=== PATIENT | male | born 1955 | race Caucasian/White ===

== ENCOUNTER → 2019-08-14 15:44 | Outpatient (BNVA) | payer MEDICAID, SELFPAY | PROVIDERS: Family Provider Nurse Practitioner; PCP Nurse Practitioner; Visit Provider Specialist | DX: I99.8 Other disorder of circulatory system (principal); G47.10 Hypersomnia, unspecified; F17.210 Nicotine dependence, cigarettes, uncomplicated; Z86.73 Personal history of transient ischemic attack (TIA), and cerebral infarction without residual deficits | CPT/HCPCS: 99214 ==

== ENCOUNTER → 2019-08-19 11:05 | Outpatient (BNVA) | payer MEDICAID, SELFPAY | PROVIDERS: Family Provider Nurse Practitioner; PCP Nurse Practitioner; Visit Provider Nurse Practitioner Family | DX: I10 Essential (primary) hypertension (principal); Z12.5 Encounter for screening for malignant neoplasm of prostate; M54.30 Sciatica, unspecified side; G47.10 Hypersomnia, unspecified; E78.5 Hyperlipidemia, unspecified; F32.9 Major depressive disorder, single episode, unspecified | CPT/HCPCS: 80053; 80061; 84443; 85025; G0103 ==

== ENCOUNTER 2019-08-20 08:43 | Outpatient (CLI) | payer MEDICAID, SELFPAY ==
--- NOTE | 2019-08-20 09:30 | MR_ITS ---
WS: [id number] MRA HEAD TECHNIQUE: Axial 3-D TOF images obtained with axial images and axial, sagittal, and coronal 2-D refor matted images. CLINICAL INFORMATION: aneurysm COMPARISON: CTA head neck December 14, 2018 FINDINGS: On the scouts imaging and partially visualized is a left frontoparietal subdural fluid colle ction presumably subdural hematoma measuring 13 mm in transverse dimension. Moderate mass effect on t he underlying brain parenchyma. No hydrocephalus. Recommend further evaluation with head CT. Distal vertebral arteries are patent. Left dominant distal vertebral artery. Basilar artery is patent . Normal vascularity to the [employer]ATIONS ADVOC[employer] territory bilaterally. Both ICAs are patent at the skull base. Normal vascularity to the NANCY and MCA territories bilaterally . Hypoplastic right A1. No evidence of high-grade proximal stenosis. Again seen is the 3 mm anterior communicating artery aneurysm. This is not significantly changed from previous CTA December 14, 2018. Normal vascularity to the NANCY territory. Notified Rosa Maria Titus MD at 08/20/2019 10:39 AM. 1. MR/MR angio head wo con [id number] IMPRESSION: 1. Stable 3 mm anterior communicating artery aneurysm. 2. Partially visualized left frontal parietal extra-axial fluid collection lik trav subdural hematoma with partially visualized mass effect. Recommend further evaluation with CT. No hydrocephalus. 3. Left dominant vertebral artery. Basilar artery is patent. 4. Normal variant hypoplastic right A1 segment. 5. No evidence of high-grade proximal stenosis.
== END 2019-08-20 08:44 | disposition home or self-care (01) ==
LOC: RADSHAW 08:45
PROVIDERS: Family Provider Nurse Practitioner; PCP Nurse Practitioner; Visit Provider Specialist
DX: I72.9 Aneurysm of unspecified site (principal)
CPT/HCPCS: 70544

== ENCOUNTER 2019-09-11 14:42 | Outpatient (CLI) | payer MEDICAID, SELFPAY ==
--- NOTE | 2019-09-11 15:15 | CT_ITS ---
WS: [id number] CT HEAD TECHNIQUE: Noncontrast CT of the head obtained from the skullbase to the vertex. CLINICAL INFORMATION: subdural hematoma COMPARISON: MRA 08/20/19 DLP: 992.[address] scans at [facility] use at least one of these dose optimization techniques: automat ed exposure control; mA and/or kV adjustment per patient size (includes targeted exams where dose is matched to clinical indication); or iterative reconstruction. FINDINGS: Again seen is the extra-axial hematoma overlying the left hemisphere more prominent overlying the fro ntal lobe. This appears to have increased in size since the prior MRA today measuring 2.5 cm in trans verse dimension. Increased attenuation blood products suggestive of interval hemorrhage since the haley or examination. In addition, hematoma today has changed in configuration with a lentiform shape today suspicious for epidural hematoma. No visualized fractures. Increased mass effect with left to right midline shift measuring 5.3 mm. Partial effacement of the le ft lateral ventricle increased from previous. No hydrocephalus. No ventricular trapping. Mild parenchymal volume loss. Basal cisterns are cisternal are patent. Dense vascular calcification. Partial opacification left mastoid tip.. Notified Rosa Maria Titus MD at 09/11/2019 3:[address]/CT head wo con* [id number] IMPRESSION: 1. Interval increase in size of the high attenuation extra-axial hematoma. To this measures 2.5 cm in transverse dimension with attenuation hemorrhage sugges tive of interval bleeding. 2. Mass effect on the left frontal lobe with left to right midline shift measu ring 5.3 mm. No hydrocephalus. Hemodynamic configuration today is suspicious for epidural hematoma. No visuali zed underlying fractures.
== END 2019-09-11 14:43 | disposition home or self-care (01) ==
LOC: RADWPI 14:44
PROVIDERS: Family Provider Nurse Practitioner; PCP Nurse Practitioner; Visit Provider Specialist
DX: S06.5X9A Traumatic subdural hemorrhage with loss of consciousness of unspecified duration, initial encounter (principal); X58.XXXA Exposure to other specified factors, initial encounter
CPT/HCPCS: 70450

== ENCOUNTER 2019-09-11 16:09 | Emergency (ER) | payer MEDICAID, SELFPAY | END 2019-09-11 23:09 | disposition admitted as inpatient to this hospital (09) | LOC: ER 10-14 10:36 | PROVIDERS: Emergency Provider Emergency Medicine; Family Provider Nurse Practitioner; PCP Nurse Practitioner | DX: I62.9 Nontraumatic intracranial hemorrhage, unspecified (principal); I67.1 Cerebral aneurysm, nonruptured; F32.9 Major depressive disorder, single episode, unspecified; E78.5 Hyperlipidemia, unspecified; I10 Essential (primary) hypertension; E05.90 Thyrotoxicosis, unspecified without thyrotoxic crisis or storm; I63.81 Other cerebral infarction due to occlusion or stenosis of small artery; F17.210 Nicotine dependence, cigarettes, uncomplicated | CPT/HCPCS: 12345; 36415; 80053; 80307; 85025; 85610; 85730; 96360; 96361; 99282; 99285; J7030 ==

== ENCOUNTER 2019-09-11 16:09 | Inpatient (IN) | payer MEDICAID, SELFPAY ==
[2019-09-11] VITALS (9 sets, daily range): BP systolic 124–151; BP diastolic 67–114; PULSE 56–82; RESP 7–23; TEMP 36.6–36.7; O2SAT 94–99; BMI 29.2
--- NOTE | 2019-09-11 16:49 | ED_ITS ---
Entered by Norma Snyder, acting as scribe for Obdulia Todd MD HPI - General Adult General: Chief complaint: General Medical Stated complaint: sent by eloise Time Seen by Provider: 09/11/19 16:49 Source: patient and RN notes reviewed Mode of arrival: ambulatory Limitations: no limitations History of Present Illness: HPI narrative: 63 yo male presents to ED stating he has a possible brain bleed, per Dr Titus. The patient has a confirmed aneurysm and had an MRI for a follow up to that. He was seen by Dr Titus who sent him to the ER. The patient said he was demar on a camper in July and he fell, landing on his head. He has had a headache for 4 days. He has had no change in his behavior or actions since the fall. He said he has felt fine. He takes a baby aspirin a day, but no other anticoagulants. complaint: Fall Onset (ago): month(s) (1.5) Location: head Radiation: non-radiation Severity: mild Quality: aching Pain Consistency: intermittent Relieving factors: none Exacerbating factors: none Associated symptoms: Reports headache(s); Deny chest pain, dyspnea, nausea, rash or vomiting Treatments prior to arrival: none Review of Systems General: Reports: 10 or more systems reviewed and unremarkable except in HPI and below Const: Denies: fever or chills Eyes: Denies: change in vision ENMT: Denies: throat pain Card: Denies: chest pain Resp: Denies: shortness of breath GI: Denies: abdominal pain, nausea, vomiting or change in bowel habits Musc: Denies: muscle weakness Skin/Breast: Denies: rash Neuro: Reports: headache Psych: Denies: hopelessness or suicidal ideation Endo: Denies: excessive urination Casey/Lymph: Denies: easy bruising or easy bleeding All/Imm: Denies: hives PFS ED PFSH: Medical History (Updated 09/11/19 @ 21:09 by Andreina Marshall MD) Cerebral aneurysm Anterior communicating Artery, unruptured, 3mm Depression history of previous SI episodes History of alcohol dependence sobriety date 02/01 Hyperlipidemia Hypertension Hyperthyroidism Lacunar stroke Sciatica TIA (transient ischemic attack) Surgical History (Updated 09/11/19 @ 22:15 by Andreina Marshall MD) History of ankle surgery left, for fracture History of surgery on right wrist Social History (Updated 09/11/19 @ 20:55 by Andreina Marshall MD) Smoking and tobacco status: current every day smoker cigarettes Packs smoked per day: 0.25 Alcohol intake: former Year of sobriety/quit date alcohol: 02/01 Substance/Drug Use: current Substance/Drug use frequency: few times a week Substance/Drug use type: Marijuana Physical Exam Const: COMMON NORMALS: oriented x3 and alert ORIENTATION/CONSCIOUSNESS: Yes oriented to person, Yes oriented to place and Yes oriented to time HENMT: COMMON NORMALS: normocephalic, external ears normal and external nose normal HEAD & SCALP: normocephalic NOSE: external nose normal EXTERNAL EAR: Yes external ears normal MOUTH: oral and palatal mucosa normal THROAT: posterior oropharynx normal Eye: COMMON NORMALS: PERRL, EOMs intact bilaterally, conjunctivae normal, no scleral icterus and normal visual benites by confrontation CONJUNCTIVA: Yes conjunctivae normal PUPIL: Yes PERRL Neck/C-Spine: COMMON NORMALS: full ROM, no lymphadenopathy, supple, no meningeal signs and no JVD CERVICAL SPINE: Yes cervical ROM normal Lymph: LYMPHATIC: no lymphadenopathy noted Chest: COMMONS NORMALS: inspection of chest normal Resp: COMMON NORMALS: normal respiratory effort, no retractions, no use of accessory muscles and clear to auscultation bilaterally AUSCULTATION: clear to auscultation bilaterally Cardio: COMMON NORMALS: no JVD, regular rate, regular rhythm, no gallops, no clicks, no murmurs and no rub RATE: regular rate RHYTHM: regular rhythm GI: COMMON NORMALS: normal to inspection, nondistended, normoactive bowel sounds, soft to palpation and non-tender AUSCULTATION: Yes normoactive bowel sounds PALPATION: Yes soft : COMMON NORMALS: Yes no CVA tenderness BLADDER/KIDNEY EXAM: Yes no CVA tenderness Back/Pelvis: COMMON NORMALS: no CVA tenderness Extremity: COMMON NORMALS: normal to inspection Neuro: COMMON NORMALS: oriented x3, no focal motor deficits and no sensory deficits noted SENSORIUM/ORIENTATION: Yes alert, Yes oriented to person, Yes oriented to place and Yes oriented to time MENINGEAL SIGNS: Yes no meningeal signs CRANIAL NERVES: Yes CN normal except as noted COORDINATION/BALANCE: [id number] test normal SPEECH: speech normal COORDINATION: [id number] test normal Psych: COMMON NORMALS: mental status grossly normal, thought process normal, cooperative, affect normal, speech normal, activity/motor behavior normal, denies hallucinations, denies homicidal ideation and denies suicidal ideation SPEECH: Yes normal speech THOUGHT PROCESS: normal thought process Skin: COMMON NORMALS: no rashes or lesions noted GENERAL SKIN EXAM: no rashes or lesions noted Course Vital Signs: Vital signs: Vital Signs Temperature 98.0 F 09/11/19 16:10 Pulse Rate 74 09/11/19 16:10 Respiratory Rate 16 09/11/19 16:10 Blood Pressure 151/114 09/11/19 16:10 Pulse Oximetry 96 09/11/19 16:10 MDM - General Adult MDM Narrative: Medical decision making narrative: Discussed with Dr. Ridley who already knew about the patient from Dr. Titus. He recommends admission to the hospital service keep patient n.p.o. If he remains virtually asymptomatic will see him tomorrow and discuss options but should he change or deteriorate in any way may need to intervene before tomorrow. I also discussed with Dr. Villanueva who will relay the information to Dr. Marshall as she is the hospitalist coming on shortly and she will admit the patient. Lab Data: Attestation: I reviewed the patient's lab results. Labs: Lab Results 09/11/19 09/11/19 09/11/19 Range/Units 16:56 16:56 16:56 WBC 5.6 (4.0-10.0) 10^3/ uL RBC 4.53 (4.1-5.3) 10^6/u L Hgb 14.5 (11.7-16.6) g/dL Hct 41.7 L (42.0-52.0) % MCV 92.1 (80-94) fL MCH 32.0 (28.0-34.0) pg MCHC 34.8 (30.0-36.0) g/dL RDW 12.2 (12.1-15.1) % Plt Count 261 (130-400) 10^3/c mm MPV 10.0 (7.4-10.4) fL Neut % (Auto) 63.8 % Lymph % (Auto) 20.8 % [place] % (Auto) 10.8 % Eos % (Auto) 3.4 % Baso % (Auto) 0.5 % Neut # (Auto) 3.6 (1.8-7.7) 10^3/u L Lymph # (Auto) 1.2 (0.8-4.8) 10^3/u L [place] # (Auto) 0.6 (0.2-0.9) 10^3/u L Eos # (Auto) 0.2 (0.0-0.8) 10^3/u L Baso # (Auto) 0.0 (0.0-0.1) 10^3/u L Nucleated RBC % (a uto) 0 % Nucleated RBCs # 0.0 /100WBC PT 13.90 H (10.5-13.3) SECO NDS INR 1.04 (0.8-1.2) APTT 32.8 (23.9-36.7) SECO NDS Sodium 139 (136-145) mmol/L Potassium 4.1 (3.5-5.1) mmol/L Chloride 103 (98-107) mmol/L Carbon Dioxide 25 (22-29) mmol/L Anion Gap 15.1 (5-19) BUN 8 (8-23) mg/dL Creatinine 0.7 (0.7-1.2) mg/dL GFR Calculation 114.6 (90-130) mL/min Glucose 93 (65-115) mg/dL Calcium 9.8 (8.5-10.5) mg/dL Total Bilirubin 0.4 (0.15-1.2) mg/dL AST 27 (0-40) U/L ALT 19 (0-41) U/L Alkaline Phosphata se 84 (40-130) IU/L Total Protein 7.6 (6.6-8.7) g/dL Albumin 4.7 (3.5-5.2) g/dL Globulin 2.9 (1.3-4.6) g/dL Ethyl Alcohol (0-10) mg/dL 09/11/19 Range/Units 16:56 WBC (4.0-10.0) 10^3/ uL RBC (4.1-5.3) 10^6/u L Hgb (11.7-16.6) g/dL Hct (42.0-52.0) % MCV (80-94) fL MCH (28.0-34.0) pg MCHC (30.0-36.0) g/dL RDW (12.1-15.1) % Plt Count (130-400) 10^3/c mm MPV (7.4-10.4) fL Neut % (Auto) % Lymph % (Auto) % Dallas % (Auto) % Eos % (Auto) % Baso % (Auto) % Neut # (Auto) (1.8-7.7) 10^3/u L Lymph # (Auto) (0.8-4.8) 10^3/u L [place] # (Auto) (0.2-0.9) 10^3/u L Eos # (Auto) (0.0-0.8) 10^3/u L Baso # (Auto) (0.0-0.1) 10^3/u L Nucleated RBC % (a uto) % Nucleated RBCs # /100WBC PT (10.5-13.3) SECO NDS INR (0.8-1.2) APTT (23.9-36.7) SECO NDS Sodium (136-145) mmol/L Potassium (3.5-5.1) mmol/L Chloride (98-107) mmol/L Carbon Dioxide (22-29) mmol/L Anion Gap (5-19) BUN (8-23) mg/dL Creatinine (0.7-1.2) mg/dL GFR Calculation (90-130) mL/min Glucose (65-115) mg/dL Calcium (8.5-10.5) mg/dL Total Bilirubin (0.15-1.2) mg/dL AST (0-40) U/L ALT (0-41) U/L Alkaline Phosphata se (40-130) IU/L Total Protein (6.6-8.7) g/dL Albumin (3.5-5.2) g/dL Globulin (1.3-4.6) g/dL Ethyl Alcohol 43 H (0-10) mg/dL Imaging Data^: CT Head: Radiologist's impression: [address] [address] [address] Scan Report Signed Patient: Gavin French Jr #: [id number] : 8Acct#:[id number] Age/Sex: 63 / MADM Date: 09/11/19 Loc: RADWPIRoom/Bed: Attending Dr: Rosa Maria Titus MD Ordering Provider/Ordering MD: Rosa Maria Titus MD Date of Service: 09/11/19 Procedure(s): CT head wo con* [id number] Accession Number(s): [id number] Report Number: [id number] WS: [id number] CT HEAD TECHNIQUE: Noncontrast CT of the head obtained from the skullbase to the vertex. CLINICAL INFORMATION: subdural hematoma COMPARISON: MRA 08/20/19 DLP: 992.[address] scans at [facility] use at least one of these dose optimization techniques: automated exposure control; mA and/or kV adjustment per patient size (includes targeted exams where dose is matched to clinical indication); or iterative reconstruction. FINDINGS: Again seen is the extra-axial hematoma overlying the left hemisphere more prominent overlying the frontal lobe. This appears to have increased in size since the prior MRA today measuring 2.5 cm in transverse dimension. Increased attenuation blood products suggestive of interval hemorrhage since the prior examination. In addition, hematoma today has changed in configuration with a lentiform shape today suspicious for epidural hematoma. No visualized fractures. Increased mass effect with left to right midline shift measuring 5.3 mm. Partial effacement of the left lateral ventricle increased from previous. No hydrocephalus. No ventricular trapping. Mild parenchymal volume loss. Basal cisterns are cisternal are patent. Dense vascular calcification. Partial opacification left mastoid tip.. Notified Rosa Maria Titus MD at 09/11/2019 3:[address]/CT head wo con* [id number] IMPRESSION: 1. Interval increase in size of the high attenuation extra-axial hematoma. To this measures 2.5 cm in transverse dimension with attenuation hemorrhage suggestive of interval bleeding. 2. Mass effect on the left frontal lobe with left to right midline shift measuring 5.3 mm. No hydrocephalus. Hemodynamic configuration today is suspicious for epidural hematoma. No visualized underlying fractures. Dictated By:Itz Valles MD Signed By:Itz Valles MDSigned Date/Time:09/11/19 1539 DD/ Discharge Plan Discharge Patient Disposition: Admitted As Inpatient Clinical Impression: Intracranial hemorrhage, Aneurysm, cerebral Condition: Stable Referrals: Javier Villalobos, CIVIL CAD TECH-C [Primary Care Provider] - Coding Level of Care Code ED Hot [place] Production Supervisor for Chg Fwd Exam Comprehensive The documentation recorded by the Claudio gandara Valerie R, accurately reflects the service I personally performed and the decisions made by Perez day Megan, MD Sep 11, 2019 16:09
[2019-09-11 17:17] LABS: Basophils % 0.5 %; Eosinophils # 0.2 10^3/uL (0.0-0.8); Eosinophils % 3.4 %; Hematocrit 41.7 % (42.0-52.0); Hemoglobin 14.5 g/dL (11.7-16.6); Lymphocytes # 1.2 10^3/uL (0.8-4.8); Lymphocytes % 20.8 %; Mean Corpuscular HGB Conc 34.8 g/dL (30.0-36.0); Mean Corpuscular Volume 92.1 fL (80-94); Monocytes # 0.6 10^3/uL (0.2-0.9); Monocytes % 10.8 %; Neutrophils # 3.6 10^3/uL (1.8-7.7); Neutrophils % 63.8 %; Nucleated Red Blood Cells % 0 %; Platelet Count 261 10^3/cmm (130-400); Red Blood Count 4.53 10^6/uL (4.1-5.3); Red Cell Distribution Width 12.2 % (12.1-15.1); White Blood Count 5.6 10^3/uL (4.0-10.0)
[2019-09-11 17:42] LABS: Alanine Aminotransferase 19 U/L (0-41); Albumin Level 4.7 g/dL (3.5-5.2); Alkaline Phosphatase 84 IU/L (40-130); Anion Gap 15.1 (5-19); Aspartate Amino Transferase 27 U/L (0-40); Blood Urea Nitrogen 8 mg/dL (8-23); Calcium 9.8 mg/dL (8.5-10.5); Carbon Dioxide 25 mmol/L (22-29); Chloride 103 mmol/L (98-107); Globulin 2.9 g/dL (1.3-4.6); Glomerular Filtration Rate 114.6 mL/min (90-130); Glucose 93 mg/dL (65-115); Potassium 4.1 mmol/L (3.5-5.1); Sodium 139 mmol/L (136-145); Total Bilirubin 0.4 mg/dL (0.15-1.2); Total Protein 7.6 g/dL (6.6-8.7)
[2019-09-11 18:01] LABS: INR 1.04 (0.8-1.2); Partial Thromboplastin Time 32.8 SECONDS (23.9-36.7)
[2019-09-11] MEDS: sodium chloride 0.9% 1,000 ML 125 ML IV (18:54)
[2019-09-11 19:01] LABS: Alcohol Level 43 mg/dL (0-10)
--- NOTE | 2019-09-11 19:27 | P.CONIM_ITS ---
Providers/Reason For Consult Consulting Physican/Specialty*: Dhara Ridley MD/Neurosurgery Reason for Consult*: Subacute left frontal extra-axial hematoma Requesting Physcian: Dr. Todd Primary Care Provider: KAITLYNN Hurd History of Present Illness History of Present Illness Gavin French Jr is a 63 year old male who presented to the emergency department after a scheduled CT head demonstrated progression of a left frontal extra-axial hematoma. The patient is managed by Dr. Titus, and had a routine surveillance MRA of the head performed on 08/20/2019 for evaluation of a known small unruptured anterior communicating artery aneurysm. The aneurysm appeared stable, but a new left frontoparietal convexity subdural hematoma was demonstrated. A follow-up CT was ordered, and ultimately completed today. That study suggested hematoma enlargement, with associated progressive mass-effect. Dr. Titus discussed the case with me, and instructed the patient to present to the Emergency Department. He retrospectively reported a fall from a camper in July. He struck the back of his head, and sustained a laceration. He did not seek medical care at that time. He reported no headaches until approximately 4 days ago. He was evaluated appropriately in the ED, and found to be without focal neurologic deficits or significant laboratory abnormalities. Formal Neurosurgery consultation was requested. Review of Systems Const: Denies: fever or chills Eyes: Reports: blurry vision (cataracts); Denies: change in vision ENMT: Reports: disequilibrium (mld, chronic); Denies: ear discharge or nasal discharge Card: Denies: palpitations or edema Resp: Denies: shortness of breath or productive cough GI: Denies: nausea or vomiting : Denies: flank pain or urinary incontinence Musc: Reports: back pain (chronic, intermittent) and other (reports extremity muscle soreness after working on a roof yesterday) Skin/Breast: Denies: rash or sores Neuro: Reports: headache; Denies: numbness in extremities, weakness in extremities or slurred speech Psych: Reports: depression (history) Casey/Lymph: Denies: easy bruising or easy bleeding All/Imm: Denies: hives or tongue swelling Meds/Allergies Home Medications and Allergies Home Medications Medication Instructions Recorded Confirmed Type aspirin 81 mg tablet,delayed 81 mg PO QDAY 08/14/19 09/11/19 History release citalopram 40 mg PO DAILY 09/11/19 09/11/19 History hydroxyzine pamoate 50 mg PO DAILY PRN 09/11/19 09/11/19 History lisinopril 40 mg PO DAILY 09/11/19 09/11/19 History multivitamin [Multiple Vitamins] 1 tab PO DAILY 09/11/19 09/11/19 History Allergies Allergy/AdvReac Type Severity Reaction Status Date / Time No Known Allergies Allergy Verified 09/11/19 16:14 Current Medications Current Medications Generic Name Dose Route Start Last Admin Trade Name Freq PRN Reason Stop Dose Admin Sodium Chloride 1,000 mls @ 125 mls/hr 09/11/19 18:45 09/11/19 18:54 Sodium Chloride 0.9% IV 125 mls/hr .Q8H OBED Administration PFSH Acute PFSH: Medical History Cerebral aneurysm Anterior communicating Artery, unruptured, 3mm Depression history of previous SI episodes History of alcohol dependence reported sobriety date of 02/01 Hyperlipidemia Hypertension Hyperthyroidism Lacunar stroke Sciatica TIA (transient ischemic attack) Surgical History History of ankle surgery left, for fracture History of surgery on right wrist Social History Smoking and tobacco status: current every day smoker cigarettes Packs smoked per day: 0.25 Alcohol intake: former Year of sobriety/quit date alcohol: 02/01 Substance/Drug Use: current Substance/Drug use frequency: few times a week Substance/Drug use type: Marijuana Vitals/I&O/Wt Last Vital Signs Temp 98.0 F 09/11/19 16:10 Pulse 74 09/11/19 16:10 Resp 16 09/11/19 16:10 BP 151/114 09/11/19 16:10 Pulse Ox 96 09/11/19 16:10 Weight last 48 hrs Weight 170 lb Physical Exam Const: COMMON NORMALS: no apparent distress, healthy appearing and alert GENERAL APPEARANCE: cooperative, well kempt and well developed HENMT: COMMON NORMALS: normocephalic, external ears normal and EAC's normal; head/scalp not atraumatic (minimal residual cephalohematoma left occipital) HEAD & SCALP: normal to inspection and normocephalic; not atraumatic (minimal residual cephalohematoma left occipital), no Jason's sign and no palpable skull fracture FACE & SINUS: face symmetric NOSE: no nasal discharge GENERAL EAR: hearing not grossly impaired EXTERNAL EAR: Yes external ears normal EXTERNAL AUDITORY CANAL: EAC's normal MOUTH: lip normal; no dysphonia THROAT: posterior oropharynx normal and uvula midline Eye: COMMON NORMALS: EOMs intact bilaterally and conjunctivae normal CONJ UNCTIVA: Yes conjunctivae normal Neck/C-Spine: COMMON NORMALS: full ROM, supple and no JVD GENERAL: Yes trachea midline and No tender CERVICAL SPINE: Yes cervical ROM normal, No pain with cervical ROM and No cervical spine tenderness Chest: COMMONS NORMALS: inspection of chest normal (Respirations even and unlabored) Resp: COMMON NORMALS: normal respiratory effort EFFORT & INSPECTION: No stridor Cardio: COMMON NORMALS: no JVD GI: COMMON NORMALS: soft to palpation PALPATION: Yes soft and No tender Back/Pelvis: THORACIC SPINE/UPPER BACK: Yes normal to inspection and No thoracic spinal tenderness LUMBAR SPINE/LOWER BACK: Yes normal to inspection, No lumbar spinal tenderness and Yes straight leg raise negative bilaterally PELVIS: No sciatic notch tenderness SACROILIAC JOINTS: Yes SI joints normal Extremity: COMMON NORMALS: no clubbing, cyanosis or edema OTHER: good radial pulses Neuro: COMMON NORMALS: moves all extremities, no focal motor deficits, no sensory deficits noted and gait normal SENSORIUM/ORIENTATION: Yes alert COORDINATION/BALANCE: No tandem gait normal (mildly unsteady) SPEECH: speech normal GAIT: Yes normal gait (Toe/heel gait OK) MOTOR EXAM: strength 5/5 throughout COORDINATION: tandem gait abnormal (mildly unsteady) Psych: COMMON NORMALS: mental status grossly normal, thought process normal and speech normal APPEARANCE: Yes grossly normal and Yes well kempt ATTITUDE: Yes calm ACTIVITY/MOTOR BEHAVIOR: Yes appropriate eye contact SPEECH: Yes normal speech MOOD & AFFECT: Yes euthymic mood THOUGHT PROCESS: normal thought process THOUGHT CONTENT: Yes normal thought content ATTENTION/CONCENTRATION: Yes attention grossly intact MEMORY/COGNITION: Yes memory grossly intact INSIGHT: insight good JUDGEMENT: judgment good Skin: COMMON NORMALS: no rashes or lesions noted GENERAL SKIN EXAM: no rashes or lesions noted Data Imaging^: CT Head: My impression: Dominant findings are progression of the left frontal extra-axial fluid collection. Findings would be most compatible with subacute or acute on chronic subdural hematoma. A more lentiform appearance is noted on the CT than the prior MRI, which had clearly demonstrated a subdural fluid collection. No overlying skull fracture is appreciated. A component of epidural hematoma is not excluded. The maximal thickness is now greater than 2cm and is associated with approximately 5mm of midline shift. No intraparenchymal or subarachnoid hemorrhage is suggested. MRI: My impression: MRA: Dominant findings of a stable, small anterior communicating artery aneurysm and a new left convexity subdural hematoma. The hematoma measures greater than 1 cm in maximal thickness, and is associated with minimal midline shift. A&P Assessment and plan (1) Subdural hematoma: Patient with apparent post-traumatic extra-axial left frontal hematoma that was sustained in a fall in July. Hematoma expansion was identified on a followup scan today, and he has developed new headaches over the last 4 days. A lengthy discussion occurred with the patient regarding the clinical and radiographic findings. Diagnostic and treatment options were reviewed with the risks, potential benefits, and rationale for each. Questions were answered to the reported satisfaction of all present. Recommend twist-drill drainage of left frontal hematoma in AM, if deemed medically reasonable after Hospitalist evaluation. He is aware that burrhole drainage, or even craniotomy, could be required if twistdrill dainage is ineffective. The patient is aware that even surgery does not guarantee relief of symptoms. He understands that surgery carries risks, including the risks of persistent/progressive hematoma, permanent brain damage, and even . He requests to proceed with surgery in the AM, as recommended. Plan- NPO after midnight. Neurochecks. Hold all antiplatelet agents/anticoagulants. Consent for Twistdrill, possible burrhole, drainage of left frontal subdural hematoma. Surgery in AM. Status: Acute Code(s): S06.5X9A - Traumatic subdural hemorrhage with loss of consciousness of unspecified duration, initial encounter Consult Attestations Medical Necessity Statement: Patient is appropriate for inpatient monitoring and management of subdural hematoma, with potential for life-threatening neurologic decline. Time Spent in Patient Care: Greater than 35 minutes Coding Level of Care Code Acute Precision Machine Operator for [facility] Fwd Exam Comprehensive Diagnoses Subdural hematoma S06.5X9A
--- NOTE | 2019-09-11 20:08 | PM.HP ---
Providers/Chief Complaint Admitting Physician: Andreina Marshall MD Primary Care Provider: RAJIV Hurd-C Chief Complaint: sent by eloise History of Present Illness Diana French Jr is a 63 year old male who presented to the emergency room after CT of his head today showed increasing subdural hematoma. He had a fall in July for which he did not seek medical attention. He follows with Dr. Titus for cerebral aneurysm and had an MRA done on August 20. It showed evidence of left frontal parietal small subdural hematoma for which patient was essentially asymptomatic. A CT of the head was ordered for follow-up and was done today. This demonstrated enlarging area suggestive of ongoing bleeding, leading to the ER visit. Dr. Titus I discussed the case with Dr. Ridley who plans to take Mr. French to surgery in the morning to evacuate the hematoma. He denies any recent cardiopulmonary symptoms to speak of. He has no history of anesthesia complications and has had 2 prior orthopedic surgeries. Other than the subdural hematoma denies any history of bleeding. He does smoke and has had alcohol dependence in the past but reports a history of sobriety date in January of last year or so. Chronic medical problems include hypertension and hyperlipidemia but no known history of coronary artery disease. Had a negative cardiac catheterization in 2012 reported as normal and had an echocardiogram in December of last year that was unremarkable. Reports no difficulties achieving activities of daily living though does not perform regular diana exercise. He is being admitted to the hospitalist service. Review of Systems Const: Denies: fever or chills Eyes: Reports: other (no recent change in vision or eye pain) ENMT: Reports: disequilibrium (not new or worse); Denies: throat pain, hoarseness, change in hearing or nasal discharge Card: Denies: chest pain, palpitations, edema, syncope, shortness of breath on exertion or shortness of breath when lying down Resp: Denies: shortness of breath, productive cough, non-productive cough or wheezing GI: Denies: abdominal pain, nausea, vomiting, diarrhea, constipation or blood in stool : Denies: difficulty urinating, urinary frequency, urinary urgency or urinary hesitancy Musc: Reports: back pain (sometimes); Denies: joint pain, redness or joint warmth Skin/Breast: Denies: rash or sores Neuro: Reports: headache (center and left of forehead); Denies: numbness in extremities, weakness in extremities, slurred speech or seizure-like activity Psych: Denies: mood swings or memory loss Casey/Lymph: Denies: easy bruising or easy bleeding Medications/Allergies Home Medications Medication Instructions Recorded Confirmed Last Taken Type citalopram 40 mg PO DAILY 09/11/19 09/11/19 09/10/19 History hydroxyzine pamoate 50 mg PO DAILY PRN 09/11/19 09/11/19 Unknown History lisinopril 40 mg PO DAILY 09/11/19 09/11/19 09/10/19 History multivitamin [Multiple Vitamins] 1 tab PO DAILY 09/11/19 09/11/19 09/10/19 History Allergies Allergy/AdvReac Type Severity Reaction Status Date / Time No Known Allergies Allergy Verified 09/11/19 16:14 Additional Medication Information Additional Medication Information: Other home meds include aspirin 81 daily, atorvastatin 20 day, coreg12.5 day, famotidine 20 day, lasix 20 day, gabapentin 300 bid. PFSH Acute PFSH: Medical History Cerebral aneurysm Anterior communicating Artery, unruptured, 3mm Depression history of previous SI episodes History of alcohol dependence reported sobriety date of 02/01 Hyperlipidemia Hypertension Hyperthyroidism Lacunar stroke Sciatica TIA (transient ischemic attack) Surgical History History of ankle surgery left, for fracture History of surgery on right wrist Family History Other Cancer Hypertension Stroke Denies family history of Diabetes CAD (coronary artery disease) Social History Smoking and tobacco status: current every day smoker cigarettes Packs smoked per day: 0.25 Alcohol intake: former Year of sobriety/quit date alcohol: 02/01 Substance/Drug Use: current Substance/Drug use frequency: few times a week Substance/Drug use type: Marijuana Supplemental PFSH Information: History lsd, herion, cocaine use but none in 15-20years. No hx IV drugs. Vitals/I&O/Wt Last Vital Signs Temp 98.0 F 09/11/19 16:10 Pulse 74 09/11/19 16:10 Resp 16 09/11/19 16:10 BP 151/114 09/11/19 16:10 Pulse Ox 96 09/11/19 16:10 Weight last 48 hrs Weight 77.111 kg Physical Exam Const: COMMON NORMALS: oriented x3 and alert HENMT: HEAD & SCALP: normocephalic and laceration (Old, left parietal occipital area, healing well but palpable) TEETH & GINGIVA: Yes fair dentition Eye: COMMON NORMALS: PERRL and EOMs intact bilaterally Neck/C-Spine: COMMON NORMALS: supple Resp: COMMON NORMALS: normal respiratory effort, no use of accessory muscles and clear to auscultation bilaterally Cardio: COMMON NORMALS: regular rate, no gallops, no murmurs and no rub GI: COMMON NORMALS: normal to inspection, nondistended, normoactive bowel sounds, soft to palpation, non-tender and no masses Extremity: COMMON NORMALS: normal capillary refill, no clubbing, cyanosis or edema and no calf tenderness Neuro: COMMON NORMALS: moves all extremities and no sensory deficits noted Psych: COMMON NORMALS: thought process normal and cooperative Skin: COMMON NORMALS: no rashes or lesions noted Data : 09/11/19 16:56 09/11/19 16:56 CT Head: Radiologist's impression: FINDINGS: Again seen is the extra-axial hematoma overlying the left hemisphere more prominent overlying the frontal lobe. This appears to have increased in size since the prior MRA today measuring 2.5 cm in transverse dimension. Increased attenuation blood products suggestive of interval hemorrhage since the prior examination. In addition, hematoma today has changed in configuration with a lentiform shape today suspicious for epidural hematoma. No visualized fractures. Increased mass effect with left to right midline shift measuring 5.3 mm. Partial effacement of the left lateral ventricle increased from previous. No hydrocephalus. No ventricular trapping. Mild parenchymal volume loss. Basal cisterns are cisternal are patent. Dense vascular calcification. Partial opacification left mastoid tip.. Notified Rosa Maria Titus MD at 09/11/2019 3:[address]/CT head wo con* [id number] IMPRESSION: 1. Interval increase in size of the high attenuation extra-axial hematoma. To this measures 2.5 cm in transverse dimension with attenuation hemorrhage suggestive of interval bleeding. 2. Mass effect on the left frontal lobe with left to right midline shift measuring 5.3 mm. No hydrocephalus. Hemodynamic configuration today is suspicious for epidural hematoma. No visualized underlying fractures. A&P Assessment and plan (1) Subdural hematoma: Evaluated by Dr titus and Dr Ridley with plan for surgery in morning. Largely asymptomatic but enlarging. Status: Acute Code(s): S06.5X9A - Traumatic subdural hemorrhage with loss of consciousness of unspecified duration, initial encounter (2) Cerebral aneurysm: Stable without any recent change Status: Chronic Code(s): I67.1 - Cerebral aneurysm, nonruptured (3) Hypertension: Chronically on lisinopril, furosemide, carvedilol Status: Acute Qualifiers: Hypertension type: essential hypertension Qualified Code(s): I10 - Essential (primary) hypertension Code(s): I10 - Essential (primary) hypertension (4) Hyperlipidemia: chronically on statin Status: Chronic Qualifiers: Hyperlipidemia type: unspecified Qualified Code(s): E78.5 - Hyperlipidemia, unspecified Code(s): E78.5 - Hyperlipidemia, unspecified (5) History of alcohol dependence: Sobriety date reported of 02/01, but has mild elevation in etoh level today. Have not been able to question him specifically thus far. Status: Acute Code(s): F10.21 - Alcohol dependence, in remission (6) Smoker: Status: Acute Code(s): F17.200 - Nicotine dependence, unspecified, uncomplicated Additional A&P Information Inpatient admission Will require ICU postoperatively Neurochecks Hold home aspirin indefinitely for now We will hold ARIA inhibitor and diuretic therapy currently Continue carvedilol but given intermittent episodes of bradycardia in the ED will cut dose by half Continue home statin and other medications as ordered SCDs for DVT prophylaxis Nicotine patch as needed Chronically on Pepcid which have continued I have some concerns about patient's blood alcohol level today being slightly up at 43. I have not had an opportunity to speak with him without any family in the room. He reports a sobriety date of 02/01. Will need to be cognizant and monitor for signs of alcohol withdrawal during hospital stay Given history of alcohol dependence and polysubstance use in the past, want to minimize use of addictive medications as able while still treating patient as needed. Reviewed with patient Dr. Ridley's plans. He is able to describe the surgical procedure which will be done as well as risk and benefits. Him and his who is present in the room are agreeable to proceeding. All were given an opportunity to ask questions. Supportive care otherwise From a preoperative standpoint patient has had a negative cardiac catheterization and an unremarkable echocardiogram within the last 7 years and 8 months or so respectively. He does smoke and has other issues as noted. Will need to monitor for perioperative cardiopulmonary events but no contraindication currently to proceeding with surgery under the circumstances. Full code Attestations Medical Necessity Statement*: Anticipate hospital stay greater than 2 midnights in a patient with subacute but expanding subdural hematoma which will require surgical evacuation. Coding Level of Care Code Acute Delivery Crew Member for Chg Fwd Exam Comprehensive Diagnoses Subdural hematoma S06.5X9A Cerebral aneurysm I67.1 Hypertension I10 Hypertension type: essential hypertension Hyperlipidemia E78.5 Hyperlipidemia type: unspecified History of alcohol dependence F10.21 Smoker F17.200 Perioperative Risk Evaluation Type of surgery Surgical procedures: Twistdrill, possible burrhole, drainage of left frontal subdural hematoma by Dr Ridley Procedure risk: elevated risk procedure Status of surgery Priority: urgent (neccessary within 6-24 hours) Sepsis risk Sepsis risk: reviewed and none apply Risk factors Other risk factors: current tobacco user Medical history Diagnostic procedures within the past year: echo (01/02 EF 60% normal LV size and systolic function, normal diastolic filling. Trace AR, trileaflet valve.) Cardiac Studies: No Data to Display Functional capacity Exercise tolerance: 4-10 METS (no limitations in ADLs and other activities reported) Medications High priority meds: ARIA inhibitors/ARBs, beta-blockers, diuretics, statins and antiplatelets (81 aspirin only) Physical exam Physical exam: reviewed and none apply Assessment Risk of cardiovascular perioperative events: Elevated At this time, there is an elevated risk for cardiovascular perioperative events associated with this urgent elevated risk procedure (Twistdrill, possible burrhole, drainage of left frontal subdura...). Risk of noncardiovascular perioperative events: Elevated At this time, there is an elevated risk for noncardiovascular perioperative events associated with this urgent elevated risk procedure (Twistdrill, possible burrhole, drainage of left frontal subdura...) and the following patient characteristics: current tobacco user Recommendations Patient medically optimized for surgery: Yes Norma-op med management: Currently, there are multiple high priority active medications: ARIA inhibitors/ARBs, beta-blockers, diuretics, statins, antiplatelets. The recommended actions are: Additional recommendations for postoperative medical care: minimize mood altering medications with addiction potential monitor for signs of alcohol withdrawal given ED Etoh level of 43 despite reported abstinence since 02/01 encourage deep breathing and ambulation when appropriate breathing treatments as needed given smoking history scds and other routine care as per surgery
[2019-09-11] MEDS: atorvastatin 40 mg Tablet 20 MG PO (23:56)
[2019-09-11] MEDS: D5-NS 0.45% + KCL 20 mEq 20 MEQ/1,000 ML BAG 30 MEQ IV (23:57)
[2019-09-12] VITALS (87 sets, daily range): BP systolic 101–163; BP diastolic 40–125; PULSE 45–76; RESP 13–36; TEMP 36.4–36.9; O2SAT 89–100; BMI 29.2
[2019-09-12 00:18] LABS: Add Urine Microscopic? NO
[2019-09-12 00:27] LABS: Bilirubin Urine Neg (NEGATIVE); Blood Urine Neg (Negative); Glucose Urine UA Norm (Normal); Ketones Urine Negative (Negative); Leukocyte Esterase Urine Negative (Negative); Nitrate Urine Negative (Negative); Protein Urine Neg (Negative); Urine Appearance Clear (CLEAR); Urine Color Yellow (Yellow); Urobilinogen Urine 1 mg/dL (Negative); pH Urine 6 (5-7)
[2019-09-12] MEDS: ipratropium-albuterol 3 mL Neb INHALATION ×3 (02:44→20:38)
--- NOTE | 2019-09-12 08:51 | ANES.PREANE2 ---
Pre-Anesthetic Assessment Pre-Anesthetic Assessment: Height/Weight: Height 1.63 m Weight 77.111 kg Temp Pulse Resp BP Pulse Ox 97.9 F 65 14 126/86 94 09/11/19 23:22 09/12/19 08:00 09/12/19 08:00 09/12/19 08:00 09/12/19 04:05 Preop Diagnosis: subdural hematoma Proposed Procedure: Operation Date: 09/12/19 08:30 Proposed Procedures p Twist Drill Drainage of Subdural Hematoma(Not Applicable) - Stephon Ridley MD Familial anesthetic complications: No Was Beta Viri taken within 24 hours: N/A Last intake: NPO > 8 hrs Social: Social History: Alcohol (Occassional use, sobriety since january) and Tobacco Exam: Pre-Anes Outpt Exam: alert, oriented x 3, clear to auscultation bilaterally and regular rate & rhythm Airway: Cervical ROM: WNL MP: 2 Additional comments: missing Pulmonary: Pulmonary: None reported CV/HEM: CV/HEM: HTN : : None reported Hepatic: Hepatic: None reported GI: GI: None reported Metabolic: Metabolic: Hyperlipidemia Musc/skel: Musc/skel: None reported Neuropsych: Neuropsych: CVA Comments: cerebral aneurysm - with subdural hematoma Anesthetic Plan: ASA status: 3 Anesthesia: MAC Risk of > 500 ml blood loss (7ml/kg in children): No Meds/Allergies Current Medications: Current Medications Generic Name Dose Route Start Last Admin Trade Name Freq PRN Reason Stop Dose Admin Albuterol/Ipratrop ium 3 ml 09/12/19 03:00 09/12/19 02:44 Duoneb INHALATION 3 ml Q6H.RESPIRATORY S CH Administration Atorvastatin Calci um 20 mg 09/11/19 23:22 09/11/19 23:56 Lipitor PO 20 mg BEDTIME OBED Administration Potassium Chloride /Dextrose/Sod Cl 20 meq in 1,000 m ls @ 30 mls/hr 09/11/19 23:45 09/11/19 23:57 D5-Ns 0.45% + Tad l 20 Meq IV 30 mls/hr .Q24H OBED Administration Additional Medication Information: Other home meds include aspirin 81 daily, atorvastatin 20 day, coreg12.5 day, famotidine 20 day, lasix 20 day, gabapentin 300 bid. PFSH Anesthesia PFSH: Medical History Cerebral aneurysm Anterior communicating Artery, unruptured, 3mm Depression history of previous SI episodes History of alcohol dependence reported sobriety date of 02/01 Hyperlipidemia Hypertension Hyperthyroidism Lacunar stroke Sciatica TIA (transient ischemic attack) Surgical History History of ankle surgery left, for fracture History of surgery on right wrist Family History Other Cancer Hypertension Stroke Denies family history of Diabetes CAD (coronary artery disease) Social History Smoking and tobacco status: current every day smoker cigarettes Packs smoked per day: 0.25 Alcohol intake: former Year of sobriety/quit date alcohol: 02/01 Substance/Drug Use: current Substance/Drug use frequency: few times a week Substance/Drug use type: Marijuana Data Anesthesia CBC & Chem 7: 09/11/19 16:56 09/11/19 16:56 Other Labs: Laboratory Results - last 48 hr 09/11/19 09/11/19 09/11/19 16:56 16:56 16:56 WBC 5.6 RBC 4.53 Hgb 14.5 Hct 41.7 L MCV 92.1 MCH 32.0 MCHC 34.8 RDW 12.2 Plt Count 261 MPV 10.0 Neut % (Auto) 63.8 Lymph % (Auto) 20.8 [place] % (Auto) 10.8 Eos % (Auto) 3.4 Baso % (Auto) 0.5 Neut # (Auto) 3.6 Lymph # (Auto) 1.2 [place] # (Auto) 0.6 Eos # (Auto) 0.2 Baso # (Auto) 0.0 Nucleated RBC % (auto) 0 Nucleated RBCs # 0.0 PT 13.90 H INR 1.04 APTT 32.8 Sodium 139 Potassium 4.1 Chloride 103 Carbon Dioxide 25 Anion Gap 15.1 BUN 8 Creatinine 0.7 GFR Calculation 114.6 Glucose 93 Calcium 9.8 Total Bilirubin 0.4 AST 27 ALT 19 Alkaline Phosphatase 84 Total Protein 7.6 Albumin 4.7 Globulin 2.9 Urine Color Urine Appearance Urine pH Ur Specific [place] Urine Protein Urine Glucose (UA) Urine Ketones Urine Blood Urine Nitrate Urine Bilirubin Urine Urobilinogen Ur Leukocyte Esterase Ethyl Alcohol 09/11/19 09/12/19 16:56 00:14 WBC RBC Hgb Hct MCV MCH MCHC RDW Plt Count MPV Neut % (Auto) Lymph % (Auto) [place] % (Auto) Eos % (Auto) Baso % (Auto) Neut # (Auto) Lymph # (Auto) [place] # (Auto) Eos # (Auto) Baso # (Auto) Nucleated RBC % (auto) Nucleated RBCs # PT INR APTT Sodium Potassium Chloride Carbon Dioxide Anion Gap BUN Creatinine GFR Calculation Glucose Calcium Total Bilirubin AST ALT Alkaline Phosphatase Total Protein Albumin Globulin Urine Color Yellow Urine Appearance Clear Urine pH 6 Ur Specific [place] 1.020 Urine Protein Neg Urine Glucose (UA) Norm Urine Ketones Negative Urine Blood Neg Urine Nitrate Negative Urine Bilirubin Neg Urine Urobilinogen 1 H Ur Leukocyte Esterase Negative Ethyl Alcohol 43 H Cardiac Studies: No Data to Display
--- NOTE | 2019-09-12 09:19 | PM.OP2 ---
 Brief Operative Note: Date of procedure: 09/12/19 Pre-op diagnosis: Subdural Hematoma Post-op diagnosis: same Procedure Done: Placement of left frontal twistdrill (SEPS) drain. Surgeon: Stephon Ridley Estimated blood loss (mL): 10 Complications: None Post-op Plan: ICU Condition: stable Disposition: ICU Coding Level of Care Code Acute Solar Project Coordination Specialist for Fatoumata Cintron
--- NOTE | 2019-09-12 09:54 | PC.NURSE ---
0900 to OR via bed with surgical personnel awake and alert.
[2019-09-12] MEDS: neomycin-poly-bacitracin oint 28 gm 28 APPLIC (09:55)
--- NOTE | 2019-09-12 10:24 | CT_ITS ---
WS: [id number] CT HEAD NONCONTRAST HISTORY: postop TECHNIQUE: Contiguous axial imaging performed through the brain in 2.5 mm imaging. Bone and soft tiss ue windows. Sagittal and coronal reformats reviewed. All CT scans at [facility] use at le ast one of these dose optimization techniques: automated exposure control; mA and/or kV adjustment pe r patient size (includes targeted exams where dose is matched to clinical indication); or iterative r econstruction. DLP: 1409.33 mGy.cm COMPARISON: 09/11/2019 Acute LEFT frontal extra-axial hematoma has been partially drained. There is a small residual collect ion over the LEFT frontal lobe measuring 1.2 cm as compared to 2.5 cm on the prior study. Small amoun t of air in the extra-axial fluid collection. There is still some mass effect upon the frontal lobe b ut no residual midline shift. Mild effacement of sulci over the frontal lobe towards the vertex. Mild bilateral frontal atrophy. Small amount of increased CSF over the RIGHT frontal lobe with no acu te blood products. Probably due to chronic hygroma or related to atrophy. Ventricles: Normal size with no hydrocephalus. Paranasal sinuses: As visualized are clear. Mastoid air cells: Small amount of fluid in the LEFT mastoid air cells. Calvarium and scalp: [place] has been placed through the LEFT calvarium. No residual drainage catheter within the fluid. CT/CT head wo con* [id number] IMPRESSION: 1. Interval evacuation of the LEFT frontal extra-axial hematoma. There is now less mass effect upon the LEFT frontal lobe and no midline shift. 2. There is still residual minimally complex fluid collection over the LEFT fr ontal lobe with a maximum diameter of 1.2 cm.
[2019-09-12] MEDS: sodium chlor 0.9% + KCl 20 mEq 20 MEQ/1,000 ML BAG 100 MEQ IV ×2 (10:45→23:01)
[2019-09-12 11:16] LABS: Basophils % 0.5 %; Eosinophils # 0.2 10^3/uL (0.0-0.8); Eosinophils % 2.6 %; Hematocrit 41.4 % (42.0-52.0); Hemoglobin 14.2 g/dL (11.7-16.6); Lymphocytes % 16.6 %; Mean Corpuscular HGB Conc 34.3 g/dL (30.0-36.0); Mean Corpuscular Hemoglobin 33.1 pg (28.0-34.0); Mean Corpuscular Volume 96.5 fL (80-94); Mean Platelet Volume 9.7 fL (7.4-10.4); Monocytes # 0.5 10^3/uL (0.2-0.9); Monocytes % 9.3 %; Neutrophils % 70.5 %; Nucleated Red Blood Cells % 0 %; Platelet Count 232 10^3/cmm (130-400); Red Blood Count 4.29 10^6/uL (4.1-5.3); Red Cell Distribution Width 12.3 % (12.1-15.1); White Blood Count 5.7 10^3/uL (4.0-10.0)
[2019-09-12 11:56] LABS: INR 1.08 (0.8-1.2)
--- NOTE | 2019-09-12 11:59 | PM.PN ---
Subjective Subjective: Interval history: Chart reviewed, OR this AM by Dr. Ridley. Patient seen and examined following return from OR status post evacuation of hematoma, drain in place. He is alert and oriented x3, is at bedside. Just being taken for repeat CT head. Seems to be in good spirits. Medications: Reviewed: Yes Medication Review Details: Active Medications Generic Name Dose Route Start Last Admin Trade Name Freq PRN Reason Stop Dose Admin Acetaminophen 650 mg 09/12/19 10:25 Tylenol PO Q4H PRN Mild Pain or feve r >101.5 Hydrocodone Bitart /Acetaminophen 1 - 2 tab 09/12/19 10:25 [place] 5-325 Mg PO Q4H PRN MODERATE TO SEVER E PAIN Al Hydrox/Mg [place] x/Simethicone 30 ml 09/12/19 10:25 Maalox PO Q4H PRN INDIGESTION Albuterol/Ipratrop ium 3 ml 09/12/19 03:00 09/12/19 02:44 Duoneb INHALATION 3 ml Q6H.RESPIRATORY S CH Administration Aspirin 81 mg 09/12/19 10:30 Aspirin Ec PO DAILY OBED Atorvastatin Calci um 20 mg 09/11/19 23:22 09/11/19 23:56 Lipitor PO 20 mg BEDTIME OBED Administration Carvedilol 6.25 mg 09/12/19 09:00 Coreg PO BID OBED Citalopram Hydrobr omide 40 mg 09/12/19 09:00 Celexa PO DAILY OBED Docusate Sodium 100 mg 09/12/19 18:00 Colace PO BID OBED Famotidine 20 mg 09/12/19 09:00 Pepcid Tab PO BID OBED Furosemide 20 mg 09/13/19 06:00 Lasix PO QAM OBED Gabapentin 300 mg 09/12/19 09:00 Neurontin PO BID OBED Cefazolin Sodium/D extrose 2 gm in 50 mls @ 100 mls/hr 09/12/19 17:00 Kefzol IV 09/13/19 09:29 Q8H OBED Protocol Potassium Chloride /Sodium Chloride 20 meq in 1,000 m ls @ 100 mls/hr 09/12/19 10:30 Sodium Chlor 0.9 % + Kcl 20 Meq IV .Q10H OBED Ketorolac Trometha mine 15 mg 09/12/19 10:25 Toradol IVP Q6H PRN BREAKTHROUGH PAIN Lisinopril 40 mg 09/12/19 10:30 Prinivil PO DAILY [facility] Magnesium Hydroxid e 30 ml 09/12/19 10:25 Milk Of Magnesia PO Q4H PRN Constipation/darlin gestion Multivitamins Ther apeutic 1 tab 09/12/19 09:00 Multivitamin Tab PO DAILY [facility] Nicotine 1 patch 09/11/19 23:22 Nicoderm 14 Mg P atch TRANSDERMA DAILY PRN nicotine withdraw al Ondansetron HCl 4 mg 09/11/19 23:22 Zofran IVP Q8H PRN vomiting, or N/V if npo Ondansetron HCl 4 mg 09/12/19 10:25 Zofran IVP Q6H PRN NAUSEA AND VOMITI NG Potassium Chloride 10 meq 09/12/19 10:30 Klor-Con 10 PO DAILY [facility] No Known Allergies Allergy (Verified 09/11/19 16:14) Vitals/I&O/Wt Last Vital Signs Temp 97.6 F 09/12/19 10:25 Pulse 55 L 09/12/19 10:25 Resp 16 09/12/19 08:49 BP 101/61 09/12/19 10:25 Pulse Ox 100 09/12/19 10:01 09/11/19 09/12/19 09/12/19 22:59 06:59 14:59 Intake Total 50 / 50 Output Total 150 / 150 Balance -150 / -150 50 / 50 Weight last 48 hrs Weight 77.111 kg Weight 77.111 kg Physical Exam Const: COMMON NORMALS: no apparent distress and oriented x3 GENERAL APPEARANCE: cooperative and comfortable ORIENTATION/CONSCIOUSNESS: Yes awake HENMT: COMMON NORMALS: normocephalic, head/scalp atraumatic, hearing grossly normal bilaterally and moist oral mucous membranes HEAD & SCALP: normocephalic and atraumatic TEETH & GINGIVA: Yes poor dentition OTHER: -Thick dressing over head, HIRO drain in place Eye: COMMON NORMALS: PERRL, EOMs intact bilaterally and conjunctivae normal CONJUNCTIVA: Yes conjunctivae normal PUPIL: Yes PERRL Neck/C-Spine: COMMON NORMALS: full ROM GENERAL: Yes normal visual inspection and Yes trachea midline Resp: COMMON NORMALS: normal respiratory effort, no retractions, no use of accessory muscles and clear to auscultation bilaterally EFFORT & INSPECTION: Yes able to speak in complete sentences, Yes symmetric chest movement and No tachypneic AUSCULTATION: clear to auscultation bilaterally Cardio: COMMON NORMALS: regular rate, regular rhythm, S1 normal heart sound, S2 normal heart sound and no murmurs RATE: regular rate RHYTHM: regular rhythm HEART SOUNDS: S1 normal and S2 normal GI: COMMON NORMALS: normal to inspection, nondistended, normoactive bowel sounds, soft to palpation and non-tender PALPATION: Yes soft Extremity: COMMON NORMALS: normal to inspection, full ROM and no clubbing, cyanosis or edema; negative for no pedal edema Neuro: COMMON NORMALS: oriented x3, moves all extremities, no focal motor deficits and no sensory deficits noted Psych: COMMON NORMALS: mental status grossly normal, thought process normal, cooperative, affect normal and speech normal SPEECH: Yes normal speech THOUGHT PROCESS: normal thought process Skin: COMMON NORMALS: no rashes or lesions noted, no jaundice, no petechiae and no mottling GENERAL SKIN EXAM: no rashes or lesions noted Data : 09/12/19 11:00 09/12/19 11:00 A&P Assessment and plan (1) Subdural hematoma: -OR this AM by Dr. Ridley, now status post twist drill drainage of left frontal subdural hematoma. Has drain in place, monitor output -imaging reviewed with noted interval subdural hematoma and mass effect -avoid AC, antiplatelets -fall precautions -Neurochecks -close monitoring of vital signs -consult by Dr. Ridley appreciated -Follow-up CT head showing interval evacuation of the left frontal extra-axial hematoma, less mass-effect upon the frontal lobe and no noted midline shift; repeat in AM Status: Acute Code(s): S06.5X9A - Traumatic subdural hemorrhage with loss of consciousness of unspecified duration, initial encounter (2) Cerebral aneurysm: -has known hx of 3mm anterior communicating artery aneurysm, non-ruptured, stable since 11/2018 -f/u with Dr. Titus Status: Chronic Code(s): I67.1 - Cerebral aneurysm, nonruptured (3) History of alcohol dependence: -reported sobriety though EtOH level-43 on admission -[facility] protocol Status: Acute Code(s): F10.21 - Alcohol dependence, in remission Additional A&P Information -Hyperlipidemia; on statin -HTN -Chronic smoker; nicotine patch -NPO; regular diet when PO appropriate -GI ppx with famotidine -DVT ppx with SCDs, no AC due to bleeding risk -Dispo: home -Code status: FULL code -ICU care given need for hematoma evacuation Attestations Medical Necessity Statement*: Patient requires hospitalization for continued management of subdural hematoma with mass effect, OR today for evacuation. Time Spent in Patient Care: Greater than 35 minutes (>than 50% of time spent in counselling and/or direct pt care on unit). Coding Level of Care Code Acute Occupational Medicine Specialist for Chg Fwd Exam Comprehensive Diagnoses Subdural hematoma S06.5X9A Cerebral aneurysm I67.1 History of alcohol dependence F10.21
[2019-09-12] MEDS: multivitamin therapeutic Tablet 1 TAB PO (12:12)
[2019-09-12] MEDS: famotidine 20 mg Tablet PO (12:12)
[2019-09-12] MEDS: aspirin 81 mg EC Tablet PO (12:12)
[2019-09-12] MEDS: lisinopril 20 mg Tablet 40 MG PO (12:13)
[2019-09-12] MEDS: citalopram 20 mg Tablet 40 MG PO (12:13)
[2019-09-12] MEDS: carvedilol 6.25 mg Tablet PO (12:13)
--- NOTE | 2019-09-12 12:14 | P.OP_ITS ---
Operative Report Date of procedure: September 12, 2019 Pre-op Diagnosis: subdural hematoma Post-op diagnosis: same Procedure Done: Twist drill drainage of left frontal subdural hematoma (SEPS). Specimens removed/disposition: Subdural hematoma fluid. Surgeon: Stephon Ridley Anesthesia: MAC Estimated blood loss (mL): 10 IV fluids (mL): 300 Complications: None. Condition: stable Disposition: ICU Brief History: The patient is a 63-year-old male with a symptomatic, radiographically confirmed left frontal subdural hematoma. The hematoma likely relates to fall from a camper in July. It was initially identified on a brain MRA performed in early August for routine surveillance of a known anterior communicating artery aneurysm. A follow-up CT performed yesterday demonstrated progression of the hematoma, and surgical intervention was recommended. Procedure: After routine preoperative evaluation and informed consent were obtained, the patient was taken to the Operating Room and positioned supine on the operating table. He was maintained under sedation and monitored by Anesthesia personnel. Hair clippers were utilized on the left hemicranium in the area of the planned left frontal scalp incision site. A sterile skin marker was utilized to jose alfredo surface landmarks and the planned scalp incision site. The patient's scalp was scrubbed with Betadine and prepped with DuraPrep. Sterile towels and drapes were applied. [place] surgical barrier was placed. The planned scalp incision site was infiltrated with 1% Xylocaine with Epinephrine. A skin incision was made and carried down to the pericranium. A self-retaining retractor was placed. Hemostasis was obtained with the bipolar electrocautery. A twist drill hole was fashioned with the hand drill. The dura was coagulated at the base of the javi-hole. No epidural hematoma was visualized. The dura was incised, with immediate flow of subacute appearing subdural hematoma fluid. A specimen was collected and sent to path/micro for routine evaluation. An 8 [place] red rubber catheter was advanced into the subdural space. [place] driven irrigation with lactated Ringers solution was performed until the subdural irrigant returned clear. Approximately 1 L of irrigant was utilized. The subdural evacuation port system (SEPS) bolt was threaded into the skull until secure. The drain catheter was attached to the bolt and to the Danial-Vela bulb. The bulb was charged and blood-tinged clear fluid flow was demonstrated. The scalp incision was gently irrigated with antibiotic irrigation. Skin closure was performed with simple interrupted 3-0 Nylon sutures. Antibiotic ointment was placed at the scalp incision line and around the bolt. A sterile dressing was placed, followed by a Kerlix head wrap. The patient was then transferred onto the transport cart in the supine position. He was taken to the intensive care unit for continued monitoring and management. The patient tolerated the procedure well. All sponge, needle and instrument counts were correct at the completion of the procedure.
[2019-09-12] MEDS: gabapentin 300 mg Capsule PO (12:15)
[2019-09-12 12:37] LABS: Blood Urea Nitrogen 6 mg/dL (8-23); Carbon Dioxide 23 mmol/L (22-29); Chloride 103 mmol/L (98-107); Glomerular Filtration Rate 114.6 mL/min (90-130); Glucose 145 mg/dL (65-115); Osmolality Calculated 286 mOsm/kg (285-295); Sodium 139 mmol/L (136-145)
[2019-09-12 12:40] LABS: Fibrinogen 301 mg/dL (184-529)
[2019-09-12] MEDS: HYDROcodone-acetaminophen 5-325 mg Tablet PO ×2 (12:53→22:46)
--- NOTE | 2019-09-12 18:18 | PC.NURSE ---
1500 patient reported loose stool of moderate size.
[2019-09-13] VITALS (30 sets, daily range): BP systolic 96–171; BP diastolic 55–119; PULSE 52–78; RESP 12–26; TEMP 36.7–36.9; O2SAT 93–97
[2019-09-13] MEDS: ipratropium-albuterol 3 mL Neb INHALATION ×4 (03:37→21:51)
[2019-09-13 05:13] LABS: Basophils % 0.4 %; Eosinophils # 0.3 10^3/uL (0.0-0.8); Eosinophils % 3.8 %; Hematocrit 39.6 % (42.0-52.0); Hemoglobin 13.6 g/dL (11.7-16.6); Lymphocytes # 1.2 10^3/uL (0.8-4.8); Lymphocytes % 17.4 %; Mean Corpuscular HGB Conc 34.3 g/dL (30.0-36.0); Mean Corpuscular Hemoglobin 32.9 pg (28.0-34.0); Mean Corpuscular Volume 95.7 fL (80-94); Mean Platelet Volume 9.9 fL (7.4-10.4); Monocytes # 0.8 10^3/uL (0.2-0.9); Monocytes % 11.2 %; Neutrophils # 4.7 10^3/uL (1.8-7.7); Neutrophils % 66.6 %; Nucleated Red Blood Cells % 0 %; Platelet Count 233 10^3/cmm (130-400); Red Blood Count 4.14 10^6/uL (4.1-5.3); Red Cell Distribution Width 12.1 % (12.1-15.1); White Blood Count 7.1 10^3/uL (4.0-10.0)
[2019-09-13 05:34] LABS: Anion Gap 12.3 (5-19); Blood Urea Nitrogen 7 mg/dL (8-23); Calcium 8.9 mg/dL (8.5-10.5); Carbon Dioxide 23 mmol/L (22-29); Chloride 105 mmol/L (98-107); Glucose 123 mg/dL (65-115); Osmolality Calculated 279 mOsm/kg (285-295); Potassium 4.3 mmol/L (3.5-5.1); Sodium 136 mmol/L (136-145)
--- NOTE | 2019-09-13 06:03 | PC.NURSE ---
patient has been up in chair most of night. denies any pain or headache, daniel drain is draining serous fluid minimal amount. patients v/s/ are wnl and rest of assessment was unremarkable. patient has been voiding per bathroom privileges, gait steady and neuro checks have all been wnl. iv infusing without complications.
--- NOTE | 2019-09-13 07:00 | CT_ITS ---
WS: [id number] CT HEAD TECHNIQUE: Noncontrast CT of the head obtained from the skullbase to the vertex. CLINICAL INFORMATION: postop followup COMPARISON: None. DLP: 762.[address] scans at [facility] use at least one of these dose optimization techniques: automat ed exposure control; mA and/or kV adjustment per patient size (includes targeted exams where dose is matched to clinical indication); or iterative reconstruction. FINDINGS: Left frontal javi hole with evacuation of the previously described hemorrhagic subdural hematoma. No significant residual or recurrent extra-axial high attenuation blood products. Low-attenuation fluid overlying the left frontal lobe with a small amount of air is stable from yesterday. Mild mass effect on the left frontal lobe. Minimal left to right midline shift. No hydrocephalus. CT/CT head wo con* [id number] IMPRESSION: 1. Left frontal javi hole with evacuation of the left frontal extra-axial subd ural hematoma. 2. Stable low-attenuation fluid and air overlying the left frontal convexity. Mild mass effect. No significant midline shift. 3. No evidence of recurrent hemorrhage.
[2019-09-13] MEDS: citalopram 20 mg Tablet 40 MG PO (08:37)
[2019-09-13] MEDS: carvedilol 6.25 mg Tablet PO ×2 (08:38→17:08)
[2019-09-13] MEDS: aspirin 81 mg EC Tablet PO (08:39)
[2019-09-13] MEDS: gabapentin 300 mg Capsule PO ×2 (08:39→17:09)
[2019-09-13] MEDS: multivitamin therapeutic Tablet 1 TAB PO (08:39)
[2019-09-13] MEDS: FUROsemide 20 mg Tablet PO (08:40)
[2019-09-13] MEDS: docusate sodium 100 mg Capsule PO ×2 (08:40→17:08)
[2019-09-13] MEDS: famotidine 20 mg Tablet PO ×2 (08:41→17:08)
[2019-09-13] MEDS: lisinopril 20 mg Tablet 40 MG PO (08:41)
--- NOTE | 2019-09-13 08:56 | ANE.PACU2 ---
 Inpatient post-anesthesia follow up: Airway intact: Yes Vital signs: Temperature 98.5 F Pulse Rate [Monito r] 74 Pulse Rate 55 Respiratory Rate 14 Blood Pressure [Le ft Arm] 151/114 Blood Pressure 140/67 Pulse Oximetry 97 Oxygen Delivery Me thod Room Air Oxygen Flow Rate 10 Fraction of Inspir ed Oxygen Hydration adequate: Yes Nausea and vomiting: No Pain level: 2 Mental status: Baseline
--- NOTE | 2019-09-13 09:24 | PM.PN ---
Subjective Subjective: Interval history: Doing well. Reported minimal headache at prior PM visit and again this AM. Vitals/I&O/Wt Last Vital Signs Temp 98.5 F 09/13/19 06:14 Pulse 58 L 09/13/19 09:13 Resp 16 09/13/19 09:08 BP 140/67 09/13/19 07:00 Pulse Ox 96 09/13/19 09:08 09/12/19 09/13/19 09/13/19 22:59 06:59 14:59 Intake Total 1410 / 1700 1060 / 2760 Output Total 1210 / 1915 1300 / 3215 Balance 200 / -215 -240 / -455 Weight last 48 hrs Weight 170 lb Weight 170 lb Physical Exam Const: COMMON NORMALS: no apparent distress GENERAL APPEARANCE: cooperative and comfortable HENMT: HEAD & SCALP: other (scalp dressing and SEPS bolt/drain intact.); no raccoon eyes GENERAL EAR: hearing not grossly impaired TEETH & GINGIVA: Yes poor dentition Eye: COMMON NORMALS: EOMs intact bilaterally ALIGNMENT: Yes alignment normal Neck/C-Spine: COMMON NORMALS: supple and no JVD GENERAL: Yes trachea midline Resp: COMMON NORMALS: normal respiratory effort EFFORT & INSPECTION: Yes able to speak in complete sentences and No tachypneic Cardio: COMMON NORMALS: no JVD and regular rate RATE: regular rate Extremity: COMMON NORMALS: no clubbing, cyanosis or edema Neuro: COMMON NORMALS: moves all extremities and no focal motor deficits COORDINATION/BALANCE: [id number]-pr-thgy test normal and [id number] test normal SPEECH: speech normal GAIT: Yes other (ambulates unassisted) COORDINATION: hrjbhn-[id number] test normal and [id number]-[id number] test normal Psych: COMMON NORMALS: mental status grossly normal, thought process normal and speech normal ATTITUDE: Yes calm and Yes engaged ACTIVITY/MOTOR BEHAVIOR: Yes appropriate eye contact SPEECH: Yes normal speech MOOD & AFFECT: Yes euthymic mood THOUGHT PROCESS: normal thought process Skin: WOUNDS: Yes surgical site (dressing C/D/I) Data : 09/13/19 04:50 09/14/19 10:57 Micro: Microbiology 09/12/19 09:40 Gram Stain - Final Sub-Dural Hematoma CT Head: My impression: Postop 09/12/2019 scan was reviewed yesterday and discussed with patient. Follow-up 09/13/2019 scan was reviewed today and discussed with patient. Both studies demonstrate postoperative changes consistent with twist drill drainage of left frontal subdural hematoma. The SEPS bolt is visualized. There is marked decrease in hematoma volume, density, and associated mass-effect compared to the preoperative exam. There is essentially complete resolution of preoperative midline shift. There is mild postoperative pneumocephalus. A&P Assessment and plan (1) Subdural hematoma: Patient is doing well after twist drill drainage of left frontal subdural hematoma (POD #1). He has been up in a bedside chair, and ambulatory in his room. Blood-tinged fluid drainage from the SEPS drain persists, but at a lower output than immediately postop. The postoperative CT today does not show significant improvement compared to yesterday's exam. Plan continuation of SEPS drain to bulb suction. Re-evaluate drain output and patient status later today. Probable drain removal this evening versus tomorrow a.m.. Maintain ICU care until drain removal. Daily a.m. CT head until discharge. Status: Acute Code(s): S06.5X9A - Traumatic subdural hemorrhage with loss of consciousness of unspecified duration, initial encounter Attestations Medical Necessity Statement*: Patient is appropriate for inpatient management of surgically treated subdural hematoma. Coding Level of Care Code Acute Rock Loader for [facility] Fwd Exam Comprehensive Diagnoses Subdural hematoma S06.5X9A
[2019-09-13] MEDS: sodium chlor 0.9% + KCl 20 mEq 20 MEQ/1,000 ML BAG 100 MEQ IV ×2 (09:50→19:37)
--- NOTE | 2019-09-13 12:11 | PM.PN ---
Subjective Subjective: Interval history: Morning labs noted, repeat imaging reviewed. Patient is postop day #1 status post evacuation of hematoma by Dr. Ridley. Drain remains in place, had 20 mL output overnight. Had a total urine output of 2050 mL overnight. Has been afebrile, hemodynamically stable, has had some intermittent bradycardia. Fluid gram stain is negative, prelim culture is negative as well. Potential drain removal later today or early tomorrow morning. Repeat CT head in the morning. He is resting comfortably in bed, no acute overnight events reported, has some blood-tinged drainage in drain bulb. Medications: Reviewed: Yes Medication Review Details: Active Medications Generic Name Dose Route Start Last Admin Trade Name Freq PRN Reason Stop Dose Admin Acetaminophen 650 mg 09/12/19 10:25 Tylenol PO Q4H PRN Mild Pain or feve r >101.5 Hydrocodone Bitart /Acetaminophen 1 - 2 tab 09/12/19 10:25 09/12/19 22:46 [place] 5-325 Mg PO 1 tab Q4H PRN Administration MODERATE TO SEVER E PAIN Al Hydrox/Mg Alfred x/Simethicone 30 ml 09/12/19 10:25 Maalox PO Q4H PRN INDIGESTION Albuterol/Ipratrop ium 3 ml 09/12/19 03:00 09/13/19 09:07 Duoneb INHALATION 3 ml Q6H.RESPIRATORY S CH Administration Aspirin 81 mg 09/12/19 10:30 09/13/19 08:39 Aspirin Ec PO 81 mg DAILY OBED Administration Atorvastatin Calci um 20 mg 09/11/19 23:22 09/12/19 23:03 Lipitor PO Not Given BEDTIME OBED Carvedilol 6.25 mg 09/12/19 09:00 09/13/19 08:38 Coreg PO 6.25 mg BID OBED Administration Citalopram Hydrobr omide 40 mg 09/12/19 09:00 09/13/19 08:37 Celexa PO 40 mg DAILY OBED Administration Docusate Sodium 100 mg 09/12/19 18:00 09/13/19 08:40 Colace PO 100 mg BID OBED Administration Famotidine 20 mg 09/12/19 09:00 09/13/19 08:41 Pepcid Tab PO 20 mg BID OBED Administration Furosemide 20 mg 09/13/19 06:00 09/13/19 08:40 Lasix PO 20 mg QAM OBED Administration Gabapentin 300 mg 09/12/19 09:00 09/13/19 08:39 Neurontin PO 300 mg BID OBED Administration Potassium Chloride /Sodium Chloride 20 meq in 1,000 m ls @ 100 mls/hr 09/12/19 10:30 09/13/19 09:50 Sodium Chlor 0.9 % + Kcl 20 Meq IV 100 mls/hr .Q10H OBED Administration Ketorolac Trometha mine 15 mg 09/12/19 10:25 Toradol IVP Q6H PRN BREAKTHROUGH PAIN Lisinopril 40 mg 09/12/19 10:30 09/13/19 08:41 Prinivil PO 40 mg DAILY OBED Administration Magnesium Hydroxid e 30 ml 09/12/19 10:25 Milk Of Magnesia PO Q4H PRN Constipation/darlin gestion Multivitamins Ther apeutic 1 tab 09/12/19 09:00 09/13/19 08:39 Multivitamin Tab PO 1 tab DAILY OBED Administration Nicotine 1 patch 09/11/19 23:22 Nicoderm 14 Mg P atch TRANSDERMA DAILY PRN nicotine withdraw al Ondansetron HCl 4 mg 09/11/19 23:22 Zofran IVP Q8H PRN vomiting, or N/V if npo Ondansetron HCl 4 mg 09/12/19 10:25 Zofran IVP Q6H PRN NAUSEA AND VOMITI NG Potassium Chloride 10 meq 09/12/19 10:30 09/13/19 08:41 Klor-Con 10 PO 10 meq DAILY OBED Administration No Known Allergies Allergy (Verified 09/11/19 16:14) Vitals/I&O/Wt Last Vital Signs Temp 98.5 F 09/13/19 06:14 Pulse 55 L 09/13/19 10:00 Resp 21 H 09/13/19 10:00 BP 124/64 09/13/19 10:00 Pulse Ox 95 09/13/19 10:00 09/12/19 09/13/19 09/13/19 22:59 06:59 14:59 Intake Total 1410 / 1700 1110 / 2810 1720 / 1720 Output Total 1210 / 1915 1300 / 3215 Balance 200 / -215 -190 / -405 1720 / 1720 Weight last 48 hrs Weight 77.111 kg Weight 77.111 kg Physical Exam Const: COMMON NORMALS: no apparent distress and oriented x3 GENERAL APPEARANCE: cooperative and comfortable ORIENTATION/CONSCIOUSNESS: Yes awake HENMT: COMMON NORMALS: normocephalic, head/scalp atraumatic, hearing grossly normal bilaterally and moist oral mucous membranes HEAD & SCALP: normocephalic and atraumatic TEETH & GINGIVA: Yes poor dentition OTHER: -Thick dressing over head, HIRO drain in place (noted blood tinged fluid in bulb) Eye: COMMON NORMALS: PERRL, EOMs intact bilaterally and conjunctivae normal CONJUNCTIVA: Yes conjunctivae normal PUPIL: Yes PERRL Neck/C-Spine: COMMON NORMALS: full ROM GENERAL: Yes normal visual inspection and Yes trachea midline Resp: COMMON NORMALS: normal respiratory effort, no retractions, no use of accessory muscles and clear to auscultation bilaterally EFFORT & INSPECTION: Yes able to speak in complete sentences, Yes symmetric chest movement and No tachypneic AUSCULTATION: clear to auscultation bilaterally Cardio: COMMON NORMALS: regular rate, regular rhythm, S1 normal heart sound, S2 normal heart sound and no murmurs RATE: regular rate RHYTHM: regular rhythm HEART SOUNDS: S1 normal and S2 normal GI: COMMON NORMALS: normal to inspection, nondistended, normoactive bowel sounds, soft to palpation and non-tender PALPATION: Yes soft Extremity: COMMON NORMALS: normal to inspection, full ROM and no clubbing, cyanosis or edema; negative for no pedal edema Neuro: COMMON NORMALS: oriented x3, moves all extremities, no focal motor deficits and no sensory deficits noted Psych: COMMON NORMALS: mental status grossly normal, thought process normal, cooperative, affect normal and speech normal SPEECH: Yes normal speech THOUGHT PROCESS: normal thought process Skin: COMMON NORMALS: no rashes or lesions noted, no jaundice, no petechiae and no mottling GENERAL SKIN EXAM: no rashes or lesions noted Data : 09/13/19 04:50 09/13/19 04:50 Micro: Microbiology 09/12/19 09:40 Gram Stain - Final Sub-Dural Hematoma Body Fluid Culture - Preliminary A&P Assessment and plan (1) Subdural hematoma: -status post twist drill drainage of left frontal subdural hematoma, POD # 1, done by Dr. Ridley. Has drain in place, monitor output -imaging reviewed with noted interval subdural hematoma and mass effect -avoid AC, antiplatelets -fall precautions -Neurochecks -close monitoring of vital signs -consult by Dr. Ridley appreciated -Follow-up CT head showing mild mass-effect, no midline shift, no recurrent hemorrhage, stable low-attenuation fluid and area overlying the left frontal convexity. Repeat in AM -H/H stable. Status: Acute Code(s): S06.5X9A - Traumatic subdural hemorrhage with loss of consciousness of unspecified duration, initial encounter (2) Cerebral aneurysm: -has known hx of 3mm anterior communicating artery aneurysm, non-ruptured, stable since 11/2018 -f/u with Dr. Titus Status: Chronic Code(s): I67.1 - Cerebral aneurysm, nonruptured (3) History of alcohol dependence: -reported sobriety though EtOH level-43 on admission -[facility] protocol Status: Acute Code(s): F10.21 - Alcohol dependence, in remission Additional A&P Information -Hyperlipidemia; on statin -HTN -Chronic smoker; nicotine patch -regular diet -GI ppx with famotidine -DVT ppx with SCDs, no AC due to bleeding risk -Dispo: home -Code status: FULL code -ICU care given need for hematoma evacuation and appropriate post-op care Attestations Medical Necessity Statement*: Patient requires hospitalization for continued postop management following evacuation of left frontal subdural hematoma, drain remains in place, requiring continued neuro checks and serial imaging. Time Spent in Patient Care: 16 - 35 minutes (>than 50% of time spent in counselling and/or direct pt care on unit). Coding Level of Care Code Acute Steward/Stewardess Third for Chg Fwd Exam Comprehensive Diagnoses Subdural hematoma S06.5X9A Cerebral aneurysm I67.1 History of alcohol dependence F10.21
--- NOTE | 2019-09-13 19:35 | PM.EVENT ---
Event Note Event Note: Doing well. No complaints. Brightly awake and alert. Jovial and conversant. MANZANO well. Minimal drain output since AM evaluation. Twist drill (SEPS) drain removed at beside. Suture placed at drain removal site. Scalp dressing placed. Tolerated well. Plan ICU monitoring overnight, and repeat head CT in AM.
--- NOTE | 2019-09-13 19:40 | PC.NURSE ---
Drain pulled Drain was pulled by at bedside. small bleeding and hematoma noted by and this nurse. pressure was held on bleed and two stitches to enforce wound and bleed. pressure dressing was applied by and informed patient that they would re-evaluate hematoma/wound site in the morning.
[2019-09-13] MEDS: atorvastatin 40 mg Tablet 20 MG PO (21:02)
[2019-09-13] MEDS: ketorolac 30 mg/mL INJ 15 MG IVP (22:22)
[2019-09-14] VITALS (15 sets, daily range): BP systolic 80–160; BP diastolic 45–90; PULSE 45–75; RESP 8–34; TEMP 36.6–36.7; O2SAT 89–97
--- NOTE | 2019-09-14 02:11 | PC.NURSE ---
when entering the room patient was sleeping and pressure dressing had come off patient. nurse examined wound. no bleeding or hematoma noted by nurse. dressing reapplied by nurse. patient stated he is not having any pain at this time. vital signs are stable.
[2019-09-14] MEDS: sodium chlor 0.9% + KCl 20 mEq 20 MEQ/1,000 ML BAG 100 MEQ IV (04:55)
--- NOTE | 2019-09-14 05:39 | PC.NURSE ---
while doing hourly rounding, could smell smoke in bathroom. supervisor industrial arts education notified and supervisor industrial arts education reiterated no smoking policy and the dangers of the oxygen in the room. patient denies smoking in bathroom.
[2019-09-14] MEDS: FUROsemide 20 mg Tablet PO (06:17)
--- NOTE | 2019-09-14 07:00 | CTR_ITS ---
PROCEDURE INFORMATION: Exam: CT Head Without Contrast Exam date and time: 09/14/2019 8:04 AM Age: 63 years old Clinical indication: Other: Recent bleed; Prior surgery; Surgery date: 3-7 days post-operative; Additional info: Postop followup TECHNIQUE: Imaging protocol: Computed tomography of the head without contrast. Total DLP: 740.62 mGy-cm Radiation optimization: All CT scans at this facility use at least one of these dose optimization techniques: automated exposure control; mA and/or kV adjustment per patient size (includes targeted exams where dose is matched to clinical indication); or iterative reconstruction. COMPARISON: CT head wo con* [id number] 09/13/2019 8:05 AM FINDINGS: Brain: There is stable to slight decrease in size of the low attenuating fluid collection along the left frontal lobe with associated locules of air, today measuring up to 1.3 cm in maximum dimension (previously 1.6 cm at the same level). There is a 2.5 mm crescentic hyperattenuating region along the inner table of the left frontal lobe compatible with a small amount of subdural blood. There is mild unchanged associated mass effect with minimal [id number] midline shift. There is no CT evidence of an acute transcortical infaction. Ventricles: No ventriculomegaly. Bones/joints: Small left frontal javi hole is again noted. Sinuses: Visualized sinuses are unremarkable. No fluid levels. Mastoid air cells: Visualized mastoid air cells are well aerated. Soft tissues: Unremarkable. Vasculature: Atherosclerotic calcifications are noted. CT/CT head wo con* [id number] IMPRESSION: 1. Overall stable to slight interval decrease in size of the low attenuating fluid collection along the left frontal lobe with associated locules of air as detailed. There is a 2.5 mm hyperattenuating region along the inner table of the left frontal lobe compatible with a small amount of subdural blood. Radiation Dose CTDIVOL = (mGy): DLP = 740.62 (mGy-cm)
[2019-09-14] MEDS: famotidine 20 mg Tablet PO (08:47)
[2019-09-14] MEDS: aspirin 81 mg EC Tablet PO (08:47)
[2019-09-14] MEDS: docusate sodium 100 mg Capsule PO (08:48)
[2019-09-14] MEDS: gabapentin 300 mg Capsule PO (08:48)
[2019-09-14] MEDS: carvedilol 6.25 mg Tablet PO (08:48)
[2019-09-14] MEDS: lisinopril 20 mg Tablet 40 MG PO (08:49)
[2019-09-14] MEDS: ipratropium-albuterol 3 mL Neb INHALATION (08:50)
--- NOTE | 2019-09-14 10:29 | PM.PN ---
Subjective Subjective: Interval history: Morning labs noted, repeat imaging reviewed. Patient is postop day #1 status post evacuation of hematoma by Dr. Ridley. Drain remains in place, had 20 mL output overnight. Had a total urine output of 2050 mL overnight. Has been afebrile, hemodynamically stable, has had some intermittent bradycardia. Fluid gram stain is negative, prelim culture is negative as well. Potential drain removal later today or early tomorrow morning. Repeat CT head in the morning. He is resting comfortably in bed, no acute overnight events reported, has some blood-tinged drainage in drain bulb. Medications: Reviewed: Yes Medication Review Details: Active Medications Generic Name Dose Route Start Last Admin Trade Name Freq PRN Reason Stop Dose Admin Acetaminophen 650 mg 09/12/19 10:25 Tylenol PO Q4H PRN Mild Pain or feve r >101.5 Hydrocodone Bitart /Acetaminophen 1 - 2 tab 09/12/19 10:25 09/12/19 22:46 [place] 5-325 Mg PO 1 tab Q4H PRN Administration MODERATE TO SEVER E PAIN Al Hydrox/Mg [place] x/Simethicone 30 ml 09/12/19 10:25 Maalox PO Q4H PRN INDIGESTION Albuterol/Ipratrop ium 3 ml 09/12/19 03:00 09/13/19 09:07 Duoneb INHALATION 3 ml Q6H.RESPIRATORY S CH Administration Aspirin 81 mg 09/12/19 10:30 09/13/19 08:39 Aspirin Ec PO 81 mg DAILY OBED Administration Atorvastatin Calci um 20 mg 09/11/19 23:22 09/12/19 23:03 Lipitor PO Not Given BEDTIME OBED Carvedilol 6.25 mg 09/12/19 09:00 09/13/19 08:38 Coreg PO 6.25 mg BID OBED Administration Citalopram Hydrobr omide 40 mg 09/12/19 09:00 09/13/19 08:37 Celexa PO 40 mg DAILY OBED Administration Docusate Sodium 100 mg 09/12/19 18:00 09/13/19 08:40 Colace PO 100 mg BID OBED Administration Famotidine 20 mg 09/12/19 09:00 09/13/19 08:41 Pepcid Tab PO 20 mg BID OBED Administration Furosemide 20 mg 09/13/19 06:00 09/13/19 08:40 Lasix PO 20 mg QAM OBED Administration Gabapentin 300 mg 09/12/19 09:00 09/13/19 08:39 Neurontin PO 300 mg BID OBED Administration Potassium Chloride /Sodium Chloride 20 meq in 1,000 m ls @ 100 mls/hr 09/12/19 10:30 09/13/19 09:50 Sodium Chlor 0.9 % + Kcl 20 Meq IV 100 mls/hr .Q10H OBED Administration Ketorolac Trometha mine 15 mg 09/12/19 10:25 Toradol IVP Q6H PRN BREAKTHROUGH PAIN Lisinopril 40 mg 09/12/19 10:30 09/13/19 08:41 Prinivil PO 40 mg DAILY OBED Administration Magnesium Hydroxid e 30 ml 09/12/19 10:25 Milk Of Magnesia PO Q4H PRN Constipation/darlin gestion Multivitamins Ther apeutic 1 tab 09/12/19 09:00 09/13/19 08:39 Multivitamin Tab PO 1 tab DAILY OBED Administration Nicotine 1 patch 09/11/19 23:22 Nicoderm 14 Mg P atch TRANSDERMA DAILY PRN nicotine withdraw al Ondansetron HCl 4 mg 09/11/19 23:22 Zofran IVP Q8H PRN vomiting, or N/V if npo Ondansetron HCl 4 mg 09/12/19 10:25 Zofran IVP Q6H PRN NAUSEA AND VOMITI NG Potassium Chloride 10 meq 09/12/19 10:30 09/13/19 08:41 Klor-Con 10 PO 10 meq DAILY OBED Administration No Known Allergies Allergy (Verified 09/11/19 16:14) Vitals/I&O/Wt Last Vital Signs Temp 97.9 F 09/14/19 05:00 Pulse 56 L 09/14/19 09:11 Resp 15 09/14/19 09:08 BP 106/61 09/14/19 05:00 Pulse Ox 96 09/14/19 09:08 09/13/19 09/14/19 09/14/19 22:59 06:59 14:59 Intake Total 1028.333 / 3468.333 930 / 4398.333 Output Total 2019 400 / 2420 Balance -991.667 / 1448.333 530 / 1978.333 Data : 09/13/19 04:50 09/13/19 04:50 Micro: Microbiology 09/12/19 09:40 Gram Stain - Final Sub-Dural Hematoma Body Fluid Culture - Preliminary A&P Assessment and plan (1) Subdural hematoma: -status post twist drill drainage of left frontal subdural hematoma, POD # 1, done by Dr. Ridley. Has drain in place, monitor output -imaging reviewed with noted interval subdural hematoma and mass effect -avoid AC, antiplatelets -fall precautions -Neurochecks -close monitoring of vital signs -consult by Dr. Ridley appreciated -Follow-up CT head showing mild mass-effect, no midline shift, no recurrent hemorrhage, stable low-attenuation fluid and area overlying the left frontal convexity. Repeat in AM -H/H stable. Status: Acute Code(s): S06.5X9A - Traumatic subdural hemorrhage with loss of consciousness of unspecified duration, initial encounter (2) Cerebral aneurysm: -has known hx of 3mm anterior communicating artery aneurysm, non-ruptured, stable since 11/2018 -f/u with Dr. Titus Status: Chronic Code(s): I67.1 - Cerebral aneurysm, nonruptured (3) History of alcohol dependence: -reported sobriety though EtOH level-43 on admission -[facility] protocol Status: Acute Code(s): F10.21 - Alcohol dependence, in remission Additional A&P Information -Hyperlipidemia; on statin -HTN -Chronic smoker; nicotine patch -regular diet -GI ppx with famotidine -DVT ppx with SCDs, no AC due to bleeding risk -Dispo: home -Code status: FULL code -ICU care given need for hematoma evacuation and appropriate post-op care Coding Level of Care Code Acute Labor Conciliator for Chg Fwd Diagnoses Subdural hematoma S06.5X9A Cerebral aneurysm I67.1 History of alcohol dependence F10.21
[2019-09-14 11:31] LABS: Alanine Aminotransferase 13 U/L (0-41); Alkaline Phosphatase 80 IU/L (40-130); Anion Gap 15.4 (5-19); Aspartate Amino Transferase 19 U/L (0-40); Blood Urea Nitrogen 9 mg/dL (8-23); Calcium 8.9 mg/dL (8.5-10.5); Carbon Dioxide 21 mmol/L (22-29); Chloride 104 mmol/L (98-107); Globulin 2.6 g/dL (1.3-4.6); Glomerular Filtration Rate 114.6 mL/min (90-130); Glucose 85 mg/dL (65-115); Potassium 4.4 mmol/L (3.5-5.1); Sodium 136 mmol/L (136-145); Total Bilirubin 0.5 mg/dL (0.15-1.2); Total Protein 6.6 g/dL (6.6-8.7)
--- NOTE | 2019-09-14 12:00 | P.PN_ITS ---
Subjective Subjective: Interval history: Patient denies headache, and reports no issues overnight. He requests discharge home. Vitals/I&O/Wt Last Vital Signs Temp 97.9 F 09/14/19 05:00 Pulse 61 09/14/19 10:00 Resp 15 09/14/19 10:00 BP 160/90 09/14/19 10:00 Pulse Ox 93 09/14/19 10:00 09/13/19 09/14/19 09/14/19 22:59 06:59 14:59 Intake Total 1028.333 / 3468.333 930 / 4398.333 480 / 480 Output Total 2019 400 / 2420 Balance -991.667 / 1448.333 530 / 1978.333 460 / 460 Physical Exam Const: COMMON NORMALS: no apparent distress GENERAL APPEARANCE: cooperative and comfortable HENMT: HEAD & SCALP: other (Scalp dressing placed prior PM has been removed.); no raccoon eyes GENERAL EAR: hearing not grossly impaired TEETH & GINGIVA: Yes poor dentition Eye: COMMON NORMALS: EOMs intact bilaterally ALIGNMENT: Yes alignment normal Neck/C-Spine: COMMON NORMALS: supple and no JVD GENERAL: Yes trachea midline Resp: COMMON NORMALS: normal respiratory effort EFFORT & INSPECTION: Yes able to speak in complete sentences and No tachypneic Cardio: COMMON NORMALS: no JVD and regular rate RATE: regular rate Extremity: COMMON NORMALS: no clubbing, cyanosis or edema Neuro: COMMON NORMALS: moves all extremities and no focal motor deficits COORDINATION/BALANCE: [id number]-kb-[id number] test normal and chsq-yy-[id number] test normal SPEECH: speech normal GAIT: Yes other COORDINATION: [id number]-[id number] test normal and krbs-xu-[id number] test normal Psych: COMMON NORMALS: thought process normal and speech normal ATTITUDE: Yes calm and Yes engaged ACTIVITY/MOTOR BEHAVIOR: Yes appropriate eye contact SPEECH: Yes normal speech MOOD & AFFECT: Yes euthymic mood THOUGHT PROCESS: normal thought process Skin: WOUNDS: Yes surgical site (Incision intact, without erythema or drainage.) Details: other (Light, waterproof dressing placed.) Data : 09/13/19 04:50 09/14/19 10:57 Micro: Microbiology 09/12/19 09:40 Gram Stain - Final Sub-Dural Hematoma Body Fluid Culture - Preliminary A&P Assessment and plan (1) Subdural hematoma: Patient is doing well after twist drill drainage of left frontal subdural hematoma (POD #2). He tolerated SEPS drain removal on the prior PM, without incident. The follow-up CT today shows subtle improvement in the residual mckeon bdural fluid collection. OK for discharge or transfer to [facility], as per Hospitalist. He will need [facility] rosurgery followup in 2 weeks, with a non-contrast CT head prior to the visit. He is to continue on restricted activities, and avoid antiplatelet agents until followup. Interval Neuro changes or return of pre-op headaches would warrant urgent evaluation with a head CT. Status: Acute Code(s): S06.5X9A - Traumatic subdural hemorrhage with loss of consciousness of unspecified duration, initial encounter Attestations Medical Necessity Statement*: Patient is appropriate for inpatient management of symptomatic subdural hematoma. Coding Level of Care Code Acute Patch Sander for g Fwd Exam Comprehensive Diagnoses Subdural hematoma S06.5X9A
--- NOTE | 2019-09-14 13:58 | P.DS_ITS ---
Discharge Providers Date of Admission: 09/11/19 22:48 Date of Discharge: September 14, 2019 Attending Provider at Admission: Andreina Marshall MD Attending Provider at Discharge: Amor Morrow MD Primary Care Provider: KAITLYNN Hurd Diagnoses at Discharge Discharge Diagnosis (1) Subdural hematoma: Status: Acute Reason for Visit Reason for Visit: Reason For Visit: sent by [facility] Course Discharge Summary: Gavin French Jr is a 63 year old male who presented to the emergency room after CT of his head today showed increasing subdural hematoma. He had a fall in July for which he did not seek medical attention. He follows with Dr. Titus for cerebral aneurysm and had an MRA done on August 20. It showed evidence of left frontal parietal small subdural hematoma for which patient was essentially asymptomatic. A CT of the head was ordered for follow-up and was done on 09/11/2019 which demonstrated enlarging area suggestive of ongoing bleeding, leading to the ER visit. He was admitted and underwent Placement of left frontal twistdrill (SEPS) drain with Dr. Ridley on 09/12/2019. He was monitored in ICU post op with Q1h neurochecks and daily CT scans of his head. His output from drain was minimal so was discontinued on 09/13. He was monitored for one more day and is being discharged in hemodynamically stable condition, neurologically stable condition to follow-up with Dr. Ridley and updated as an outpatient. Physical Exam Narrative: EXAM NARRATIVE: General: No acute distress, AO x3 HEENT: PERRLA, pupils bilaterally equal and reactive Chest: Normal vesicular breath sounds, no added sounds, equal good air entry bilaterally CVS: S1-S2 regular, no murmurs, no tachycardia, no gallops, no rubs Abdomen: Soft, nontender, no organomegaly, bowel sounds present Neuro: No focal deficits, no facial deformity, AO x3, power 5/5 in all limbs, stable surgical dressing present on the head without any drain or soakage. Discharge Data Data Completed and Pending: Completed Studies During Hospitalization Category Date Time Status CT head wo con* 7 0450 Routine Cat Scan 09/12/19 10:[address] head wo con* 7 0450 Routine Cat Scan 09/13/19 07:[address] head wo con* 7 0450 Routine Cat Scan 09/14/19 07:00 Completed Pending at discharge Category Date Time Status Body Fluid Cultur e & GS Stat Lab 09/12/19 09:40 Results Comprehensive Met abolic Panel AM LA BS Lab 09/15/19 04:00 Ordered Labs from last 24 hours 09/14/19 10:57 Sodium 136 Potassium 4.4 Chloride 104 Carbon Dioxide 21 L Anion Gap 15.4 BUN 9 Creatinine 0.7 GFR Calculation 114.6 Glucose 85 Calcium 8.9 Total Bilirubin 0.5 AST 19 ALT 13 Alkaline Phosphata se 80 Total Protein 6.6 Albumin 4.0 Globulin 2.6 Vitals: Last Vital Signs Temp 97.9 F 09/14/19 05:00 Pulse 61 09/14/19 10:00 Resp 15 09/14/19 10:00 BP 160/90 09/14/19 10:00 Pulse Ox 93 09/14/19 10:00 Discharge Plan Discharge Patient Disposition: Home, Self-Care Condition: Stable Prescriptions: Continued aspirin [Aspir-81] 81 mg tablet,delayed release (DR/EC) 81 mg PO QDAY RF: 0 gabapentin 300 mg capsule 300 mg PO BID Qty: 60 RF: 2 potassium chloride 10 mEq capsule, extended release 10 meq PO QDAY Qty: 30 RF: 2 furosemide 20 mg tablet 20 mg PO QAM Qty: 30 RF: 2 carvedilol 12.5 mg tablet 12.5 mg PO BID Qty: 30 RF: 2 atorvastatin 20 mg tablet 20 mg PO QDAY Qty: 30 RF: 2 famotidine [Pepcid] 20 mg tablet 20 mg PO DAILY Qty: 30 RF: 2 Multiple Vitamins Tablet 1 tab PO DAILY RF: 0 citalopram 40 mg tablet 40 mg PO DAILY RF: 0 hydroxyzine pamoate 50 mg capsule 50 mg PO DAILY PRN (Reason: sleep) RF: 0 Changed lisinopril 40 mg tablet 20 mg PO DAILY Qty: 30 RF: 0 Discharge Orders: Discharge Order (Routine); Ordered 09/14/19 Ordered By: Amor Morrow Referrals: Stephon Ridley MD [Physician] - 2 weeks Javier Villalobos FNP-C [Primary Care Provider] - Discharge Diet: Advance as tolerated Discharge Activity: Resume usual activity Patient Instructions: Subdural Hematoma (DC) Activity Restrictions/Additional Instructions: Please call Monday to schedule a follow-up with Neurosurgery in 2 weeks [phone], also please call Centralized Scheduling for a non-contrast CT of head prior to the visit [phone]. He is to continue on restricted activities, and avoid antiplatelet agents until followup. Interval Neuro changes or return of pre-op headaches would warrant urgent evaluation with a head CT. Discharge Date/Time: 09/14/19 16:00 Discharge Attestations Time Spent in Discharge Care*: greater than 30 min Specific Discharge Activities: Specific discharge activities: educating patient, educating and/or supporting family/caregiver and discussing with pcp/other providers Status at Discharge: Cognitive status at discharge: cognitively intact , Behavioral status at discharge: cooperative , Functional status at discharge: independent ambulation Overall status at discharge: patient is progressing back to baseline Quality Metrics Clinical Quality Measures During this hospital stay, did patient experience: None Coding Level of Care Code Acute Entry Level Marketing Representative for Fatoumata Cintron Diagnoses Subdural hematoma S06.5X9A
--- NOTE | 2019-09-14 16:19 | PC.NURSE ---
Pt discharged at 1600.IV removed. Belongings sent with pt. [place]. Discharge instructions given. Pt with no further needs or questions.
== END 2019-09-14 16:00 | disposition home or self-care (01) | DRG 27 ==
LOC: ER 18:34 → ICU 23:05
PROVIDERS: Family Medicine; Specialist; Admitting Provider Hospitalist; Emergency Provider Emergency Medicine; Family Provider Nurse Practitioner; PCP Nurse Practitioner; Visit Provider Student in an Organized Health Care Education/Training Program
PROC: 009430Z Drainage of Intracranial Subdural Space with Drainage Device, Percutaneous Approach (ICD-10-PCS; principal; 2019-09-12 08:00)
DX: S06.5X9A Traumatic subdural hemorrhage with loss of consciousness of unspecified duration, initial encounter (principal); F17.210 Nicotine dependence, cigarettes, uncomplicated; F12.90 Cannabis use, unspecified, uncomplicated; S06.4X9A Epidural hemorrhage with loss of consciousness of unspecified duration, initial encounter; I67.1 Cerebral aneurysm, nonruptured; I10 Essential (primary) hypertension; E78.5 Hyperlipidemia, unspecified; F10.21 Alcohol dependence, in remission; Y90.2 Blood alcohol level of 40-59 mg/100 ml; Z79.82 Long term (current) use of aspirin; Z79.52 Long term (current) use of systemic steroids; Z79.899 Other long term (current) drug therapy
CPT/HCPCS: 12345; 36415; 70450; 80048; 80053; 80307; 81003; 85025; 85384; 85610; 85730; 87070; 87075; 87205; 94640; 96375; 97116; 97162; 99282; J0690; J1885; J2001; J2704; J3010; J3490; J7030

== ENCOUNTER 2019-09-23 18:08 | Emergency (ER) | payer MEDICAID, SELFPAY | END 2019-09-23 20:55 | disposition admitted as inpatient to this hospital (09) | LOC: ER 10-11 13:16 | PROVIDERS: Emergency Provider Emergency Medicine; Family Provider Nurse Practitioner; PCP Nurse Practitioner | DX: I62.00 Nontraumatic subdural hemorrhage, unspecified (principal); F10.220 Alcohol dependence with intoxication, uncomplicated; Y90.8 Blood alcohol level of 240 mg/100 ml or more; I67.1 Cerebral aneurysm, nonruptured; I10 Essential (primary) hypertension; E78.5 Hyperlipidemia, unspecified; E05.90 Thyrotoxicosis, unspecified without thyrotoxic crisis or storm; I63.81 Other cerebral infarction due to occlusion or stenosis of small artery; F17.210 Nicotine dependence, cigarettes, uncomplicated | CPT/HCPCS: 12345; 36415; 70450; 80048; 80307; 81003; 82009; 82140; 84484; 85025; 85610; 85730; 90471; 90732; 93005; 96372; 99283; 99285; G0378; J0692; J1100; J3370; J3411; J7050 ==

== ENCOUNTER 2019-09-23 18:08 | Inpatient (IN) | payer MEDICAID, SELFPAY ==
[2019-09-23 17:13] VITALS: BP 130/73; PULSE 61; RESP 18; TEMP 36.8; O2SAT 98; BMI 29.2
--- NOTE | 2019-09-23 17:14 | ED_ITS ---
Entered by Soni Valencia, acting as scribe for Kirit Zee DO Documented by User: Gilson Dixon MD 09/23/19 20:56 HPI - Headache General: Chief Complaint: Headache Stated Complaint: HEADACHE BLURRED VISION Time Seen by Provider: 09/23/19 17:20 [facility] ED PFSH: Medical History (Updated 09/23/19 @ 21:09 by Shiv Snowden MD) Cerebral aneurysm Anterior communicating Artery, unruptured, 3mm Depression history of previous SI episodes History of alcohol dependence reported sobriety date of 02/01 Hyperlipidemia Hypertension Hyperthyroidism Lacunar stroke Sciatica Subdural hematoma TIA (transient ischemic attack) Surgical History History of ankle surgery left, for fracture History of surgery on right wrist Family History Other Cancer Hypertension Stroke Denies family history of Diabetes CAD (coronary artery disease) Social History Smoking and tobacco status: light tobacco smoker cigarettes Packs smoked per day: 0.25 Alcohol intake: former Year of sobriety/quit date alcohol: 02/01 Course Vital Signs: Vital signs: Vital Signs Temperature 98.5 F 09/24/19 10:55 Pulse Rate 66 09/24/19 10:55 Respiratory Rate 18 09/24/19 10:55 Blood Pressure 159/84 09/24/19 10:55 Pulse Oximetry 93 09/24/19 10:55 MDM - Headache MDM Narrative: Medical decision making narrative: Patient presents here with alcohol intoxication and a fall. He had a history of subdural hematoma 2 weeks ago that is slightly worsened. It is very minimal in nature and patient here is awake and alert and able answer all my questions. I spoke to hospitalist will admit for observation. I spoke to neurosurgeon Dr. Ridley who is consulted as well. Lab Data: Labs: Lab Results 09/23/19 09/23/19 09/23/19 Range/Units 17:30 17:30 17:30 WBC 5.3 (4.0-10.0) 10^3/ uL RBC 4.55 (4.1-5.3) 10^6/u L Hgb 14.3 (11.7-16.6) g/dL Hct 41.0 L (42.0-52.0) % MCV 90.1 (80-94) fL MCH 31.4 (28.0-34.0) pg MCHC 34.9 (30.0-36.0) g/dL RDW 12.0 L (12.1-15.1) % Plt Count 226 (130-400) 10^3/c mm MPV 9.4 (7.4-10.4) fL Neut % (Auto) 60.6 % Lymph % (Auto) 25.0 % [place] % (Auto) 8.3 % Eos % (Auto) 4.9 % Baso % (Auto) 0.6 % Neut # (Auto) 3.2 (1.8-7.7) 10^3/u L Lymph # (Auto) 1.3 (0.8-4.8) 10^3/u L [place] # (Auto) 0.4 (0.2-0.9) 10^3/u L Eos # (Auto) 0.3 (0.0-0.8) 10^3/u L Baso # (Auto) 0.0 (0.0-0.1) 10^3/u L Nucleated RBC % (a uto) 0 % Nucleated RBCs # 0.0 /100WBC PT 12.80 (10.5-13.3) SECO NDS INR 0.93 (0.8-1.2) APTT 29.4 (23.9-36.7) SECO NDS Sodium 143 (136-145) mmol/L Potassium 4.0 (3.5-5.1) mmol/L Chloride 107 (98-107) mmol/L Carbon Dioxide 24 (22-29) mmol/L Anion Gap 16.0 (5-19) BUN 8 (8-23) mg/dL Creatinine 0.6 L (0.7-1.2) mg/dL GFR Calculation 137.0 H (90-130) mL/min Glucose 115 (65-115) mg/dL Calculated Osmolal ity 293 (285-295) mOsm/k g Calcium 9.3 (8.5-10.5) mg/dL Ammonia (16-60) umol/L Troponin T Baselin e (0-15) ng/mL Urine Color (Yellow) Urine Appearance (CLEAR) Urine pH (5-7) Ur Specific Gravit y (1.005-1.030) Urine Protein (Negative) Urine Glucose (UA) (Normal) Urine Ketones (Negative) Urine Blood (Negative) Urine Nitrate (Negative) Urine Bilirubin (NEGATIVE) Urine Urobilinogen (Negative) mg/dL Ur Leukocyte Susannah ase (Negative) Ethyl Alcohol (0-10) mg/dL Serum Ketones (Negative) 09/23/19 09/23/19 09/23/19 Range/Units 17:30 17:30 17:56 WBC (4.0-10.0) 10^3/ uL RBC (4.1-5.3) 10^6/u L Hgb (11.7-16.6) g/dL Hct (42.0-52.0) % MCV (80-94) fL MCH (28.0-34.0) pg MCHC (30.0-36.0) g/dL RDW (12.1-15.1) % Plt Count (130-400) 10^3/c mm MPV (7.4-10.4) fL Neut % (Auto) % Lymph % (Auto) % [place] % (Auto) % Eos % (Auto) % Baso % (Auto) % Neut # (Auto) (1.8-7.7) 10^3/u L Lymph # (Auto) (0.8-4.8) 10^3/u L [place] # (Auto) (0.2-0.9) 10^3/u L Eos # (Auto) (0.0-0.8) 10^3/u L Baso # (Auto) (0.0-0.1) 10^3/u L Nucleated RBC % (a uto) % Nucleated RBCs # /100WBC PT (10.5-13.3) SECO NDS INR (0.8-1.2) APTT (23.9-36.7) SECO NDS Sodium (136-145) mmol/L Potassium (3.5-5.1) mmol/L Chloride (98-107) mmol/L Carbon Dioxide (22-29) mmol/L Anion Gap (5-19) BUN (8-23) mg/dL Creatinine (0.7-1.2) mg/dL GFR Calculation (90-130) mL/min Glucose (65-115) mg/dL Calculated Osmolal ity (285-295) mOsm/k g Calcium (8.5-10.5) mg/dL Ammonia (16-60) umol/L Troponin T Baselin e 9 (0-15) ng/mL Urine Color Straw (Yellow) Urine Appearance Clear (CLEAR) Urine pH 5 (5-7) Ur Specific Gravit y 1.010 (1.005-1.030) Urine Protein Neg (Negative) Urine Glucose (UA) Norm (Normal) Urine Ketones Negative (Negative) Urine Blood Neg (Negative) Urine Nitrate Negative (Negative) Urine Bilirubin Neg (NEGATIVE) Urine Urobilinogen Norm (Negative) mg/dL Ur Leukocyte Susannah ase Negative (Negative) Ethyl Alcohol 240 H (0-10) mg/dL Serum Ketones (Negative) 09/23/19 09/23/19 Range/Units 18:30 18:30 WBC (4.0-10.0) 10^3/ uL RBC (4.1-5.3) 10^6/u L Hgb (11.7-16.6) g/dL Hct (42.0-52.0) % MCV (80-94) fL MCH (28.0-34.0) pg MCHC (30.0-36.0) g/dL RDW (12.1-15.1) % Plt Count (130-400) 10^3/c mm MPV (7.4-10.4) fL Neut % (Auto) % Lymph % (Auto) % [place] % (Auto) % Eos % (Auto) % Baso % (Auto) % Neut # (Auto) (1.8-7.7) 10^3/u L Lymph # (Auto) (0.8-4.8) 10^3/u L [place] # (Auto) (0.2-0.9) 10^3/u L Eos # (Auto) (0.0-0.8) 10^3/u L Baso # (Auto) (0.0-0.1) 10^3/u L Nucleated RBC % (a uto) % Nucleated RBCs # /100WBC PT (10.5-13.3) SECO NDS INR (0.8-1.2) APTT (23.9-36.7) SECO NDS Sodium (136-145) mmol/L Potassium (3.5-5.1) mmol/L Chloride (98-107) mmol/L Carbon Dioxide (22-29) mmol/L Anion Gap (5-19) BUN (8-23) mg/dL Creatinine (0.7-1.2) mg/dL GFR Calculation (90-130) mL/min Glucose (65-115) mg/dL Calculated Osmolal ity (285-295) mOsm/k g Calcium (8.5-10.5) mg/dL Ammonia 21 (16-60) umol/L Troponin T Baselin e (0-15) ng/mL Urine Color (Yellow) Urine Appearance (CLEAR) Urine pH (5-7) Ur Specific Gravit y (1.005-1.030) Urine Protein (Negative) Urine Glucose (UA) (Normal) Urine Ketones (Negative) Urine Blood (Negative) Urine Nitrate (Negative) Urine Bilirubin (NEGATIVE) Urine Urobilinogen (Negative) mg/dL Ur Leukocyte Susannah ase (Negative) Ethyl Alcohol (0-10) mg/dL Serum Ketones Negative (Negative) Imaging Data^: CT Head: Radiologist's impression: CT Scan Report Signed Patient: Gavin French Jr Unit #: [id number] : 1955 Age/Sex: 63 / M ADM Date: Loc: ER Room/Bed: Attending Dr: Ordering Provider/Ordering MD: Kirit Zee DO Date of Service: 09/23/19 Procedure(s): CT head wo con* [id number] Accession Number(s): [id number] Report Number: [id number] PROCEDURE INFORMATION: Exam: CT Head Without Contrast Exam date and time: 09/23/2019 5:25 PM Age: 63 years old Clinical indication: Altered mental status/memory loss; Confusion or disorientation; Prior surgery; Surgery date: 1-6 months; Surgery type: Crainotomy; Patient HX: Recent subdural hematoma, PT is confused, PT has been drinking. ; Additional info: AMS, recent subdural TECHNIQUE: Imaging protocol: Computed tomography of the head without contrast. Total DLP: 817.43 mGy-cm Radiation optimization: All CT scans at this facility use at least one of these dose optimization techniques: automated exposure control; mA and/or kV adjustment per patient size (includes targeted exams where dose is matched to clinical indication); or iterative reconstruction. COMPARISON: CT head wo con* [id number] 09/14/2019 8:41 AM FINDINGS: Brain: There is no intraparenchymal hemorrhage, edema or mass effect. No midline shift. Previously visualized pneumocephalus has resolved. Left frontal subdural hematoma measures 5.6 cm in thickness today increased slightly from the prior exam where it measured 5.2 mm. There is also a new component to the subdural hemorrhage near the vertex along the left frontal/parietal bone measuring 4 mm in size. Adjacent subdural hygroma/hypodense fluid adjacent to the left frontal lobe is smaller measuring 11 mm image 45 today compared to 13 mm previously. Ventricles: Normal. No ventriculomegaly. Bones/joints: Unremarkable. No acute fracture. Old javi hole in the left frontal bone is noted. Sinuses: Visualized sinuses are unremarkable. No fluid levels. Mastoid air cells: Visualized mastoid air cells are well aerated. Soft tissues: Unremarkable. CT/CT head wo con* [id number] IMPRESSION: 1. New/slightly larger left frontal/parietal subdural hematoma compared to the prior exam. This results in no new mass effect or shift. 2. Decreasing left subdural hygroma. Resolved pneumocephalus. Radiation Dose CTDIVOL = (mGy): DLP = 817.43 (mGy-cm) EKG Data^: EKG 1: Attestation: I personally reviewed and interpreted this EKG as follows: EKG interpretation date: 09/23/19 EKG interpretation time: 18:16 Interpretation: sinus jose david hr [address] or t wave abnormalities qrs 97 qtc 429 Discharge Plan Discharge Patient Disposition: Admitted As Inpatient Admit Provider: Shiv Snowden Clinical Impression: Subdural hematoma, History of alcohol dependence Condition: Stable Discharge Date/Time: 09/23/19 20:55 Coding Level of Care Code ED Napper Fixer for Chg Fwd Exam Comprehensive Documented by User: Kirit Zee DO 09/24/19 14:14 HPI - Headache General: Chief Complaint: Headache Stated Complaint: HEADACHE BLURRED VISION Time Seen by Provider: 09/23/19 17:20 Source: patient and EMS Mode of arrival: EMS Limitations: no limitations History of Present Illness: HPI Narrative: 63 yo male presents with headache. pt states this started today. pt states he was at rest. pt states he did drink some alcohol today. pt had recent trauma to his head 2 months ago and had a recent surgery 2 weeks ago to get some of the blood out. pt denies any other symptoms at this time. MD elicited complaint: headache Pertinent past history: recent trauma (Janurary - hit head) Onset (ago): day(s) (today) Onset description: suddenly and while at rest Location: frontal Severity: mild Quality & Timing: progressively worsening Relieving factors: nothing Context: occurred at rest Associated symptoms: Reports lightheadedness; Deny fever(s), malaise, nausea, rash or vomiting Treatments prior to arrival: none Review of Systems Const: Denies: fever, chills, body aches, change in appetite, fatigue or malaise Eyes: Denies: photophobia ENMT: Denies: throat pain, ear pain, nasal discharge or nasal congestion Card: Reports: lightheadedness Resp: Denies: shortness of breath, productive cough or non-productive cough GI: Denies: abdominal pain, nausea, vomiting, vomiting blood, coffee grounds in vomit, diarrhea, constipation, bloating, blood in stool or black tarry stool : Denies: flank pain, painful urination, urinary frequency or urinary urgency Musc: Denies: joint warmth Skin/Breast: Denies: rash or itching PFS ED PFSH: Medical History (Updated 09/23/19 @ 21:09 by Shiv Snowden MD) Cerebral aneurysm Anterior communicating Artery, unruptured, 3mm Depression history of previous SI episodes History of alcohol dependence reported sobriety date of 02/01 Hyperlipidemia Hypertension Hyperthyroidism Lacunar stroke Sciatica Subdural hematoma TIA (transient ischemic attack) Surgical History History of ankle surgery left, for fracture History of surgery on right wrist Family History Other Cancer Hypertension Stroke Denies family history of Diabetes CAD (coronary artery disease) Social History Smoking and tobacco status: light tobacco smoker cigarettes Packs smoked per day: 0.25 Alcohol intake: former Year of sobriety/quit date alcohol: 02/01 Physical Exam Const: COMMON NORMALS: no apparent distress GENERAL APPEARANCE: cooperative and comfortable ORIENTATION/CONSCIOUSNESS: Yes awake HENMT: COMMON NORMALS: normocephalic, head/scalp atraumatic, hearing grossly normal bilaterally, external ears normal, EAC's normal, TM's normal bilaterally, nasal mucous membranes and turbinates normal, moist oral mucous membranes and oropharynx normal HEAD & SCALP: normocephalic, atraumatic and other (Eschar and stitches presents in the left frontal area. No active bleeding no erythema minimal localized swelling) NOSE: nasal mucous membranes and turbinates normal EXTERNAL EAR: Yes external ears normal EXTERNAL AUDITORY CANAL: EAC's normal TYMPANIC MEMBRANE: TM's normal bilaterally Eye: COMMON NORMALS: PERRL, EOMs intact bilaterally, conjunctivae normal and no scleral icterus CONJUNCTIVA: Yes conjunctivae normal PUPIL: Yes PERRL Neck/C-Spine: COMMON NORMALS: full ROM, no lymphadenopathy, supple and no JVD Lymph: LYMPHATIC: no lymphadenopathy noted and no lymphedema noted Resp: COMMON NORMALS: normal respiratory effort, no retractions, no use of accessory muscles and clear to auscultation bilaterally AUSCULTATION: clear to auscultation bilaterally Cardio: COMMON NORMALS: no JVD, regular rate, regular rhythm and no murmurs RATE: regular rate RHYTHM: regular rhythm GI: COMMON NORMALS: soft to palpation and no hepatosplenomegaly AUSCULTATION: Yes normoactive bowel sounds PALPATION: Yes soft, No tender, No guarding and Yes no hepatosplenomegaly Extremity: COMMON NORMALS: normal to inspection, normal capillary refill, no clubbing, cyanosis or edema, no calf tenderness and no pedal edema Skin: COMMON NORMALS: no rashes or lesions noted GENERAL SKIN EXAM: no rashes or lesions noted Course ED course: Patient appears acutely intoxicated. CT is completed but not yet read care turned over to Dr. Dixon at change of shift Vital Signs: Vital signs: Vital Signs Temperature 98.5 F 09/24/19 10:55 Pulse Rate 66 09/24/19 10:55 Respiratory Rate 18 09/24/19 10:55 Blood Pressure 159/84 09/24/19 10:55 Pulse Oximetry 93 09/24/19 10:55 MDM - Headache Lab Data: Labs: Lab Results 09/23/19 09/23/19 09/23/19 Range/Units 17:30 17:30 17:30 WBC 5.3 (4.0-10.0) 10^3/ uL RBC 4.55 (4.1-5.3) 10^6/u L Hgb 14.3 (11.7-16.6) g/dL Hct 41.0 L (42.0-52.0) % MCV 90.1 (80-94) fL MCH 31.4 (28.0-34.0) pg MCHC 34.9 (30.0-36.0) g/dL RDW 12.0 L (12.1-15.1) % Plt Count 226 (130-400) 10^3/c mm MPV 9.4 (7.4-10.4) fL Neut % (Auto) 60.6 % Lymph % (Auto) 25.0 % [place] % (Auto) 8.3 % Eos % (Auto) 4.9 % Baso % (Auto) 0.6 % Neut # (Auto) 3.2 (1.8-7.7) 10^3/u L Lymph # (Auto) 1.3 (0.8-4.8) 10^3/u L [place] # (Auto) 0.4 (0.2-0.9) 10^3/u L Eos # (Auto) 0.3 (0.0-0.8) 10^3/u L Baso # (Auto) 0.0 (0.0-0.1) 10^3/u L Nucleated RBC % (a uto) 0 % Nucleated RBCs # 0.0 /100WBC PT 12.80 (10.5-13.3) SECO NDS INR 0.93 (0.8-1.2) APTT 29.4 (23.9-36.7) SECO NDS Sodium 143 (136-145) mmol/L Potassium 4.0 (3.5-5.1) mmol/L Chloride 107 (98-107) mmol/L Carbon Dioxide 24 (22-29) mmol/L Anion Gap 16.0 (5-19) BUN 8 (8-23) mg/dL Creatinine 0.6 L (0.7-1.2) mg/dL GFR Calculation 137.0 H (90-130) mL/min Glucose 115 (65-115) mg/dL Calculated Osmolal ity 293 (285-295) mOsm/k g Calcium 9.3 (8.5-10.5) mg/dL Ammonia (16-60) umol/L Troponin T Baselin e (0-15) ng/mL Urine Color (Yellow) Urine Appearance (CLEAR) Urine pH (5-7) Ur Specific Gravit y (1.005-1.030) Urine Protein (Negative) Urine Glucose (UA) (Normal) Urine Ketones (Negative) Urine Blood (Negative) Urine Nitrate (Negative) Urine Bilirubin (NEGATIVE) Urine Urobilinogen (Negative) mg/dL Ur Leukocyte Susannah ase (Negative) Ethyl Alcohol (0-10) mg/dL Serum Ketones (Negative) 09/23/19 09/23/19 09/23/19 Range/Units 17:30 17:30 17:56 WBC (4.0-10.0) 10^3/ uL RBC (4.1-5.3) 10^6/u L Hgb (11.7-16.6) g/dL Hct (42.0-52.0) % MCV (80-94) fL MCH (28.0-34.0) pg MCHC (30.0-36.0) g/dL RDW (12.1-15.1) % Plt Count (130-400) 10^3/c mm MPV (7.4-10.4) fL Neut % (Auto) % Lymph % (Auto) % [place] % (Auto) % Eos % (Auto) % Baso % (Auto) % Neut # (Auto) (1.8-7.7) 10^3/u L Lymph # (Auto) (0.8-4.8) 10^3/u L [place] # (Auto) (0.2-0.9) 10^3/u L Eos # (Auto) (0.0-0.8) 10^3/u L Baso # (Auto) (0.0-0.1) 10^3/u L Nucleated RBC % (a uto) % Nucleated RBCs # /100WBC PT (10.5-13.3) SECO NDS INR (0.8-1.2) APTT (23.9-36.7) SECO NDS Sodium (136-145) mmol/L Potassium (3.5-5.1) mmol/L Chloride (98-107) mmol/L Carbon Dioxide (22-29) mmol/L Anion Gap (5-19) BUN (8-23) mg/dL Creatinine (0.7-1.2) mg/dL GFR Calculation (90-130) mL/min Glucose (65-115) mg/dL Calculated Osmolal ity (285-295) mOsm/k g Calcium (8.5-10.5) mg/dL Ammonia (16-60) umol/L Troponin T Baselin e 9 (0-15) ng/mL Urine Color Straw (Yellow) Urine Appearance Clear (CLEAR) Urine pH 5 (5-7) Ur Specific Gravit y 1.010 (1.005-1.030) Urine Protein Neg (Negative) Urine Glucose (UA) Norm (Normal) Urine Ketones Negative (Negative) Urine Blood Neg (Negative) Urine Nitrate Negative (Negative) Urine Bilirubin Neg (NEGATIVE) Urine Urobilinogen Norm (Negative) mg/dL Ur Leukocyte Susannah ase Negative (Negative) Ethyl Alcohol 240 H (0-10) mg/dL Serum Ketones (Negative) 09/23/19 09/23/19 Range/Units 18:30 18:30 WBC (4.0-10.0) 10^3/ uL RBC (4.1-5.3) 10^6/u L Hgb (11.7-16.6) g/dL Hct (42.0-52.0) % MCV (80-94) fL MCH (28.0-34.0) pg MCHC (30.0-36.0) g/dL RDW (12.1-15.1) % Plt Count (130-400) 10^3/c mm MPV (7.4-10.4) fL Neut % (Auto) % Lymph % (Auto) % [place] % (Auto) % Eos % (Auto) % Baso % (Auto) % Neut # (Auto) (1.8-7.7) 10^3/u L Lymph # (Auto) (0.8-4.8) 10^3/u L [place] # (Auto) (0.2-0.9) 10^3/u L Eos # (Auto) (0.0-0.8) 10^3/u L Baso # (Auto) (0.0-0.1) 10^3/u L Nucleated RBC % (a uto) % Nucleated RBCs # /100WBC PT (10.5-13.3) SECO NDS INR (0.8-1.2) APTT (23.9-36.7) SECO NDS Sodium (136-145) mmol/L Potassium (3.5-5.1) mmol/L Chloride (98-107) mmol/L Carbon Dioxide (22-29) mmol/L Anion Gap (5-19) BUN (8-23) mg/dL Creatinine (0.7-1.2) mg/dL GFR Calculation (90-130) mL/min Glucose (65-115) mg/dL Calculated Osmolal ity (285-295) mOsm/k g Calcium (8.5-10.5) mg/dL Ammonia 21 (16-60) umol/L Troponin T Baselin e (0-15) ng/mL Urine Color (Yellow) Urine Appearance (CLEAR) Urine pH (5-7) Ur Specific Gravit y (1.005-1.030) Urine Protein (Negative) Urine Glucose (UA) (Normal) Urine Ketones (Negative) Urine Blood (Negative) Urine Nitrate (Negative) Urine Bilirubin (NEGATIVE) Urine Urobilinogen (Negative) mg/dL Ur Leukocyte Susannah ase (Negative) Ethyl Alcohol (0-10) mg/dL Serum Ketones Negative (Negative) Discharge Plan Discharge Patient Disposition: Admitted As Inpatient Admit Provider: Shiv Snowden Clinical Impression: Subdural hematoma, History of alcohol dependence Condition: Stable Discharge Date/Time: 09/23/19 20:55 Coding Level of Care Code ED Napper Fixer for Chg Fwd Exam Comprehensive The documentation recorded by the Erik gandara Bridget Annette, accurately reflects the service I personally performed and the decisions made by Yayo day Curtis L, DO Sep 23, 2019 18:08
--- NOTE | 2019-09-23 17:23 | CTR_ITS ---
PROCEDURE INFORMATION: Exam: CT Head Without Contrast Exam date and time: 09/23/2019 5:25 PM Age: 63 years old Clinical indication: Altered mental status/memory loss; Confusion or disorientation; Prior surgery; Surgery date: 1-6 months; Surgery type: Crainotomy; Patient HX: Recent subdural hematoma, PT is confused, PT has been drinking. ; Additional info: AMS, recent subdural TECHNIQUE: Imaging protocol: Computed tomography of the head without contrast. Total DLP: 817.43 mGy-cm Radiation optimization: All CT scans at this facility use at least one of these dose optimization techniques: automated exposure control; mA and/or kV adjustment per patient size (includes targeted exams where dose is matched to clinical indication); or iterative reconstruction. COMPARISON: CT head wo con* [id number] 09/14/2019 8:41 AM FINDINGS: Brain: There is no intraparenchymal hemorrhage, edema or mass effect. No midline shift. Previously visualized pneumocephalus has resolved. Left frontal subdural hematoma measures 5.6 cm in thickness today increased slightly from the prior exam where it measured 5.2 mm. There is also a new component to the subdural hemorrhage near the vertex along the left frontal/parietal bone measuring 4 mm in size. Adjacent subdural hygroma/hypodense fluid adjacent to the left frontal lobe is smaller measuring 11 mm image 45 today compared to 13 mm previously. Ventricles: Normal. No ventriculomegaly. Bones/joints: Unremarkable. No acute fracture. Old javi hole in the left frontal bone is noted. Sinuses: Visualized sinuses are unremarkable. No fluid levels. Mastoid air cells: Visualized mastoid air cells are well aerated. Soft tissues: Unremarkable. CT/CT head wo con* [id number] IMPRESSION: 1. New/slightly larger left frontal/parietal subdural hematoma compared to the prior exam. This results in no new mass effect or shift. 2. Decreasing left subdural hygroma. Resolved pneumocephalus. Radiation Dose CTDIVOL = (mGy): DLP = 817.43 (mGy-cm)
[2019-09-23 17:36] LABS: Basophils % 0.6 %; Eosinophils # 0.3 10^3/uL (0.0-0.8); Eosinophils % 4.9 %; Hemoglobin 14.3 g/dL (11.7-16.6); Lymphocytes # 1.3 10^3/uL (0.8-4.8); Mean Corpuscular HGB Conc 34.9 g/dL (30.0-36.0); Mean Corpuscular Hemoglobin 31.4 pg (28.0-34.0); Mean Corpuscular Volume 90.1 fL (80-94); Mean Platelet Volume 9.4 fL (7.4-10.4); Monocytes # 0.4 10^3/uL (0.2-0.9); Monocytes % 8.3 %; Neutrophils # 3.2 10^3/uL (1.8-7.7); Neutrophils % 60.6 %; Nucleated Red Blood Cells % 0 %; Platelet Count 226 10^3/cmm (130-400); Red Blood Count 4.55 10^6/uL (4.1-5.3); White Blood Count 5.3 10^3/uL (4.0-10.0)
--- NOTE | 2019-09-23 17:47 | ECG_ITS ---
Measurements Intervals [place] Rate: 58 P: 5 AK: 161 QRS: -32 QRSD: 89 T: 20 QT: 418 QTc: 413 SINUS BRADYCARDIA LEFT AXIS DEVIATION [QRS AXIS < -30] MINIMAL VOLTAGE CRITERIA FOR LVH, CONSIDER NORMAL VARIANT [MEETS CRITERIA IN ONE OF: R(aVL), S(V1), R(V5), R(V5/V6)+S(V1)] No previous ECG available for comparison Electronically Signed On 09-23-2019 20:51:40 CDT by Shiv Zavala M.D. [email or web address]
[2019-09-23 18:02] LABS: INR 0.93 (0.8-1.2); Partial Thromboplastin Time 29.4 SECONDS (23.9-36.7)
[2019-09-23 18:16] LABS: Blood Urea Nitrogen 8 mg/dL (8-23); Calcium 9.3 mg/dL (8.5-10.5); Carbon Dioxide 24 mmol/L (22-29); Chloride 107 mmol/L (98-107); Glucose 115 mg/dL (65-115); Osmolality Calculated 293 mOsm/kg (285-295); Sodium 143 mmol/L (136-145)
[2019-09-23 18:45] LABS: Add Urine Microscopic? NO
[2019-09-23 19:00] LABS: Ammonia 21 umol/L (16-60)
[2019-09-23 19:05] VITALS: BP 138/94; PULSE 66; RESP 18; O2SAT 98
--- NOTE | 2019-09-23 19:05 | PC.NURSE ---
Denies any needs at this time
[2019-09-23 19:09] LABS: Troponin(5th) Baseline 9 ng/mL (0-15)
[2019-09-23 19:13] LABS: Alcohol Level 240 mg/dL (0-10)
[2019-09-23 19:20] LABS: Bilirubin Urine Neg (NEGATIVE); Blood Urine Neg (Negative); Glucose Urine UA Norm (Normal); Ketones Urine Negative (Negative); Leukocyte Esterase Urine Negative (Negative); Nitrate Urine Negative (Negative); Protein Urine Neg (Negative); Urine Appearance Clear (CLEAR); Urine Color Straw (Yellow); Urobilinogen Urine Norm (Negative); pH Urine 5 (5-7)
[2019-09-23 19:20] LABS: Ketone (Acetest) Serum Negative (Negative)
--- NOTE | 2019-09-23 19:21 | PM.HP ---
Providers/Chief Complaint Primary Care Provider: Javier Villalobos, PLANT TECHNICIAN/CONTROL ROOM OPERATOR-C Chief Complaint: HEADACHE BLURRED VISION History of Present Illness Gavin French Jr is a 63 year old male who was recently discharged from the hospital on after intervention for small subdural hematoma that was found on CT head ordered by her neurologist Dr. Titus, patient underwent frontal twist drill drain with Dr. Ridley on 09/12 that was removed on 09/13, he was monitored in ICU for a day and was discharged home. Patient is stating that he was compliant with his medications, he is drinking 4-5 shots of whiskey every day, he smokes 1 pack/day, he has been noticing that his vision is getting blurry, when he wakes up in the morning his legs would give up on him, today when he was walking outside in his driveway he felt very weak, fell on the floor, his noticed that he had mild tremors which resolved as soon as he fell on the ground, he did not hit his head. Patient is endorsing blurry vision, photophobia, pressure-like sensation in his eyes and back of his head, his headache is 6/10, pressure-like sensation, associated neck stiffness, he has not noticed any fever. Diagnostics in ER revealed normal white count, he is afebrile but new/slightly larger left frontoparietal subdural hematoma compared to the prior exam without any mass-effect or midline shift, Dr. Ridley recommended overnight observation, CT scan in the morning, he will see him in the morning as well When I was examining the patient, he was not able to focus on the finger during my exam, he has positive kerning sign, I have decided to initiate vancomycin and cefepime with dexamethasone Review of Systems Const: Reports: body aches, fatigue and malaise; Denies: fever or chills Eyes: Reports: change in vision, blurry vision and photophobia ENMT: Denies: throat pain Card: Denies: chest pain Resp: Denies: shortness of breath GI: Denies: abdominal pain : Denies: flank pain Musc: Reports: muscle cramps and muscle weakness Skin/Breast: Denies: rash Neuro: Reports: headache, weakness in extremities, difficulty walking and frequent falls; Denies: lack of coordination, slurred speech, seizure-like activity or involuntary movements Psych: Denies: anxiety Endo: Denies: excessive urination Casey/Lymph: Denies: easy bruising All/Imm: Denies: hives Medications/Allergies Home Medications Medication Instructions Recorded Confirmed Last Taken Type atorvastatin 20 mg PO DAILY 09/23/19 09/23/19 09/22/19 History potassium chloride 10 meq PO DAILY 09/23/19 09/23/19 09/23/19 History Allergies Allergy/AdvReac Type Severity Reaction Status Date / Time No Known Allergies Allergy Verified 09/23/19 17:24 PFSH Acute PFSH: Medical History (Updated 09/23/19 @ 21:09 by Shiv Snowden MD) Cerebral aneurysm Anterior communicating Artery, unruptured, 3mm Depression history of previous SI episodes History of alcohol dependence reported sobriety date of 02/01 Hyperlipidemia Hypertension Hyperthyroidism Lacunar stroke Sciatica Subdural hematoma TIA (transient ischemic attack) Surgical History History of ankle surgery left, for fracture History of surgery on right wrist Family History Other Cancer Hypertension Stroke Denies family history of Diabetes CAD (coronary artery disease) Social History Smoking and tobacco status: current every day smoker cigarettes Packs smoked per day: 0.25 Alcohol intake: former Year of sobriety/quit date alcohol: 02/01 Vitals/I&O/Wt Last Vital Signs Temp 98.3 F 09/23/19 17:13 Pulse 66 09/23/19 19:05 Resp 18 09/23/19 19:05 BP 138/94 09/23/19 19:05 Pulse Ox 98 09/23/19 19:05 Weight last 48 hrs Weight 77.111 kg Physical Exam Narrative: EXAM NARRATIVE: Patient was sitting at the edge of the bed, Very conversive, Patient is not able to focus on my finger during my exam, he is closing his eyes, pupils are sluggish to react, Kerning sign positive, He is endorsing neck stiffness on neck flexion Hemodynamically stable No seizures or focal deficit No nausea or vomiting S1, S2 No adventitious sounds on lung auscultation Abdomen soft, distended noticed obesity Lower extremity no edema Appropriate mood and affect Sutures around left frontal skull area are intact without any purulent discharge but skin around suture area is hyperemic with mild tenderness Data : 09/23/19 17:30 09/23/19 17:30 A&P Assessment and plan (1) Subdural hematoma: Status: Acute Code(s): S06.5X9A - Traumatic subdural hemorrhage with loss of consciousness of unspecified duration, initial encounter (2) Acute alcohol intoxication: Status: Acute Code(s): F10.929 - Alcohol use, unspecified with intoxication, unspecified (3) Neck stiffness: Status: Acute Code(s): M43.6 - Torticollis Additional A&P Information Left frontal/parietal subdural hematoma slight extension after a fall No neurological signs of intracranial hypertension Patient is drinking whiskey every day, his alcohol level is high Repeat CT scan in the morning, Dr. Ridley has been consulted Keep head end elevated Vancomycin and cefepime for complaints of blurry vision and neck stiffness with positive Kernig sign, currently reevaluate if it is safer to get lumbar puncture in the morning after repeating CT scan I would use dexamethasone before giving antibiotics 10 mg every 6h Neurochecks every 2 hours Alcohol intoxication: CIWA protocol Hypertension: Target blood pressure less than 120 Continue Coreg and lisinopril Full code Attestations Medical Necessity Statement*: Needs overnight monitoring for subdural hematoma extension, anticipating discharge less than 48 hours if he is clinically improving Time Spent in Patient Care: 45 Coding Level of Care Code Acute Safe Technician for [facility] Fwd Diagnoses Subdural hematoma S06.5X9A Acute alcohol intoxication F10.929 Neck stiffness M43.6
[2019-09-23 20:04] LABS: Troponin 5 2HR 9.23 ng/mL (0-15); Troponin 5 2HR Delta 0.23 ABS# (0-10)
--- NOTE | 2019-09-23 20:41 | PC.NURSE ---
Called report to nurse.
[2019-09-23 20:54] VITALS: PULSE 70; RESP 18; O2SAT 95
[2019-09-23 22:13] VITALS: BP 164/92; PULSE 69; RESP 18; TEMP 36.7; O2SAT 96
[2019-09-23] MEDS: cefepime 1,000 MG in sodium chloride 0.9% (plus) 100 ML 100 MG IV (22:34)
[2019-09-23] MEDS: hyDROXYzine 25 mg Capsule 50 MG PO (22:34)
[2019-09-23] MEDS: atorvastatin 40 mg Tablet 20 MG PO (22:35)
[2019-09-23] MEDS: carvedilol 12.5 mg Tablet PO (22:35)
--- NOTE | 2019-09-23 23:03 | PC.PHAR ---
Pharmacokinetic dosing service Date: 09/23/19 Time: 2303 Objective: Patient: AALIYAH MARTINEZ Floor: 256-1 Age: 63 yo Serum creatinine: 0.6 mg/dL Height: 64.0 Inches Weight (kg): 77.111 Diagnosis: Relevant medical/social history: Cultures and sensitivities: Other labs: Assessment: IBW (kg): 59.20 Dosing wt(kg): 77.111 Estimated Creatinine clearance (ml/min): 108.3 CRCL method: Cockcroft and Gault using ibw(default). Drug selected: Vancomycin Loading dose (mg): 0 Vd (liters): 69.4 (factor used: 0.9 L/kg) Vicente (hr-1): 0.094 Half life (hrs): 7.37 Recommended dose: 1500 mg Interval: 12 hrs Infusion time (hrs): 1.5 Predicted peak (mcg/mL): 29.8 Predicted trough (mcg/mL): 11.11 Total body weight is being used for vancomycin dosing. Renal function is stable [ ] /unstable [ ] Recommendations: Give Vancomycin 1500 mg q 12 hrs with an expected Cpeak of 29.8 mcg/ml and an expected Ctrough of 11.11 mcg/ml Renal dosing of other antibiotics (review renal dosing of other medications and list guidelines here): Thank you for the consult, will continue to follow. Signature: [facility]
--- NOTE | 2019-09-23 23:35 | PC.NURSE ---
Patient arrived to floor from ER via wheelchair. Alert, oriented, and animated. No complaint of pain or sob. patient independant, can walk and continent.
[2019-09-24] VITALS (7 sets, daily range): BP systolic 136–177; BP diastolic 76–85; PULSE 61–86; RESP 16–20; TEMP 36.4–36.9; O2SAT 93–96
--- NOTE | 2019-09-24 00:33 | PC.NURSE ---
when scanned vancomycin the bag scanned, there was no bar scan code on the label added to bag and when tried to reach pharmacy after hanging medication they were out of the office. administered the med but will contact pharmacy to make sure scan code on alhaji as it wouldnt let me ok it without it so administered manually.
[2019-09-24 06:12] LABS: Hematocrit 39.3 % (42.0-52.0); Hemoglobin 13.8 g/dL (11.7-16.6); Lymphocytes # 0.4 10^3/uL (0.8-4.8); Mean Corpuscular HGB Conc 35.1 g/dL (30.0-36.0); Mean Corpuscular Hemoglobin 32.7 pg (28.0-34.0); Mean Corpuscular Volume 93.1 fL (80-94); Mean Platelet Volume 9.7 fL (7.4-10.4); Monocytes % 0.9 %; Neutrophils # 4.1 10^3/uL (1.8-7.7); Neutrophils % 90.7 %; Nucleated Red Blood Cells % 0 %; Platelet Count 209 10^3/cmm (130-400); Red Blood Count 4.22 10^6/uL (4.1-5.3); White Blood Count 4.5 10^3/uL (4.0-10.0)
[2019-09-24 06:28] LABS: Anion Gap 16.1 (5-19); Blood Urea Nitrogen 10 mg/dL (8-23); Calcium 9.3 mg/dL (8.5-10.5); Carbon Dioxide 21 mmol/L (22-29); Chloride 103 mmol/L (98-107); Glucose 147 mg/dL (65-115); Osmolality Calculated 281 mOsm/kg (285-295); Potassium 4.1 mmol/L (3.5-5.1); Sodium 136 mmol/L (136-145)
[2019-09-24 06:39] LABS: Slide Review Slide Review Perform
--- NOTE | 2019-09-24 07:22 | CT_ITS ---
WS: [id number] CT HEAD NONCONTRAST HISTORY: ICH TECHNIQUE: Contiguous axial imaging performed through the brain in 2.5 mm imaging. Bone and soft tiss ue windows. Sagittal and coronal reformats reviewed. All CT scans at [facility] use at le ast one of these dose optimization techniques: automated exposure control; mA and/or kV adjustment pe r patient size (includes targeted exams where dose is matched to clinical indication); or iterative r econstruction. DLP: 730.54 mGy.cm COMPARISON: 09/23/2019 Extra-axial subdural hematoma over the LEFT frontoparietal region. Subdural hematomas is of moderatel y increased density and measures up to 4 mm. Largest diameter over the LEFT frontal lobe. The acute b lood products extend over the vertex. Probably not changed since the study of 09/23/2019. Progressed si nce 09/14/2019. There is no significant mass effect. No intraparenchymal hemorrhage. Mild bilateral atrophy. Ventricles: No intraventricular blood. Paranasal sinuses: As visualized are clear. Mastoid air cells: Small amount of fluid LEFT mastoid air cells. Calvarium and scalp: LEFT frontal javi hole. CT/CT head wo con* [id number] IMPRESSION: 1. No interval change in the LEFT frontoparietal subdural hematoma since 020. Subdural hematoma has increased since 09/14/2019. Maximum diameter is 4 mm. 2. No mass effect or midline shift or intraventricular blood.
[2019-09-24] MEDS: cefepime 1,000 MG in sodium chloride 0.9% (plus) 100 ML 100 MG IV (10:13)
[2019-09-24] MEDS: thiamine 100 mg Tablet PO (10:14)
[2019-09-24] MEDS: gabapentin 300 mg Capsule PO ×2 (10:14→17:00)
[2019-09-24] MEDS: citalopram 20 mg Tablet 40 MG PO (10:14)
[2019-09-24] MEDS: lisinopril 20 mg Tablet PO (10:15)
[2019-09-24] MEDS: carvedilol 12.5 mg Tablet PO ×2 (10:15→17:00)
[2019-09-24] MEDS: famotidine 20 mg Tablet PO (10:15)
[2019-09-24] MEDS: folic acid 1 mg Tablet PO (10:15)
[2019-09-24] MEDS: multivitamin therapeutic Tablet 1 TAB PO (10:15)
[2019-09-24] MEDS: pneumococcal (23 valent) SDV 0.5 mL IM (10:20)
--- NOTE | 2019-09-24 15:28 | P.PN_ITS ---
Subjective Subjective: Interval history: Patient reports feeling better this morning. He continues to have some neck stiffness and pressure sensation in his head but overall better. He shows no evidence of any focal neurological findings. Denies fever. Reports that he has not been drinking for a long period of time and started yesterday shortly prior he is symptoms started. Continues to smoke. He was started on antibiotic for concern for meningitis. I have discussed with Dr. Ridley and although meningitis is a possibility Dr. 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 His repeat CT scan shows no worsening. Dr. Ridley is okay from neurosurgical standpoint to proceed with further evaluation with LP to rule out bacterial infection. Vitals/I&O/Wt Last Vital Signs Temp 98.5 F 09/24/19 10:55 Pulse 66 09/24/19 10:55 Resp 18 09/24/19 10:55 BP 159/84 09/24/19 10:55 Pulse Ox 93 09/24/19 10:55 09/24/19 09/24/19 09/24/19 06:59 14:59 22:59 Intake Total 812 / 1292 840 / 840 Balance 812 / 1292 840 / 840 Weight last 48 hrs Weight 77.111 kg Physical Exam Const: COMMON NORMALS: no apparent distress and oriented x3 Resp: COMMON NORMALS: normal respiratory effort and clear to auscultation bilaterally AUSCULTATION: clear to auscultation bilaterally Cardio: COMMON NORMALS: regular rate, regular rhythm and S2 normal heart sound RATE: regular rate RHYTHM: regular rhythm HEART SOUNDS: S2 normal OTHER: No lower extremity edema GI: COMMON NORMALS: normal to inspection, nondistended, normoactive bowel sounds, soft to palpation and non-tender PALPATION: Yes soft Neuro: COMMON NORMALS: oriented x3 and no focal motor deficits Data : 09/24/19 05:41 09/24/19 05:41 A&P Assessment and plan (1) Subdural hematoma: Status: Acute Code(s): S06.5X9A - Traumatic subdural hemorrhage with loss of consciousness of unspeci fied duration, initial encounter (2) Acute alcohol intoxication: Status: Acute Code(s): F10.929 - Alcohol use, unspecified with intoxication, unspecified (3) Neck stiffness: Status: Acute Code(s): M43.6 - Torticollis Additional A&P Information Left frontal/parietal subdural hematoma slight extension after a fall No neurological signs of intracranial hypertension Patient is drinking whiskey every day, his alcohol level is high Repeat CT scan in the morning, Dr. Ridley has been consulted Keep head end elevated Continue vancomycin and cefepime for now and obtain LP for evaluation. Dr. Ridley will see patient later today. Neurochecks every 2 hours Alcohol intoxication: CIWA protocol Hypertension: Target blood pressure less than 120 Continue Coreg and lisinopril Full code Attestations Medical Necessity Statement*: Patient with subdural hematoma requires hospitalization until deemed safe for discharge. Coding Level of Care Code Acute Juvenile Detention Officer for [facility] Fwd Diagnoses Subdural hematoma S06.5X9A Acute alcohol intoxication F10.929 Neck stiffness M43.6
[2019-09-24] MEDS: dexamethasone 10 mg/mL INJ IVP ×2 (16:45→20:31)
[2019-09-24] MEDS: cefepime 1,000 MG in sodium chloride 0.9% (plus) 100 ML 200 MG IV (20:32)
[2019-09-24] MEDS: atorvastatin 40 mg Tablet 20 MG PO (20:33)
--- NOTE | 2019-09-24 22:21 | PM.CONSULT ---
Providers/Reason For Consult Consulting Physican/Specialty*: Dhara Ridley MD/Neurosurgery Reason for Consult*: Subdural hematoma Requesting Physcian: Dr. Wang Attending Physician: Uday Wang MD Primary Care Provider: KAITLYNN Hurd History of Present Illness History of Present Illness Gavin French Jr is a 63 year old male admitted through the ED after his vision became blurry, his legs became weak and he collapsed at home. He was recently admitted for twist drill drainage of a left convexity subdural hematoma. Imaging studies obtained through the ED demonstrated a thin acute subdural hematoma over residual chronic subdural fluid. No significant mass effect was apparent. The patient was intoxicated, and admitted for monitoring and followup imaging. Neurosurgery consultation was requested. Review of Systems General: Reports: 10 or more systems reviewed and unremarkable except in HPI and below Const: Denies: fever or chills Eyes: Denies: change in vision ENMT: Denies: throat pain Card: Denies: chest pain Resp: Denies: shortness of breath GI: Denies: abdominal pain : Denies: urinary incontinence Musc: Denies: neck pain Skin/Breast: Denies: rash Neuro: Denies: numbness in extremities or weakness in extremities Psych: Denies: anxiety Endo: Denies: excessive urination Casey/Lymph: Denies: easy bruising All/Imm: Denies: hives Meds/Allergies Home Medications and Allergies Home Medications Medication Instructions Recorded Confirmed Type aspirin 81 mg tablet,delayed 81 mg PO DAILY 08/14/19 10/07/19 History release carvedilol 12.5 mg tablet 12.5 mg PO BID #30 tab 08/19/19 10/07/19 Rx famotidine 20 mg tablet 20 mg PO DAILY #30 tab 08/19/19 10/07/19 Rx gabapentin 300 mg capsule 300 mg PO BID #60 cap 08/19/19 10/07/19 Rx citalopram 40 mg PO DAILY 09/11/19 10/07/19 History hydroxyzine pamoate 50 mg PO BEDTIME PRN 09/11/19 10/07/19 History multivitamin [Multiple Vitamins] 1 tab PO DAILY 09/11/19 10/07/19 History lisinopril 20 mg PO DAILY #30 tab 09/14/19 10/07/19 Rx atorvastatin 20 mg PO DAILY 09/23/19 10/07/19 History potassium chloride 10 meq PO DAILY 09/23/19 10/07/19 History sennosides-docusate sodium 1 tab-cap PO DAILY #30 tab 09/26/19 10/07/19 Rx [Senna-S] furosemide 20 mg PO DAILY 10/07/19 10/07/19 History Allergies Allergy/AdvReac Type Severity Reaction Status Date / Time No Known Allergies Allergy Verified 09/30/19 09:52 Current Medications Current Medications Generic Name Dose Route Start Last Admin Trade Name Freq PRN Reason Stop Dose Admin Atorvastatin Calcium 20 mg 09/23/19 21:30 09/24/19 20:33 Lipitor PO 20 mg BEDTIME OBED Administration Carvedilol 12.5 mg 09/23/19 21:18 09/24/19 17:00 Coreg PO 12.5 mg BID BOED Administration Citalopram Hydrobromide 40 mg 09/24/19 09:00 09/24/19 10:14 Celexa PO 40 mg DAILY OBED Administration Dexamethasone 10 mg 09/24/19 16:00 09/24/19 20:31 Decadron IVP 10 mg Q6H OBED Administration Famotidine 20 mg 09/24/19 09:00 09/24/19 10:15 Pepcid Tab PO 20 mg DAILY OBED Administration Folic Acid 1 mg 09/24/19 09:00 09/24/19 10:15 Folic Acid PO 1 mg DAILY OBED Administration Gabapentin 300 mg 09/24/19 09:00 09/24/19 17:00 Neurontin PO 300 mg BID OBED Administration Hydroxyzine Pamoate 50 mg 09/23/19 22:00 09/23/19 22:34 Vistaril PO 50 mg BEDTIME PRN Administration ANXIETY Vancomycin HCl 1,500 mg/ 250 mls @ 166.667 mls/hr 09/24/19 00:00 09/24/19 03:44 Sodium Chloride IV Infused Q24H OBED Infusion Cefepime HCl 1,000 mg/ Sodium 100 mls @ 200 mls/hr 09/24/19 22:00 09/24/19 20:32 Chloride IV 200 mls/hr Q12H OBED Administration Protocol Lisinopril 20 mg 09/24/19 09:00 09/24/19 10:15 Prinivil PO 20 mg DAILY OBED Administration Multivitamins Therapeutic 1 tab 09/24/19 09:00 09/24/19 10:15 Multivitamin Tab PO 1 tab DAILY OBED Administration Thiamine Mononitrate 100 mg 09/24/19 09:00 09/24/19 10:14 Vitamin B-1 PO 100 mg DAILY OBED Administration PFSH Acute PFSH: Family History Other Cancer Hypertension Stroke Denies family history of Diabetes CAD (coronary artery disease) Social History Smoking and tobacco status: current every day smoker cigarettes Packs smoked per day: 0.25 Alcohol intake: former Year of sobriety/quit date alcohol: 02/01 Former alcohol use details: 09/23/2019 presented to [facility] emergency services. Diagnosis intoxication Household members: spouse and children Marital status: Current occupational status: retired History of recent travel: No Vitals/I&O/Wt Last Vital Signs Temp 97.6 F 09/24/19 20:00 Pulse 86 09/24/19 20:00 Resp 20 H 09/24/19 20:00 BP 177/85 09/24/19 20:00 Pulse Ox 96 09/24/19 20:00 09/24/19 09/24/19 09/24/19 06:59 14:59 22:59 Intake Total 812 / 1292 840 / 840 720 / 1560 Balance 812 / 1292 840 / 840 720 / 1560 Weight last 48 hrs Weight 170 lb Physical Exam Const: COMMON NORMALS: no apparent distress GENERAL APPEARANCE: cooperative and comfortable HENMT: HEAD & SCALP: other (Scalp dressing placed prior PM has been removed.); no raccoon eyes GENERAL EAR: hearing not grossly impaired TEETH & GINGIVA: Yes poor dentition Eye: COMMON NORMALS: EOMs intact bilaterally ALIGNMENT: Yes alignment normal Neck/C-Spine: COMMON NORMALS: supple and no JVD GENERAL: Yes trachea midline Resp: COMMON NORMALS: normal respiratory effort EFFORT & INSPECTION: Yes able to speak in complete sentences and No tachypneic Cardio: COMMON NORMALS: no JVD and regular rate RATE: regular rate Extremity: COMMON NORMALS: no clubbing, cyanosis or edema Neuro: COMMON NORMALS: moves all extremities and no focal motor deficits COORDINATION/BALANCE: [id number] test normal and [id number] test normal SPEECH: speech normal GAIT: Yes other COORDINATION: [id number] test normal and [id number] test normal Psych: COMMON NORMALS: thought process normal and speech normal ATTITUDE: Yes calm and Yes engaged ACTIVITY/MOTOR BEHAVIOR: Yes appropriate eye contact SPEECH: Yes normal speech MOOD & AFFECT: Yes euthymic mood THOUGHT PROCESS: normal thought process Skin: WOUNDS: Yes surgical site (left scalp Incision intact, with sutures present.) Data Imaging^: CT Head: Radiologist's impression: 1. No interval change in the LEFT frontoparietal subdural hematoma since 09/23/2019. Subdural hematoma has increased since 09/14/2019. Maximum diameter is 4 mm. 2. No mass effect or midline shift or intraventricular blood. A&P Assessment and plan (1) Subdural hematoma: Patient has a rim acute subdural hematoma superimposed on a chronic thin subdural fluid collection. Findings are stable on CT today compared to prior PM. No surgical intervention is required, unless further hematoma enlargement is noted. Patient has reported neck stiffness and described photophobia, likely related to a chemical meningitis from the acute blood. A bacterial meningitis is not excluded and warrants further workup, especially in view of recent surgery. Discussed with Dr. Wang. The risk of lumbar puncture is felt to be low, based on the size of the current subdural hematoma, the absence of mass effect on imaging studies, and the mild elevation of ICP noted at the time of recent surgical drainage of a much larger hematoma. Lumbar puncture is tentatively planned for tomorrow, per patient. Fall precautions and avoidance of anticoagulation/antiplatelet agents is recommended. Urgent repeat imaging would be indicated with neurochanges or progressive symptoms. Anticipate discharge and outpatient Neurosurgery followup, if LP is negative and patient status remains stable. Status: Acute Code(s): S06.5X9A - Traumatic subdural hemorrhage with loss of consciousness of unspecified duration, initial encounter (2) History of javi hole surgery: Status: Acute Code(s): Z98.890 - Other specified postprocedural states Consult Attestations Medical Necessity Statement: Patient is appropriate for in-hospital monitoring and management after identification of acute on chronic subdural hematoma. Time Spent in Patient Care: Greater than 35 minutes Coding Level of Care Code Acute Opto Mechanical Engineer for [facility] Fwd Exam Comprehensive Diagnoses Subdural hematoma S06.5X9A History of javi hole surgery Z98.890
[2019-09-24 23:03] LABS: Vancomycin Trough < 4.0 ug/mL (10-15)
[2019-09-25] VITALS (9 sets, daily range): BP systolic 135–182; BP diastolic 64–93; PULSE 63–72; RESP 17–20; TEMP 36.4–36.6; O2SAT 94–96
[2019-09-25] MEDS: dexamethasone 10 mg/mL INJ IVP ×3 (04:09→19:56)
[2019-09-25] MEDS: carvedilol 12.5 mg Tablet PO ×2 (09:07→18:25)
[2019-09-25] MEDS: thiamine 100 mg Tablet PO (09:08)
[2019-09-25] MEDS: folic acid 1 mg Tablet PO (09:08)
[2019-09-25] MEDS: citalopram 20 mg Tablet 40 MG PO (09:08)
[2019-09-25] MEDS: multivitamin therapeutic Tablet 1 TAB PO (09:08)
[2019-09-25] MEDS: famotidine 20 mg Tablet PO (09:08)
[2019-09-25] MEDS: lisinopril 20 mg Tablet PO (09:08)
[2019-09-25] MEDS: gabapentin 300 mg Capsule PO ×2 (09:08→18:26)
[2019-09-25] MEDS: cefepime 1,000 MG in sodium chloride 0.9% (plus) 100 ML 200 MG IV ×2 (09:13→22:34)
--- NOTE | 2019-09-25 12:53 | PC.NURSE ---
PATIENT LEAVING UNIT VIA BED FOR LUMBAR PUNCTURE.
--- NOTE | 2019-09-25 13:11 | PC.CHAP ---
Pastoral Care Encounter/Spiritual Assessment Type of Contact [] Declined athletic equipment manager visit [] Patient/Family/Request visit [] Outpatient visit [] Follow-up visit [] Physician referral [] Code/Alert [x] Routine visit [] Staff referral [] Actively dying [] Patient sleeping [] Family support [] [] Out of room [] Palliative care [] [] Receiving care in room [] Pre-surgical visit [] Trauma [] Long length of stay [] ICU visit [] Other: Relational/Emotional Strength [x] Patient feels connected with others/family/visitors/staff [] Distress [] Loneliness/isolation [] Abandonment Spirituality of Patient [x] Person of [place] [] Attends Synagogue of their [place] [] Believes in Prayer [] Reads Bible or Sabianist materials [] There are Spiritual issues to be addressed Unattended Ground Sensor Specialist Interventions [x] Prayer [x] Active listening [] Non-anxious presence [] Spiritual/emotional support [] Crisis/trauma care [] Spiritual counseling [] Bereavement support [] Provided bereavement packet [] Provided Bible/devotional materials [] Provided toy/stuffed animal, coloring book to patient or family member [] Provided Communion [] Anointing/[place] [] Salvation [x] Completed spiritual assessment [] Other: Impact on Illness or Injury [] Angry [] Fearful [] Anxious [] Often cries [] Exhaustion [] Unable to work [] Unable to attend pentecostalism [] Unable to walk/stand [] Unable to read [] Unable to drive [] Unable to eat/drink [] Unable to sleep [] Unable to be with family [] Patient intubated [] Other: Summary patiernht ready nto go home Time spent with patient 10 min
[2019-09-25 14:37] LABS: CSF Mononuclear # 0.005 10^3/uL (50-90); Mononuclear WBC CSF % 83 % (50-90); Polynuclear Cells ,CSF # 0.001 10^3/uL (0-10); Polynuclear WBC CSF % 17 % (0-10)
[2019-09-25 14:46] LABS: Appearance CSF CLEAR (CLEAR); Color CSF COLORLESS (COLORLESS)
[2019-09-25] MEDS: docusate sodium 100 mg Capsule PO ×2 (14:52→18:25)
[2019-09-25 14:55] LABS: Glucose CSF 120 mg/dL (40-70); Total Protein CSF 29 mg/dL (15-45)
[2019-09-25 15:11] LABS: Red Blood Cell CSF 1 10^3/uL (0-0); White Blood Cell CSF 6 /uL (0-5)
--- NOTE | 2019-09-25 15:16 | PM.PN ---
Subjective Subjective: Interval history: Patient reports feeling okay and denies any complaints this morning. Denies lightheadedness or dizziness. Denies any headache. He has LP performed earlier today with CSF showing 6 WBCs with 83% mononuclear cells and 17 PMNs. Patient's glucose is 120 and protein in normal range. This does not appear to be a bacterial meningitis. Gram stain shows no organisms. Vitals/I&O/Wt Last Vital Signs Temp 97.5 F L 09/25/19 11:00 Pulse 68 09/25/19 11:00 Resp 17 09/25/19 11:00 BP 159/83 09/25/19 11:00 Pulse Ox 94 09/25/19 11:00 09/25/19 09/25/19 09/25/19 06:59 14:59 22:59 Intake Total 240 / 2291 580 / 580 Balance 240 / 2291 580 / 580 Weight last 48 hrs Weight 77.111 kg Physical Exam Const: COMMON NORMALS: no apparent distress and oriented x3 Resp: COMMON NORMALS: normal respiratory effort and clear to auscultation bilaterally AUSCULTATION: clear to auscultation bilaterally Cardio: COMMON NORMALS: regular rate, regular rhythm and S2 normal heart sound RATE: regular rate RHYTHM: regular rhythm HEART SOUNDS: S2 normal OTHER: No lower extremity edema GI: COMMON NORMALS: normal to inspection, nondistended, normoactive bowel sounds, soft to palpation and non-tender PALPATION: Yes soft Neuro: COMMON NORMALS: oriented x3 and no focal motor deficits Data : 09/24/19 05:41 09/24/19 05:41 A&P Assessment and plan (1) Subdural hematoma: Status: Acute Code(s): S06.5X9A - Traumatic subdural hemorrhage with loss of consciousness of unspecified duration, initial encounter (2) Acute alcohol intoxication: Status: Acute Code(s): F10.929 - Alcohol use, unspecified with intoxication, unspecified (3) Neck stiffness: Status: Acute Code(s): M43.6 - Torticollis Additional A&P Information We will continue current monitoring and treatment and give patient at least 1 more day and if remains stable we could possibly let patient go home tomorrow. Awaiting CSF cultures. Alcohol intoxication: [facility] protocol Hypertension: Target blood pressure less than 120 Continue Coreg and lisinopril Full code Attestations Medical Necessity Statement*: Patient post recent craniotomy has some CSF pleocytosis with possibility of meningitis requires close inpatient monitoring and treatment until deemed safe for discharge. Coding Level of Care Code Acute Occupational Therapist Assistants for Chg Fwd Diagnoses Subdural hematoma S06.5X9A Acute alcohol intoxication F10.929 Neck stiffness M43.6
--- NOTE | 2019-09-25 15:27 | FL_ITS ---
WS: [id number] LUMBAR PUNCTURE CLINICAL INFORMATION: neck stiffness COMPARISON: None. TECHNIQUE: Informed consent: The procedure and its potential risk and complications were discussed with the yoli ent. Verbal and written consent was obtained. Timeout: A timeout was performed to confirm correct patient, procedure, and site. Patient was prepped and draped in the usual sterile fashion. Lidocaine 1% was used for local anesthes ia. Utilizing fluoroscopic guidance, a 3.5 inch 22-gauge spinal needle was advanced into the subarach noid space at L2-3 via left oblique sublaminar approach. Free flow of blood tinged CSF was obtained. This subsequently cleared with additional drainage. 8 cc of CSF was collected and sent the lab for fu rther analysis. FLUOROSCOPIC TIME: 0.5 minutes. FL/FL guided lumbarpuncture [id number] IMPRESSION: Fluoroscopically guided lumbar puncture. No immediate complications
--- NOTE | 2019-09-25 17:38 | P.PN_ITS ---
Subjective Subjective: Interval history: I am feeling good. Denies headache, gait instability or dizziness. Vitals/I&O/Wt Last Vital Signs Temp 97.7 F 09/25/19 15:00 Pulse 68 09/25/19 15:00 Resp 18 09/25/19 15:00 BP 169/82 09/25/19 15:00 Pulse Ox 95 09/25/19 15:00 09/25/19 09/25/19 09/25/19 06:59 14:59 22:59 Intake Total 240 / 2291 580 / 580 Balance 240 / 2291 580 / 580 Physical Exam Const: COMMON NORMALS: no apparent distress GENERAL APPEARANCE: cooperative and comfortable HENMT: COMMON NORMALS: hearing grossly normal bilaterally Eye: COMMON NORMALS: EOMs intact bilaterally Neck/C-Spine: COMMON NORMALS: supple and no JVD Resp: COMMON NORMALS: normal respiratory effort EFFORT & INSPECTION: Yes able to speak in complete sentences, No abnormal respiratory pattern, No tachypneic and No stridor Cardio: COMMON NORMALS: no JVD Extremity: COMMON NORMALS: no clubbing, cyanosis or edema Neuro: COMMON NORMALS: moves all extremities and no focal motor deficits SENSORIUM/ORIENTATION: Yes other (Oriented) CRANIAL NERVES: Yes CN III (oculomotor), Yes CN IV (trochlear), Yes CN V (trigeminal), Yes CN (abducens) and Yes CN VII (facial) COORDINATION/BALANCE: [id number]-ty-vddp test normal and tyds-px-uddo test normal SPEECH: speech normal GAIT: Yes normal gait MOTOR EXAM: no pronator drift COORDINATION: vbfoho-ew-rcia test normal and zzzu-dw-tnqe test normal Psych: COMMON NORMALS: mental status grossly normal and thought process normal APPEARANCE: Yes grossly normal ATTITUDE: Yes calm and Yes engaged ACTIVITY/MOTOR BEHAVIOR: Yes appropriate eye contact MOOD & AFFECT: Yes euthymic mood THOUGHT PROCESS: normal thought process THOUGHT CONTENT: Yes normal thought content ATTENTION/CONCENTRATION: Yes attention grossly intact MEMORY/COGNITION: Yes memory grossly intact Skin: WOUNDS: Yes surgical site (Left scalp surgical site with sutures intact. No erythema/active drainage.) Data : 09/24/19 05:41 09/24/19 05:41 A&P Assessment and plan (1) History of javi hole surgery: Patient is clinically improved since admission. He has a lumbar puncture scheduled for this afternoon. Assuming there are no findings suspicious for meningitis, outpatient neurosurgery follow-up next week (as previously scheduled) would be appropriate. A head CT is to be performed prior to the visit. No surgical intervention is indicated at this time. Activity modifications/fall precautions/alcohol abstinence are essential if the patient i s to minimize the risk of subdural hematoma expansion. Status: Acute Code(s): Z98.890 - Other specified postprocedural states (2) Subdural hematoma: Status: Acute Code(s): S06.5X9A - Traumatic subdural hemorrhage with loss of consciousness of unspecified duration, initial encounter (3) Constipation: Patient complained of straining with BM's due to constipation. He requests a stool softener. Scheduled Colace was ordered. Status: Acute Code(s): K59.00 - Constipation, unspecified Attestations Medical Necessity Statement*: Patient is appropriate for in-hospital monitoring and management after identification of acute on chronic subdural hematoma. Coding Level of Care Code Acute Research Biostatistician for Chg Fwd Exam Comprehensive Diagnoses History of javi hole surgery Z98.890 Subdural hematoma S06.5X9A Constipation K59.00
[2019-09-25] MEDS: LORazepam 2 mg Tablet PO (22:34)
[2019-09-25] MEDS: atorvastatin 40 mg Tablet 20 MG PO (22:34)
--- NOTE | 2019-09-25 22:40 | PC.NURSE ---
patient informed me that he removed the stitches that were on his scalp 5 minutes ago in the bathroom on his own. I educated patient on signs and symptoms of infection and the importance of why we leave stitches in until the doctor removes them. Wound on head is closed, no bleeding, no swelling.
[2019-09-26] MEDS: dexamethasone 10 mg/mL INJ IVP ×3 (01:05→13:35)
[2019-09-26 08:03] VITALS: BP 164/87; PULSE 67; RESP 17; TEMP 36.5; O2SAT 97
[2019-09-26] MEDS: carvedilol 12.5 mg Tablet PO ×2 (08:33→08:35)
[2019-09-26] MEDS: famotidine 20 mg Tablet PO (08:33)
[2019-09-26] MEDS: citalopram 20 mg Tablet 40 MG PO (08:33)
[2019-09-26] MEDS: gabapentin 300 mg Capsule PO (08:33)
[2019-09-26] MEDS: multivitamin therapeutic Tablet 1 TAB PO (08:33)
[2019-09-26] MEDS: thiamine 100 mg Tablet PO (08:33)
[2019-09-26] MEDS: folic acid 1 mg Tablet PO (08:33)
[2019-09-26] MEDS: lisinopril 20 mg Tablet PO (08:33)
[2019-09-26] MEDS: docusate sodium 100 mg Capsule PO (08:33)
[2019-09-26] MEDS: cefepime 1,000 MG in sodium chloride 0.9% (plus) 100 ML 200 MG IV (10:32)
[2019-09-26 12:00] VITALS: BP 173/78; PULSE 59; RESP 18; TEMP 36.7; O2SAT 97
--- NOTE | 2019-09-26 13:30 | PM.DCS ---
Discharge Providers Date of Admission: 09/24/19 16:35 Date of Discharge: September 26, 2019 Attending Provider at Admission: Shiv Snowden MD Attending Provider at Discharge: Uday Wang MD Primary Care Provider: KAITLYNN Hurd Diagnoses at Discharge Discharge Diagnosis (1) History of javi hole surgery: Status: Acute Problem details: Twist drill (SEPS) drainage of left convexity subdural hematoma (2) Subdural hematoma: Status: Acute (3) Constipation: Status: Acute (4) Constipation: Status: Acute Reason for Visit Reason for Visit: Reason For Visit: HEADACHE BLURRED VISION Hospital Course Discharge Summary: Patient presented with blurry vision and headache after fall while under alcohol intoxication. He was found to have new and slightly larger left frontal/parietal subdural hematoma compared to prior exam. Head CT was repeated next morning with hematoma appearing stable. There was no mass-effect or midline shift. Patient underwent LP showing 6 WBCs with mostly mononuclear and 17% PMNs. Gram stain and cultures so far negative. Discussed case with Dr. Ridley who also does not think that CSF analysis represents underlying infectious process and it felt reasonable to discontinue antibiotics and have outpatient follow-up. Patient already has appointment to see Dr. Ridley on Monday. This morning patient denies any complaints including shortness of breath, chest pain or headache. He shows no evidence of any focal neurological findings and is eager to go home. We had extensive discussion regarding importance of alcohol and tobacco abstinence and patient voiced understanding. Patient ambulates in the room without difficulty. He is steady on his feet. Physical Exam Const: COMMON NORMALS: no apparent distress and oriented x3 Resp: COMMON NORMALS: normal respiratory effort and clear to auscultation bilaterally AUSCULTATION: clear to auscultation bilaterally Cardio: COMMON NORMALS: regular rate, regular rhythm and S2 normal heart sound RATE: regular rate RHYTHM: regular rhythm HEART SOUNDS: S2 normal OTHER: No lower extremity edema GI: COMMON NORMALS: normal to inspection, nondistended, normoactive bowel sounds, soft to palpation and non-tender PALPATION: Yes soft Neuro: COMMON NORMALS: oriented x3 and no focal motor deficits Discharge Data Data Completed and Pending: Completed Studies During Hospitalization Category Date Time Status CT head wo con* 7 0450 Routine Cat Scan 09/24/19 07:[address] head wo con* 7 0450 Stat Cat Scan 09/23/19 17:23 Completed FL guided lumbarp uncture [id number] Rout ine Exams 09/25/19 15:27 Completed Pending at discharge Category Date Time Status CSF Culture & Gra m Stain Stat Lab 09/25/19 13:44 Results Labs from last 24 hours 09/25/19 09/25/19 13:44 13:44 CSF Appearance Clear CSF Color Colorless CSF WBC 6 H CSF RBC 1 H CSF Mononuclear # Auto 0.005 L CSF Mononuclear WB Cs % 83 CSF Polynuclear WB Cs # 0.001 CSF Polynuclear WB Cs % 17 H CSF Glucose 120 H CSF LDH 35 CSF Total Protein 29 Vitals: Last Vital Signs Temp 98.1 F 09/26/19 12:00 Pulse 59 L 09/26/19 12:00 Resp 18 09/26/19 12:00 BP 173/78 09/26/19 12:00 Pulse Ox 97 09/26/19 12:00 Discharge Plan Discharge Patient Disposition: Home, Self-Care Condition: Stable Prescriptions: New sennosides-docusate sodium [Senna-S] 8.6-50 mg tablet 1 tab-cap PO DAILY Qty: 30 RF: 0 Continued aspirin [Aspir-81] 81 mg tablet,delayed release (DR/EC) 81 mg PO QDAY RF: 0 gabapentin 300 mg capsule 300 mg PO BID Qty: 60 RF: 2 furosemide 20 mg tablet 20 mg PO QAM Qty: 30 RF: 2 carvedilol 12.5 mg tablet 12.5 mg PO BID Qty: 30 RF: 2 famotidine [Pepcid] 20 mg tablet 20 mg PO DAILY Qty: 30 RF: 2 multivitamin [Multiple Vitamins] Tablet 1 tab PO DAILY RF: 0 citalopram 40 mg tablet 40 mg PO DAILY RF: 0 hydroxyzine pamoate 50 mg capsule 50 mg PO BEDTIME PRN (Reason: sleep) RF: 0 lisinopril 40 mg tablet 20 mg PO DAILY Qty: 30 RF: 0 potassium chloride 10 mEq capsule, extended release 10 meq PO DAILY RF: 0 atorvastatin 20 mg tablet 20 mg PO DAILY RF: 0 Discharge Orders: Discharge Order (Routine); Ordered 09/26/19 Ordered By: Uday Wang Referrals: Stephon Ridley MD [Physician] - 4-7 days Javier Villalobos [email or web address] [Primary Care Provider] - 4-7 days Discharge Diet: Usual diet Discharge Activity: Increase activity as tolerated Activity Restrictions/Additional Instructions: Please call your doctor or present to emergency department if your condition worsens or you develop diarrhea, lightheadedness, fatigue or see blood in your stool or black stool. Please avoid smoking and drinking alcohol as we have discussed. Please keep appointment to see Dr. Ridley next week as scheduled. Discharge Attestations Time Spent in Discharge Care*: greater than 30 min Time Spent in Smoking Cessation: Time spent discussing smoking cessation with patient: 3 to 10 minutes Status at Discharge: Cognitive status at discharge: cognitively intact, Behavioral status at discharge: cooperative, Quality Metrics Clinical Quality Measures During this hospital stay, did patient experience: None Coding Level of Care Code Acute Telephone Appointment Clerk for Fatoumata Cintron Diagnoses History of javi hole surgery Z98.890 Subdural hematoma S06.5X9A Constipation K59.00 Constipation K59.00
[2019-09-26 14:01] VITALS: BP 173/78; PULSE 59; RESP 18; TEMP 36.7; O2SAT 97
== END 2019-09-26 15:30 | disposition home or self-care (01) | DRG 82 ==
LOC: ER 19:06 → MEDSURG 19:26
PROVIDERS: Family Medicine; Admitting Provider Internal Medicine; Emergency Provider Emergency Medicine; Family Provider Nurse Practitioner; PCP Nurse Practitioner; Visit Provider Internal Medicine
DX: S06.5X9A Traumatic subdural hemorrhage with loss of consciousness of unspecified duration, initial encounter (principal); G03.8 Meningitis due to other specified causes; K59.00 Constipation, unspecified; F17.210 Nicotine dependence, cigarettes, uncomplicated; F10.929 Alcohol use, unspecified with intoxication, unspecified; M43.6 Torticollis; I10 Essential (primary) hypertension; Z79.82 Long term (current) use of aspirin; Z79.899 Other long term (current) drug therapy; Z79.811 Long term (current) use of aromatase inhibitors; X58.XXXA Exposure to other specified factors, initial encounter
CPT/HCPCS: 12345; 36415; 62270; 70450; 77003; 80048; 80202; 80307; 80500; 81003; 82009; 82140; 82945; 83615; 84157; 84484; 85025; 85610; 85730; 87070; 87075; 87205; 89050; 90471; 90732; 93005; 96372; 96375; 99283; G0378; J0692; J1100; J3370; J3411; J7050

== ENCOUNTER 2019-09-30 09:18 | Outpatient (CLI) | payer MEDICAID, SELFPAY ==
--- NOTE | 2019-09-30 09:22 | CT_ITS ---
WS: [id number] CT HEAD TECHNIQUE: Noncontrast CT of the head obtained from the skullbase to the vertex. CLINICAL INFORMATION: subdural hematoma COMPARISON: September 24, 2019 DLP: 925.[address] scans at [facility] use at least one of these dose optimization techniques: automat ed exposure control; mA and/or kV adjustment per patient size (includes targeted exams where dose is matched to clinical indication); or iterative reconstruction. FINDINGS: Thin subdural hematoma overlying the left frontal lobe. Today this measures approximately 3 mm slight ly decreased in size from September 24, 2019 otherwise not significantly changed. No mass effect or midli ne shift. Decrease in extra-axial blood products overlying the left frontal and parietal vertex. Left frontal javi hole. Paranasal sinuses and mastoid air cells are well aerated. .Normal visualized soft tissues. CT/CT head wo con* [id number] IMPRESSION: 1. Left frontal subdural hematoma measures approximately 3 mm today decreased in size. 2. Interval improvement in the subdural hematoma overlying the left frontal pa rietal vertex with trace residual blood products. 3. No mass effect or midline shift. 4. No new hemorrhage.
== END 2019-09-30 09:19 | disposition home or self-care (01) ==
LOC: RADWPI 09:20
PROVIDERS: Family Provider Nurse Practitioner; PCP Nurse Practitioner; Visit Provider Specialist
DX: S06.5X9A Traumatic subdural hemorrhage with loss of consciousness of unspecified duration, initial encounter (principal); X58.XXXA Exposure to other specified factors, initial encounter
CPT/HCPCS: 70450

== ENCOUNTER 2019-10-07 20:39 | Emergency (ER) | payer MEDICAID, SELFPAY ==
[2019-10-07 20:40] VITALS: BP 125/79; PULSE 86; RESP 18; TEMP 36.1; O2SAT 97; BMI 29.5
--- NOTE | 2019-10-07 20:42 | ED_ITS ---
Entered by Sadia Sidhu, acting as scribe for Gilson Dixon MD HPI - Alcohol General: Chief Complaint: Nausea/Vomiting/Diarrhea Stated Complaint: FALL Time Seen by Provider: 10/07/19 20:40 Source: patient Mode of arrival: EMS ([facility]) Limitations: no limitations History of Present Illness: HPI narrative: 63 yo m came to the er by [facility] for fall and etoh. 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 Pt states that he had at least 2 shots of alcohol. Pt did say that way after his 2 shots he fell. Pt was in here last week for a fall hit to head with a small subdural bleed. Pt said that he is unsure when he fell if he hit his head. 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 Amount of alcohol consumed: 2 shots Chronic alcohol use: Yes Previous visits for alcohol intoxication: Yes Recent trauma: Yes Associated symptoms: Deny abdominal pain Treatments prior to arrival: none Review of Systems General: Reports: other (neagtive unless marked) Const: Denies: fever Eyes: Denies: change in vision ENMT: Denies: throat pain Card: Denies: chest pain Resp: Denies: shortness of breath GI: Denies: abdominal pain : Denies: urinary dribbling Musc: Denies: neck pain Skin/Breast: Denies: rash Neuro: Denies: headache Psych: Denies: anxiety Endo: Denies: excessive urination Casey/Lymph: Denies: easy bruising All/Imm: Denies: hives PFSH ED PFSH: Medical History Cerebral aneurysm Anterior communicating Artery, unruptured, 3mm Constipation Depression history of previous SI episodes History of alcohol dependence reported sobriety date of 02/01 Hyperlipidemia Hypertension Hyperthyroidism Intracranial hemorrhage 09/14/2019 Lacunar stroke Sciatica Subdural hematoma Subdural hematoma TIA (transient ischemic attack) Surgical History History of ankle surgery left, for fracture History of javi hole surgery 09/12/2019 Dr. Papito Ridley: Twist drill (SEPS) drainage of left convexity subdural hematoma 09/13/2019 Removed History of surgery on right wrist Post-operative state Family History Mother Cancer Hypertension Father Hypertension Social History Smoking and tobacco status: current every day smoker cigarettes Packs smoked per day: 0.25 Alcohol intake: former Year of sobriety/quit date alcohol: 02/01 Former alcohol use details: 09/23/2019 presented to [facility] emergency services. Diagnosis intoxication Household members: spouse and children Marital status: Current occupational status: retired History of recent travel: No Physical Exam Const: COMMON NORMALS: no apparent distress, oriented x3 and healthy appearing HENMT: COMMON NORMALS: normocephalic and head/scalp atraumatic HEAD & SCALP: normocephalic and atraumatic Eye: COMMON NORMALS: PERRL and EOMs intact bilaterally PUPIL: Yes PERRL Neck/C-Spine: COMMON NORMALS: full ROM and supple Chest: COMMONS NORMALS: inspection of chest normal and palpation of chest n ormal Resp: COMMON NORMALS: normal respiratory effort, no retractions, no use of accessory muscles and clear to auscultation bilaterally AUSCULTATION: clear to auscultation bilaterally Cardio: COMMON NORMALS: regular rate, regular rhythm and no murmurs RATE: regular rate RHYTHM: regular rhythm GI: COMMON NORMALS: normal to inspection, nondistended, normoactive bowel sounds, soft to palpation, non-tender and no masses PALPATION: Yes soft Extremity: COMMON NORMALS: normal to inspection and full ROM Neuro: COMMON NORMALS: oriented x3, moves all extremities and no focal motor deficits Psych: COMMON NORMALS: mental status grossly normal, thought process normal and cooperative THOUGHT PROCESS: normal thought process Skin: COMMON NORMALS: no rashes or lesions noted and no wounds GENERAL SKIN EXAM: no rashes or lesions noted Course Vital Signs: Vital signs: Vital Signs Temperature 96.9 F L 10/07/19 20:40 Pulse Rate 86 10/07/19 20:40 Respiratory Rate 18 10/07/19 20:40 Blood Pressure 125/79 10/07/19 20:40 Pulse Oximetry 97 10/07/19 20:40 MDM - Alcohol MDM Narrative: Medical decision making narrative: Patient presents here with fall with possible syncope. Patient is intoxicated. Patient CT head here shows no acute findings. Patient is well-appearing here and able ambulate without any problems. He has no signs of cardiac cause for this. Patient is stable for discharge and return if worsening. Lab Data: Labs: Lab Results 10/07/19 10/07/19 Range/Units 21:08 21:08 WBC 10.0 (4.0-10.0) 10^3/ uL RBC 4.50 (4.1-5.3) 10^6/u L Hgb 14.5 (11.7-16.6) g/dL Hct 42.7 (42.0-52.0) % MCV 94.9 H (80-94) fL MCH 32.2 (28.0-34.0) pg MCHC 34.0 (30.0-36.0) g/dL RDW 12.5 (12.1-15.1) % Plt Count 202 (130-400) 10^3/c mm MPV 9.5 (7.4-10.4) fL Neut % (Auto) 74.1 % Lymph % (Auto) 17.6 % [place] % (Auto) 6.1 % Eos % (Auto) 1.1 % Baso % (Auto) 0.4 % Neut # (Auto) 7.4 (1.8-7.7) 10^3/u L Lymph # (Auto) 1.8 (0.8-4.8) 10^3/u L [place] # (Auto) 0.6 (0.2-0.9) 10^3/u L Eos # (Auto) 0.1 (0.0-0.8) 10^3/u L Baso # (Auto) 0.0 (0.0-0.1) 10^3/u L Nucleated RBC % (a uto) 0 % Nucleated RBCs # 0.0 /100WBC Ethyl Alcohol 264 H (0-10) mg/dL Imaging Data^: CT Head: Radiologist's impression: [address] [address] [address] Scan Report Signed Patient: Gavin French Jr #: [id number] : 8Acct#:[id number] Age/Sex: 63 / MADM Date: 10/07/19 Loc: ERRoom/Bed: Attending Dr: Ordering Provider/Ordering MD: Gilson Dixon MD Date of Service: 10/07/19 Procedure(s): CT head wo con* [id number] Accession Number(s): [id number] Report Number: [id number] PROCEDURE INFORMATION: Exam: CT Head Without Contrast Exam date and time: 10/07/2019 8:49 PM Age: 63 years old Clinical indication: Injury or trauma; Initial encounter; Blunt trauma (contusions or hematomas); With loss of consciousness; Not specified; Injury date: 10/07/2019; Injury details: Fall today with pos loc; Prior surgery; Surgery date: 1-6 months; Surgery type: Hematoma removed TECHNIQUE: Imaging protocol: Computed tomography of the head without contrast. Total DLP: 774.68 mGy-cm Radiation optimization: All CT scans at this facility use at least one of these dose optimization techniques: automated exposure control; mA and/or kV adjustment per patient size (includes targeted exams where dose is matched to clinical indication); or iterative reconstruction. COMPARISON: CT head wo con* [id number] 09/30/2019 9:28 AM FINDINGS: Brain: Small anterior acute on chronic left frontal convexity subdural hematoma is again noted. The acute component measures up to 3 mm. The chronic component measures up to 7 mm. Mild atrophy and mild white matter chronic microvascular changes are noted. No CT evidence of acute infarction is seen. No midline shift. Ventricles: Normal. No ventriculomegaly. Bones/joints: A small left frontal javi hole is again noted. No acute fracture. Sinuses: Visualized sinuses are unremarkable. No fluid levels. Mastoid air cells: Mild chronic left mastoiditis is again seen. Soft tissues: Small focus of mild soft tissue swelling is observed in the left frontal scalp. CT/CT head wo con* [id number] IMPRESSION: No significant change since the prior study. Small left frontal convexity acute on chronic subdural hematoma is again noted. No midline shift. Radiation Dose CTDIVOL = (mGy): DLP = 774.68 (mGy-cm) Dictated By:Stephon Tapia MD Signed By:Stephon Tapia MDSigned Date/Time:10/07/192111 DD/ 10 EKG Data^: EKG 1: Attestation: I personally reviewed and interpreted this EKG as follows: EKG interpretation date: 10/07/19 EKG interpretation time: 20:54 Interpretation: nsr hr [address] or t wave abnormalities qrs 85 qtc 410 Discharge Plan Discharge Patient Disposition: Home, Self-Care Clinical Impression: Alcohol intoxication Qualifiers: Complication of substance-induced condition: uncomplicated Qualified Code(s): F10.920 - Alcohol use, unspecified with intoxication, uncomplicated Fall Qualifiers: Encounter type: initial encounter Qualified Code(s): W19.XXXA - Unspecified fall, initial encounter Condition: Stable Prescriptions: No Action aspirin [Aspir-81] 81 mg tablet,delayed release (DR/EC) 81 mg PO DAILY RF: 0 gabapentin 300 mg capsule 300 mg PO BID Qty: 60 RF: 2 carvedilol 12.5 mg tablet 12.5 mg PO BID Qty: 30 RF: 2 famotidine [Pepcid] 20 mg tablet 20 mg PO DAILY Qty: 30 RF: 2 multivitamin [Multiple Vitamins] Tablet 1 tab PO DAILY RF: 0 citalopram 40 mg tablet 40 mg PO DAILY RF: 0 hydroxyzine pamoate 50 mg capsule 50 mg PO BEDTIME PRN (Reason: sleep) RF: 0 lisinopril 40 mg tablet 20 mg PO DAILY Qty: 30 RF: 0 potassium chloride 10 mEq capsule, extended release 10 meq PO DAILY RF: 0 atorvastatin 20 mg tablet 20 mg PO DAILY RF: 0 sennosides-docusate sodium [Senna-S] 8.6-50 mg tablet 1 tab-cap PO DAILY Qty: 30 RF: 0 furosemide 20 mg tablet 20 mg PO DAILY RF: 0 Discharge Orders: Discharge Order (Routine); Ordered 10/07/19 Ordered By: Gilson Dixon Referrals: Javier Villalobos, THERMOGRAPH OPERATOR-C [Primary Care Provider] - Discharge Diet: Advance as tolerated Discharge Activity: Resume usual activity Patient Instructions: Fall Prevention (ED) Discharge Date/Time: 10/07/19 21:56 Coding Level of Care Code ED Licensed Esthetician for Chg Fwd Exam Comprehensive The documentation recorded by the Nahum gandara Stephanie Lyn, accurately reflects the service I personally performed and the decisions made by Destiny day Korby, MD
--- NOTE | 2019-10-07 20:44 | ECG_ITS ---
Measurements Intervals Nash Rate: 81 P: 46 TN: 154 QRS: -44 QRSD: 85 T: 25 QT: 372 QTc: 434 SINUS RHYTHM LEFT AXIS DEVIATION [QRS AXIS < -30] MINIMAL VOLTAGE CRITERIA FOR LVH, CONSIDER NORMAL VARIANT [MEETS CRITERIA IN ONE OF: R(aVL), S(V1), R(V5), R(V5/V6)+S(V1)] Compared to ECG 09/23/2019 20:23:50 Sinus bradycardia no longer present Electronically Signed On 10-08-2019 20:14:13 CDT by Shiv Zavala M.D. [id number]
[2019-10-07 21:14] LABS: Basophils % 0.4 %; Eosinophils # 0.1 10^3/uL (0.0-0.8); Eosinophils % 1.1 %; Hematocrit 42.7 % (42.0-52.0); Hemoglobin 14.5 g/dL (11.7-16.6); Lymphocytes # 1.8 10^3/uL (0.8-4.8); Lymphocytes % 17.6 %; Mean Corpuscular Hemoglobin 32.2 pg (28.0-34.0); Mean Corpuscular Volume 94.9 fL (80-94); Mean Platelet Volume 9.5 fL (7.4-10.4); Monocytes # 0.6 10^3/uL (0.2-0.9); Monocytes % 6.1 %; Neutrophils # 7.4 10^3/uL (1.8-7.7); Neutrophils % 74.1 %; Nucleated Red Blood Cells % 0 %; Platelet Count 202 10^3/cmm (130-400); Red Cell Distribution Width 12.5 % (12.1-15.1)
[2019-10-07 21:27] LABS: Alcohol Level 264 mg/dL (0-10)
[2019-10-07] MEDS: sodium chloride 0.9% 1,000 ML 999 ML IV (21:40)
[2019-10-07 21:54] VITALS: BP 129/78; PULSE 84; RESP 16; O2SAT 96
== END 2019-10-07 21:56 | disposition home or self-care (01) ==
PROVIDERS: Emergency Provider Emergency Medicine; Family Provider Nurse Practitioner; PCP Nurse Practitioner
DX: F10.129 Alcohol abuse with intoxication, unspecified (principal); Y90.8 Blood alcohol level of 240 mg/100 ml or more; E78.5 Hyperlipidemia, unspecified; I10 Essential (primary) hypertension; E05.90 Thyrotoxicosis, unspecified without thyrotoxic crisis or storm; F17.210 Nicotine dependence, cigarettes, uncomplicated; Z86.73 Personal history of transient ischemic attack (TIA), and cerebral infarction without residual deficits
CPT/HCPCS: 12345; 36415; 70450; 80307; 85025; 93005; 96360; 99281; 99283; J7030

== ENCOUNTER 2019-10-23 09:14 | Outpatient (CLI) | payer MEDICAID, SELFPAY ==
--- NOTE | 2019-10-23 09:18 | CT_ITS ---
WS: [id number] CT HEAD NONCONTRAST HISTORY: subdural hematoma TECHNIQUE: Contiguous axial imaging performed through the brain in 2.5 mm imaging. Bone and soft tiss ue windows. All CT scans at [facility] use at least one of these dose optimization techniq ues: automated exposure control; mA and/or kV adjustment per patient size (includes targeted exams wh ere dose is matched to clinical indication); or iterative reconstruction. DLP: 992.04 mGycm COMPARISON: 10/07/2019 Very thin LEFT frontal and frontoparietal subdural hematomas are again evident. No increase in size s doreen 10/07/2019 and 09/30/2019. The parietal subdural is nearly completely resolved. 3 mm residual mode rately hyperdense LEFT frontal subdural. No mass effect upon the brain. No new blood products. Mild bilateral frontal lobe atrophy. Ventricles: Normal size with no hydrocephalus. Paranasal sinuses: As visualized are clear. Mastoid air cells: Well pneumatized. Calvarium and scalp: LEFT frontal javi hole for prior subdural drainage catheter. CT/CT head wo con* [id number] IMPRESSION: 1. Nearly completely resolved LEFT frontoparietal subdural hematoma. 2. Minimal residual, 3 mm LEFT frontal subdural hematoma continues to decrease slightly in size.
== END 2019-10-23 09:15 | disposition home or self-care (01) ==
LOC: RADWPI 09:16
PROVIDERS: Family Provider Nurse Practitioner; PCP Nurse Practitioner; Visit Provider Specialist
DX: S06.5X9A Traumatic subdural hemorrhage with loss of consciousness of unspecified duration, initial encounter (principal); X58.XXXA Exposure to other specified factors, initial encounter
CPT/HCPCS: 70450

== ENCOUNTER → 2019-11-18 11:27 | Outpatient (BNVA) | payer MEDICAID, SELFPAY | PROVIDERS: Family Provider Nurse Practitioner; PCP Nurse Practitioner Family; Visit Provider Nurse Practitioner Family | DX: I10 Essential (primary) hypertension (principal); E78.5 Hyperlipidemia, unspecified; F17.200 Nicotine dependence, unspecified, uncomplicated; F10.21 Alcohol dependence, in remission; M54.30 Sciatica, unspecified side; F32.9 Major depressive disorder, single episode, unspecified; G47.00 Insomnia, unspecified | CPT/HCPCS: 80053; 80061; 84443; 85025 ==

== ENCOUNTER 2019-11-27 13:18 | Emergency (ER) | payer MEDICAID, SELFPAY | END 2019-11-27 16:13 | disposition admitted as inpatient to this hospital (09) | LOC: ER 12-12 20:59 | PROVIDERS: Emergency Provider Emergency Medicine; PCP Nurse Practitioner Family | DX: R45.851 Suicidal ideations (principal); F17.210 Nicotine dependence, cigarettes, uncomplicated; Z86.73 Personal history of transient ischemic attack (TIA), and cerebral infarction without residual deficits; E78.5 Hyperlipidemia, unspecified; I10 Essential (primary) hypertension | CPT/HCPCS: 12345; 36415; 80053; 80156; 80164; 80178; 80185; 80306; 80307; 81001; 84443; 85025; 85610; 93005; 96372; 99284; 99285; J1630 ==

== ENCOUNTER 2019-11-27 13:18 | Inpatient (IN) | payer MEDICAID, SELFPAY ==
[2019-11-27 13:19] VITALS: BP 142/89; PULSE 77; RESP 18; O2SAT 98; BMI 28.8
--- NOTE | 2019-11-27 13:19 | ECG_ITS ---
Measurements Intervals [place] Rate: 64 P: 1 OR: 148 QRS: -45 QRSD: 95 T: 28 QT: 402 QTc: 417 SINUS RHYTHM LEFT ANTERIOR FASCICULAR BLOCK [QRS AXIS <= -45, QR IN I, RS IN II] MINIMAL VOLTAGE CRITERIA FOR LVH, CONSIDER NORMAL VARIANT [MEETS CRITERIA IN ONE OF: R(aVL), S(V1), R(V5), R(V5/V6)+S(V1)] Compared to ECG 10/07/2019 20:54:29 Left anterior fascicular block now present Left-axis deviation no longer present Electronically Signed On 11-27-2019 20:33:14 CDT by Guanako Sage M.D. [id number]
--- NOTE | 2019-11-27 13:29 | W.ED.PSYCH ---
HPI - Psych General: Chief Complaint: Psychiatric Symptoms Stated Complaint: SI Time Seen by Provider: 11/27/19 13:19 History of Present Illness: HPI Narrative: Gavin is a 64-year-old male who comes in stating he is going to hang himself. He found out that his sister a month and a half ago and he was not informed until just today. Patient is very tearful and upset. He started drinking again. He says that he wants to be released so he can go and kill himself rather than get any help. Review of Systems General: Reports: ROS unobtainable due to mental status (Patient not cooperative) FOR[facility] PFSH: Medical History Cerebral aneurysm Anterior communicating Artery, unruptured, 3mm Constipation Depression history of previous SI episodes History of alcohol dependence reported sobriety date of 02/01 Hyperlipidemia Hypertension Hyperthyroidism Intracranial hemorrhage 09/14/2019 Lacunar stroke Sciatica Subdural hematoma Subdural hematoma TIA (transient ischemic attack) Surgical History History of ankle surgery left, for fracture History of javi hole surgery 09/12/2019 Dr. Papito Ridley: Twist drill (SEPS) drainage of left convexity subdural hematoma 09/13/2019 Removed History of surgery on right wrist Post-operative state Family History Mother Cancer Hypertension Father Hypertension Social History Smoking and tobacco status: current every day smoker cigarettes Packs smoked per day: 0.25 Alcohol intake: former Year of sobriety/quit date alcohol: 02/01 Former alcohol use details: 09/23/2019 presented to [facility] emergency services. Diagnosis intoxication Household members: spouse and children Marital status: Current occupational status: retired History of recent travel: No Physical Exam Const: COMMON NORMALS: no acute distress, patient oriented x3, no limitations, healthy appearing and well nourished EXAM LIMITATIONS: no altered mental status GENERAL APPEARANCE: cooperative, well kempt and well developed HENMT: COMMON NORMALS: normocephalic, atraumatic, hearing grossly normal bilaterally, external ears normal, EAC's normal, Normal external nose present and moist oral mucous membranes HEAD & SCALP: normal to inspection, normocephalic and atraumatic FACE & SINUS: normal facial exam and face symmetric NOSE: Normal external nose present and Normal nares present EXTERNAL EAR: Yes external ears normal EXTERNAL AUDITORY CANAL: EAC's normal MOUTH: Normal oral and palatal mucosa present, lip normal and tongue normal Eye: COMMON NORMALS: Equal, round and reactive pupils present, EOMs intact bilaterally, conjunctivae normal and no scleral icterus GENERAL EYE: appearance normal, both eyes and all related structures and normal light reflex ALIGNMENT: Yes alignment normal PERIORBITAL: periorbital findings normal EYELID: eyelids normal CONJUNCTIVA: Yes conjunctivae normal SCLERA: sclerae normal PUPIL: Yes Equal, round and reactive pupils present DIRECT OPHTHALMOSCOPY: Yes normal light reflex Neck/C-Spine: COMMON NORMALS: full ROM, no lymphadenopathy, supple, no meningeal signs and no JVD GENERAL: Yes normal visual inspection and Yes trachea midline CERVICAL SPINE: Yes cervical ROM normal Chest: COMMONS NORMALS: normal inspection of the chest and normal palpation of entire chest wall Resp: COMMON NORMALS: normal respiratory effort, No retractions, No use of accessory muscles and clear to auscultation bilaterally EFFORT & INSPECTION: Yes able to speak in complete sentences AUSCULTATION: clear to auscultation bilaterally, no crackles, no rales, no rhonchi and no wheezes Cardio: COMMON NORMALS: no JVD, regular rate, regular rhythm, S1 normal heart sound present, S2 normal heart sound present, No gallops present (Cardio), No clicks present (Cardio), No murmurs present (Cardio) and No rub (Cardio) RATE: regular rate RHYTHM: regular rhythm HEART SOUNDS: S1 normal heart sound present, S2 normal heart sound present, no click, no gallops, no murmurs and no rubs GI: COMMON NORMALS: Soft to palpation, non-tender, No hepatosplenomegaly present and no masses PALPATION: Yes Soft to palpation, No Tenderness to palpation present (GI), No Guarding due to palpation present (GI), No Rigid due to palpation, Yes No hepatosplenomegaly present, No Hernia present, No Palpable mass present and No Pulsatile mass present : COMMON NORMALS: Yes no CVA tenderness BLADDER/KIDNEY EXAM: Yes no CVA tenderness Back/Pelvis: COMMON NORMALS: no CVA tenderness, thoracic and lumbar spine normal to inspection, no thoracic nor lumbar tenderness and thoraco-lumbar ROM normal Extremity: COMMON NORMALS: normal to inspection, full ROM, capillary refill normal, no joint enlargement, no clubbing, cyanosis or edema and no calf tenderness Neuro: COMMON NORMALS: patient oriented x3, CN's II-XII intact bilaterally, moves all extremities, no focal motor deficits and no sensory deficits noted MENINGEAL SIGNS: Yes no meningeal signs SPEECH: speech normal Psych: COMMON NORMALS: mental status grossly normal, Normal thought process present, cooperative, normal affect, speech normal and activity/motor behavior normal APPEARANCE: Yes well kempt SPEECH: Yes normal speech THOUGHT PROCESS: Normal thought process present Skin: COMMON NORMALS: no rashes or lesions noted, turgor normal, no jaundice, no petechiae and no mottling GENERAL SKIN EXAM: no rashes or lesions noted and turgor normal MDM - Psych MDM Narrative: Medical decision making narrative: Patient is suicidal with a plan. He has been placed under 96-hour hold. I reviewed the case in full with Dr. Ramírez, he agrees to admit for further evaluation and care. Lab Data: Attestation: I reviewed the patient's lab results. Labs: Lab Results 11/27/19 11/27/19 11/27/19 Range/Units 13:56 13:56 13:56 WBC 6.3 (4.0-10.0) 10^3/ uL RBC 5.02 (4.1-5.3) 10^6/u L Hgb 16.1 (11.7-16.6) g/dL Hct 46.8 (42.0-52.0) % MCV 93.2 (80-94) fL MCH 32.1 (28.0-34.0) pg MCHC 34.4 (30.0-36.0) g/dL RDW 13.0 (12.1-15.1) % Plt Count 238 (130-400) 10^3/c mm MPV 9.6 (7.4-10.4) fL Neut % (Auto) 58.7 % Lymph % (Auto) 29.7 % [place] % (Auto) 8.4 % Eos % (Auto) 1.9 % Baso % (Auto) 0.8 % Neut # (Auto) 3.7 (1.8-7.7) 10^3/u L Lymph # (Auto) 1.9 (0.8-4.8) 10^3/u L [place] # (Auto) 0.5 (0.2-0.9) 10^3/u L Eos # (Auto) 0.1 (0.0-0.8) 10^3/u L Baso # (Auto) 0.1 (0.0-0.1) 10^3/u L Nucleated RBC % (a uto) 0 % Nucleated RBCs # 0.0 /100WBC PT 12.70 (10.5-13.3) SECO NDS INR 0.93 (0.8-1.2) Sodium 146 H (136-145) mmol/L Potassium 3.8 (3.5-5.1) mmol/L Chloride 106 (98-107) mmol/L Carbon Dioxide 26 (22-29) mmol/L Anion Gap 17.8 (5-19) BUN 6 L (8-23) mg/dL Creatinine 0.7 (0.7-1.2) mg/dL GFR Calculation 114.3 (90-130) mL/min Glucose 100 (65-115) mg/dL Calculated Osmolal ity 298 H (285-295) mOsm/k g Calcium 8.9 (8.5-10.5) mg/dL Total Bilirubin 0.3 (0.15-1.2) mg/dL AST 29 (0-40) U/L ALT 18 (0-41) U/L Alkaline Phosphata se 81 (40-130) IU/L Total Protein 7.9 (6.6-8.7) g/dL Albumin 5.2 (3.5-5.2) g/dL Globulin 2.7 (1.3-4.6) g/dL TSH 0.44 (0.27-4.20) uIU/ mL Urine Color (Yellow) Urine Appearance (CLEAR) Urine pH (5-7) Ur Specific Gravit y (1.005-1.030) Urine Protein (Negative) Urine Glucose (UA) (Normal) Urine Ketones (Negative) Urine Blood (Negative) Urine Nitrate (Negative) Urine Bilirubin (NEGATIVE) Urine Urobilinogen (Negative) mg/dL Ur Leukocyte Susannah ase (Negative) Urine RBC (0-2) /hpf Urine WBC (0-5) /hpf Ur Squamous Epith Cells (0-5) Urine Bacteria (NONE) Hyaline Casts Urine Mucus Salicylates < 0.3 L (3-10) mg/dL Urine Opiates Scre en (Negative) ng/mL Acetaminophen < 5.0 L (10-30) ug/mL Ur Barbiturates Sc reen (Negative) ng/mL Phenytoin 0.8 L (10-20) ug/mL Valproic Acid 2.8 L (50-100) mcg/mL Carbamazepine 2.0 L (4.0-12.0) ug/mL Ur Phencyclidine S crn (Negative) ng/mL Ur Amphetamines Sc reen (Negative) ng/mL U Benzodiazepines Scrn (Negative) ng/mL [place] (0.6-1.2) mmol/L Urine Cocaine Scre en (Negative) ng/mL U Marijuana (THC) Screen (Negative) ng/mL Ethyl Alcohol 312 H* (0-10) mg/dL 11/27/19 11/27/19 11/27/19 Range/Units 13:56 14:05 14:05 WBC (4.0-10.0) 10^3/ uL RBC (4.1-5.3) 10^6/u L Hgb (11.7-16.6) g/dL Hct (42.0-52.0) % MCV (80-94) fL MCH (28.0-34.0) pg MCHC (30.0-36.0) g/dL RDW (12.1-15.1) % Plt Count (130-400) 10^3/c mm MPV (7.4-10.4) fL Neut % (Auto) % Lymph % (Auto) % [place] % (Auto) % Eos % (Auto) % Baso % (Auto) % Neut # (Auto) (1.8-7.7) 10^3/u L Lymph # (Auto) (0.8-4.8) 10^3/u L [place] # (Auto) (0.2-0.9) 10^3/u L Eos # (Auto) (0.0-0.8) 10^3/u L Baso # (Auto) (0.0-0.1) 10^3/u L Nucleated RBC % (a uto) % Nucleated RBCs # /100WBC PT (10.5-13.3) SECO NDS INR (0.8-1.2) Sodium (136-145) mmol/L Potassium (3.5-5.1) mmol/L Chloride (98-107) mmol/L Carbon Dioxide (22-29) mmol/L Anion Gap (5-19) BUN (8-23) mg/dL Creatinine (0.7-1.2) mg/dL GFR Calculation (90-130) mL/min Glucose (65-115) mg/dL Calculated Osmolal ity (285-295) mOsm/k g Calcium (8.5-10.5) mg/dL Total Bilirubin (0.15-1.2) mg/dL AST (0-40) U/L ALT (0-41) U/L Alkaline Phosphata se (40-130) IU/L Total Protein (6.6-8.7) g/dL Albumin (3.5-5.2) g/dL Globulin (1.3-4.6) g/dL TSH (0.27-4.20) uIU/ mL Urine Color Yellow (Yellow) Urine Appearance Clear (CLEAR) Urine pH 5 (5-7) Ur Specific Gravit y 1.020 (1.005-1.030) Urine Protein Trace (Negative) Urine Glucose (UA) Norm (Normal) Urine Ketones Negative (Negative) Urine Blood Neg (Negative) Urine Nitrate Negative (Negative) Urine Bilirubin Neg (NEGATIVE) Urine Urobilinogen Norm (Negative) mg/dL Ur Leukocyte Susannah ase Negative (Negative) Urine RBC None (0-2) /hpf Urine WBC 0-4 H (0-5) /hpf Ur Squamous Epith Cells 0-4 H (0-5) Urine Bacteria 1+ H (NONE) Hyaline Casts 0-4 H Urine Mucus 2+ Salicylates (3-10) mg/dL Urine Opiates Scre en Negative (Negative) ng/mL Acetaminophen (10-30) ug/mL Ur Barbiturates Sc reen Negative (Negative) ng/mL Phenytoin (10-20) ug/mL Valproic Acid (50-100) mcg/mL Carbamazepine (4.0-12.0) ug/mL Ur Phencyclidine S crn Negative (Negative) ng/mL Ur Amphetamines Sc reen Negative (Negative) ng/mL U Benzodiazepines Scrn Negative (Negative) ng/mL [place] 0.1 L (0.6-1.2) mmol/L Urine Cocaine Scre en Negative (Negative) ng/mL U Marijuana (THC) Screen Positive H (Negative) ng/mL Ethyl Alcohol (0-10) mg/dL EKG Data^: EKG 1: Attestation: I personally reviewed and interpreted this EKG as follows: EKG interpretation date: 11/27/19 EKG interpretation time: 13:37 Interpretation: Normal sinus rhythm at 64 beats a minute, LVH, normal intervals, no blocks. Normal QTC. Discharge Plan Discharge Patient Disposition: Admitted As Inpatient Admit Provider: Nicolás Ramírez Clinical Impression: Suicidal ideation Condition: Stable Discharge Date/Time: 11/27/19 16:13 Coding Level of Care Code ED Edger Saw Operator for Chg Fwd Exam Comprehensive
--- NOTE | 2019-11-27 13:50 | PC.NURSE ---
Patient did state to me that he did have a rope in the tree ready hang himself. He also state that his would also do it with him and that he wants to speak with her as he is worried about her.
[2019-11-27] MEDS: haloperidol inj 5 mg/mL INJ 1 mL IM (14:01)
--- NOTE | 2019-11-27 14:12 | PC.NURSE ---
Patient states he wants police called on to check on , states that she has never spoken to his parents in years and is very worried about her.
[2019-11-27 14:14] LABS: Basophils # 0.1 10^3/uL (0.0-0.1); Basophils % 0.8 %; Eosinophils # 0.1 10^3/uL (0.0-0.8); Eosinophils % 1.9 %; Hematocrit 46.8 % (42.0-52.0); Hemoglobin 16.1 g/dL (11.7-16.6); Lymphocytes # 1.9 10^3/uL (0.8-4.8); Lymphocytes % 29.7 %; Mean Corpuscular HGB Conc 34.4 g/dL (30.0-36.0); Mean Corpuscular Hemoglobin 32.1 pg (28.0-34.0); Mean Corpuscular Volume 93.2 fL (80-94); Mean Platelet Volume 9.6 fL (7.4-10.4); Monocytes # 0.5 10^3/uL (0.2-0.9); Monocytes % 8.4 %; Neutrophils # 3.7 10^3/uL (1.8-7.7); Neutrophils % 58.7 %; Nucleated Red Blood Cells % 0 %; Platelet Count 238 10^3/cmm (130-400); Red Blood Count 5.02 10^6/uL (4.1-5.3); White Blood Count 6.3 10^3/uL (4.0-10.0)
[2019-11-27 14:21] LABS: INR 0.93 (0.8-1.2)
[2019-11-27 14:25] LABS: Add Urine Microscopic? YES; Bilirubin Urine Neg (NEGATIVE); Blood Urine Neg (Negative); Glucose Urine UA Norm (Normal); Ketones Urine Negative (Negative); Leukocyte Esterase Urine Negative (Negative); Nitrate Urine Negative (Negative); Protein Urine Trace (Negative); Urine Appearance Clear (CLEAR); Urine Color Yellow (Yellow); Urobilinogen Urine Norm (Negative); pH Urine 5 (5-7)
[2019-11-27 14:26] LABS: Lithium 0.1 mmol/L (0.6-1.2)
[2019-11-27 14:35] LABS: Bacteria Urine 1+; Mucus Urine 2+; Squamous Epithelial Cell Urine 0-4 (0-5); WBC Urine 0-4 /hpf (0-5)
[2019-11-27 14:36] LABS: Add Urine Culture? No; Hyaline Casts Urine 0-4
[2019-11-27 14:37] LABS: Alanine Aminotransferase 18 U/L (0-41); Albumin Level 5.2 g/dL (3.5-5.2); Alkaline Phosphatase 81 IU/L (40-130); Anion Gap 17.8 (5-19); Aspartate Amino Transferase 29 U/L (0-40); Blood Urea Nitrogen 6 mg/dL (8-23); Calcium 8.9 mg/dL (8.5-10.5); Carbon Dioxide 26 mmol/L (22-29); Chloride 106 mmol/L (98-107); Globulin 2.7 g/dL (1.3-4.6); Glomerular Filtration Rate 114.3 mL/min (90-130); Glucose 100 mg/dL (65-115); Osmolality Calculated 298 mOsm/kg (285-295); Phenytoin Dilantin 0.8 ug/mL (10-20); Potassium 3.8 mmol/L (3.5-5.1); Sodium 146 mmol/L (136-145); Thyroid Stimulating Hormone 0.44 uIU/mL (0.27-4.20); Total Bilirubin 0.3 mg/dL (0.15-1.2); Total Protein 7.9 g/dL (6.6-8.7); Valproic Acid Level 2.8 mcg/mL (50-100)
[2019-11-27 14:38] LABS: Acetaminophen < 5.0 ug/mL (10-30); Salicylate < 0.3 mg/dL (3-10)
[2019-11-27 14:38] LABS: Amphetamines Screen Urine Negative (Negative); Barbiturates Screen Urine Negative (Negative); Benzodiazepines Screen Urine Negative (Negative); Cocaine Screen Urine Negative (Negative); Opiate Screen Urine Negative (Negative); PCP Screen Urine Negative (Negative); THC Screen Urine Positive (Negative)
[2019-11-27 14:41] LABS: Alcohol Level 312 mg/dL (0-10)
[2019-11-27 16:10] VITALS: BP 145/87; PULSE 71; RESP 18; O2SAT 98
[2019-11-27 16:20] VITALS: BP 133/77; PULSE 86; RESP 20; TEMP 36.5; O2SAT 98
[2019-11-27] MEDS: gabapentin 300 mg Capsule PO (20:54)
[2019-11-27 22:00] VITALS: BP 137/85; PULSE 95; RESP 17; TEMP 37.1; O2SAT 95
[2019-11-28 06:00] VITALS: BP 181/79; PULSE 70; RESP 18; TEMP 37.1; O2SAT 97
[2019-11-28] MEDS: famotidine 20 mg Tablet PO (08:09)
[2019-11-28] MEDS: folic acid 1 mg Tablet PO (08:09)
[2019-11-28] MEDS: atorvastatin 40 mg Tablet 20 MG PO (08:09)
[2019-11-28] MEDS: lisinopril 20 mg Tablet PO (08:09)
[2019-11-28] MEDS: thiamine 100 mg Tablet PO (08:09)
[2019-11-28] MEDS: carvedilol 6.25 mg Tablet 12.5 MG PO (08:09)
[2019-11-28] MEDS: FUROsemide 20 mg Tablet PO (08:09)
[2019-11-28] MEDS: gabapentin 300 mg Capsule PO ×2 (08:09→14:17)
[2019-11-28] MEDS: multivitamin therapeutic Tablet 1 TAB PO (08:09)
--- NOTE | 2019-11-28 12:23 | P.HP_ITS ---
Providers/Chief Complaint Admitting Physician: Nicolás Ramírez MD Primary Care Provider: RAJIV Colby Chief Complaint: SI HPI NPU History of Present Illness Chief complaint: I am really sorry. I had some bad news in the family over the past week and I just got down and depressed and fell in the old habits. I just needed to come here to get myself back together. History of present illness:Gavin French Jr is a 64 year old male who is well- known to the neuropsychiatric unit presenting for his 11th admission in 6 years. Gavin has a long history of alcohol abuse and dependence amplified by clinical depression. However, he reports that he has been doing quite well up until the past 2 weeks. He is estranged from his extended family. He had a sister living in [place] who was suffering from dementia. He only found out over this past weekend that she had several weeks ago and that he had missed her . He felt abandoned by his family and he was grieving over the loss of his sister. He said that he bought 1/5 of liquor. He drank it all at once. He arrived at the emergency room with a blood alcohol level = 312. He had not been drinking prior to that. His laboratories are consistent with acute alcohol intoxication rather than a chronic alcoholic problem. He says that he he was not acutely suicidal on presenting to the emergency room but was just having suicidal thoughts. He need respite to get out of his situation and sober up. He is now sober and is looking forward to returning home. He denied suicidal or homicidal ideation. He denied the presence of auditory or visual hallucinations. He denied symptoms of depression prior to learning of the of his sister. Appetite and sleep are good. He engages in enjoyable activities with his direct family. He is looking forward to return home so that he can play with his grandchildren. Mental health history: The patient has the following hospitalizations primarily for alcohol dependence but also with comorbid depression: March 09, 2014 for 6 days, March 27, 2014 for 4 days, April 27, 2014 for 3 days, May 29, 2014 for 4 days, November 22, 2014 for 4 days, June 25, 2015 for 2 days, February 15, 2016 for 4 days, April 07, 2016 for 3 days, January 29, 2017 for 2 days, and December 03, 2017 for 2 days. Social history: He currently lives with his in a small camper on the same property with his son, [id number] and their 5 children in a mobile home. 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 Legal history: Gavin has 2 convictions for domestic assault in 2019. Past medical history: Unchanged from his hospitalization for surgery on his hematoma last month. Mental Status Exam: Appearance: hygiene is good; no gross neurological deficits., gait is unremarkable; AIMS=0 Speech: Speech is of normal rate and rhythm and easily understood. Thought processes: Thought processes are abstract. Judgment is adequate for safety. Associations: intact Psychotic processes: There is no indication of guarding or paranoia. There is no attention to the internal stimuli. Auditory and visual hallucinations are denied. Judgment: Insight is fair. Problem solving skills are adequate for safety. Orientation: The patient is oriented to person, place time and situation. Memory: no deficits noted in immediate, intermediate, or remote spheres. Attention: The patient is alert and interpersonally engaged. Language: Verbalizations are coherent. Fund of knowledge: Fund of knowledge is adequate. Affect/Mood: Affect is consistent with a euthymic mood. denied suicidal ideation Affective range is appropriate. Psychosis: perception unimpaired except through cognitive distortion; reality testing intact. Diagnoses: Adjustment disorder with disturbance of mood and conduct Alcohol intoxication?resolved Assessment: Patient appears to be a reliable informant and there is no indication to think that his report that he is no longer having suicidal ideation is not accurate. He presented to the emergency room under his own influence. He identifies his acute stressor and appears to have dealt with that adequately such that he is no longer going to go out and drink. Medical history indicates that he has been able to maintain sobriety after several years of alcohol abuse. Treatment plan: Patient was discharged to home. No medication changes were made. Meds NPU Home Medications Medication Instructions Recorded Confirmed Last Taken Type aspirin 81 mg tablet,delayed 81 mg PO DAILY 08/14/19 11/27/19 11/27/19 History release multivitamin [Multiple Vitamins] 1 tab PO DAILY 09/11/19 11/27/19 11/27/19 History atorvastatin 20 mg tablet 20 mg PO DAILY #30 tab 11/18/19 11/27/19 11/26/19 Rx carvedilol 12.5 mg tablet 12.5 mg PO BID #60 tab 11/18/19 11/27/19 11/27/19 Rx citalopram 40 mg tablet 40 mg PO DAILY #30 tab 11/18/19 11/27/19 11/27/19 Rx famotidine 20 mg tablet 20 mg PO DAILY #30 tab 11/18/19 11/27/19 11/27/19 Rx furosemide 20 mg tablet 20 mg PO DAILY #30 tab 11/18/19 11/27/19 11/27/19 Rx gabapentin 300 mg capsule 300 mg PO Q8H 30 Days #90 cap 11/18/19 11/27/19 11/27/19 Rx hydroxyzine pamoate 50 mg capsule 50 mg PO BEDTIME PRN #30 cap 11/18/19 11/27/19 11/26/19 Rx lisinopril 20 mg tablet 20 mg PO DAILY #30 tab 11/18/19 11/27/19 11/27/19 Rx potassium chloride 10 mEq 10 meq PO DAILY #30 cap 11/18/19 11/27/19 11/27/19 Rx capsule,extended release Allergies Allergy/AdvReac Type Severity Reaction Status Date / Time trazodone Allergy Unknown Verified 11/27/19 13:27 PFS NPU PFSH: Medical History Cerebral aneurysm Anterior communicating Artery, unruptured, 3mm Constipation Depression history of previous SI episodes History of alcohol dependence reported sobriety date of 02/01 Hyperlipidemia Hypertension Hyperthyroidism Intracranial hemorrhage 09/14/2019 Lacunar stroke Sciatica Subdural hematoma Subdural hematoma TIA (transient ischemic attack) Surgical History History of ankle surgery left, for fracture History of javi hole surgery 09/12/2019 Dr. Papito Ridley: Twist drill (SEPS) drainage of left convexity subdural hematoma 09/13/2019 Removed History of surgery on right wrist Post-operative state Family History Mother Cancer Hypertension Father Hypertension Social History Smoking and tobacco status: current every day smoker cigarettes Packs smoked per day: 0.25 Alcohol intake: former Year of sobriety/quit date alcohol: 02/01 Former alcohol use details: 09/23/2019 presented to [facility] emergency services. Diagnosis intoxication Household members: spouse and children Marital status: Current occupational status: retired History of recent travel: No Vitals/I&O/Wt Last Vital Signs Temp 98.7 F 11/28/19 06:00 Pulse 70 11/28/19 06:00 Resp 18 11/28/19 06:00 BP 181/79 11/28/19 06:00 Pulse Ox 97 11/28/19 06:00 Weight last 48 hrs Weight 76.204 kg Data NPU : 11/27/19 13:56 11/27/19 13:56 Involuntary Hold Information 96 Hour Hold: 96 Hour Involuntary Admission: Yes 96 Hour Hold Ending Date: 12/04/19 96 Hour Hold Ending Time: 13:30 Attestations NPU Medical Necessity Statement*: Patient to be discharged today. Coding Level of Care Code Acute Technology Sales Specialist for Fatoumata Cintron
--- NOTE | 2019-11-28 12:55 | P.DS_ITS ---
Diagnoses at Discharge Discharge Diagnosis (1) Alcohol intoxication: Status: Resolved (2) Adjustment disorder with depressed mood: Status: Acute (3) Mourning: Status: Acute (4) Suicidal ideation: Status: Resolved Reason for Visit Reason for Visit: Reason For Visit: SI Hospital Course Discharge Summary Chief complaint: I am really sorry. I had some bad news in the family over the past week and I just got down and depressed and fell in the old habits. I just needed to come here to get myself back together. History of present illness:Gavin French Jr is a 64 year old male who is well- known to the neuropsychiatric unit presenting for his 11th admission in 6 years. Gavin has a long history of alcohol abuse and dependence amplified by clinical depression. However, he reports that he has been doing quite well up until the past 2 weeks. He is estranged from his extended family. He had a sister living in [place] who was suffering from dementia. He only found out over this past weekend that she had several weeks ago and that he had missed her . He felt abandoned by his family and he was grieving over the loss of his sister. He said that he bought 1/5 of liquor. He drank it all at once. He arrived at the emergency room with a blood alcohol level = 312. He had not been drinking prior to that. His laboratories are consistent with acute alcohol intoxication rather than a chronic alcoholic problem. He says that he he was not acutely suicidal on presenting to the emergency room but was just having suicidal thoughts. He need respite to get out of his situation and sober up. He is now sober and is looking forward to returning home. He denied suicidal or homicidal ideation. He denied the presence of auditory or visual hallucinations. He denied symptoms of depression prior to learning of the of his sister. Appetite and sleep are good. He engages in enjoyable activities with his direct family. He is looking forward to return home so that he can play with his grandchildren. Mental health history: The patient has the following hospitalizations primarily for alcohol dependence but also with comorbid depression: March 09, 2014 for 6 days, March 27, 2014 for 4 days, April 27, 2014 for 3 days, May 29, 2014 for 4 days, November 22, 2014 for 4 days, June 25, 2015 for 2 days, February 15, 2016 for 4 days, April 07, 2016 for 3 days, January 29, 2017 for 2 days, and December 03, 2017 for 2 days. Social history: He currently lives with his in a small camper on the same property with his son, [id number] and their 5 children in a mobile home. 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 Legal history: Gavin has 2 convictions for domestic assault in 2019. Past medical history: Unchanged from his hospitalization for surgery on his hematoma last month. Mental Status Exam: Appearance: hygiene is good; no gross neurological deficits., gait is unremarkable; AIMS=0 Speech: Speech is of normal rate and rhythm and easily understood. Thought processes: Thought processes are abstract. Judgment is adequate for safety. Associations: intact Psychotic processes: There is no indication of guarding or paranoia. There is no attention to the internal stimuli. Auditory and visual hallucinations are denied. Judgment: Insight is fair. Problem solving skills are adequate for safety. Orientation: The patient is oriented to person, place time and situation. Memory: no deficits noted in immediate, intermediate, or remote spheres. Attention: The patient is alert and interpersonally engaged. Language: Verbalizations are coherent. Fund of knowledge: Fund of knowledge is adequate. Affect/Mood: Affect is consistent with a euthymic mood. denied suicidal ideation Affective range is appropriate. Psychosis: perception unimpaired except through cognitive distortion; reality testing intact. Diagnoses: Adjustment disorder with disturbance of mood and conduct Alcohol intoxication?resolved Assessment: Patient appears to be a reliable informant and there is no indication to think that his report that he is no longer having suicidal ideation is not accurate. He presented to the emergency room under his own influence. He identifies his acute stressor and appears to have dealt with that adequately such that he is no longer going to go out and drink. Medical history indicates that he has been able to maintain sobriety after several years of alcohol abuse. Treatment plan: Patient was discharged to home. No medication changes were made. Involuntary Hold Information 96 Hour Hold: 96 Hour Involuntary Admission: Yes 96 Hour Hold Ending Date: 12/04/19 96 Hour Hold Ending Time: 13:30 Discharge Data Data Completed and Pending: Labs from last 24 hours 11/27/19 11/27/19 11/27/19 14:05 14:05 13:56 WBC RBC Hgb Hct MCV MCH MCHC RDW Plt Count MPV Neut % (Auto) Lymph % (Auto) [place] % (Auto) Eos % (Auto) Baso % (Auto) Neut # (Auto) Lymph # (Auto) [place] # (Auto) Eos # (Auto) Baso # (Auto) Nucleated RBC % (a uto) Nucleated RBCs # PT INR Sodium Potassium Chloride Carbon Dioxide Anion Gap BUN Creatinine GFR Calculation Glucose Calculated Osmolal ity Calcium Total Bilirubin AST ALT Alkaline Phosphata se Total Protein Albumin Globulin TSH Urine Color Yellow Urine Appearance Clear Urine pH 5 Ur Specific Gravit y 1.020 Urine Protein Trace Urine Glucose (UA) Norm Urine Ketones Negative Urine Blood Neg Urine Nitrate Negative Urine Bilirubin Neg Urine Urobilinogen Norm Ur Leukocyte [place] ase Negative Urine RBC None Urine WBC 0-4 H Ur Squamous Epith Cells 0-4 H Urine Bacteria 1+ H Hyaline Casts 0-4 H Urine Mucus 2+ Salicylates Urine Opiates Scre en Negative Acetaminophen Ur Barbiturates Sc reen Negative Phenytoin Valproic Acid Carbamazepine Ur Phencyclidine S crn Negative Ur Amphetamines Sc reen Negative U Benzodiazepines Scrn Negative [place] 0.1 L Urine Cocaine Scre en Negative U Marijuana (THC) Screen Positive H Ethyl Alcohol 11/27/19 11/27/19 11/27/19 13:56 13:56 13:56 WBC 6.3 RBC 5.02 Hgb 16.1 Hct 46.8 MCV 93.2 MCH 32.1 MCHC 34.4 RDW 13.0 Plt Count 238 MPV 9.6 Neut % (Auto) 58.7 Lymph % (Auto) 29.7 [place] % (Auto) 8.4 Eos % (Auto) 1.9 Baso % (Auto) 0.8 Neut # (Auto) 3.7 Lymph # (Auto) 1.9 [place] # (Auto) 0.5 Eos # (Auto) 0.1 Baso # (Auto) 0.1 Nucleated RBC % (a uto) 0 Nucleated RBCs # 0.0 PT 12.70 INR 0.93 Sodium 146 H Potassium 3.8 Chloride 106 Carbon Dioxide 26 Anion Gap 17.8 BUN 6 L Creatinine 0.7 GFR Calculation 114.3 Glucose 100 Calculated Osmolal ity 298 H Calcium 8.9 Total Bilirubin 0.3 AST 29 ALT 18 Alkaline Phosphata se 81 Total Protein 7.9 Albumin 5.2 Globulin 2.7 TSH 0.44 Urine Color Urine Appearance Urine pH Ur Specific Gravit y Urine Protein Urine Glucose (UA) Urine Ketones Urine Blood Urine Nitrate Urine Bilirubin Urine Urobilinogen Ur Leukocyte [place] ase Urine RBC Urine WBC Ur Squamous Epith Cells Urine Bacteria Hyaline Casts Urine Mucus Salicylates < 0.3 L Urine Opiates Scre en Acetaminophen < 5.0 L Ur Barbiturates Sc reen Phenytoin 0.8 L Valproic Acid 2.8 L Carbamazepine 2.0 L Ur Phencyclidine S crn Ur Amphetamines Sc reen U Benzodiazepines Scrn [place] Urine Cocaine Scre en U Marijuana (THC) Screen Ethyl Alcohol 312 H* Vitals: Last Vital Signs Temp 98.7 F 11/28/19 06:00 Pulse 70 11/28/19 06:00 Resp 18 11/28/19 06:00 BP 181/79 11/28/19 06:00 Pulse Ox 97 11/28/19 06:00 Discharge Plan Discharge Patient Disposition: Home, Self-Care Condition: Stable Prescriptions: Continued atorvastatin 20 mg tablet 20 mg PO DAILY Qty: 30 RF: 5 carvedilol 12.5 mg tablet 12.5 mg PO BID Qty: 60 RF: 5 citalopram 40 mg tablet 40 mg PO DAILY Qty: 30 RF: 5 famotidine [Pepcid] 20 mg tablet 20 mg PO DAILY Qty: 30 RF: 5 furosemide 20 mg tablet 20 mg PO DAILY Qty: 30 RF: 5 hydroxyzine pamoate 50 mg capsule 50 mg PO BEDTIME PRN (Reason: sleep) Qty: 30 RF: 2 potassium chloride 10 mEq capsule, extended release 10 meq PO DAILY Qty: 30 RF: 5 lisinopril 20 mg tablet 20 mg PO DAILY Qty: 30 RF: 5 gabapentin 300 mg capsule 300 mg PO Q8H 30 Days Qty: 90 RF: 5 aspirin [Aspir-81] 81 mg tablet,delayed release (DR/EC) 81 mg PO DAILY RF: 0 multivitamin [Multiple Vitamins] Tablet 1 tab PO DAILY RF: 0 Discharge Orders: Discharge Order (Routine); Ordered 11/28/19 Ordered By: Nicolás Ramírez Referrals: [facility] [Outside] - 4-7 days (consider individual therapy to cope with your grief) [facility] [Outside] (if interested and if needed, consider going to [facility] for residential or outpatient care. ) Rosa Maria Titus MD [Physician] - 01/15/20 1:15 pm Thao Begrman FNP [Primary Care Provider] - Discharge Attestations NPU Time Spent in Discharge Care*: less than 30 min Status at Discharge: Cognitive status at discharge: cognitively intact , Behavioral status at discharge: cooperative , Coding Level of Care Code Acute Endbander for Chg Fwd Diagnoses Alcohol intoxication F10.929 Adjustment disorder with depressed mood F43.21 Mourning F43.21 Suicidal ideation R45.851
[2019-11-28 12:59] VITALS: BP 181/79; PULSE 70; RESP 18; TEMP 37.1; O2SAT 97
[2019-11-28 13:10] VITALS: BP 128/67; PULSE 73; RESP 18; TEMP 36.9; O2SAT 94
== END 2019-11-28 15:15 | disposition home or self-care (01) | DRG 897 ==
LOC: ER 14:31 → NP 16:14
PROVIDERS: Emergency Medicine; Admitting Provider Psychiatry & Neurology Psychiatry; PCP Nurse Practitioner Family; Visit Provider Psychiatry & Neurology Psychiatry
DX: F10.229 Alcohol dependence with intoxication, unspecified (principal); R45.851 Suicidal ideations; F43.21 Adjustment disorder with depressed mood; K59.00 Constipation, unspecified; E78.5 Hyperlipidemia, unspecified; I10 Essential (primary) hypertension; E05.90 Thyrotoxicosis, unspecified without thyrotoxic crisis or storm; Z86.73 Personal history of transient ischemic attack (TIA), and cerebral infarction without residual deficits; Z79.82 Long term (current) use of aspirin
CPT/HCPCS: 12345; 36415; 80053; 80156; 80164; 80178; 80185; 80306; 80307; 81001; 84443; 85025; 85610; 93005; 96372; 99284; 99285; J1630

== ENCOUNTER 2020-03-10 23:01 | Emergency (ER) | payer MEDICAID, SELFPAY ==
[2020-03-10 23:06] VITALS: BMI 44.9
--- NOTE | 2020-03-10 23:09 | W.ED.ABDPA2 ---
HPI - Abdominal Pain General: Chief Complaint: Abdominal Pain Stated Complaint: ABD PAIN Time Seen by Provider: 03/10/20 23:06 Source: patient Mode of arrival: ambulatory Limitations: no limitations History of Present Illness: HPI narrative: 64-year-old male has had right lower quadrant pain over the last 2 days. States pain is sharp in nature and much worse when you palpate it. Denies any vomiting. Denies any fever. MD elicited complaint: abdominal pain Onset (ago): day(s) Location: RLQ Severity: moderate Quality: sharp Radiation: none Migration to: no migration Exacerbating factors: nothing Relieving factors: nothing Associated Symptoms: Reports nausea; Denies chills, dysuria and fever(s) Review of Systems Const: Denies: fever(s), chills, body aches or change in appetite Eyes: Denies: blurry vision or eye discomfort ENMT: Denies: throat pain or dental pain Card: Denies: chest pain Resp: Denies: dyspnea GI: Reports: abdominal pain and nausea : Denies: dysuria Musc: Denies: neck pain or back pain Skin/Breast: Denies: rash Neuro: Denies: headache(s) Psych: Denies: depression Casey/Lymph: Denies: easy bruising All/Imm: Denies: urticaria PFSH ED PFSH: Medical History Cerebral aneurysm Anterior communicating Artery, unruptured, 3mm Constipation Depression history of previous SI episodes History of alcohol dependence reported sobriety date of 02/01 Hyperlipidemia Hypertension Hyperthyroidism Intracranial hemorrhage 09/14/2019 Lacunar stroke Sciatica Subdural hematoma Subdural hematoma TIA (transient ischemic attack) Surgical History History of ankle surgery left, for fracture History of javi hole surgery 09/12/2019 Dr. Papito Ridley: Twist drill (SEPS) drainage of left convexity subdural hematoma 09/13/2019 Removed History of surgery on right wrist Post-operative state Family History Mother Cancer Hypertension Father Hypertension Social History Smoking and tobacco status: current every day smoker cigarettes Packs smoked per day: 0.25 Alcohol intake: former Year of sobriety/quit date alcohol: 02/01 Former alcohol use details: 09/23/2019 presented to [facility] emergency services. Diagnosis intoxication Household members: spouse and children Marital status: Current occupational status: retired History of recent travel: No Physical Exam Const: COMMON NORMALS: no acute distress, patient oriented x3 and healthy appearing HENMT: COMMON NORMALS: normocephalic and atraumatic HEAD & SCALP: normocephalic and atraumatic Eye: COMMON NORMALS: Equal, round and reactive pupils present and EOMs intact bilaterally PUPIL: Yes Equal, round and reactive pupils present Neck/C-Spine: COMMON NORMALS: full ROM and supple Chest: COMMONS NORMALS: normal inspection of the chest and normal palpation of entire chest wall Resp: COMMON NORMALS: normal respiratory effort, No retractions, No use of accessory muscles and clear to auscultation bilaterally AUSCULTATION: clear to auscultation bilaterally Cardio: COMMON NORMALS: regular rate, regular rhythm and No murmurs present (Cardio) RATE: regular rate RHYTHM: regular rhythm GI: COMMON NORMALS: Normal to inspection, nondistended, normoactive bowel sounds present, Soft to palpation and no masses PALPATION: Yes Soft to palpation and Yes Tenderness to palpation present (GI) Details: RLQ Extremity: COMMON NORMALS: normal to inspection and full ROM Neuro: COMMON NORMALS: patient oriented x3, moves all extremities and no focal motor deficits Psych: COMMON NORMALS: mental status grossly normal, Normal thought process present and cooperative THOUGHT PROCESS: Normal thought process present Skin: COMMON NORMALS: no rashes or lesions noted and no wounds GENERAL SKIN EXAM: no rashes or lesions noted Course Vital Signs: Vital signs: Vital Signs Temperature 98.1 F 03/10/20 23:10 Pulse Rate 87 03/11/20 02:04 Respiratory Rate 16 03/11/20 02:04 Blood Pressure 145/91 03/11/20 02:04 Pulse Oximetry 99 03/11/20 02:04 MDM - Abdominal Pain MDM Narrative: Medical decision making narrative: Patient presents with abdominal pain. Patient's blood work and CT abdomen are normal. She is well-appearing here and is stable for discharge. He is to follow-up with his PCP in 2 to 4 days and return if worsening. Lab Data: Labs: Lab Results 03/10/20 03/10/20 Range/Units 23:55 23:55 WBC 5.6 (4.0-10.0) 10^3/ uL RBC 4.58 (4.1-5.3) 10^6/u L Hgb 15.1 (11.7-16.6) g/dL Hct 42.4 (42.0-52.0) % MCV 92.6 (80-94) fL MCH 33.0 (28.0-34.0) pg MCHC 35.6 (30.0-36.0) g/dL RDW 12.0 L (12.1-15.1) % Plt Count 208 (130-400) 10^3/c mm MPV 10.2 (7.4-10.4) fL Neut % (Auto) 59.7 % Lymph % (Auto) 28.1 % [place] % (Auto) 8.0 % Eos % (Auto) 2.8 % Baso % (Auto) 0.9 % Neut # (Auto) 3.36 (1.8-7.7) 10^3/u L Lymph # (Auto) 1.6 (0.8-4.8) 10^3/u L [place] # (Auto) 0.5 (0.2-0.9) 10^3/u L Eos # (Auto) 0.2 (0.0-0.8) 10^3/u L Baso # (Auto) 0.1 (0.0-0.1) 10^3/u L Nucleated RBC % (a uto) 0 % Nucleated RBCs # 0.0 /100WBC Sodium 143 (136-145) mmol/L Potassium 3.4 L (3.5-5.1) mmol/L Chloride 107 (98-107) mmol/L Carbon Dioxide 23 (22-29) mmol/L Anion Gap 16.4 (5-19) BUN 6 L (8-23) mg/dL Creatinine 0.6 L (0.7-1.2) mg/dL GFR Calculation 136.5 H (90-130) mL/min Glucose 116 H (65-115) mg/dL Calculated Osmolal ity 293 (285-295) mOsm/k g Calcium 8.5 (8.5-10.5) mg/dL Total Bilirubin 0.4 (0.15-1.2) mg/dL AST 24 (0-40) U/L ALT 15 (0-41) U/L Alkaline Phosphata se 73 (40-130) IU/L Total Protein 7.4 (6.6-8.7) g/dL Albumin 4.5 (3.5-5.2) g/dL Globulin 2.9 (1.3-4.6) g/dL Lipase 35 (13-60) U/L Imaging Data ^: CT Abd/Pel: Radiologist's impression: [address] [address] [address] Scan Report Signed Patient: Gavin French Jr Unit #: [id number] : 1955 Age/Sex: 64 / M ADM Date: 03/10/20 Loc: ER Room/Bed: Attending Dr: Ordering Provider/Ordering MD: Gilson Dixon MD Date of Service: 03/10/20 Procedure(s): CT abdomen pelvis w con* [id number] Accession Number(s): [id number] Report Number: [id number] PROCEDURE INFORMATION: Exam: CT Abdomen And Pelvis With Contrast Exam date and time: 03/10/2020 11:38 PM Age: 64 years old Clinical indication: Abdominal pain; Generalized; Additional info: Abd pain TECHNIQUE: Imaging protocol: Computed tomography of the abdomen and pelvis with intravenous contrast. Radiation optimization: All CT scans at this facility use at least one of these dose optimization techniques: automated exposure control; mA and/or kV adjustment per patient size (includes targeted exams where dose is matched to clinical indication); or iterative reconstruction. Contrast material: OMNI 300; Contrast volume: 95 ml; Contrast route: INTRAVENOUS (IV); COMPARISON: CR Pelvis AP 1 or 2 views* [id number] 04/28/2016 4:03 AM RADIATION DOSE METRICS: Total DLP (mGy-cm): 621.83 FINDINGS: Lungs: Minimal atelectasis at bilateral lung bases. Liver: Unremarkable. Gallbladder and bile ducts: Unremarkable. Pancreas: Unremarkable. Spleen: Unremarkable. Adrenals: Unremarkable. Kidneys and ureters: A few cysts and probable cysts are noted in the right kidney. Many small hypodensities scattered in the left kidney, statistically likely to represent cysts. No imaging workup suggested regarding renal lesions. Stomach and bowel: Small hiatal hernia, which contains a small portion of the proximal stomach. Appendix: A normal-appearing appendix is seen in the right lower quadrant. Intraperitoneal space: No free intraperitoneal air identified. No free intraperitoneal fluid identified. Vasculature: Extensive atherosclerotic aortoiliac calcification. No abdominal aortic aneurysm. Lymph nodes: Unremarkable. Bladder: Unremarkable as visualized. Reproductive: Unremarkable as visualized. Bones/joints: Unremarkable. No acute fracture. Soft tissues: Unremarkable. CT/CT abdomen pelvis w con* [id number] IMPRESSION: 1. No acute intra-abdominal/intrapelvic process identified. Discharge Plan Discharge Patient Disposition: Home Clinical Impression: Abdominal pain Qualifiers: Abdominal location: right lower quadrant Qualified Code(s): R10.31 - Right lower quadrant pain Condition: Stable Prescriptions: No Action carvedilol 12.5 mg tablet 12.5 mg PO BID Qty: 60 RF: 5 citalopram 40 mg tablet 40 mg PO DAILY Qty: 30 RF: 5 famotidine [Pepcid] 20 mg tablet 20 mg PO DAILY Qty: 30 RF: 5 furosemide 20 mg tablet 20 mg PO DAILY Qty: 30 RF: 5 hydroxyzine pamoate 50 mg capsule 50 mg PO BEDTIME PRN (Reason: sleep) Qty: 30 RF: 2 potassium chloride 10 mEq capsule, extended release 10 meq PO DAILY Qty: 30 RF: 5 lisinopril 20 mg tablet 20 mg PO DAILY Qty: 30 RF: 5 gabapentin 300 mg capsule 300 mg PO Q8H 30 Days Qty: 90 RF: 5 aspirin [Aspir-81] 81 mg tablet,delayed release (DR/EC) 81 mg PO DAILY RF: 0 atorvastatin 40 mg tablet 40 mg PO DAILY Qty: 30 RF: 5 multivitamin [Multiple Vitamins] Tablet 1 tab PO DAILY RF: 0 Discharge Orders: Discharge Order (Routine); Ordered 03/11/20 Ordered By: Gilson Dixon Referrals: Thao Bergman FNP [Primary Care Provider] - 1-3 days Discharge Diet: Advance as tolerated Discharge Activity: Resume usual activity Patient Instructions: Abdominal Pain (ED) Coding Level of Care Code ED Surgical Training Specialist for Chg Fwd Exam Comprehensive
[2020-03-10 23:10] VITALS: BP 146/87; PULSE 73; RESP 16; TEMP 36.7; O2SAT 94
[2020-03-10 23:49] VITALS: RESP 18; O2SAT 96
[2020-03-10] MEDS: morphine 4 mg/mL SDV 1 mL IVP (23:49)
[2020-03-10] MEDS: ondansetron 2 mg/ML SDV 2 mL 4 MG IVP (23:49)
[2020-03-10] MEDS: sodium chloride 0.9% 1,000 ML 999 ML IV (23:49)
[2020-03-11 00:33] LABS: Basophils # 0.1 10^3/uL (0.0-0.1); Basophils % 0.9 %; Eosinophils # 0.2 10^3/uL (0.0-0.8); Eosinophils % 2.8 %; Hematocrit 42.4 % (42.0-52.0); Hemoglobin 15.1 g/dL (11.7-16.6); Lymphocytes # 1.6 10^3/uL (0.8-4.8); Lymphocytes % 28.1 %; Mean Corpuscular HGB Conc 35.6 g/dL (30.0-36.0); Mean Corpuscular Volume 92.6 fL (80-94); Mean Platelet Volume 10.2 fL (7.4-10.4); Monocytes # 0.5 10^3/uL (0.2-0.9); Neutrophils # 3.36 10^3/uL (1.8-7.7); Neutrophils % 59.7 %; Nucleated Red Blood Cells % 0 %; Platelet Count 208 10^3/cmm (130-400); Red Blood Count 4.58 10^6/uL (4.1-5.3); White Blood Count 5.6 10^3/uL (4.0-10.0)
[2020-03-11 00:42] LABS: Alanine Aminotransferase 15 U/L (0-41); Albumin Level 4.5 g/dL (3.5-5.2); Alkaline Phosphatase 73 IU/L (40-130); Aspartate Amino Transferase 24 U/L (0-40); Blood Urea Nitrogen 6 mg/dL (8-23); Calcium 8.5 mg/dL (8.5-10.5); Carbon Dioxide 23 mmol/L (22-29); Chloride 107 mmol/L (98-107); Creatinine Clr Calc Pharmacy 149.9629; Globulin 2.9 g/dL (1.3-4.6); Glomerular Filtration Rate 136.5 mL/min (90-130); Glucose 116 mg/dL (65-115); Lipase 35 U/L (13-60); Osmolality Calculated 293 mOsm/kg (285-295); Sodium 143 mmol/L (136-145); Total Bilirubin 0.4 mg/dL (0.15-1.2); Total Protein 7.4 g/dL (6.6-8.7)
[2020-03-11 00:43] LABS: Anion Gap 16.4 (5-19); Potassium 3.4 mmol/L (3.5-5.1)
[2020-03-11] MEDS: iohexol 300 mg/mL 100 mL Btl IV (01:21)
[2020-03-11 02:04] VITALS: BP 145/91; PULSE 87; RESP 16; O2SAT 99
[2020-03-11 02:25] VITALS: BP 138/88; PULSE 62; RESP 18; O2SAT 98
== END 2020-03-11 02:28 | disposition home or self-care (01) ==
PROVIDERS: Emergency Provider Emergency Medicine; PCP Nurse Practitioner Family
DX: R10.31 Right lower quadrant pain (principal); Z79.82 Long term (current) use of aspirin; E78.5 Hyperlipidemia, unspecified; I10 Essential (primary) hypertension; Z86.73 Personal history of transient ischemic attack (TIA), and cerebral infarction without residual deficits; F17.210 Nicotine dependence, cigarettes, uncomplicated
CPT/HCPCS: 12345; 74177; 80053; 83690; 85025; 96360; 96361; 96374; 96375; 99283; J2270; J2405; J7030; Q9967

== ENCOUNTER 2020-07-25 22:09 | Emergency (ER) | payer MEDICAID, SELFPAY ==
[2020-07-25 22:12] VITALS: BP 107/57; PULSE 59; RESP 18; TEMP 36.6; O2SAT 96; BMI 29.2
--- NOTE | 2020-07-25 22:25 | CTR_ITS ---
PROCEDURE INFORMATION: Exam: CT Head Without Contrast Exam date and time: 07/25/2020 10:27 PM Age: 64 years old Clinical indication: Pain; Headache not specified; Prior surgery; Surgery date: 6+ months; Surgery type: Subdural drainage; Patient HX: C/O REYNOLDS TECHNIQUE: Imaging protocol: Computed tomography of the head without contrast. Radiation optimization: All CT scans at this facility use at least one of these dose optimization techniques: automated exposure control; mA and/or kV adjustment per patient size (includes targeted exams where dose is matched to clinical indication); or iterative reconstruction. ADDITIONAL STUDY INFORMATION: Total DLP (mGy-cm): 728.99 COMPARISON: CT head wo con* [id number] 10/23/2019 10:01 AM FINDINGS: There is mild low density in the bilateral periventricular white matter which may represent chronic small vessel ischemic disease in the appropriate clinical setting. There are prominent intracranial arterial calcifications. There is mild cerebral cortical volume loss. Ventricles do not appear significantly dilated. There is cavum septum pellucidum. No depressed calvarial fracture is demonstrated. Visualized paranasal sinuses and mastoid air cells demonstrate no significant opacification. CT/CT head wo con* [id number] IMPRESSION: Probable chronic ischemic changes as discussed above. Radiation Dose CTDIVOL = (mGy): DLP = 728.99 (mGy-cm)
--- NOTE | 2020-07-25 22:30 | W.ED.HA ---
HPI - Headache General: Chief Complaint: Headache Stated Complaint: HEADACHE/ ETOH Time Seen by Provider: 07/25/20 22:13 History of Present Illness: HPI Narrative: 64-year-old male with a history of subdural hematoma. He presents with a headache for the past 3 weeks or so. He says he has an appointment with his neurologist on Monday essentially 36 hours from now. He says his noticed a difference in the size of his pupils, and made him call the ambulance. He has been drinking tonight. No injuries. No recent change in his headache over the past 3 weeks from tonight otherwise. He does note that he has had some mild vision changes, which he related to a cataract. He was left with left-sided weakness following his subdural, which is essentially the same. MD elicited complaint: headache Pertinent past history: other Onset (ago): week(s) Onset description: gradually Location: temporal Quality & Timing: aching and throbbing Exacerbating factors: light and noise Relieving factors: nothing Context: occurred at rest Associated symptoms: Reports nausea, photophobia and sound sensitivity; Deny chest pain, diaphoresis, fever(s), lightheadedness, rash or seizures Review of Systems Const: Denies: fever(s) or diaphoresis Eyes: Denies: change in vision or blurry vision ENMT: Denies: odynophagia or sinus pain Card: Denies: chest pain or lightheadedness Resp: Denies: dyspnea, productive cough, non-productive cough or wheezing GI: Reports: nausea : Denies: difficulty urinating or hematuria Musc: Denies: neck pain or joint warmth Skin/Breast: Denies: rash or erythema Neuro: Reports: headache(s); Denies: dizziness or vertigo Psych: Denies: anxiety [facility] ED PFSH: Medical History (Updated 07/25/20 @ 23:46 by Kee Ring DO) Cerebral aneurysm Anterior communicating Artery, unruptured, 3mm Constipation Depression history of previous SI episodes History of alcohol dependence reported sobriety date of 02/01 Hyperlipidemia Hypertension Hyperthyroidism Intracranial hemorrhage 09/14/2019 Lacunar stroke Sciatica Subdural hematoma Subdural hematoma TIA (transient ischemic attack) Surgical History History of ankle surgery left, for fracture History of javi hole surgery 09/12/2019 Dr. Papito Ridley: Twist drill (SEPS) drainage of left convexity subdural hematoma 09/13/2019 Removed History of surgery on right wrist Post-operative state Family History Mother Cancer Hypertension Father Hypertension Social History Smoking and tobacco status: current every day smoker cigarettes Packs smoked per day: 0.25 Alcohol intake: former Year of sobriety/quit date alcohol: 02/01 Former alcohol use details: 09/23/2019 presented to [facility] emergency services. Diagnosis intoxication Household members: spouse and children Marital status: Current occupational status: retired History of recent travel: No Physical Exam Const: GENERAL APPEARANCE: cooperative, appears older than stated age and odor of alcohol detected ORIENTATION/CONSCIOUSNESS: Yes oriented to person, Yes oriented to place and Yes oriented to time HENMT: COMMON NORMALS: normocephalic, external ears normal and Normal external nose present HEAD & SCALP: normocephalic FACE & SINUS: normal facial exam NOSE: Normal external nose present and No nasal discharge present EXTERNAL EAR: Yes external ears normal THROAT: posterior oropharynx normal; no peritonsillar mass Eye: COMMON NORMALS: EOMs intact bilaterally and conjunctivae normal ALIGNMENT: Yes alignment normal EYELID: eyelids normal CONJUNCTIVA: Yes conjunctivae normal PUPIL: Yes Pupils anisocoria, Yes pupil size - right Right pupil size (mm): 4 and Yes pupil size - left Left pupil size (mm): 3 DIRECT OPHTHALMOSCOPY: Yes photophobia Neck/C-Spine: COMMON NORMALS: full ROM GENERAL: No tracheal deviation CERVICAL SPINE: Yes normal cervical lordosis and No Cervical spine tenderness Chest: COMMONS NORMALS: normal inspection of the chest Resp: COMMON NORMALS: clear to auscultation bilaterally EFFORT & INSPECTION: No tachypneic, No respiratory distress, No retractions, No uses accessory muscles and No tracheal deviation AUSCULTATION: clear to auscultation bilaterally, no rhonchi, no wheezes and lung sounds not diminished Cardio: COMMON NORMALS: regular rate and regular rhythm RATE: regular rate RHYTHM: regular rhythm HEART SOUNDS: no murmurs PERIPHERAL PULSES: radial pulses present GI: INSPECTION: No abdominal distension AUSCULTATION: No Hyperactive bowel sounds present and No Hypoactive bowel sounds present PALPATION: No Guarding due to palpation present (GI) and No Rigid due to palpation PERCUSSION: no dullness to percussion and no tympanic to percussion Neuro: SENSORIUM/ORIENTATION: Yes oriented to person, Yes oriented to place and Yes oriented to time Psych: COMMON NORMALS: Normal thought process present APPEARANCE: Yes unkempt ATTITUDE: Yes calm ACTIVITY/MOTOR BEHAVIOR: Yes appropriate eye contact SPEECH: Yes slurred MOOD & AFFECT: Yes euthymic mood THOUGHT PROCESS: Normal thought process present THOUGHT CONTENT: Yes Normal thought content present ATTENTION/CONCENTRATION: Yes attention grossly intact and Yes concentration grossly intact MEMORY/COGNITION: Yes memory grossly intact and Yes cognition grossly intact Skin: COMMON NORMALS: no rashes or lesions noted GENERAL SKIN EXAM: no rashes or lesions noted Course Vital Signs: Vital signs: Vital Signs Temperature 97.8 F 07/25/20 22:12 Pulse Rate 68 07/25/20 23:42 Respiratory Rate 12 07/25/20 23:42 Blood Pressure 121/63 07/25/20 23:42 Pulse Oximetry 98 07/25/20 23:42 MDM - Headache MDM Narrative: Medical decision making narrative: 64-year-old male with a history of subdural hematoma presents to the ER intoxicated with a headache. His head CT shows no evidence of intracranial bleeding, and no evidence of subacute infarct. The patient has no focal neurological deficits that are new, other than perhaps some mild anisocoria. His alcohol level is 303. He is awake and talking. He has an appointment with his neurologist in 36 hours or so. He will be discharged. Lab Data: Labs: Lab Results 07/25/20 07/25/20 07/25/20 Range/Units 22:30 22:30 22:30 WBC 6.4 (4.0-10.0) 10^3/ uL RBC 4.70 (4.1-5.3) 10^6/u L Hgb 14.8 (11.7-16.6) g/dL Hct 43.4 (42.0-52.0) % MCV 92.3 (80-94) fL MCH 31.5 (28.0-34.0) pg MCHC 34.1 (30.0-36.0) g/dL RDW 12.2 (12.1-15.1) % Plt Count 229 (130-400) 10^3/c mm MPV 9.6 (7.4-10.4) fL Neut % (Auto) 56.4 % Lymph % (Auto) 28.3 % [place] % (Auto) 8.7 % Eos % (Auto) 4.7 % Baso % (Auto) 1.3 % Neut # (Auto) 3.58 (1.8-7.7) 10^3/u L Lymph # (Auto) 1.8 (0.8-4.8) 10^3/u L [place] # (Auto) 0.6 (0.2-0.9) 10^3/u L Eos # (Auto) 0.3 (0.0-0.8) 10^3/u L Baso # (Auto) 0.1 (0.0-0.1) 10^3/u L Nucleated RBC % (a uto) 0 % Nucleated RBCs # 0.0 /100WBC PT 13.60 (12.1-14.9) SECO NDS INR 1.01 (0.8-1.2) APTT 31.8 (23.9-36.7) SECO NDS Sodium 134 L (136-145) mmol/L Potassium 3.9 (3.5-5.1) mmol/L Chloride 102 (98-107) mmol/L Carbon Dioxide 22 (22-29) mmol/L Anion Gap 13.9 (5-19) BUN 12 (8-23) mg/dL Creatinine 0.9 (0.7-1.2) mg/dL GFR Calculation 85.5 L (90-130) mL/min Glucose 133 H (65-115) mg/dL Calculated Osmolal ity 280 L (285-295) mOsm/k g Calcium 9.0 (8.5-10.5) mg/dL Magnesium 2.4 H (1.7-2.3) mg/dL Total Bilirubin 0.3 (0.15-1.2) mg/dL AST 26 (0-40) U/L ALT 31 (0-41) U/L Alkaline Phosphata se 75 (40-130) IU/L Total Protein 7.0 (6.6-8.7) g/dL Albumin 4.2 (3.5-5.2) g/dL Globulin 2.8 (1.3-4.6) g/dL Ethyl Alcohol 303 H* (0-10) mg/dL Discharge Plan Discharge Patient Disposition: Home Clinical Impression: Headache Qualifiers: Headache type: unspecified Headache chronicity pattern: chronic headache Intractability: intractable Qualified Code(s): R51.9 - Headache, unspecified Alcohol intoxication Qualifiers: Complication of substance-induced condition: uncomplicated Qualified Code(s): F10.920 - Alcohol use, unspecified with intoxication, uncomplicated Condition: Stable Prescriptions: No Action carvedilol 12.5 mg tablet 12.5 mg PO BID Qty: 60 RF: 5 famotidine [Pepcid] 20 mg tablet 20 mg PO DAILY Qty: 30 RF: 5 furosemide 20 mg tablet 20 mg PO DAILY Qty: 30 RF: 5 potassium chloride 10 mEq capsule, extended release 10 meq PO DAILY Qty: 30 RF: 5 lisinopril 20 mg tablet 20 mg PO DAILY Qty: 30 RF: 5 gabapentin 300 mg capsule 300 mg PO Q8H 30 Days Qty: 90 RF: 5 aspirin [Aspir-81] 81 mg tablet,delayed release (DR/EC) 81 mg PO DAILY RF: 0 multivitamin [Multiple Vitamins] Tablet 1 tab PO DAILY RF: 0 atorvastatin 40 mg tablet 20 mg PO DAILY RF: 0 Discharge Orders: Discharge ED (Routine); Ordered 07/25/20 Ordered By: Kee Ring Referrals: Rosa Maria Titus MD [Physician] - 1-3 days Thao Bergman FNP [Primary Care Provider] - Discharge Diet: Advance as tolerated Discharge Activity: Limit activity as instructed Patient Instructions: Headache, Alcohol Intoxication (ED) Activity Restrictions/Additional Instructions: Follow-up with your neurologist on Monday as scheduled. Abstain from alcohol. Return for language problems, worsening weakness, seizures, other concerning symptoms. Coding Level of Care Code ED [employer] for [employer] F[employer] Exam Comprehensive
[2020-07-25 22:51] LABS: Basophils # 0.1 10^3/uL (0.0-0.1); Basophils % 1.3 %; Eosinophils # 0.3 10^3/uL (0.0-0.8); Eosinophils % 4.7 %; Hematocrit 43.4 % (42.0-52.0); Hemoglobin 14.8 g/dL (11.7-16.6); INR 1.01 (0.8-1.2); Lymphocytes # 1.8 10^3/uL (0.8-4.8); Lymphocytes % 28.3 %; Mean Corpuscular HGB Conc 34.1 g/dL (30.0-36.0); Mean Corpuscular Hemoglobin 31.5 pg (28.0-34.0); Mean Corpuscular Volume 92.3 fL (80-94); Mean Platelet Volume 9.6 fL (7.4-10.4); Monocytes # 0.6 10^3/uL (0.2-0.9); Monocytes % 8.7 %; Neutrophils # 3.58 10^3/uL (1.8-7.7); Neutrophils % 56.4 %; Nucleated Red Blood Cells % 0 %; Platelet Count 229 10^3/cmm (130-400); Red Cell Distribution Width 12.2 % (12.1-15.1); White Blood Count 6.4 10^3/uL (4.0-10.0)
[2020-07-25 22:52] LABS: Partial Thromboplastin Time 31.8 SECONDS (23.9-36.7)
[2020-07-25 22:56] LABS: Alanine Aminotransferase 31 U/L (0-41); Albumin Level 4.2 g/dL (3.5-5.2); Alkaline Phosphatase 75 IU/L (40-130); Anion Gap 13.9 (5-19); Aspartate Amino Transferase 26 U/L (0-40); Blood Urea Nitrogen 12 mg/dL (8-23); Carbon Dioxide 22 mmol/L (22-29); Chloride 102 mmol/L (98-107); Globulin 2.8 g/dL (1.3-4.6); Glomerular Filtration Rate 85.5 mL/min (90-130); Glucose 133 mg/dL (65-115); Magnesium 2.4 mg/dL (1.7-2.3); Osmolality Calculated 280 mOsm/kg (285-295); Potassium 3.9 mmol/L (3.5-5.1); Sodium 134 mmol/L (136-145); Total Bilirubin 0.3 mg/dL (0.15-1.2)
[2020-07-25 22:59] LABS: Alcohol Level 303 mg/dL (0-10)
[2020-07-25 23:02] VITALS: BP 104/53; PULSE 60; RESP 18; O2SAT 96
[2020-07-25] MEDS: fentaNYL 50 mcg/mL INJ 2mL 100 MCG IVP (23:02)
[2020-07-25] MEDS: ondansetron 2 mg/ML SDV 2 mL 4 MG IVP (23:03)
[2020-07-25 23:42] VITALS: BP 121/63; PULSE 68; RESP 12; O2SAT 98
[2020-07-26 00:09] VITALS: BP 117/65; PULSE 59; RESP 18; O2SAT 96
== END 2020-07-26 00:11 | disposition home or self-care (01) ==
PROVIDERS: Emergency Provider Emergency Medicine; PCP Nurse Practitioner Family
DX: R51.9 Headache, unspecified (principal); F10.920 Alcohol use, unspecified with intoxication, uncomplicated; Z79.82 Long term (current) use of aspirin; E78.5 Hyperlipidemia, unspecified; I10 Essential (primary) hypertension; Z86.73 Personal history of transient ischemic attack (TIA), and cerebral infarction without residual deficits; F17.210 Nicotine dependence, cigarettes, uncomplicated
CPT/HCPCS: 12345; 70450; 80053; 80307; 83735; 85025; 85610; 85730; 96374; 96375; 99283; J2405; J3010; J3411

== ENCOUNTER → 2020-07-27 08:40 | Outpatient (BNVA) | payer MEDICAID, SELFPAY | PROVIDERS: PCP Nurse Practitioner Family; Visit Provider Nurse Practitioner | DX: R51.9 Headache, unspecified (principal); G89.29 Other chronic pain; I99.8 Other disorder of circulatory system; I67.1 Cerebral aneurysm, nonruptured; G47.10 Hypersomnia, unspecified; F17.210 Nicotine dependence, cigarettes, uncomplicated | CPT/HCPCS: 99213; 99214 ==

== ENCOUNTER 2020-08-10 20:00 | Outpatient (CLI) | payer MEDICAID, SELFPAY | END 2020-08-10 20:01 | disposition home or self-care (01) | LOC: SLEEP 08-11 08:58 | PROVIDERS: PCP Nurse Practitioner Family; Visit Provider Nurse Practitioner | DX: G47.10 Hypersomnia, unspecified (principal); R06.83 Snoring; R53.83 Other fatigue; G47.33 Obstructive sleep apnea (adult) (pediatric) | CPT/HCPCS: 95810 ==

== ENCOUNTER 2020-08-26 08:01 | Outpatient (CLI) | payer MEDICAID, SELFPAY ==
--- NOTE | 2020-08-26 08:00 | MR_ITS ---
WS: [id number] MRA HEAD TECHNIQUE: Axial 3-D TOF images obtained with axial images and axial, sagittal, and coronal 2-D refor matted images. CLINICAL INFORMATION: R51.9 - Headache, unspecified COMPARISON: MRI August 26, 2019. FINDINGS: Distal vertebral arteries are patent. Left dominant distal vertebral artery. Basilar artery is patent . Normal vascularity to the [employer] territory bilaterally. Both ICAs are patent at the skull base. Normal vascularity to the NANCY and MCA territories bilaterally. Hypoplastic right A1. No evidence of high-gr orion proximal stenosis. Again seen is the 3 mm anterior communicating artery aneurysm. This is not significantly changed fro m previous CTA December 14, 2018 and MRA August 20, 2019. Normal vascularity to the NANCY territory MR/MR angio head wo con [id number] IMPRESSION: 1. Stable 3 mm anterior communicating artery aneurysm. 3. Left dominant vertebral artery. Basilar artery is patent. 4. Normal variant hypoplastic right A1 segment. 5. No evidence of high-grade proximal stenosis.
--- NOTE | 2020-08-26 08:00 | MR_ITS ---
WS: [id number] MRI HEAD WITH CONTRAST TECHNIQUE: Sagittal T1, T2 axial, T2 axial FLAIR, axial susceptibility weighted imaging, axial diffus ion weighted images, and coronal T2 images were obtained. Pre and post-T1 axial and post T1 coronal i mages. ADC and FSPGR images. CLINICAL INFORMATION: R51.9 - Headache, unspecified COMPARISON: MRI March 12, 2013 FINDINGS: No evidence of restricted diffusion to suggest acute ischemia. Ventricular system and basal cisterns are patent. Mild small vessel changes. Moderate parenchymal volume loss. Normal posterior fossa. Norm al vascular flow voids at the skull base. No extra-axial fluid collections. No evidence of mass or ma ss effect. Paranasal sinuses and mastoid air cells are well aerated. Small anterior communicating art samina aneurysm better seen on the recent MRA. Small chronic focus of hemosiderin in the right posterior frontal lobe. Serpiginous enhancement in th is area. This likely represents a small cavernoma with venous angioma. No evidence of recent hemorrha ge. Normal optic chiasm and pituitary infundibulum. No abnormal gadolinium enhancement. Normal dural veno us sinuses. Normal cavernous sinuses and Meckel's cave. MR/MR head wo/w con [id number] IMPRESSION: 1. No evidence of restricted diffusion to suggest acute ischemia. 2. Mild small vessel changes with moderate parenchymal volume loss. This is pr ogressed slightly since 2012 3. 3 mm anterior communicating artery aneurysm better seen on the concurrent M RA. 4. Small focus of hemosiderin in the right posterior frontal lobe likely repre sent small cavernoma with associated venous angioma. No evidence of recent hemo rrhage.
[2020-08-26] MEDS: gadobenate dimeglumine 20 mL vial IV (09:14)
== END 2020-08-26 08:02 | disposition home or self-care (01) ==
LOC: RADSHAW 08:03
PROVIDERS: PCP Family Medicine; Visit Provider Nurse Practitioner
DX: R51.9 Headache, unspecified (principal); I67.1 Cerebral aneurysm, nonruptured
CPT/HCPCS: 70544; 70553; A9577

== ENCOUNTER 2021-02-27 21:14 | Emergency (ER) | payer MEDICAID, SELFPAY ==
[2021-02-27 21:18] VITALS: BP 133/76; PULSE 99; RESP 10; O2SAT 92; BMI 29.2
--- NOTE | 2021-02-27 21:30 | PC.NURSE ---
pt thinks he has a broken rib from falling off a roof at work.
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
--- NOTE | 2021-02-27 21:53 | PC.NURSE ---
Spoke with doctor he said to hold off on the IV and labs for now. Patient is in CT at this time.
[2021-02-27 22:01] VITALS: BP 136/79; PULSE 90; RESP 16; TEMP 36.9; O2SAT 96
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
[2021-02-27 22:40] VITALS: BP 138/91; PULSE 104; RESP 16; TEMP 36.8; O2SAT 95
== END 2021-02-27 22:45 | disposition home or self-care (01) ==
PROVIDERS: Emergency Provider Family Medicine; PCP Family Medicine
DX: S06.0X0A Concussion without loss of consciousness, initial encounter (principal); E78.5 Hyperlipidemia, unspecified; I10 Essential (primary) hypertension; E05.90 Thyrotoxicosis, unspecified without thyrotoxic crisis or storm; F17.210 Nicotine dependence, cigarettes, uncomplicated; Z86.73 Personal history of transient ischemic attack (TIA), and cerebral infarction without residual deficits; Y04.0XXA Assault by unarmed brawl or fight, initial encounter
CPT/HCPCS: 70450; 72125; 99282

== ENCOUNTER 2021-10-24 18:16 | Emergency (ER) | payer MEDICAID, SELFPAY ==
--- NOTE | 2021-10-24 18:49 | XRR_ITS ---
PROCEDURE INFORMATION: Exam: XR Left Foot Exam date and time: 10/24/2021 6:55 PM Age: 65 years old Clinical indication: Injury or trauma; Other: Stepped on glss; Laceration; Toes; Left great; Foreign body involvement not specified; Prior surgery; Surgery date: 6+ months; Additional info: Foot injury TECHNIQUE: Imaging protocol: XR Left foot. Views: 3 or more views. COMPARISON: No relevant prior studies available. FINDINGS: Bones/joints: Changes consistent with prior medial and lateral malleolar fracture repairs. No acute fracture. No dislocation. Opda-ku-qjykzifo degenerative changes at the 1st MTP joint. Soft tissues: No soft tissue swelling. No radiopaque foreign body. XR/XR foot LT min 3V* [id number] IMPRESSION: 1. No acute fracture of the left foot. Followup imaging recommended in 7-14 days if clinical concern for fracture persists. 2. Changes consistent with prior medial and lateral malleolar fracture repairs. 3. Ifmi-ff-sqjsdnmo degenerative changes at the 1st MTP joint.
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
[2021-10-24 19:21] LABS: Amphetamines Screen Urine Negative (Negative); Barbiturates Screen Urine Negative (Negative); Benzodiazepines Screen Urine Negative (Negative); Cocaine Screen Urine Negative (Negative); Opiate Screen Urine Negative (Negative); PCP Screen Urine Negative (Negative); THC Screen Urine Negative (Negative)
[2021-10-24] MEDS: tetanus-dipt-pertussis 0.5 mL SDV IM (20:12)
--- NOTE | 2021-10-24 20:15 | W.PM.PSYCONS ---
Providers/Reason for Consult Consulting Physican/Specialty*: Psychiatry Reason for Consult*: Suicidal statements before arriving in the ED. Attending Physician: Oscar Crooks MD, Psychiatrist. Primary Care Provider: Sydney Arias MD Psych Consult HPI History of Present Illness Gavin French Jr is a 65 year old male seen in the emergency room this afternoon with the following report. HPI: [65]yo patient w/ hx of depression/alcohol abuse BIBA for acute alcohol use and suicidal ideation. Per patient, his father today and patient was feeling incredibly sad. Patient verbalized to family I just want to be with dad. Upon. His family be concerned and called EMS and patient was brought to the emergency room. Patient tell me the last time he drank was 5-month ago and today he relapsed. Patient appears to be disinhibited but clinically AAOx3. No focal complaints of chest pain, shortness of breath, palpitations, N/V, focal GI/ complaints. Currently denies HI. No complaints of hallucinations. On further questioning, patient denies having active suicidal ideation or plans. Patient also reports stepping on a nail under his right big toe earlier today. Patient does not know when his last tetanus shot was. Onset: acute Duration: ongoing Location: home Severity: severe Associated symptoms: Deny chest pain, dyspnea, nausea, rash, palpitations or vomiting He has now sobered up and we talked on the phone. He has been consistent in telling his attending physician that he has no intention of harming himself. He said something that he did not mean but has not voiced any suicidal ideation in emergency department. He is adamant that he is safe. His has had two strokes him he knows that she needs him and he will not leave her. He also has six grandchildren who live on his same lot with him that he enjoys very much. He enjoys his children. He has much to live for. He says that he has not been drinking for some time but that his father's upset him temporarily. He is pleasant and cooperative on the phone. He does not sound depressed. He is very adamant that he is safe and he is very believable. Meds Home Medications and Allergies Home Medications Medication Instructions Recorded Confirmed Last Taken Type aspirin 81 mg tablet,delayed 81 mg PO DAILY 08/14/19 09/02/21 11/27/19 History release (Aspir-) multivitamin (Multiple Vitamins) 1 tab PO DAILY 09/11/19 09/02/21 11/27/19 History atorvastatin 40 mg tablet 20 mg PO DAILY #30 tab 08/10/21 09/02/21 Unknown Rx carvedilol 12.5 mg tablet 12.5 mg PO BID #60 tab 08/10/21 09/02/21 Unknown Rx citalopram 40 mg tablet 40 mg PO DAILY #30 tab 08/10/21 09/02/21 Unknown Rx famotidine 20 mg tablet (Pepcid) 20 mg PO DAILY #30 tab 08/10/21 09/02/21 Unknown Rx lisinopril 20 mg tablet 20 mg PO DAILY #30 tab 08/10/21 09/02/21 Unknown Rx potassium chloride 10 mEq 10 meq PO DAILY #30 cap 08/10/21 09/02/21 Unknown Rx capsule,extended release betamethasone dipropionate 0.05 % 1 applic TOPICAL DAILY #60 ml 09/02/21 09/02/21 Unknown Rx lotion diphenhydramine HCl 25 mg capsule 25 mg PO Q6H PRN #60 cap 09/02/21 09/02/21 Unknown Rx prednisone 20 mg tablet 60 mg PO DAILY #21 tab 09/02/21 09/02/21 Unknown Rx Allergies Allergy/AdvReac Type Severity Reaction Status Date / Time morphine Allergy Unknown Verified 09/02/21 09:53 trazodone Allergy Unknown Verified 09/02/21 09:53 PFSH NPU PFSH: Medical History Acute urticaria Allergic dermatitis Depression history of previous SI episodes History of alcohol dependence reported sobriety date of 02/01 Hyperlipidemia Hypertension Hyperthyroidism Insomnia Lacunar stroke Osteoarthritis of left shoulder region Subdural hematoma TIA (transient ischemic attack) Surgical History History of ankle surgery left, for fracture History of javi hole surgery 09/12/2019 Dr. Papito Ridley: Twist drill (SEPS) drainage of left convexity subdural hematoma 09/13/2019 Removed History of surgery on right wrist Family History Mother Cancer Hypertension Father Hypertension Social History Smoking and tobacco status: current every day smoker cigarettes Alcohol intake: former Year of sobriety/quit date alcohol: 02/01 Former alcohol use details: [place]/2019 [place] [facility] [place]. Diagnosis intoxication Household members: spouse and children Marital status: Current occupational status: retired History of recent travel: No Mental Status Exam MSE Comments: He is pleasant and cooperative on the phone. He does not sound depressed. He is very adamant that he is safe and he is very believable. A&P Assessment and plan (1) Alcohol use: Status: Acute Plan 65 year old male with a history of alcohol dependence but sober for some time had a brief reaction to his father's with alcohol intoxication and statements to his family about wanting to . He is adamant that he did not intend that and has not been thinking about suicide recently. He is adamant that he is safe and he is very believable. He is cleared for discharge by psychiatry. Involuntary Hold Information 96 Hour Hold: 96 Hour Involuntary Admission: Yes 96 Hour Hold Ending Date: 12/04/19 96 Hour Hold Ending Time: 13:30 Attestations U Medical Necessity Statement*: Please see attending physicians notes on medical necessity. Coding Level of Care Code Acute [employer] for [employer] Diagnoses Alcohol use Z72.89
== END 2021-10-24 20:47 | disposition home or self-care (01) ==
PROVIDERS: Emergency Provider Emergency Medicine; PCP Family Medicine
DX: F32.A Depression, unspecified (principal); R45.851 Suicidal ideations; Z72.89 Other problems related to lifestyle; F17.210 Nicotine dependence, cigarettes, uncomplicated; Z23 Encounter for immunization
CPT/HCPCS: 73630; 80306; 90471; 90715; 99282

== ENCOUNTER → 2021-12-02 00:01 | Outpatient (BNVA) | payer MEDICAID, SELFPAY | PROVIDERS: PCP Family Medicine; Visit Provider Family Medicine | DX: I10 Essential (primary) hypertension (principal); R51.9 Headache, unspecified; I67.1 Cerebral aneurysm, nonruptured; E78.5 Hyperlipidemia, unspecified; L30.9 Dermatitis, unspecified | CPT/HCPCS: 80053; 80061; 85025 ==

== ENCOUNTER 2021-12-14 08:34 | Outpatient (CLI) | payer MEDICAID, SELFPAY ==
--- NOTE | 2021-12-14 09:30 | MR_ITS ---
WS: [id number] MRA HEAD TECHNIQUE: Axial 3-D TOF images obtained with axial images and axial, sagittal, and coronal 2-D refor matted images. CLINICAL INFORMATION: I67.1 - Cerebral aneurysm, nonruptured COMPARISON: None. FINDINGS: Distal vertebral arteries are patent. Left dominant distal vertebral artery. Basilar artery is patent . Normal vascularity to the TAPE SEWER territory bilaterally. Both ICAs are patent at the skull base. Normal vascularity to the NANCY and MCA territories bilaterally . Hypoplastic right A1 segment. No evidence of high-grade proximal stenosis. Again seen is the 3 mm anterior communicating artery aneurysm. This is not significantly changed from previous MRA 08/26/2020. Persistent normal vascularity to the NANCY territory bilaterally. Probable tin y infundibulum involving the RIGHT A2 segment at the origin measuring 2 mm. This appears stable kimmie red to previous exam and is better appreciated today. MR/MR angio head wo con [id number] IMPRESSION: 1. 3 mm anterior communicating artery aneurysm is stable compared to August 26, 2020. 2. Probable tiny infundibulum involving the RIGHT A2 segment at the origin william suring 2 mm. This appears stable compared to previous exam and is better apprec iated today. 3. Normal variant hypoplastic right A1 segment. 4. LEFT dominant distal vertebral artery.
--- NOTE | 2021-12-14 09:45 | MR_ITS ---
WS: [id number] MRI HEAD WITHOUT CONTRAST TECHNIQUE: Sagittal T1, T2 axial, T2 axial FLAIR, axial and coronal T1 images, axial susceptibility w eighted imaging, axial diffusion weighted images, and coronal T2 images were obtained. CLINICAL INFORMATION: R51.9 - Headache, unspecified COMPARISON: MRI August 26, 2020 FINDINGS: No evidence of restricted diffusion to suggest acute ischemia. Ventricular system and basal cisterns are patent. Mild small vessel changes. Moderate parenchymal volume loss. Small vessel changes appear stable compared to previous. Normal posterior fossa. Normal vascular flow voids at the skull base. No extra-axial fluid collections. No evidence of mass or mass effect. Mucosal thickening LEFT mastoid tip. Mild mucosal thickening ethmoid air cells. Normal posterior pete opharynx. Small focus of hemosiderin in the RIGHT posterior frontal lobe is unchanged from previous. Gadolinium not administered today. Previously this appears to represent small cavernoma with associat ed venous angioma. No evidence of recent hemorrhage. Normal optic chiasm and pituitary infundibulum. Temporal lobes hippocampal formations are normal in appearance. Normal cavernous sinuses and Meckel's cave. MR/MR head wo con* [id number] IMPRESSION: No significant interval changes since August 26, 2020. 1. No evidence of restricted diffusion to suggest acute ischemia. 2. Mild small vessel changes with moderate parenchymal volume loss. This is st able compared to previous. 3. 3 mm anterior communicating artery aneurysm better seen on the concurrent M RA. 4. Small focus of hemosiderin in the right posterior frontal lobe likely repre sent small cavernoma with associated venous angioma unchanged from previous. Ga dolinium not administered today. No evidence of recent hemorrhage.
== END 2021-12-14 08:35 | disposition home or self-care (01) ==
LOC: RAD 08:35
PROVIDERS: PCP Family Medicine; Visit Provider Family Medicine
DX: I67.1 Cerebral aneurysm, nonruptured (principal); R51.9 Headache, unspecified
CPT/HCPCS: 70544; 70551

== ENCOUNTER 2022-01-14 19:23 | Emergency (ER) | payer MEDICAID, SELFPAY ==
--- NOTE | 2022-01-14 19:43 | ECG_ITS ---
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 Measurements Intervals [place] Rate: 79 P: 56 [place]: 148 QRS: -43 QRSD: 88 T: 50 QT: 378 QTc: 435 Interpretive Statements SINUS RHYTHM LEFT AXIS DEVIATION [QRS AXIS < -30] Compared to ECG 11/27/2019 13:37:51 Left-axis deviation now present Left anterior fascicular block no longer present Electronically Signed On 01-15-2022 12:25:13 CDT by Vini Brandon M.D. [id number]
[2022-01-14 19:46] VITALS: BMI 30.4
[2022-01-14] MEDS: sodium chloride 0.9% 1,000 ML 999 ML IV (20:40)
--- NOTE | 2022-01-14 20:40 | CTR_ITS ---
PROCEDURE INFORMATION: Exam: CT Head Without Contrast Exam date and time: 01/14/2022 8:59 PM Age: 66 years old Clinical indication: Pain; Headache not specified; Additional info: Headache/ etoh/ confusion TECHNIQUE: Imaging protocol: Computed tomography of the head without contrast. Radiation optimization: All CT scans at this facility use at least one of these dose optimization techniques: automated exposure control; mA and/or kV adjustment per patient size (includes targeted exams where dose is matched to clinical indication); or iterative reconstruction. COMPARISON: MR head wo con* [id number] 12/14/2021 9:32 AM RADIATION DOSE METRICS: Total DLP (mGy-cm): 808.5 FINDINGS: Brain: There is minimal hypoattenuation in the periventricular white matter suggesting chronic microvascular disease. There is no significant mass effect or midline shift. There is no acute intracranial hemorrhage. Cerebral ventricles: There is no significant ventricular dilation. The basal cisterns are unremarkable. Paranasal sinuses: The paranasal sinuses are clear. Mastoid air cells: Trace left mastoid effusion. Bones/joints: Chronic right nasal fracture. The calvarium is intact. Soft tissues: The visible extracranial soft tissues are unremarkable. CT/CT head wo con* [id number] IMPRESSION: No acute intracranial abnormality.
[2022-01-14 20:42] LABS: Basophils # 0.1 10^3/uL (0.0-0.1); Basophils % 0.9 %; Eosinophils # 0.2 10^3/uL (0.0-0.8); Eosinophils % 3.4 %; Hematocrit 43.8 % (42.0-52.0); Hemoglobin 15.6 g/dL (11.7-16.6); Lymphocytes # 2.3 10^3/uL (0.8-4.8); Lymphocytes % 33.8 %; Mean Corpuscular HGB Conc 35.6 g/dL (30.0-36.0); Mean Corpuscular Hemoglobin 31.3 pg (28.0-34.0); Mean Platelet Volume 9.7 fL (7.4-10.4); Monocytes # 0.5 10^3/uL (0.2-0.9); Monocytes % 7.3 %; Neutrophils # 3.62 10^3/uL (1.8-7.7); Neutrophils % 54.2 %; Nucleated Red Blood Cells % 0 %; Platelet Count 230 10^3/cmm (130-400); Red Blood Count 4.98 10^6/uL (4.1-5.3); Red Cell Distribution Width 12.1 % (12.1-15.1); White Blood Count 6.7 10^3/uL (4.0-10.0)
--- NOTE | 2022-01-14 21:05 | CTR_ITS ---
PROCEDURE INFORMATION: Exam: CTA Head With Contrast, Arteriography Exam date and time: 01/14/2022 11:08 PM Age: 66 years old Clinical indication: Syncope and collapse; Prior surgery; Surgery date: 6+ months; Surgery type: Marci hole SX; Patient HX: HX of sdh, lacunar infarct; Additional info: HX of aneurysm, headache, syncope TECHNIQUE: Imaging protocol: Computed tomographic angiography of the head with contrast. Exam focused on the arteries. 3D rendering (Not supervised by radiologist): MIP and/or 3D reconstructed images were created by the technologist. Radiation optimization: All CT scans at this facility use at least one of these dose optimization techniques: automated exposure control; mA and/or kV adjustment per patient size (includes targeted exams where dose is matched to clinical indication); or iterative reconstruction. Contrast material: OMNI 350; Contrast volume: 95 ml; Contrast route: INTRAVENOUS (IV); COMPARISON: MR angio head wo con [id number] 12/14/2021 9:20 AM RADIATION DOSE METRICS: Total DLP (mGy-cm): 2242.77 FINDINGS: ANTERIOR CIRCULATION: Right internal carotid artery: There is mild atherosclerotic disease in the cavernous portion of the right internal carotid artery without significant stenosis. Right middle cerebral artery: Unremarkable. No occlusion or significant stenosis. No aneurysm. Right anterior cerebral artery: Unremarkable. No occlusion or significant stenosis. No aneurysm. Anterior communicating artery: There is a 4 mm aneurysm of the anterior communicating artery. Left internal carotid artery: There is mild atherosclerotic disease in the cavernous portion of the left internal carotid artery without significant stenosis. Left middle cerebral artery: Unremarkable. No occlusion or significant stenosis. No aneurysm. Left anterior cerebral artery: Unremarkable. No occlusion or significant stenosis. No aneurysm. POSTERIOR CIRCULATION: Right vertebral artery: Unremarkable. No occlusion or significant stenosis. No aneurysm. Left vertebral artery: Unremarkable. No occlusion or significant stenosis. No aneurysm. Basilar artery: Unremarkable. No occlusion or significant stenosis. No aneurysm. Right posterior cerebral artery: Unremarkable. No occlusion or significant stenosis. No aneurysm. Left posterior cerebral artery: Unremarkable. No occlusion or significant stenosis. No aneurysm. Cavernous Sinus: Dural venous sinuses are patent. Sigmoid sinuses: Left transverse and sigmoid sinuses hypoplastic. Brain: No pathologic enhancement of the brain. Cerebral ventricles: There is no significant ventricular dilation. The basal cisterns are unremarkable. Bones/joints: Unremarkable. No acute fracture. Soft tissues: Unremarkable. PROCEDURE INFORMATION: Exam: CTA Neck With Contrast Exam date and time: 01/14/2022 11:08 PM Age: 66 years old Clinical indication: Syncope and collapse; Prior surgery; Surgery date: 6+ months; Surgery type: Marci hole SX; Patient HX: HX of sdh, lacunar infarct; Additional info: HX of aneurysm, headache, syncope TECHNIQUE: Imaging protocol: Computed tomographic angiography of the neck with contrast. 3D rendering (Not supervised by radiologist): MIP and/or 3D reconstructed images were created by the technologist. Radiation optimization: All CT scans at this facility use at least one of these dose optimization techniques: automated exposure control; mA and/or kV adjustment per patient size (includes targeted exams where dose is matched to clinical indication); or iterative reconstruction. Contrast material: OMNI 350; Contrast volume: 95 ml; Contrast route: INTRAVENOUS (IV); COMPARISON: CTA Head/Neck [id number] 12/14/2018 8:37 AM RADIATION DOSE METRICS: Total DLP (mGy-cm): 2242.17 FINDINGS: Right common carotid artery: No stenosis. No dissection or occlusion. Right internal carotid artery: There is mild atherosclerotic disease at the origin of the right internal carotid artery without stenosis. Right external carotid artery: No occlusion or stenosis of the origin. Left common carotid artery: No stenosis. No dissection or occlusion. Left internal carotid artery: There is mild atherosclerotic disease at the origin of the left internal carotid artery without stenosis. Left external carotid artery: No occlusion or stenosis of the origin. Right vertebral artery: No stenosis. No dissection or occlusion. Left vertebral artery: No stenosis. No dissection or occlusion. Soft tissues: Soft tissues in the neck and thoracic inlet are unremarkable. Bones/joints: There is mild degenerative disc disease in the cervical spine. Lungs: Lung apices are clear. CT/CT angio headneck* [id number] IMPRESSION: 1. No arterial occlusion. 2. 4 mm anterior communicating artery aneurysm. IMPRESSION: No arterial stenosis, occlusion or dissection. REFERENCES: NASCET CRITERIA. The degree of internal carotid artery stenosis is based on NASCET criteria. Normal is no stenosis. Mild is less than 50% stenosis. Moderate is 50-69% stenosis. Severe is 70% to 99% stenosis. Total occlusion is no detectable patent lumen.
--- NOTE | 2022-01-14 21:05 | W.ED.GENADLT ---
Documented by User: Angeles Brown MD 01/14/22 21:09 HPI - General Adult General: Chief complaint: Syncope Stated complaint: syncope Time Seen by Provider: 01/14/22 19:43 History of Present Illness: Patient is a 66-year-old male with a history of prior cerebral aneurysm, subdural hematoma, chronic alcohol dependence who presents the emergency room for concerns of recurrent syncope and headache. For last 3 days he has had intermittent syncope with chest pain. Patient has pressure-like chest pain prior to and after the episode of syncope. In this, patient has been having complaints of headache. Patient tells me that he is concerned about the aneurysm and would like to get checked out today. Patient denies any exertional chest pain, pleuritic chest pain, corneal sore throat focal neurological deficit at this time. He also denies any abdominal complaints nausea vomiting diarrhea melena medic easier. Onset:3 days ago Duration:3 days Location:home Severity:moderate Associated symptoms: Reports chest pain and headache(s); Deny dyspnea, nausea, rash, palpitations or vomiting Review of Systems Const: Denies: fever(s) or chills Eyes: Denies: change in vision ENMT: Denies: mouth pain Card: Reports: chest pain; Denies: palpitations Resp: Denies: dyspnea or non-productive cough GI: Denies: abdominal pain, nausea, vomiting or diarrhea : Denies: dysuria Musc: Denies: extremity pain Skin/Breast: Denies: rash or new lesions Neuro: Reports: headache(s) and other (+syncope); Denies: weakness in extremities Psych: Reports: other (Normal mood) Casey/Lymph: Denies: easy bruising [facility] ED PFSH: Medical History Acute urticaria Allergic dermatitis Depression history of previous SI episodes History of alcohol dependence reported sobriety date of 02/01 Hyperlipidemia Hypertension Hyperthyroidism Insomnia Lacunar stroke Osteoarthritis of left shoulder region Subdural hematoma TIA (transient ischemic attack) Surgical History History of ankle surgery left, for fracture History of javi hole surgery 09/12/2019 Dr. Papito Ridley: Twist drill (SEPS) drainage of left convexity subdural hematoma 09/13/2019 Removed History of surgery on right wrist Family History Mother Cancer Hypertension Father Hypertension Social History Smoking and tobacco status: former smoker Alcohol intake: former Year of sobriety/quit date alcohol: 02/01 Former alcohol use details: 09/23/2019 presented to [facility] emergency services. Diagnosis intoxication Household members: spouse and children Marital status: Current occupational status: retired History of recent travel: No Physical Exam Const: COMMON NORMALS: alert HENMT: COMMON NORMALS: atraumatic HEAD & SCALP: atraumatic MOUTH: moist mucous membranes not abnormal Eye: COMMON NORMALS: EOMs intact bilaterally and conjunctivae normal CONJUNCTIVA: Yes conjunctivae normal Neck/C-Spine: COMMON NORMALS: full ROM and supple Resp: COMMON NORMALS: normal respiratory effort and clear to auscultation bilaterally AUSCULTATION: clear to auscultation bilaterally Cardio: COMMON NORMALS: regular rate RATE: regular rate GI: COMMON NORMALS: Soft to palpation and non-tender PALPATION: Yes Soft to palpation Extremity: COMMON NORMALS: full ROM Neuro: SENSORIUM/ORIENTATION: Yes alert MOTOR EXAM: No Abnormal motor strength present and Other motor observations present (no focal motor deficits) OTHER: Mental status? Awake, alert, and oriented to self, year, month, location, and situation.? Following simple axial and appendicular commands.? Has appropriate fund of knowledge, comprehension, and insight.? Able to recall and understands pertinent aspects of medical history and current treatment status.? ? Language? Speech is fluent without word-finding difficulties.? 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 ? Cranial nerves? 2,3,4,6: PERRL, EOMI with no nystagmus. 5: Intact sensation to light touch, symmetric? 7: Smile symmetrical, no facial droop.? 8: Hearing grossly intact.? 9,10: Normal palate movement.? 11: Normal strength in trapezius bilaterally 12: Tongue protrudes midline.? ? Motor examination? Normal bulk & tone. Strength as follows (R/L): Delts (5/5), Biceps (5/5), Triceps (5/5), Wrist ext (5/5), hip flexors (5/5), plantarflexors (5/5), dorsiflexors (5/5). ? Sensation? Light Touch: Grossly intact and equal in upper and lower extremities bilaterally? Romberg: Negative.? Distal joint position sense intact ? Coordination? Gzchkv-bw-vizd-finger movements intact without dysmetria or past-pointing.? Rapid fingertaps: preserved amplitude without decriment.? No tremor, myoclonus or truncal ataxia.? ? Gait/stance? Steady, normal narrow base gait with appropriate arm swing and turning.? Tandem gait without hesitation or loss of balance. Psych: COMMON NORMALS: speech normal SPEECH: Yes normal speech MOOD & AFFECT: Yes euthymic mood Course Vital Signs: Vital signs: Vital Signs Pulse Rate 63 01/15/22 00:10 Respiratory Rate 18 01/15/22 00:10 Blood Pressure 151/83 01/15/22 00:10 Pulse Oximetry 96 01/15/22 00:10 [facility] - General Adult Medical Decision Making 66-year-old male with a history of prior cerebral aneurysm, subdural hematoma presenting to the emergency room for evaluation of syncope with headache and chest pain. On exam, patient is Stable, neuro exam intact. No other focal findings. Work-up pending at this time. Case signed out to Dr. Ring. Lab Data : 01/14/22 20:30 01/14/22 20:[address] 01/14/22 20:40 IMPRESSION: No acute intracranial abnormality. Head/Neck CTA 01/14/22 21:05 IMPRESSION: 1. No arterial occlusion. 2. 4 mm anterior communicating artery aneurysm. IMPRESSION: No arterial stenosis, occlusion or dissection. REFERENCES: NASCET CRITERIA. The degree of internal carotid artery stenosis is based on NASCET criteria. Normal is no stenosis. Mild is less than 50% stenosis. Moderate is 50-69% stenosis. Severe is 70% to 99% stenosis. Total occlusion is no detectable patent lumen. Laboratory Results WBC 6.7 10^3/uL (4.0-10.0) 01/14/22 20:30 RBC 4.98 10^6/uL (4.1-5.3) 01/14/22 20:30 Hgb 15.6 g/dL (11.7-16.6) 01/14/22 20: Hct 43.8 % (42.0-52.0) 01/14/22: MCV 88.0 fl (80-94) 01/14/22: MCH 31.3 pg (28.0-34.0) 01/14/22: MCHC 35.6 g/dL (30.0-36.0) 01/14/22: RDW 12.1 % (12.1-15.1) 01/14/22: Plt Count 230 10^3/cmm (130-400) 01/14/22 20: MPV 9.7 fL (7.4-10.4) 01/14/22: Neut % (Auto) 54.2 % 01/14/22: Lymph % (Auto) 33.8 % 01/14/22: Rabun % (Auto) 7.3 % 01/14/22: Eos % (Auto) 3.4 % 01/14/22: Baso % (Auto) 0.9 % 01/14/22: Neut # (Auto) 3.62 10^3/uL (1.8-7.7) 01/14/22: Lymph # (Auto) 2.3 10^3/uL (0.8-4.8) 01/14/22: Rabun # (Auto) 0.5 10^3/uL (0.2-0.9) 01/14/22: Eos # (Auto) 0.2 10^3/uL (0.0-0.8) 01/14/22: Baso # (Auto) 0.1 10^3/uL (0.0-0.1) 01/14/22: Nucleated RBC % (auto) 0 % 01/14/22 Nucleated RBCs # 0.0 /100WBC 01/14/22 20: Sodium 143 mmol/L (136-145) 01/14/22: Potassium 3.4 mmol/L (3.5-5.1) L 01/14/22: Chloride 105 mmol/L (98-107) 07/01/22 20:30 Carbon Dioxide 24 mmol/L (22-29) 01/14/22 20:30 Anion Gap 17.4 (5-19) 01/14/22 20:30 BUN 5 mg/dL (8-23) L 01/14/22 20:30 Creatinine 0.6 mg/dL (0.7-1.2) L 01/14/22 20:30 GFR Calculation 135.6 mL/min (90-130) H 01/14/22 20:30 Glucose 129 mg/dL (65-115) H 01/14/22 20:30 Calculated Osmolality 295 mOsm/kg (285-295) 01/14/22 20:30 Calcium 9.0 mg/dL (8.5-10.5) 01/14/22 20:30 Troponin T Baseline 10 ng/L (0-15) 01/14/22 20:30 Troponin T 120 Minute 11.31 ng/L (0-15) 01/14/22 22:35 Delta Troponin T 1.31 ABS# (0-10) 01/14/22 22:35 Discharge Plan Discharge Patient Disposition: Home Clinical Impression: Headache, Syncope Condition: Stable Prescriptions: No Action diphenhydramine HCl 25 mg capsule 25 mg PO Q6H PRN (Reason: allergy & itching) Qty: 60 3RF aspirin [Aspir-81] 81 mg tablet,delayed release (DR/EC) 81 mg PO DAILY 0RF methylprednisolone [Medrol (Raulito)] 4 mg tablets,dose pack See Rx Instructions PO PER PKG DIR Qty: 21 0RF Rx Instructions: PO PER PKG DIR triamcinolone acetonide 0.1 % cream 1 applic topical BID Qty: 80 1RF carvedilol 12.5 mg tablet 12.5 mg PO BID Qty: 60 5RF citalopram 40 mg tablet 40 mg PO DAILY Qty: 30 4RF famotidine [Pepcid] 20 mg tablet 20 mg PO DAILY Qty: 30 5RF lisinopril 20 mg tablet 20 mg PO DAILY Qty: 30 5RF potassium chloride 10 mEq capsule, extended release 10 meq PO DAILY Qty: 30 5RF atorvastatin 40 mg tablet 40 mg PO DAILY Qty: 30 4RF multivitamin [Multiple Vitamins] Tablet 1 tab PO DAILY 0RF Discharge Orders: Discharge ED (Routine); Ordered 01/14/22 Ordered By: Kee Ring Referrals: Sydney Arias MD [Primary Care Provider] - 1-3 days Patient Instructions: Opioid Safety Activity Restrictions/Additional Instructions: Return for mental status changes, repeated episodes of syncope or passing out that worsen over time, worsening chest discomfort, weakness, any other concerning symptoms. Your aneurysm remains stable to within 1 mm of prior scans. Coding Level of Care Code ED Master Barber for Chg Fwd Exam Comprehensive Documented by User: Kee Ring DO 01/17/22 14:03 HPI - General Adult General: Chief complaint: Syncope Stated complaint: syncope Time Seen by Provider: 01/14/22 19:43 PFSH ED PFSH: Medical History Acute urticaria Allergic dermatitis Depression history of previous SI episodes History of alcohol dependence reported sobriety date of 02/01 Hyperlipidemia Hypertension Hyperthyroidism Insomnia Lacunar stroke Osteoarthritis of left shoulder region Subdural hematoma TIA (transient ischemic attack) Surgical History History of ankle surgery left, for fracture History of javi hole surgery 09/12/2019 Dr. Papito Ridley: Twist drill (SEPS) drainage of left convexity subdural hematoma 09/13/2019 Removed History of surgery on right wrist Family History Mother Cancer Hypertension Father Hypertension Social History Smoking and tobacco status: former smoker Alcohol intake: former Year of sobriety/quit date alcohol: 02/01 Former alcohol use details: 09/23/2019 presented to [facility] emergency services. Diagnosis intoxication Household members: spouse and children Marital status: Current occupational status: retired History of recent travel: No Course Vital Signs: Vital signs: Vital Signs Pulse Rate 63 01/15/22 00:10 Respiratory Rate 18 01/15/22 00:10 Blood Pressure 151/83 01/15/22 00:10 Pulse Oximetry 96 01/15/22 00:10 MDM - General Adult Medical Decision Making 66-year-old male with a history of prior cerebral aneurysm, subdural hematoma presenting to the emergency room for evaluation of syncope with headache and chest pain. On exam, patient is Stable, neuro exam intact. No other focal findings. Work-up pending at this time. Case signed out to Dr. Ring. 66-year-old gentleman checked out to me by the previous physician at shift change. This patient has had episodes of syncope with some associated chest discomfort. His CBC is normal. His BMP shows a potassium of 3.4, and is otherwise benign.His CT head is negative for acute change. CT angio was performed due to history of aneurysm, and shows an intact 4 mm aneurysm of the anterior communicating artery. He is given pain medication with improvement in in his headache and allowed dc home. his troponin did not change at 2h. Lab Data : 01/14/22 20:30 01/14/22 20:[address] 01/14/22 20:40 IMPRESSION: No acute intracranial abnormality. Head/Neck CTA 01/14/22 21:05 IMPRESSION: 1. No arterial occlusion. 2. 4 mm anterior communicating artery aneurysm. IMPRESSION: No arterial stenosis, occlusion or dissection. REFERENCES: NASCET CRITERIA. The degree of internal carotid artery stenosis is based on NASCET criteria. Normal is no stenosis. Mild is less than 50% stenosis. Moderate is 50-69% stenosis. Severe is 70% to 99% stenosis. Total occlusion is no detectable patent lumen. Laboratory Results WBC 6.7 10^3/uL (4.0-10.0) 01/14/22 20:30 RBC 4.98 10^6/uL (4.1-5.3) 01/14/22 20:30 Hgb 15.6 g/dL (11.7-16.6) 01/14/22 20:30 Hct 43.8 % (42.0-52.0) 01/14/22 20:30 MCV 88.0 fl (80-94) 01/14/22 20:30 MCH 31.3 pg (28.0-34.0) 01/14/22 20:30 MCHC 35.6 g/dL (30.0-36.0) 01/14/22 20: RDW 12.1 % (12.1-15.1) 01/14/22 20: Plt Count 230 10^3/cmm (130-400) 01/14/22 20:30 MPV 9.7 fL (7.4-10.4) 01/14/22 20: Neut % (Auto) 54.2 % 01/14/22 20: Lymph % (Auto) 33.8 % 01/14/22 20: Rabun % (Auto) 7.3 % 01/14/22 20: Eos % (Auto) 3.4 % 01/14/22: Baso % (Auto) 0.9 % 01/14/22: Neut # (Auto) 3.62 10^3/uL (1.8-7.7) 01/14/22 20: Lymph # (Auto) 2.3 10^3/uL (0.8-4.8) 01/14/22 20: Rabun # (Auto) 0.5 10^3/uL (0.2-0.9) 01/14/22 20: Eos # (Auto) 0.2 10^3/uL (0.0-0.8) 01/14/22 20: Baso # (Auto) 0.1 10^3/uL (0.0-0.1) 01/14/22 20: Nucleated RBC % (auto) 0 % 01/14/22: Nucleated RBCs # 0.0 /100WBC 01/14/22 20: Sodium 143 mmol/L (136-145) 01/14/22 20: Potassium 3.4 mmol/L (3.5-5.1) L 01/14/22 20: Chloride 105 mmol/L (98-107) 01/14/22 20: Carbon Dioxide 24 mmol/L (22-29) 01/14/22 20: Anion Gap 17.4 (5-19) 01/14/22 20:30 BUN 5 mg/dL (8-23) L 01/14/22 20: Creatinine 0.6 mg/dL (0.7-1.2) L 01/14/22 20:30 GFR Calculation 135.6 mL/min (90-130) H 01/14/22 20:30 Glucose 129 mg/dL (65-115) H 01/14/22 20:30 Calculated Osmolality 295 mOsm/kg (285-295) 01/14/22 20:30 Calcium 9.0 mg/dL (8.5-10.5) 01/14/22 20:30 Troponin T Baseline 10 ng/L (0-15) 01/14/22 20:30 Troponin T 120 Minute 11.31 ng/L (0-15) 01/14/22 22:35 Delta Troponin T 1.31 ABS# (0-10) 01/14/22 22:35 Discharge Plan Discharge Patient Disposition: Home Clinical Impression: Headache, Syncope Condition: Stable Prescriptions: No Action diphenhydramine HCl 25 mg capsule 25 mg PO Q6H PRN (Reason: allergy & itching) Qty: 60 3RF aspirin [Aspir-81] 81 mg tablet,delayed release (DR/EC) 81 mg PO DAILY 0RF methylprednisolone [Medrol (Raulito)] 4 mg tablets,dose pack See Rx Instructions PO PER PKG DIR Qty: 21 0RF Rx Instructions: PO PER PKG DIR triamcinolone acetonide 0.1 % cream 1 applic topical BID Qty: 80 1RF carvedilol 12.5 mg tablet 12.5 mg PO BID Qty: 60 5RF citalopram 40 mg tablet 40 mg PO DAILY Qty: 30 4RF famotidine [Pepcid] 20 mg tablet 20 mg PO DAILY Qty: 30 5RF lisinopril 20 mg tablet 20 mg PO DAILY Qty: 30 5RF potassium chloride 10 mEq capsule, extended release 10 meq PO DAILY Qty: 30 5RF atorvastatin 40 mg tablet 40 mg PO DAILY Qty: 30 4RF multivitamin [Multiple Vitamins] Tablet 1 tab PO DAILY 0RF Discharge Orders: Discharge ED (Routine); Ordered 01/14/22 Ordered By: Kee Ring Referrals: Sydney Arias MD [Primary Care Provider] - 1-3 days Patient Instructions: Opioid Safety Activity Restrictions/Additional Instructions: Return for mental status changes, repeated episodes of syncope or passing out that worsen over time, worsening chest discomfort, weakness, any other concerning symptoms. Your aneurysm remains stable to within 1 mm of prior scans. Coding Level of Care Code ED Master Barber for Chg Fwd Exam Comprehensive
[2022-01-14 21:13] LABS: Troponin(5th) Baseline 10 ng/L (0-15)
[2022-01-14 21:19] LABS: Anion Gap 17.4 (5-19); Blood Urea Nitrogen 5 mg/dL (8-23); Carbon Dioxide 24 mmol/L (22-29); Chloride 105 mmol/L (98-107); Glomerular Filtration Rate 135.6 mL/min (90-130); Glucose 129 mg/dL (65-115); Osmolality Calculated 295 mOsm/kg (285-295); Potassium 3.4 mmol/L (3.5-5.1); Sodium 143 mmol/L (136-145)
--- NOTE | 2022-01-14 21:43 | ECG_ITS ---
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 Measurements Intervals [place] Rate: 74 P: 89 IN: 156 QRS: -39 QRSD: 85 T: 47 QT: 405 QTc: 452 Interpretive Statements SINUS RHYTHM LEFT AXIS DEVIATION [QRS AXIS < -30] Compared to ECG 01/14/2022 20:20:19 No significant changes Electronically Signed On 01-15-2022 12:34:55 CDT by Vini Brandon M.D. [email or web address] general hospitalNorthwest Biotherapeuticspomerene hospitalGlobal Acquisition [id number]
[2022-01-14] MEDS: iohexol 350 mg/mL 100 mL Btl IV (23:03)
[2022-01-14 23:07] LABS: Troponin 5 2HR 11.31 ng/L (0-15)
[2022-01-14 23:12] LABS: Troponin 5 2HR Delta 1.31 ABS# (0-10)
[2022-01-14 23:49] VITALS: BP 151/83; PULSE 63; RESP 18; O2SAT 96
[2022-01-15] VITALS: RESP 18
[2022-01-15] MEDS: ondansetron 2 mg/ML SDV 2 mL 4 MG IVP
[2022-01-15] MEDS: fentaNYL 50 mcg/mL INJ 2mL IVP
[2022-01-15 00:10] VITALS: BP 151/83; PULSE 63; RESP 18; O2SAT 96
== END 2022-01-15 00:11 | disposition home or self-care (01) ==
PROVIDERS: Emergency Medicine; Emergency Provider Emergency Medicine; PCP Family Medicine
DX: R55 Syncope and collapse (principal); R51.9 Headache, unspecified; Z79.82 Long term (current) use of aspirin; E78.5 Hyperlipidemia, unspecified; I10 Essential (primary) hypertension; Z86.73 Personal history of transient ischemic attack (TIA), and cerebral infarction without residual deficits; Z87.891 Personal history of nicotine dependence
CPT/HCPCS: 36415; 70450; 70496; 70498; 80048; 84484; 85025; 93005; 96361; 96374; 96375; 99285; J2405; J3010; J7030; Q9967

== ENCOUNTER 2022-03-10 09:37 | Inpatient (IN) | payer MEDICAID, SELFPAY ==
--- NOTE | 2022-03-10 09:42 | CT_ITS ---
WS: [id number] CT NECK TECHNIQUE: Contrast-enhanced CT of the neck with coronal and sagittal reformatted images. CLINICAL INFORMATION: attempted suicide by hanging COMPARISON: CT February 27, 2021 DLP: 242.[address] scans at [facility] use at least one of these dose optimization techniques: automated e xposure control; mA and/or kV adjustment per patient size (includes targeted exams where dose is matc hed to clinical indication); or iterative reconstruction. FINDINGS: Normal craniocervical junction. Normal C1-C2 articulation. No high-grade central canal stenosis. No a cute appearing cervical spine fractures. Hyoid bone and thyroid cartilage appears intact. Cricoid cartilage appears intact. Normal posterior n asopharynx. Normal parapharyngeal fat. No evidence of supraglottic or glottic mass. Normal vallecula and piriform sinuses. Normal epiglottis. Normal glottis and subglottic airway. Lung apices are well a erated. Normal cerebellum. Paranasal sinuses are well aerated. Mastoid air cells are well aerated. Mild mucos al thickening LEFT mastoid tip. Normal C1 ring. Vertebral arteries appear patent. Proximal basilar ar sami is patent. Carotid bulb calcification. Both ICAs are patent to the skull base. Parotid glands ar e normal. Normal submandibular glands. Bovine arch. CT/CT neck w con* [id number] IMPRESSION: 1. No evidence of supraglottic or glottic edema. Subglottic airway is patent. 2. Hyoid bone, thyroid and cricoid cartilage appear intact. 3. No critical airway narrowing. 4. Normal visualized soft tissues. 5. Normal craniocervical junction and dens. 6. 3mm anterior communicating artery aneurysm unchanged since the recent CTA J samy 2021
--- NOTE | 2022-03-10 09:43 | ECG_ITS ---
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 Measurements Intervals [place] Rate: 77 P: 36 DE: 157 QRS: -45 QRSD: 90 T: 30 QT: 373 QTc: 423 Interpretive Statements SINUS RHYTHM LEFT ANTERIOR FASCICULAR BLOCK [QRS AXIS <= -45, QR IN I, RS IN II] Compared to ECG 01/14/2022 22:02:12 Left anterior fascicular block now present Left-axis deviation no longer present Electronically Signed On 03-11-2022 6:21:38 CDT by Aria Olson M.D. [id number]
[2022-03-10 09:45] VITALS: BP 134/80; PULSE 83; RESP 18; TEMP 36.7; O2SAT 95; BMI 29.5
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
[2022-03-10 10:12] LABS: Basophils # 0.1 10^3/uL (0.0-0.1); Basophils % 0.8 %; Eosinophils # 0.2 10^3/uL (0.0-0.8); Eosinophils % 2.8 %; Hematocrit 45.4 % (42.0-52.0); Hemoglobin 15.7 g/dL (11.7-16.6); Lymphocytes # 2.4 10^3/uL (0.8-4.8); Lymphocytes % 32.3 %; Mean Corpuscular HGB Conc 34.6 g/dL (30.0-36.0); Mean Corpuscular Hemoglobin 31.7 pg (28.0-34.0); Mean Corpuscular Volume 91.7 fl (80-94); Mean Platelet Volume 9.6 fL (7.4-10.4); Monocytes # 0.6 10^3/uL (0.2-0.9); Neutrophils # 4.15 10^3/uL (1.8-7.7); Neutrophils % 55.7 %; Nucleated Red Blood Cells % 0 %; Platelet Count 270 10^3/cmm (130-400); Red Blood Count 4.95 10^6/uL (4.1-5.3); Red Cell Distribution Width 12.7 % (12.1-15.1); White Blood Count 7.5 10^3/uL (4.0-10.0)
[2022-03-10] MEDS: iohexol 350 mg/mL 100 mL Btl IV (10:16)
[2022-03-10 10:38] LABS: Alanine Aminotransferase 21 U/L (0-41); Albumin Level 4.9 g/dL (3.5-5.2); Alkaline Phosphatase 106 U/L (40-130); Anion Gap 17.9 (5-19); Aspartate Amino Transferase 24 U/L (0-40); Blood Urea Nitrogen 8 mg/dL (8-23); Calcium 9.3 mg/dL (8.5-10.5); Carbon Dioxide 25 mmol/L (22-29); Chloride 105 mmol/L (98-107); Globulin 3.1 g/dL (1.3-4.6); Glomerular Filtration Rate 113.5 mL/min (90-130); Glucose 124 mg/dL (65-115); Osmolality Calculated 298 mOsm/kg (285-295); Potassium 3.9 mmol/L (3.5-5.1); Sodium 144 mmol/L (136-145); Total Bilirubin 0.3 mg/dL (0.15-1.2)
[2022-03-10 10:43] LABS: Acetaminophen < 5.0 ug/mL (10-30); Salicylate < 0.3 mg/dL (3-10)
[2022-03-10 10:44] LABS: Alcohol Level 312 mg/dL (0-10)
[2022-03-10 11:07] LABS: Amphetamines Screen Urine Negative (Negative); Barbiturates Screen Urine Negative (Negative); Benzodiazepines Screen Urine Negative (Negative); Cocaine Screen Urine Negative (Negative); Opiate Screen Urine Negative (Negative); PCP Screen Urine Negative (Negative); THC Screen Urine Positive (Negative)
--- NOTE | 2022-03-10 13:04 | PC.NURSE ---
Report called to [facility]. Pt transported by RN and security
[2022-03-10 13:14] VITALS: BP 121/68; PULSE 83; RESP 18; TEMP 36.5; O2SAT 98
[2022-03-10 14:00] VITALS: BP 121/68; PULSE 83; RESP 18; TEMP 36.5; O2SAT 98
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
[2022-03-10] MEDS: carvedilol 6.25 mg Tablet 12.5 MG PO (18:04)
--- NOTE | 2022-03-10 18:07 | PC.NURSE ---
NEW ORDER PT STATES HE DOES NOT TAKE TRIAMCINOLONE CREAM. NEW ORDER RECEIVED TO DISCONTINUE. ORDERS PLACED. PT EDUCATED ON NEW ORDERS
[2022-03-10 21:30] VITALS: PULSE 77; RESP 18; O2SAT 95
[2022-03-10] MEDS: hyDROXYzine 25 mg Capsule 50 MG PO (21:55)
[2022-03-10] MEDS: OLANZapine 5 mg ODT PO (21:56)
[2022-03-10 22:00] VITALS: BP 106/65; PULSE 94; RESP 16; TEMP 37; O2SAT 95
[2022-03-11 06:00] VITALS: BP 176/79; PULSE 69; RESP 16; TEMP 36.7; O2SAT 97
[2022-03-11 07:51] VITALS: PULSE 78; RESP 17; O2SAT 94
[2022-03-11] MEDS: aspirin 81 mg EC Tablet PO (08:23)
[2022-03-11] MEDS: multivitamin therapeutic Tablet 1 TAB PO (08:24)
[2022-03-11] MEDS: folic acid 1 mg Tablet PO (08:24)
[2022-03-11] MEDS: carvedilol 6.25 mg Tablet 12.5 MG PO ×2 (08:24→20:03)
[2022-03-11] MEDS: potassium chloride ER 10 mEq Tablet PO (08:24)
[2022-03-11] MEDS: thiamine 100 mg Tablet PO (08:24)
[2022-03-11] MEDS: citalopram 20 mg Tablet 40 MG PO (08:24)
[2022-03-11] MEDS: famotidine 20 mg Tablet PO (08:24)
[2022-03-11] MEDS: lisinopril 20 mg Tablet PO (08:24)
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
[2022-03-11 14:00] VITALS: BP 119/66; PULSE 56; RESP 17; TEMP 36.4; O2SAT 95
[2022-03-11] MEDS: atorvastatin 40 mg Tablet 20 MG PO (20:02)
[2022-03-11 20:57] VITALS: BP 160/76; PULSE 51; RESP 18; O2SAT 96
[2022-03-12 06:00] VITALS: BP 160/76; PULSE 51; RESP 18; TEMP 36.4; O2SAT 96
[2022-03-12 09:12] VITALS: PULSE 62; RESP 16; O2SAT 94
[2022-03-12] MEDS: aspirin 81 mg EC Tablet PO (10:25)
[2022-03-12] MEDS: citalopram 20 mg Tablet 40 MG PO (10:26)
[2022-03-12] MEDS: folic acid 1 mg Tablet PO (10:26)
[2022-03-12] MEDS: carvedilol 6.25 mg Tablet 12.5 MG PO ×2 (10:26→21:12)
[2022-03-12] MEDS: famotidine 20 mg Tablet PO (10:26)
[2022-03-12] MEDS: multivitamin therapeutic Tablet 1 TAB PO (10:26)
[2022-03-12] MEDS: potassium chloride ER 10 mEq Tablet PO (10:26)
[2022-03-12] MEDS: thiamine 100 mg Tablet PO (10:26)
[2022-03-12] MEDS: lisinopril 20 mg Tablet PO (10:26)
--- NOTE | 2022-03-12 11:04 | PC.NURSE ---
Nursing Note Patient is resting in bed. He states he slept well last night and his last bowel movement was this morning. He denies having any pain, suicidal or homicidal ideations, auditory or visual hallucinations, and/or anxiety. Patient remains calm and cooperative.
[2022-03-12 14:00] VITALS: BP 120/72; PULSE 59; RESP 18; TEMP 36.6; O2SAT 96
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
--- NOTE | 2022-03-12 18:16 | PC.NURSE ---
NURSING NOTE PATIENT SHAVED FACE WITH ASSISTANCE. WAS VERY PATIENT, CALM, AND PLEASANT. WHEN FINISHED PATIENT WENT TO THE DAYROOM TO EAT DINNER. I BROUGHT THE RAZOR BACK INTO THE NURSE'S STATION TO DISPOSE OF IT.
[2022-03-12 20:00] VITALS: PULSE 61; RESP 16; O2SAT 97
[2022-03-12 20:16] VITALS: BP 137/62; PULSE 57; RESP 18; TEMP 36.7; O2SAT 97
[2022-03-12] MEDS: hyDROXYzine 25 mg Capsule 50 MG PO (21:11)
[2022-03-12] MEDS: atorvastatin 40 mg Tablet 20 MG PO (21:12)
[2022-03-13 06:00] VITALS: BP 149/77; PULSE 56; RESP 16; TEMP 36.6; O2SAT 99
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
[2022-03-13] MEDS: citalopram 20 mg Tablet 40 MG PO (09:41)
[2022-03-13] MEDS: thiamine 100 mg Tablet PO (09:41)
[2022-03-13] MEDS: lisinopril 20 mg Tablet PO (09:41)
[2022-03-13] MEDS: folic acid 1 mg Tablet PO (09:41)
[2022-03-13] MEDS: carvedilol 6.25 mg Tablet 12.5 MG PO (09:41)
[2022-03-13] MEDS: potassium chloride ER 10 mEq Tablet PO (09:41)
[2022-03-13] MEDS: multivitamin therapeutic Tablet 1 TAB PO (09:41)
[2022-03-13] MEDS: aspirin 81 mg EC Tablet PO (09:42)
[2022-03-13] MEDS: famotidine 20 mg Tablet PO (09:42)
[2022-03-13 11:27] VITALS: BP 149/77; PULSE 56; RESP 16; TEMP 36.6; O2SAT 99
== END 2022-03-13 11:45 | disposition home or self-care (01) | DRG 897 ==
LOC: ER 10:02 → NP 03-11 04:09
PROVIDERS: Admitting Provider Psychiatry & Neurology Psychiatry; Emergency Provider Family Medicine; PCP Family Medicine; Visit Provider Psychiatry & Neurology Psychiatry
DX: F10.229 Alcohol dependence with intoxication, unspecified (principal); F32.1 Major depressive disorder, single episode, moderate; Y90.8 Blood alcohol level of 240 mg/100 ml or more; Z63.0 Problems in relationship with spouse or partner
CPT/HCPCS: 70491; 80053; 80306; 80307; 85025; 93005; 96360; 97150; 97165; 99285; J3535; Q9967

== ENCOUNTER 2022-07-20 05:07 | Inpatient (IN) | payer MEDICAID, SELFPAY ==
[2022-07-20] VITALS (9 sets, daily range): BP systolic 110–179; BP diastolic 47–95; PULSE 56–97; RESP 14–18; TEMP 36.6–36.9; O2SAT 95–98
--- NOTE | 2022-07-20 05:10 | XRR_ITS ---
PROCEDURE INFORMATION: Exam: XR Chest Exam date and time: 07/20/2022 5:21 AM Age: 66 years old Clinical indication: Patient HX: Drug overdose on lisinopril. ETOH on board. ; Additional info: Od TECHNIQUE: Imaging protocol: Radiologic exam of the chest. Views: 1 view. COMPARISON: CR XR chest 1V [id number] 12/14/2018 8:27 AM FINDINGS: Lungs: Unremarkable. No consolidation. Pleural spaces: Unremarkable. No pleural effusion. No pneumothorax. Heart/Mediastinum: Stable cardiomediastinal silhouette. Bones/joints: Unremarkable. XR/XR chest 1V portable [id number] IMPRESSION: No acute findings.
--- NOTE | 2022-07-20 05:11 | W.ED.PSYCHS ---
Documented by User: Gilson Dixon MD 07/20/22 05:13 HPI - Psych General: Chief Complaint: Psychiatric Symptoms Stated Complaint: SI Time Seen by Provider: 07/20/22 05:07 Source: EMS and police Mode of arrival: EMS Limitations: no limitations History of Present Illness: 66-year-old male has a history of alcoholism called EMS because he had attempted suicide tonight he told her he no longer wanted to live and took 12 of his 20 mg lisinopril's. Patient has been drinking as well he is intoxicated he states that he just does not want to live anymore and would like to ended all. He will wake and answer my questions appropriately. Associated symptoms: Reports depression and suicidal ideation Review of Systems Const: Denies: fever(s), chills, body aches or change in appetite Eyes: Denies: blurry vision or eye discomfort ENMT: Denies: throat pain or dental pain Card: Denies: chest pain Resp: Denies: dyspnea GI: Denies: abdominal pain, nausea, vomiting or diarrhea : Denies: dysuria Musc: Denies: neck pain or back pain Skin/Breast: Denies: rash Neuro: Denies: headache(s) Psych: Reports: depression and suicidal ideation Casey/Lymph: Denies: easy bruising All/Imm: Denies: urticaria PFSH ED PFSH: Medical History Acute urticaria Allergic dermatitis Chronic shortness of breath Depression history of previous SI episodes History of alcohol dependence reported sobriety date of 02/01 Hyperlipidemia Hypertension Hyperthyroidism Insomnia Lacunar stroke Osteoarthritis of left shoulder region Subdural hematoma TIA (transient ischemic attack) Surgical History History of ankle surgery left, for fracture History of javi hole surgery 09/12/2019 Dr. Papito Ridley: Twist drill (SEPS) drainage of left convexity subdural hematoma 09/13/2019 Removed History of surgery on right wrist Family History Mother Cancer Hypertension Father Hypertension Social History Smoking and tobacco status: current every day smoker Alcohol intake: former Year of sobriety/quit date alcohol: 02/01 Former alcohol use details: 09/23/2019 presented to [facility]. Diagnosis intoxication Household members: spouse and children Marital status: Current occupational status: retired History of recent travel: No Physical Exam Const: COMMON NORMALS: patient oriented x3 GENERAL APPEARANCE: disheveled HENMT: COMMON NORMALS: normocephalic and atraumatic HEAD & SCALP: normocephalic and atraumatic Eye: COMMON NORMALS: Equal, round and reactive pupils present and EOMs intact bilaterally PUPIL: Yes Equal, round and reactive pupils present Neck/C-Spine: COMMON NORMALS: full ROM and supple Chest: COMMONS NORMALS: normal inspection of the chest and normal palpation of entire chest wall Resp: COMMON NORMALS: normal respiratory effort, No retractions, No use of accessory muscles and clear to auscultation bilaterally AUSCULTATION: clear to auscultation bilaterally Cardio: COMMON NORMALS: regular rate, regular rhythm and No murmurs present (Cardio) RATE: regular rate RHYTHM: regular rhythm GI: COMMON NORMALS: Normal to inspection, nondistended, normoactive bowel sounds present, Soft to palpation, non-tender and no masses PALPATION: Yes Soft to palpation Extremity: COMMON NORMALS: normal to inspection and full ROM Neuro: COMMON NORMALS: patient oriented x3, moves all extremities and no focal motor deficits Psych: COMMON NORMALS: mental status grossly normal, Normal thought process present and cooperative MOOD & AFFECT: Yes depressed mood THOUGHT PROCESS: Normal thought process present Skin: COMMON NORMALS: no rashes or lesions noted and no wounds GENERAL SKIN EXAM: no rashes or lesions noted Course Vital Signs: Vital signs: Vital Signs Temperature 98 F 07/20/22 14:00 Pulse Rate 86 07/20/22 14:00 Respiratory Rate 18 07/20/22 14:00 Blood Pressure 179/95 07/20/22 14:00 Pulse Oximetry 96 07/20/22 14:00 Oxygen Delivery Me thod 07/20/22 11:19 MDM - Psych Lab Data 07/20/22 05:23 07/20/22 05:23 Radiology Impressions Chest X-Ray 07/20/22 05:10 IMPRESSION: No acute findings. Laboratory Results WBC 6.3 10^3/uL (4.0-10.0) 07/20/22 05:23 RBC 4.68 10^6/uL (4.1-5.3) 07/20/22 05:23 Hgb 14.0 g/dL (11.7-16.6) 07/20/22 05:23 Hct 41.1 % (42.0-52.0) L 07/20/22 05:23 MCV 87.8 fl (80-94) 07/20/22 05:23 MCH 29.9 pg (28.0-34.0) 07/20/22 05:23 MCHC 34.1 g/dL (30.0-36.0) 07/20/22 05:23 RDW 12.4 % (12.1-15.1) 07/20/22 05:23 Plt Count 272 10^3/cmm (130-400) 07/20/22 05:23 MPV 9.5 fL (7.4-10.4) 07/20/22 05:23 Neut % (Auto) 51.5 % 07/20/22 05:23 Lymph % (Auto) 34.0 % 07/20/22 05:23 Churchill % (Auto) 9.1 % 07/20/22 05:23 Eos % (Auto) 3.7 % 07/20/22 05:23 Baso % (Auto) 1.1 % 07/20/22 05:23 Neut # (Auto) 3.22 10^3/uL (1.8-7.7) 07/20/22 05:23 Lymph # (Auto) 2.1 10^3/uL (0.8-4.8) 07/20/22 05:23 Churchill # (Auto) 0.6 10^3/uL (0.2-0.9) 07/20/22 05:23 Eos # (Auto) 0.2 10^3/uL (0.0-0.8) 07/20/22 05:23 Baso # (Auto) 0.1 10^3/uL (0.0-0.1) 07/20/22 05:23 Nucleated RBC % (auto) 0 % 07/20/22 05:23 Nucleated RBCs # 0.0 /100WBC 07/20/22 05:23 Sodium 142 mmol/L (136-145) 07/20/22 05:23 Potassium 4.0 mmol/L (3.5-5.1) 07/20/22 05:23 Chloride 107 mmol/L (98-107) 07/20/22 05:23 Carbon Dioxide 23 mmol/L (22-29) 07/20/22 05:23 Anion Gap 16.0 (5-19) 07/20/22 05:23 BUN 11 mg/dL (8-23) 07/20/22 05:23 Creatinine 0.6 mg/dL (0.7-1.2) L 07/20/22 05:23 GFR Calculation 135.6 mL/min (90-130) H 07/20/22 05:23 Glucose 175 mg/dL (65-115) H 07/20/22 05:23 Calculated Osmolality 298 mOsm/kg (285-295) H 07/20/22 05:23 Calcium 8.5 mg/dL (8.5-10.5) 07/20/22 05:23 Total Bilirubin 0.3 mg/dL (0.15-1.2) 07/20/22 05:23 AST 20 U/L (0-40) 07/20/22 05:23 ALT 18 U/L (0-41) 07/20/22 05:23 Alkaline Phosphatase 90 U/L (40-130) 07/20/22 05:23 Total Protein 7.4 g/dL (6.6-8.7) 07/20/22 05:23 Albumin 4.5 g/dL (3.5-5.2) 07/20/22 05:23 Globulin 2.9 g/dL (1.3-4.6) 07/20/22 05:23 Salicylates < 0.3 mg/dL (3-10) L 07/20/22 05:23 Urine Opiates Screen Negative ng/mL (Negative) 07/20/22 06:09 Acetaminophen < 5.0 ug/mL (10-30) L 07/20/22 05:23 Ur Barbiturates Screen Negative ng/mL (Negative) 07/20/22 06:09 Ur Phencyclidine Scrn Negative ng/mL (Negative) 07/20/22 06:09 Ur Amphetamines Screen Negative ng/mL (Negative) 07/20/22 06:09 U Benzodiazepines Scrn Negative ng/mL (Negative) 07/20/22 06:09 Urine Cocaine Screen Negative ng/mL (Negative) 07/20/22 06:09 U Marijuana (THC) Screen Negative ng/mL (Negative) 07/20/22 06:09 Ethyl Alcohol 334 mg/dL (0-10) H* 07/20/22 05:23 Discharge Plan Discharge Patient Disposition: Admitted As Inpatient Admit Provider: Jace Raza Clinical Impression: Acute alcohol intoxication, Suicidal ideation, History of alcohol dependence, Hypertension Condition: Stable Sign Out Sign Out Data: Patient Sign Out occurred on 07/20/22 at 10:41. Patient's care was discussed, and care was transferred from to Kirit Zee DO. Coding Level of Care Code ED Campaign Analyst for Chg Fwd Exam Comprehensive Documented by User: Kirit Zee DO 07/20/22 16:06 HPI - Psych General: Chief Complaint: Psychiatric Symptoms Stated Complaint: SI Time Seen by Provider: 07/20/22 05:07 PFS ED PFSH: Medical History Acute urticaria Allergic dermatitis Chronic shortness of breath Depression history of previous SI episodes History of alcohol dependence reported sobriety date of 02/01 Hyperlipidemia Hypertension Hyperthyroidism Insomnia Lacunar stroke Osteoarthritis of left shoulder region Subdural hematoma TIA (transient ischemic attack) Surgical History History of ankle surgery left, for fracture History of javi hole surgery 09/12/2019 Dr. Papito Ridley: Twist drill (SEPS) drainage of left convexity subdural hematoma 09/13/2019 Removed History of surgery on right wrist Family History Mother Cancer Hypertension Father Hypertension Social History Smoking and tobacco status: current every day smoker Alcohol intake: former Year of sobriety/quit date alcohol: 02/01 Former alcohol use details: 09/23/2019 presented to [facility]. Diagnosis intoxication Household members: spouse and children Marital status: Current occupational status: retired History of recent travel: No Course Vital Signs: Vital signs: Vital Signs Temperature 98 F 07/20/22 14:00 Pulse Rate 86 07/20/22 14:00 Respiratory Rate 18 07/20/22 14:00 Blood Pressure 179/95 07/20/22 14:00 Pulse Oximetry 96 07/20/22 14:00 Oxygen Delivery Me thod 07/20/22 11:19 MDM - Psych Medical Decision Making Patient is able to up get up and ambulate without difficulty. He ambulated to and from the bathroom unassisted. He surprisingly tolerant of high blood alcohol. He still is Tracie. Discussed with Dr. Raza will admit for suicidal ideation. 96-hour hold were completed Medical Records I reviewed the patient's medical records. Lab Data I reviewed the patient's lab results. 07/20/22 05:23 07/20/22 05:23 Radiology Impressions Chest X-Ray 07/20/22 05:10 IMPRESSION: No acute findings. Laboratory Results WBC 6.3 10^3/uL (4.0-10.0) 07/20/22 05: RBC 4.68 10^6/uL (4.1-5.3) 07/20/22 05:23 Hgb 14.0 g/dL (11.7-16.6) 07/20/22 05:23 Hct 41.1 % (42.0-52.0) L 07/20/22 05:23 MCV 87.8 fl (80-94) 07/20/22 05:23 MCH 29.9 pg (28.0-34.0) 07/20/22 05: MCHC 34.1 g/dL (30.0-36.0) 07/20/22 05:23 RDW 12.4 % (12.1-15.1) 07/20/22 05:23 Plt Count 272 10^3/cmm (130-400) 07/20/22 05:23 MPV 9.5 fL (7.4-10.4) 07/20/22 05:23 Neut % (Auto) 51.5 % 07/20/22 05:23 Lymph % (Auto) 34.0 % 07/20/22 05:23 Churchill % (Auto) 9.1 % 07/20/22 05:23 Eos % (Auto) 3.7 % 07/20/22 05:23 Baso % (Auto) 1.1 % 07/20/22 05:23 Neut # (Auto) 3.22 10^3/uL (1.8-7.7) 07/20/22 05:23 Lymph # (Auto) 2.1 10^3/uL (0.8-4.8) 07/20/22 05:23 Churchill # (Auto) 0.6 10^3/uL (0.2-0.9) 07/20/22 05:23 Eos # (Auto) 0.2 10^3/uL (0.0-0.8) 07/20/22 05:23 Baso # (Auto) 0.1 10^3/uL (0.0-0.1) 07/20/22 05:23 Nucleated RBC % (auto) 0 % 07/20/22 05: Nucleated RBCs # 0.0 /100WBC 07/20/22 05:23 Sodium 142 mmol/L (136-145) 07/20/22 05:23 Potassium 4.0 mmol/L (3.5-5.1) 07/20/22 05:23 Chloride 107 mmol/L (98-107) 07/20/22 05:23 Carbon Dioxide 23 mmol/L (22-29) 07/20/22 05:23 Anion Gap 16.0 (5-19) 07/20/22 05:23 BUN 11 mg/dL (8-23) 07/20/22 05:23 Creatinine 0.6 mg/dL (0.7-1.2) L 07/20/22 05:23 GFR Calculation 135.6 mL/min (90-130) H 07/20/22 05:23 Glucose 175 mg/dL (65-115) H 07/20/22 05:23 Calculated Osmolality 298 mOsm/kg (285-295) H 07/20/22 05:23 Calcium 8.5 mg/dL (8.5-10.5) 07/20/22 05:23 Total Bilirubin 0.3 mg/dL (0.15-1.2) 07/20/22 05:23 AST 20 U/L (0-40) 07/20/22 05:23 ALT 18 U/L (0-41) 07/20/22 05:23 Alkaline Phosphatase 90 U/L (40-130) 07/20/22 05:23 Total Protein 7.4 g/dL (6.6-8.7) 07/20/22 05:23 Albumin 4.5 g/dL (3.5-5.2) 07/20/22 05:23 Globulin 2.9 g/dL (1.3-4.6) 07/20/22 05:23 Salicylates < 0.3 mg/dL (3-10) L 07/20/22 05:23 Urine Opiates Screen Negative ng/mL (Negative) 07/20/22 06:09 Acetaminophen < 5.0 ug/mL (10-30) L 07/20/22 05:23 Ur Barbiturates Screen Negative ng/mL (Negative) 07/20/22 06:09 Ur Phencyclidine Scrn Negative ng/mL (Negative) 07/20/22 06:09 Ur Amphetamines Screen Negative ng/mL (Negative) 07/20/22 06:09 U Benzodiazepines Scrn Negative ng/mL (Negative) 07/20/22 06:09 Urine Cocaine Screen Negative ng/mL (Negative) 07/20/22 06:09 U Marijuana (THC) Screen Negative ng/mL (Negative) 07/20/22 06:09 Ethyl Alcohol 334 mg/dL (0-10) H* 07/20/22 05:23 Discharge Plan Discharge Patient Disposition: Admitted As Inpatient Admit Provider: Jace Raza Clinical Impression: Acute alcohol intoxication, Suicidal ideation, History of alcohol dependence, Hypertension Condition: Stable Sign Out Sign Out Data: Patient Sign Out occurred on 07/20/22 at 10:41. Patient's care was discussed, and care was transferred from to Kirit Zee DO. Coding Level of Care Code ED Campaign Analyst for Fatoumata Fwd Exam Comprehensive
[2022-07-20 05:28] LABS: Basophils # 0.1 10^3/uL (0.0-0.1); Basophils % 1.1 %; Eosinophils # 0.2 10^3/uL (0.0-0.8); Eosinophils % 3.7 %; Hematocrit 41.1 % (42.0-52.0); Lymphocytes # 2.1 10^3/uL (0.8-4.8); Mean Corpuscular HGB Conc 34.1 g/dL (30.0-36.0); Mean Corpuscular Hemoglobin 29.9 pg (28.0-34.0); Mean Corpuscular Volume 87.8 fl (80-94); Mean Platelet Volume 9.5 fL (7.4-10.4); Monocytes # 0.6 10^3/uL (0.2-0.9); Monocytes % 9.1 %; Neutrophils # 3.22 10^3/uL (1.8-7.7); Neutrophils % 51.5 %; Nucleated Red Blood Cells % 0 %; Platelet Count 272 10^3/cmm (130-400); Red Blood Count 4.68 10^6/uL (4.1-5.3); Red Cell Distribution Width 12.4 % (12.1-15.1); White Blood Count 6.3 10^3/uL (4.0-10.0)
--- NOTE | 2022-07-20 05:32 | ECG_ITS ---
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 Measurements Intervals [place] Rate: 58 P: 23 MS: 154 QRS: -38 QRSD: 89 T: 14 QT: 420 QTc: 415 Interpretive Statements SINUS BRADYCARDIA LEFT AXIS DEVIATION [QRS AXIS < -30] MINIMAL VOLTAGE CRITERIA FOR LVH, CONSIDER NORMAL VARIANT [MEETS CRITERIA IN ONE OF: R(aVL), S(V1), R(V5), R(V5/V6)+S(V1)] Compared to ECG 03/10/2022 09:55:35 Left-axis deviation now present Sinus rhythm no longer present Left anterior fascicular block no longer present Electronically Signed On 07-20-2022 10:25:37 BANK PRESIDENT by Golden Gilbert M.D. [id number]
[2022-07-20 05:50] LABS: Alanine Aminotransferase 18 U/L (0-41); Albumin Level 4.5 g/dL (3.5-5.2); Alkaline Phosphatase 90 U/L (40-130); Aspartate Amino Transferase 20 U/L (0-40); Blood Urea Nitrogen 11 mg/dL (8-23); Calcium 8.5 mg/dL (8.5-10.5); Carbon Dioxide 23 mmol/L (22-29); Chloride 107 mmol/L (98-107); Globulin 2.9 g/dL (1.3-4.6); Glomerular Filtration Rate 135.6 mL/min (90-130); Glucose 175 mg/dL (65-115); Osmolality Calculated 298 mOsm/kg (285-295); Sodium 142 mmol/L (136-145); Total Bilirubin 0.3 mg/dL (0.15-1.2); Total Protein 7.4 g/dL (6.6-8.7)
[2022-07-20 05:51] LABS: Acetaminophen < 5.0 ug/mL (10-30); Alcohol Level 334 mg/dL (0-10); Salicylate < 0.3 mg/dL (3-10)
[2022-07-20 06:30] LABS: Amphetamines Screen Urine Negative (Negative); Barbiturates Screen Urine Negative (Negative); Benzodiazepines Screen Urine Negative (Negative); Cocaine Screen Urine Negative (Negative); Opiate Screen Urine Negative (Negative); PCP Screen Urine Negative (Negative); THC Screen Urine Negative (Negative)
[2022-07-20] MEDS: sodium chloride 0.9% 1,000 ML 999 ML IV (06:32)
[2022-07-20] MEDS: multivitamin therapeutic Tablet 1 TAB PO (06:32)
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
[2022-07-20] MEDS: LORazepam 2 mg Tablet PO (11:37)
[2022-07-20] MEDS: triamcinolone 0.1% cream 15 gm 1 APPLIC TOPICAL (18:00)
[2022-07-20] MEDS: atorvastatin 40 mg Tablet PO (21:23)
[2022-07-20] MEDS: ipratropium 0.5 mg/2.5 mL Neb INHALATION (22:11)
[2022-07-21] VITALS (8 sets, daily range): BP systolic 138–160; BP diastolic 70–90; PULSE 66–97; RESP 16–18; TEMP 36.8–37; O2SAT 95–99
[2022-07-21] MEDS: ipratropium 0.5 mg/2.5 mL Neb INHALATION ×3 (09:11→20:09)
[2022-07-21] MEDS: multivitamin therapeutic Tablet 1 TAB PO (09:36)
[2022-07-21] MEDS: citalopram 20 mg Tablet 40 MG PO (09:36)
[2022-07-21] MEDS: thiamine 100 mg Tablet PO (09:36)
[2022-07-21] MEDS: famotidine 20 mg Tablet PO (09:36)
[2022-07-21] MEDS: potassium chloride ER 10 mEq Tablet PO (09:36)
[2022-07-21] MEDS: aspirin 81 mg EC Tablet PO (09:36)
[2022-07-21] MEDS: folic acid 1 mg Tablet PO (09:36)
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
[2022-07-21 10:06] LABS: Blood Urea Nitrogen 10 mg/dL (8-23); Calcium 8.8 mg/dL (8.5-10.5); Carbon Dioxide 24 mmol/L (22-29); Chloride 101 mmol/L (98-107); Glomerular Filtration Rate 135.6 mL/min (90-130); Glucose 153 mg/dL (65-115); Osmolality Calculated 284 mOsm/kg (285-295); Sodium 136 mmol/L (136-145)
[2022-07-21 10:08] LABS: Anion Gap 15.1 (5-19); Potassium 4.1 mmol/L (3.5-5.1)
[2022-07-21] MEDS: carvedilol 6.25 mg Tablet 12.5 MG PO (14:59)
[2022-07-21] MEDS: lisinopril 20 mg Tablet PO (15:00)
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
[2022-07-21] MEDS: atorvastatin 40 mg Tablet PO (20:32)
--- NOTE | 2022-07-21 22:30 | PC.NURSE ---
pt discharged to home via car tender ride. belongings returned to pt with no missing items reports. pt given appropriate paperwork and verbalized understanding of discharge instructions. AxO X 4. no issues reported or noted.
== END 2022-07-21 22:30 | disposition home or self-care (01) | DRG 885 ==
LOC: ER 09:00 → NP 10:41
PROVIDERS: Emergency Medicine; Admitting Provider Psychiatry & Neurology Psychiatry; Emergency Provider Family Medicine; PCP Family Medicine; Visit Provider Psychiatry & Neurology Psychiatry
DX: F32.1 Major depressive disorder, single episode, moderate (principal); R45.851 Suicidal ideations; F10.129 Alcohol abuse with intoxication, unspecified; F17.200 Nicotine dependence, unspecified, uncomplicated; Y90.8 Blood alcohol level of 240 mg/100 ml or more; I10 Essential (primary) hypertension; Z63.0 Problems in relationship with spouse or partner; Z62.810 Personal history of physical and sexual abuse in childhood; Z62.811 Personal history of psychological abuse in childhood; Z86.73 Personal history of transient ischemic attack (TIA), and cerebral infarction without residual deficits; Z63.4 Disappearance and death of family member; Z81.4 Family history of other substance abuse and dependence
CPT/HCPCS: 36415; 71045; 80048; 80053; 80306; 80307; 85025; 93005; 94640; 96361; 96374; 97150; 97165; 99285; J3411; J7030; J7644

== ENCOUNTER → 2022-11-03 15:40 | Outpatient (BNVA) | payer MEDICARE, MEDICAID, SELFPAY | PROVIDERS: PCP Family Medicine; Visit Provider Family Medicine | DX: E78.5 Hyperlipidemia, unspecified (principal); I10 Essential (primary) hypertension; Z12.5 Encounter for screening for malignant neoplasm of prostate | CPT/HCPCS: 80053; 80061; 84443; 85025; G0103 ==

== ENCOUNTER 2023-01-15 18:09 | Emergency (ER) | payer MEDICARE, MEDICAID, SELFPAY ==
[2023-01-15 18:17] VITALS: BP 177/77; PULSE 63; RESP 16; TEMP 36.4; O2SAT 96
--- NOTE | 2023-01-15 18:22 | ED_ITS ---
HPI - Abdominal Pain General: Chief Complaint: Abdominal Pain Stated Complaint: ABD Pain Possible Append Time Seen by Provider: 01/15/23 18:11 History of Present Illness: Mr. French is a 67-year-old gentleman with history of hypertension, hyperlipidemia, vascular disease presenting to the emergency department for evaluation of abdominal pain. He notes onset of symptoms approximately 3 days ago without known specific provoking event. Endorses initially intermittent and now more constant right lower quadrant abdominal pain associated with nonbloody diarrhea. Denies urinary symptoms. No radiation to the groin or testicular swelling/pain. He has had worse pain with movement and bumps down the road. Denies similar episodes in the past. No other specific changes in health, exacerbating, or alleviating factors identified. Onset (ago): day(s) Pain Consistency: intermittent Location: RLQ Quality: stabbing and aching Migration to: no migration Exacerbating factors: movement Relieving factors: nothing Associated Symptoms: Reports diarrhea and poor appetite Review of Systems General: Reports: 10 or more systems reviewed and unremarkable except in HPI and below GI: Reports: diarrhea PFSH ED PFSH: Medical History Acute urticaria Allergic dermatitis Chronic shortness of breath Depression history of previous SI episodes History of alcohol dependence reported sobriety date of 02/01 Hyperlipidemia Hypertension Hyperthyroidism Insomnia Lacunar stroke Osteoarthritis of left shoulder region Subdural hematoma TIA (transient ischemic attack) Surgical History History of ankle surgery left, for fracture History of javi hole surgery 09/12/2019 Dr. Papito Ridley: Twist drill (SEPS) drainage of left convexity subdural hematoma 09/13/2019 Removed History of surgery on right wrist Family History Mother Cancer Hypertension Father Hypertension Social History Smoking and tobacco status: current every day smoker Alcohol intake: former Year of sobriety/quit date alcohol: 02/01 Former alcohol use details: 09/23/2019 presented to [facility] [place]. Diagnosis intoxication Substance/Drug Use: current Household members: spouse and children Marital status: Current occupational status: retired Physical Exam Const: COMMON NORMALS: alert GENERAL APPEARANCE: cooperative and well developed HENMT: COMMON NORMALS: normocephalic and atraumatic HEAD & SCALP: normocephalic and atraumatic Eye: COMMON NORMALS: conjunctivae normal CONJUNCTIVA: Yes conjunctivae normal SCLERA: sclerae normal Neck/C-Spine: COMMON NORMALS: supple GENERAL: Yes trachea midline Resp: COMMON NORMALS: normal respiratory effort EFFORT & INSPECTION: Yes able to speak in complete sentences Cardio: COMMON NORMALS: regular rate and regular rhythm RATE: regular rate RHYTHM: regular rhythm GI: COMMON NORMALS: Soft to palpation PALPATION: Yes Soft to palpation, Yes Tenderness to palpation present (GI) Details: RLQ, No Guarding due to palpation present (GI), No Rigid due to palpation and No Rebound tenderness present Extremity: GENERAL: Yes normal exam except as noted and No edema Neuro: COMMON NORMALS: moves all extremities SENSORIUM/ORIENTATION: Yes alert and No Orientation impaired Psych: COMMON NORMALS: mental status grossly normal and Normal thought process present THOUGHT PROCESS: Normal thought process present Course Vital Signs: Vital signs: Vital Signs Temperature 97.6 F 01/15/23 20:00 Pulse Rate 63 01/15/23 20:00 Respiratory Rate 16 01/15/23 20:00 Blood Pressure 177/77 01/15/23 20:00 Pulse Oximetry 98 01/15/23 20:00 Oxygen Delivery Me thod Room Air 01/15/23 18:59 MDM - Abdominal Pain Medical Decision Making 67-year-old gentleman presenting with abdominal concerns. Exam as above. Patient is nontoxic. There is right lower quadrant abdominal tenderness without evidence of acute surgical abdomen. Labs notable for no leukocytosis, normal hemoglobin and platelet count. Metabolic panel with perhaps minimal evidence of dehydration. CT with evidence of enterocolitis without evidence of perforation which likely explains the patient's symptoms. Patient treated with analgesia and antiemetic and feels improved on reassessment. He has had resolution of pain. The results of ED evaluation were discussed with the patient including prescriptions and/or symptomatic cares (if applicable) including appropriate and responsible use, followup plan, and return precautions. The patient verbalized understanding and felt safe for discharge. Medical Records I reviewed the patient's medical records. Lab Data I reviewed the patient's lab results. 01/15/23 19:01 01/15/23 19:01 Labs/Radiology: Radiology Impressions Abdomen/Pelvis CT 01/15/23 18:33 IMPRESSION: There is mild wall thickening of the distal small bowel, descending and sigmoid colon compatible with mild enterocolitis. Unremarkable appendix. COMMENTS: Consistent with the [employer] [place] [employer]'s Incidental Findings Committee white paper (J Am Jessica Radiol 2018): Any incidental renal lesion less than 1 cm or classified as too small to characterize, or any incidental cystic renal lesion characterized as simple-appearing, is likely benign. No follow-up imaging is recommended for these lesions per consensus recommendations based on imaging criteria. Laboratory Results WBC 6.4 10^3/uL (4.0-10.0) 01/15/23 19: RBC 3.97 10^6/uL (4.1-5.3) L 01/15/23 19: Hgb 11.9 g/dL (11.7-16.6) 01/15/23 19: Hct 34.7 % (42.0-52.0) L 01/15/23 19: MCV 87.4 fl (80-94) 01/15/23 19:01 MCH 30.0 pg (28.0-34.0) 01/15/23 19:01 MCHC 34.3 g/dL (30.0-36.0) 01/15/23 19:01 RDW 13.3 % (12.1-15.1) 01/15/23 19:01 Plt Count 211 10^3/cmm (130-400) 01/15/23 19:01 MPV 10.0 fL (7.4-10.4) 01/15/23 19:01 Neut % (Auto) 66.8 % 01/15/23 19:01 Lymph % (Auto) 17.1 % 01/15/23 19:01 Kings % (Auto) 9.3 % 01/15/23 19:01 Eos % (Auto) 5.7 % 01/15/23 19:01 Baso % (Auto) 0.8 % 01/15/23 19:01 Neut # (Auto) 4.30 10^3/uL (1.8-7.7) 01/15/23 19:01 Lymph # (Auto) 1.1 10^3/uL (0.8-4.8) 01/15/23 19:01 Kings # (Auto) 0.6 10^3/uL (0.2-0.9) 01/15/23 19:01 Eos # (Auto) 0.4 10^3/uL (0.0-0.8) 01/15/23 19:01 Baso # (Auto) 0.1 10^3/uL (0.0-0.1) 01/15/23 19:01 Nucleated RBC % (auto) 0 % 01/15/23 19:01 Nucleated RBCs # 0.0 /100WBC 01/15/23 19:01 Sodium 133 mmol/L (136-145) L 01/15/23 19:01 Potassium 4.1 mmol/L (3.5-5.1) 01/15/23 19:01 Chloride 102 mmol/L (98-107) 01/15/23 19:01 Carbon Dioxide 21 mmol/L (22-29) L 01/15/23 19:01 Anion Gap 14.1 (5-19) 01/15/23 19:01 BUN 14 mg/dL (8-23) 01/15/23 19:01 Creatinine 0.7 mg/dL (0.7-1.2) 01/15/23 19:01 GFR Calculation 113.2 mL/min (90-130) 01/15/23 19:01 Glucose 97 mg/dL (65-115) 01/15/23 19:01 Calculated Osmolality 276 mOsm/kg (285-295) L 01/15/23 19:01 Lactic Acid 1.6 mmol/L (0.5-2.2) 01/15/23 19:01 Calcium 8.5 mg/dL (8.5-10.5) 01/15/23 19:01 Total Bilirubin 0.4 mg/dL (0.15-1.2) 01/15/23 19:01 AST 18 U/L (0-40) 01/15/23 19:01 ALT 19 U/L (0-41) 01/15/23 19:01 Alkaline Phosphatase 72 U/L (40-130) 01/15/23 19:01 Total Protein 6.1 g/dL (6.6-8.7) L 01/15/23 19:01 Albumin 3.8 g/dL (3.5-5.2) 01/15/23 19:01 Globulin 2.3 g/dL (1.3-4.6) 01/15/23 19:01 Lipase 34 U/L (13-60) 01/15/23 19:01 Discharge Plan Discharge Patient Disposition: Home Clinical Impression: Abdominal pain, Enterocolitis Condition: Stable Prescriptions: New amoxicillin-pot clavulanate 875-125 mg tablet 1 tab PO BID Qty: 20 0RF ondansetron 4 mg tablet,disintegrating 4 mg PO Q8H PRN (Reason: nausea and vomiting) Qty: 15 0RF No Action atorvastatin 40 mg tablet 40 mg PO BEDTIME Qty: 30 4RF carvedilol 12.5 mg tablet 12.5 mg PO DAILY Qty: 30 4RF citalopram 40 mg tablet 40 mg PO DAILY Qty: 30 4RF lisinopril 20 mg tablet 20 mg PO DAILY Qty: 30 5RF famotidine [Pepcid] 20 mg tablet 20 mg PO DAILY Qty: 30 5RF albuterol sulfate [ProAir HFA] 90 mcg/actuation HFA aerosol inhaler See Rx Instructions .ROUTE .COMPLEX Qty: 9 3RF Dose Instruction: INHALE 2 PUFFS BY MOUTH EVERY 6 HOURS NEEDED FOR SHORTNESS OF BREATH AND FOR WHEEZING Rx Instructions: INHALE 2 PUFFS BY MOUTH EVERY 6 HOURS NEEDED FOR SHORTNESS OF BREATH AND FOR WHEEZING eszopiclone [Lunesta] 3 mg tablet 3 mg PO .qhs Qty: 30 2RF Atrovent HFA 17 mcg/actuation HFA aerosol inhaler 2 puff inhalation Q8H Qty: 12.9 3RF multivitamin [Multiple Vitamins] Tablet 1 tab PO DAILY aspirin 81 mg Tablet,Delayed Release (Dr/Ec) 81 mg PO DAILY thiamine mononitrate (vit B1) [Vitamin B-1 (mononitrate)] 100 mg Tablet 100 mg PO DAILY 30 Days Qty: 30 1RF Discharge Orders: Discharge ED (Routine); Ordered 01/15/23 Ordered By: Mariusz Wu Referrals: Sydney Arias MD [Physician] - Discharge Diet: Advance as tolerated and Clear Liquid Discharge Activity: Increase activity as tolerated Patient Instructions: Abdominal Pain (ED), Colitis (ED), Enteritis (ED), Opioid Safety Activity Restrictions/Additional Instructions: Thank you for visiting the emergency department. You were seen and evaluated for abdominal pain. The most likely cause of your symptoms is enterocolitis which is inflammation of the small and large intestines in the region that you are having pain. I will prescribe antinausea medication and antibiotics. You may use ikln-oyc-farsadt medications such as acetaminophen and ibuprofen for pain however please do not exceed the daily recommended dosage as listed on the packaging and please keep in mind that many namebrand medications contain the same active ingredients. Please avoid these medications if previously instructed to do so by another physician due to other underlying medical condition. Please follow-up with a primary care provider. Return for uncontrolled symptoms or anything else that you are concerned about and feel needs emergency department evaluation. Coding Level of Care Code ED Team Assembler for Fatoumata Cintron
--- NOTE | 2023-01-15 18:33 | CTR_ITS ---
PROCEDURE INFORMATION: Exam: CT Abdomen And Pelvis With Contrast Exam date and time: 01/15/2023 6:47 PM Age: 67 years old Clinical indication: Abdominal pain; Localized; Right lower quadrant (rlq); Patient HX: C/O rlq pain; Additional info: Rlq abd pain TECHNIQUE: Imaging protocol: Computed tomography of the abdomen and pelvis with contrast. Radiation optimization: All CT scans at this facility use at least one of these dose optimization techniques: automated exposure control; mA and/or kV adjustment per patient size (includes targeted exams where dose is matched to clinical indication); or iterative reconstruction. Contrast material: OMNI 350; Contrast volume: 100 ml; Contrast route: INTRAVENOUS (IV); REPORTING DATA: Count of CT and Cardiac NM exams in prior 12 months: This patient has received [address] and 0 known cardiac nuclear medicine studies in the 12 months prior to the current study. COMPARISON: CT abdomen pelvis w con* [id number] 03/11/2020 1:15 AM RADIATION DOSE METRICS: Total DLP (mGy-cm): 632.73 FINDINGS: Diaphragm: A large hiatal hernia is present. Liver: There is a diffuse decrease in hepatic parenchymal density, consistent with fatty infiltration. Gallbladder and bile ducts: Normal. No calcified stones. No ductal dilation. Pancreas: The pancreas is normal. Spleen: The spleen is normal. Adrenal glands: The adrenal glands are normal. Kidneys and ureters: There is no evidence of hydronephrosis. There is no evidence of renal calcifications. There are multiple renal hypodensities that cannot be further characterized on the current examination. There is a 3.2 cm lower pole simple cyst in the right kidney. No follow-up is necessary. Stomach and bowel: Moderate diverticulosis is present in the distal colon. There is no evidence of intestinal perforation or obstruction. There is mild wall thickening of the distal small bowel, descending and sigmoid colon compatible with mild enterocolitis. Appendix: A normal appendix is identified. Intraperitoneal space: Unremarkable. No free air. No significant fluid collection. Vasculature: The aorta is normal. Lymph nodes: Unremarkable.No enlarged lymph nodes. Urinary bladder: There is nonspecific bladder wall thickening. This may be related to incomplete distention. Reproductive: Unremarkable as visualized. 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 No acute bony abnormality. Soft tissues: There are small bilateral fat filled inguinal hernias. There is a fat-containing umbilical hernia. CT/CT abdomen pelvis w con* [id number] IMPRESSION: There is mild wall thickening of the distal small bowel, descending and sigmoid colon compatible with mild enterocolitis. Unremarkable appendix. COMMENTS: Consistent with the [place] [employer]'s Incidental Findings Committee white paper (J Am Jessica Radiol 2018): Any incidental renal lesion less than 1 cm or classified as too small to characterize, or any incidental cystic renal lesion characterized as simple-appearing, is likely benign. No follow-up imaging is recommended for these lesions per consensus recommendations based on imaging criteria.
[2023-01-15] MEDS: iohexol 350 mg/mL 500 mL Btl (per mL) IV (18:49)
[2023-01-15] MEDS: fentaNYL 50 mcg/mL INJ 2mL IVP (18:56)
[2023-01-15] MEDS: ondansetron 2 mg/ML SDV 2 mL 4 MG IVP (18:56)
[2023-01-15 18:59] VITALS: O2SAT 98
[2023-01-15 19:15] LABS: Basophils # 0.1 10^3/uL (0.0-0.1); Basophils % 0.8 %; Eosinophils # 0.4 10^3/uL (0.0-0.8); Eosinophils % 5.7 %; Hematocrit 34.7 % (42.0-52.0); Hemoglobin 11.9 g/dL (11.7-16.6); Lymphocytes # 1.1 10^3/uL (0.8-4.8); Lymphocytes % 17.1 %; Mean Corpuscular HGB Conc 34.3 g/dL (30.0-36.0); Mean Corpuscular Volume 87.4 fl (80-94); Monocytes # 0.6 10^3/uL (0.2-0.9); Monocytes % 9.3 %; Neutrophils % 66.8 %; Nucleated Red Blood Cells % 0 %; Platelet Count 211 10^3/cmm (130-400); Red Blood Count 3.97 10^6/uL (4.1-5.3); Red Cell Distribution Width 13.3 % (12.1-15.1); White Blood Count 6.4 10^3/uL (4.0-10.0)
[2023-01-15 19:30] LABS: Alanine Aminotransferase 19 U/L (0-41); Albumin Level 3.8 g/dL (3.5-5.2); Alkaline Phosphatase 72 U/L (40-130); Anion Gap 14.1 (5-19); Aspartate Amino Transferase 18 U/L (0-40); Blood Urea Nitrogen 14 mg/dL (8-23); Calcium 8.5 mg/dL (8.5-10.5); Carbon Dioxide 21 mmol/L (22-29); Chloride 102 mmol/L (98-107); Globulin 2.3 g/dL (1.3-4.6); Glomerular Filtration Rate 113.2 mL/min (90-130); Glucose 97 mg/dL (65-115); Lipase 34 U/L (13-60); Osmolality Calculated 276 mOsm/kg (285-295); Potassium 4.1 mmol/L (3.5-5.1); Sodium 133 mmol/L (136-145); Total Bilirubin 0.4 mg/dL (0.15-1.2); Total Protein 6.1 g/dL (6.6-8.7)
[2023-01-15 19:31] LABS: Lactic Sepsis W/Reflex 1.6 mmol/L (0.5-2.2)
[2023-01-15 20:00] VITALS: BP 177/77; PULSE 63; RESP 16; TEMP 36.4; O2SAT 98
== END 2023-01-15 20:01 | disposition home or self-care (01) ==
PROVIDERS: Emergency Provider Emergency Medicine; PCP Family Medicine
DX: K52.9 Noninfective gastroenteritis and colitis, unspecified (principal); Z79.82 Long term (current) use of aspirin; F17.210 Nicotine dependence, cigarettes, uncomplicated; E78.5 Hyperlipidemia, unspecified; I10 Essential (primary) hypertension; Z86.73 Personal history of transient ischemic attack (TIA), and cerebral infarction without residual deficits
CPT/HCPCS: 36415; 74177; 80053; 83605; 83690; 85025; 96374; 96375; 99285; J2405; J3010; Q9967

== ENCOUNTER → 2023-02-14 14:52 | Outpatient (BNVA) | payer MEDICARE, MEDICAID, SELFPAY | PROVIDERS: PCP Family Medicine; Visit Provider Family Medicine | DX: I10 Essential (primary) hypertension (principal); E78.5 Hyperlipidemia, unspecified; Z13.29 Encounter for screening for other suspected endocrine disorder; G47.00 Insomnia, unspecified; K21.9 Gastro-esophageal reflux disease without esophagitis; F32.1 Major depressive disorder, single episode, moderate | CPT/HCPCS: 80053; 80061; 84443; 85025 ==

== ENCOUNTER → 2023-05-23 11:00 | Outpatient (BNVA) | payer MEDICARE, MEDICAID, SELFPAY | PROVIDERS: PCP Family Medicine; Visit Provider Family Medicine | DX: F17.200 Nicotine dependence, unspecified, uncomplicated (principal); R06.02 Shortness of breath; E78.5 Hyperlipidemia, unspecified; I10 Essential (primary) hypertension; K21.9 Gastro-esophageal reflux disease without esophagitis; F32.1 Major depressive disorder, single episode, moderate; G47.00 Insomnia, unspecified | CPT/HCPCS: 80053; 80061; 84443; 85025 ==

== ENCOUNTER 2023-07-19 06:27 | Emergency (ER) | payer MEDICARE, MEDICAID, SELFPAY ==
[2023-07-19 06:32] VITALS: BP 168/80; PULSE 48; RESP 16; TEMP 36.4; O2SAT 95; BMI 28.6
--- NOTE | 2023-07-19 06:35 | ED_ITS ---
HPI - General Adult General: Chief complaint: Headache Stated complaint: Head pressure Time Seen by Provider: 07/19/23 06:33 Source: patient Mode of arrival: ambulatory History of Present Illness: 66-[facility] complaints of headache for the last 2 days. Is also been somewhat bradycardic. He has been told in the past he has an aneurysm. He has not had any focal neurologic deficits. No vision changes, no difficulty with speech. No numbness or tingling in the extremities no focal neurologic weaknesses. Onset (ago): minute(s) Location: head Associated symptoms: Reports headache(s); Deny chest pain, confusion, cough, diaphoresis, decreased appetite, dyspnea, fevers/chills, malaise, nausea, rash, palpitations, seizures, short of breath, syncope, vomiting or weakness Treatments prior to arrival: none Review of Systems Const: Denies: fever(s), chills, malaise or diaphoresis Card: Denies: chest pain, palpitations or syncope Resp: Denies: dyspnea GI: Denies: abdominal pain, nausea or vomiting : Denies: dysuria, urinary frequency or urinary urgency Musc: Denies: neck pain or back pain Skin/Breast: Denies: rash Neuro: Reports: headache(s); Denies: confusion PFSH ED PFSH: Medical History Chronic shortness of breath Osteoarthritis of left shoulder region Acute urticaria Allergic dermatitis Insomnia Subdural hematoma Hypertension History of alcohol dependence reported sobriety date of 02/01 TIA (transient ischemic attack) Hyperthyroidism Depression history of previous SI episodes Hyperlipidemia Lacunar stroke Surgical History History of javi hole surgery 09/12/2019 Dr. Papito Ridley: Twist drill (SEPS) drainage of left convexity subdural hematoma 09/13/2019 Removed History of surgery on right wrist History of ankle surgery left, for fracture Family History Mother Cancer Hypertension Father Hypertension Social History Smoking and tobacco/nicotine status: current every day tobacco/nicotine user Alcohol intake: former Year of sobriety/quit date alcohol: 02/01 Former alcohol use details: 09/23/2019 [place] [facility] [place] Diagnosis intoxication Substance/Drug Use: current Household members: spouse and children Marital status: Current occupational status: retired Physical Exam Const: COMMON NORMALS: no acute distress GENERAL APPEARANCE: cooperative and comfortable ORIENTATION/CONSCIOUSNESS: Yes awake, Yes oriented to person, Yes oriented to place and Yes oriented to time HENMT: COMMON NORMALS: normocephalic, atraumatic and hearing grossly normal bilaterally HEAD & SCALP: normocephalic and atraumatic Resp: COMMON NORMALS: normal respiratory effort, No retractions, No use of accessory muscles and clear to auscultation bilaterally AUSCULTATION: clear to auscultation bilaterally Cardio: COMMON NORMALS: regular rate, regular rhythm and No murmurs present (Cardio) RATE: regular rate RHYTHM: regular rhythm GI: COMMON NORMALS: Soft to palpation and No hepatosplenomegaly present AUSCULTATION: Yes normoactive bowel sounds PALPATION: Yes Soft to palpation, No Tenderness to palpation present (GI), No Guarding due to palpation present (GI) and Yes No hepatosplenomegaly present Extremity: COMMON NORMALS: normal to inspection, capillary refill normal, no clubbing, cyanosis or edema, no calf tenderness and no pedal edema Neuro: SENSORIUM/ORIENTATION: Yes oriented to person, Yes oriented to place and Yes oriented to time Skin: COMMON NORMALS: no rashes or lesions noted GENERAL SKIN EXAM: no rashes or lesions noted Course Vital Signs: Vital signs: Vital Signs Temperature 97.6 F 07/19/23 06:32 Pulse Rate 56 L 07/19/23 07:29 Respiratory Rate 16 07/19/23 06:58 Blood Pressure 135/75 07/19/23 07:29 Pulse Oximetry 98 07/19/23 07:29 Oxygen Delivery Me thod Room Air 07/19/23 06:32 MDM - General Adult Medical Decision Making No focal neurologic deficits are noted. Symptoms improved with blood pressure control. Will discharge patient home follow-up with primary care within the week to reevaluate blood pressure. Medical Records I reviewed the patient's medical records. Lab Data I reviewed the patient's lab results. All radiology interpretation(s) finalized by discharge Discharge Plan Discharge Patient Disposition: Home Clinical Impression: Headache, HTN (hypertension), Bradycardia Condition: Stable Prescriptions: New lisinopril 40 mg tablet 40 mg PO DAILY Qty: 30 0RF amlodipine 2.5 mg tablet 2.5 mg PO DAILY Qty: 30 0RF Changed carvedilol 12.5 mg tablet 6.25 mg PO DAILY Qty: 30 4RF No Action atorvastatin 40 mg tablet 40 mg PO BEDTIME Qty: 30 4RF citalopram 40 mg tablet 40 mg PO DAILY Qty: 30 4RF famotidine [Pepcid] 20 mg tablet 20 mg PO DAILY Qty: 30 5RF lisinopril 20 mg tablet 20 mg PO DAILY Qty: 30 5RF temazepam [Restoril] 30 mg capsule 30 mg PO .qhs Qty: 30 2RF albuterol sulfate [ProAir HFA] 90 mcg/actuation HFA aerosol inhaler See Rx Instructions .ROUTE .COMPLEX Qty: 9 3RF Dose Instruction: INHALE 2 PUFFS BY MOUTH EVERY 6 HOURS NEEDED FOR SHORTNESS OF BREATH AND FOR WHEEZING Rx Instructions: INHALE 2 PUFFS BY MOUTH EVERY 6 HOURS NEEDED FOR SHORTNESS OF BREATH AND FOR WHEEZING Atrovent HFA 17 mcg/actuation HFA aerosol inhaler 2 puff inhalation Q8H Qty: 12.9 3RF multivitamin [Multiple Vitamins] Tablet 1 tab PO DAILY aspirin 81 mg Tablet,Delayed Release (Dr/Ec) 81 mg PO DAILY thiamine mononitrate (vit B1) [Vitamin B-1 (mononitrate)] 100 mg Tablet 100 mg PO DAILY 30 Days Qty: 30 1RF ondansetron 4 mg tablet,disintegrating 4 mg PO Q8H PRN (Reason: nausea and vomiting) Qty: 15 0RF Discharge Orders: Discharge ED (Routine); Ordered 07/19/23 Ordered By: Kirit Zee Referrals: Sydney Arias MD [Primary Care Provider] - Patient Instructions: Opioid Safety, Pain Management Coding Level of Care Code ED Emergency Department Technician for Fatoumata Cintron
[2023-07-19 06:58] VITALS: BP 168/80; PULSE 49; RESP 16; O2SAT 95
[2023-07-19 07:29] VITALS: BP 135/75; PULSE 56; O2SAT 98
== END 2023-07-19 07:31 | disposition home or self-care (01) ==
PROVIDERS: Emergency Provider Family Medicine; PCP Family Medicine
DX: R51.9 Headache, unspecified (principal); I10 Essential (primary) hypertension; R00.1 Bradycardia, unspecified; Z79.82 Long term (current) use of aspirin; Z72.0 Tobacco use; Z86.73 Personal history of transient ischemic attack (TIA), and cerebral infarction without residual deficits; E78.5 Hyperlipidemia, unspecified
CPT/HCPCS: 99284

== ENCOUNTER → 2023-09-19 10:41 | Outpatient (BNVA) | payer MEDICARE, MEDICAID, SELFPAY | PROVIDERS: PCP Family Medicine; Visit Provider Family Medicine | DX: F32.1 Major depressive disorder, single episode, moderate; I10 Essential (primary) hypertension; E78.5 Hyperlipidemia, unspecified; K21.9 Gastro-esophageal reflux disease without esophagitis; Z12.5 Encounter for screening for malignant neoplasm of prostate | CPT/HCPCS: 80053; 80061; 84443; 85025; G0103 ==

== ENCOUNTER 2024-02-22 02:58 | Emergency (ER) | payer MEDICARE, MEDICAID, SELFPAY ==
[2024-02-22 02:59] VITALS: BP 135/72; PULSE 80; RESP 18; TEMP 36.7; O2SAT 95; BMI 28.8
--- NOTE | 2024-02-22 03:05 | XRR_ITS ---
PROCEDURE INFORMATION: Exam: XR Chest Exam date and time: 02/22/2024 3:34 AM Age: 68 years old Clinical indication: Chest wall pain; Additional info: HTN TECHNIQUE: Imaging protocol: Radiologic exam of the chest. Views: 1 view. COMPARISON: CR (CHEST, ) 07/20/2022 5:21 AM FINDINGS: Lungs: Unremarkable. No consolidation. Pleural spaces: Unremarkable. No pleural effusion. No pneumothorax. Heart/Mediastinum: Unremarkable. No cardiomegaly. Bones/joints: Unremarkable. XR/XR chest 1V portable [id number] IMPRESSION: No acute findings.
--- NOTE | 2024-02-22 03:13 | ED.C_ITS ---
Documented by User: Javier Sanders DO 02/22/24 03:16 HPI - Psych 2 General: Chief Complaint: Psychiatric Symptoms Stated Complaint: SI Time Seen by Provider: 02/22/24 03:00 History of Present Illness: Patient is brought in by EMS with police presents, please write affidavits, patient has suicidal ideation and thought about killing himself earlier tonight he was thought about hanging himself. Patient has been drinking. Patient has a history of depression and has been hospitalized before for psychiatric reasons. Review of Systems 2 General: Reports: 10 or more systems reviewed and unremarkable except in HPI and below PFSH ED 2 PFSH: Medical History Chronic shortness of breath Osteoarthritis of left shoulder region Acute urticaria Allergic dermatitis Insomnia Subdural hematoma Hypertension History of alcohol dependence reported sobriety date of 02/01 TIA (transient ischemic attack) Hyperthyroidism Depression history of previous SI episodes Hyperlipidemia Lacunar stroke Surgical History History of javi hole surgery 09/12/2019 Dr. Papito Ridley: Twist drill (SEPS) drainage of left convexity subdural hematoma 09/13/2019 Removed History of surgery on right wrist History of ankle surgery left, for fracture Family History Mother Cancer Hypertension Father Hypertension Social History Smoking and tobacco/nicotine status: current every day tobacco/nicotine user Alcohol intake: former Year of sobriety/quit date alcohol: 02/01 Former alcohol use details: [place]23/2019 [place] [facility] [place] Diagnosis intoxication Substance/Drug Use: current Household members: spouse and children Marital status: Current occupational status: retired Physical Exam 2 Const: COMMON NORMALS: no acute distress, average body habitus, patient oriented x3, healthy appearing, alert and well nourished; limitations (Patient appears intoxicated) HENMT: COMMON NORMALS: normocephalic, atraumatic, hearing grossly normal bilaterally, external ears normal, Normal external nose present and moist oral mucous membranes HEAD & SCALP: normocephalic and atraumatic NOSE: Normal external nose present EXTERNAL EAR: Yes external ears normal Neck/C-Spine: COMMON NORMALS: no JVD Chest: COMMONS NORMALS: normal inspection of the chest and normal palpation of entire chest wall Resp: COMMON NORMALS: normal respiratory effort, No retractions, No use of accessory muscles and clear to auscultation bilaterally AUSCULTATION: clear to auscultation bilaterally Cardio: COMMON NORMALS: no JVD, regular rate, regular rhythm, S1 normal heart sound present, S2 normal heart sound present, No gallops present (Cardio), No clicks present (Cardio), No murmurs present (Cardio) and No rub (Cardio) R ATE: regular rate RHYTHM: regular rhythm HEART SOUNDS: S1 normal heart sound present and S2 normal heart sound present GI: COMMON NORMALS: Normal to inspection, nondistended, normoactive bowel sounds present, Soft to palpation, non-tender, No hepatosplenomegaly present and no masses PALPATION: Yes Soft to palpation and Yes No hepatosplenomegaly present Neuro: COMMON NORMALS: patient oriented x3 SENSORIUM/ORIENTATION: Yes alert Course 2 Vital Signs: Vital signs: Vital Signs Temperature 98.0 F 02/22/24 02:59 Pulse Rate 80 02/22/24 02:59 Respiratory Rate 18 02/22/24 02:59 Blood Pressure 135/72 02/22/24 02:59 Pulse Oximetry 95 02/22/24 02:59 Oxygen Delivery Me thod Room Air 02/22/24 02:59 MDM - Psych Differential Diagnosis Likely suicidal ideation and depression Medical Records I reviewed the patient's medical records. Lab Data I reviewed the patient's lab results. 02/22/24 03:30 02/22/24 07:09 Radiology Impressions Chest X-Ray 02/22/24 03:05 IMPRESSION: No acute findings. Laboratory Results WBC 8.40 10^3/uL (3.29-11.43) 02/22/24 03:30 RBC 4.74 10^6/uL (3.85-5.65) 02/22/24 03:30 Hgb 14.90 g/dL (11.27-16.99) 02/22/24 03:30 Hct 42.6 % (37-53) 02/22/24 03:30 MCV 89.9 fl (82-101) 02/22/24 03:30 MCH 31.4 pg (27-33) 02/22/24 03:30 MCHC 35.0 g/dL (30-55) 02/22/24 03:30 RDW 12.3 % (12.1-15.1) 02/22/24 03:30 Plt Count 223 10^3/cmm (157-399) 02/22/24 03:30 MPV 9.6 fL (7.4-10.4) 02/22/24 03:30 Neut % (Auto) 63.2 % 02/22/24 03:30 Lymph % (Auto) 26.0 % 02/22/24 03:30 [place] % (Auto) 5.6 % 02/22/24 03:30 Eos % (Auto) 3.9 % 02/22/24 03:30 Baso % (Auto) 0.8 % 02/22/24 03:30 Neut # (Auto) 5.31 10^3/uL (1.8-7.7) 02/22/24 03:30 Lymph # (Auto) 2.2 10^3/uL (0.8-4.8) 02/22/24 03:30 [place] # (Auto) 0.5 10^3/uL (0.2-0.9) 02/22/24 03:30 Eos # (Auto) 0.3 10^3/uL (0.0-0.8) 02/22/24 03:30 Baso # (Auto) 0.1 10^3/uL (0.0-0.1) 02/22/24 03:30 Nucleated RBC % (auto) 0 % 02/22/24 03:30 Nucleated RBCs # 0.0 /100WBC 02/22/24 03:30 Sodium 139 mmol/L (136-145) 02/22/24 07:09 Potassium 4.1 mmol/L (3.5-5.1) 02/22/24 07:09 Chloride 103 mmol/L (98-107) 02/22/24 07:09 Carbon Dioxide 23 mmol/L (22-29) 02/22/24 07:09 Anion Gap 17.1 (5-19) 02/22/24 07:09 BUN 11 mg/dL (8-23) 02/22/24 07:09 Creatinine 0.8 mg/dL (0.7-1.2) 02/22/24 07:09 GFR Calculation 96.7 mL/min (90-130) 02/22/24 07:09 Glucose 157 mg/dL (65-115) H 02/22/24 07:09 Calculated Osmolality 291 mOsm/kg (285-295) 02/22/24 07:09 Calcium 8.7 mg/dL (8.5-10.5) 02/22/24 07:09 Total Bilirubin 0.2 mg/dL (0.15-1.2) 02/22/24 07:09 AST 27 U/L (0-40) 02/22/24 07:09 ALT 28 U/L (0-41) 02/22/24 07:09 Alkaline Phosphatase 97 U/L (40-130) 02/22/24 07:09 Troponin T Baseline 15 ng/L (0-15) 02/22/24 03:30 Troponin T 120 Minute 14.78 ng/L (0-15) 02/22/24 05:38 Delta Troponin T -0.22 ABS# (0-10) L 02/22/24 05:38 Troponin T Hi Sens 6Hr 17.91 ng/L (0-15) H 02/22/24 09:05 Troponin T Hi Sens 6Hr Delta 2.91 ng/L (0-12) 02/22/24 09:05 Total Protein 7.5 g/dL (6.6-8.7) 02/22/24 07:09 Albumin 4.5 g/dL (3.5-5.2) 02/22/24 07:09 Globulin 3.0 g/dL (1.3-4.6) 02/22/24 07:09 TSH 0.45 uIU/mL (0.27-4.20) 02/22/24 03:30 Urine Color Yellow (Yellow) 02/22/24 04:06 Urine Appearance Clear (CLEAR) 02/22/24 04:06 Urine pH 5.0 (5-7) 02/22/24 04:06 Ur Specific [place] 1.005 (1.005-1.030) 02/22/24 04:06 Urine Protein Negative (Negative) 02/22/24 04:06 Urine Glucose (UA) Negative (Normal) 02/22/24 04:06 Urine Ketones Negative (Negative) 02/22/24 04:06 Urine Blood Negative (Negative) 02/22/24 04:06 Urine Nitrate Negative (Negative) 02/22/24 04:06 Urine Bilirubin Negative (Negative) 02/22/24 04:06 Urine Urobilinogen 0.2 mg/dL (Negative) 02/22/24 04:06 Ur Leukocyte Esterase Negative (Negative) 02/22/24 04:06 Urine RBC 0-2 /hpf (0-2) 02/22/24 04:06 Urine WBC 0-5 /hpf (0-5) 02/22/24 04:06 Ur Squamous Epith Cells 0-5 /hpf (0-5) 02/22/24 04:06 Amorphous Sediment Not Reportable 02/22/24 04:06 Urine Bacteria None seen /hpf (NONE) 02/22/24 04:06 Hyaline Casts 0-4 /lpf H 02/22/24 04:06 Salicylates < 0.3 mg/dL (3-10) L 02/22/24 03:30 Urine Opiates Screen Negative ng/mL (Negative) 02/22/24 04:06 Acetaminophen < 5.0 ug/mL (10-30) L 02/22/24 03:30 Ur Barbiturates Screen Negative ng/mL (Negative) 02/22/24 04:06 Ur Phencyclidine Scrn Negative ng/mL (Negative) 02/22/24 04:06 Ur Amphetamines Screen Negative ng/mL (Negative) 02/22/24 04:06 U Benzodiazepines Scrn Negative ng/mL (Negative) 02/22/24 04:06 Urine Cocaine Screen Negative ng/mL (Negative) 02/22/24 04:06 U Marijuana (THC) Screen Positive ng/mL (Negative) H 02/22/24 04:06 Ethyl Alcohol 193 mg/dL (0-10) H 02/22/24 09:40 Influenza Type A Ag negative (Negative) 02/22/24 04:37 Influenza Type B Ag negative (Negative) 02/22/24 04:37 RSV Antigen Negative (Negative) 02/22/24 04:37 SARS-CoV-2 Ag (Rapid) negative (Negative) 02/22/24 04:37 All radiology interpretation(s) finalized by discharge Discharge Plan Discharge Patient Disposition: Home Clinical Impression: Acute alcohol intoxication, History of alcohol dependence, Adjustment disorder with depressed mood Condition: Stable Prescriptions: No Action desvenlafaxine succinate [Pristiq] 50 mg tablet extended release 24 hr 50 mg PO DAILY Qty: 30 3RF atorvastatin 40 mg tablet 40 mg PO BEDTIME Qty: 30 4RF famotidine [Pepcid] 20 mg tablet 20 mg PO DAILY Qty: 30 5RF Atrovent HFA 17 mcg/actuation HFA aerosol inhaler 2 puff inhalation Q8H Qty: 12.9 3RF lisinopril 20 mg tablet 20 mg PO DAILY Qty: 30 5RF multivitamin [Multiple Vitamins] Tablet 1 tab PO DAILY amlodipine 2.5 mg tablet 2.5 mg PO DAILY Qty: 30 0RF aspirin 81 mg Tablet,Delayed Release (Dr/Ec) 81 mg PO DAILY thiamine mononitrate (vit B1) [Vitamin B-1 (mononitrate)] 100 mg Tablet 100 mg PO DAILY 30 Days Qty: 30 1RF citalopram 40 mg tablet 40 mg PO DAILY Ventolin HFA 90 mcg/actuation HFA aerosol inhaler 2 puff INHALATION Q6H PRN (Reason: Shortness Of Breath) carvedilol 12.5 mg tablet 12.5 mg PO DAILY Restoril 30 mg capsule 30 mg PO BEDTIME Discharge Orders: Discharge ED (Routine); Ordered 02/22/24 Ordered By: Kirit Zee Referrals: Sydney Arias MD [Primary Care Provider] - Discharge Diet: Usual diet Discharge Activity: Increase activity as tolerated Patient Instructions: Abuse of Alcohol (ED), Opioid Safety, Pain Management Activity Restrictions/Additional Instructions: Thank you for choosing [facility] for your healthcare needs today. It is very important that you follow up as instructed or that you return to the Emergency Department should you have concerns or if your condition changes or worsens in any way. Abstain from alcohol recommend establishing with behavioral health for treatment of adjustment disorder anxiety depression as well as substance abuse. Sign Out Sign Out Data: Patient Sign Out occurred on 02/22/24 at 06:01. Patient's care was discussed, and care was transferred from Javier Sanders DO to Kirit Zee DO. Coding Level of Care Code ED Network Operations Manager for Chg Fwd Documented by User: Kirit Zee DO 02/22/24 14:35 HPI - Psych 2 General: Chief Complaint: Psychiatric Symptoms Stated Complaint: SI Time Seen by Provider: 02/22/24 03:00 PFSH ED 2 PFSH: Medical History Chronic shortness of breath Osteoarthritis of left shoulder region Acute urticaria Allergic dermatitis Insomnia Subdural hematoma Hypertension History of alcohol dependence reported sobriety date of 02/01 TIA (transient ischemic attack) Hyperthyroidism Depression history of previous SI episodes Hyperlipidemia Lacunar stroke Surgical History History of javi hole surgery 09/12/2019 Dr. Papito Ridley: Twist drill (SEPS) drainage of left convexity subdural hematoma 09/13/2019 Removed History of surgery on right wrist History of ankle surgery left, for fracture Family History Mother Cancer Hypertension Father Hypertension Social History Smoking and tobacco/nicotine status: current every day tobacco/nicotine user Alcohol intake: former Year of sobriety/quit date alcohol: 02/01 Former alcohol use details: [place]23/2019 [place] [facility] [place] Diagnosis intoxication Substance/Drug Use: current Household members: spouse and children Marital status: Current occupational status: retired Course 2 Vital Signs: Vital signs: Vital Signs Temperature 98.0 F 02/22/24 02:59 Pulse Rate 80 02/22/24 02:59 Respiratory Rate 18 02/22/24 02:59 Blood Pressure 135/72 02/22/24 02:59 Pulse Oximetry 95 02/22/24 02:59 Oxygen Delivery Me thod Room Air 02/22/24 02:59 MDM - Psych Medical Decision Making Care assumed at change of shift. Repeat blood alcohol actually increased. We checked again shortly after and it had started to defervesce. He is now awake alert he recalls that he got a phone call that his father had he had several other family deaths recently he became upset because nobody had told him evidently his father a couple months prior. He recalls making threats of harming himself he said he did it out of frustration and intoxication he denies having any intent or thought of harming himself now he is actually forward thinking at this point he is concerned because his is at home alone and upset and he feels he should be there to help her. Will discuss with psychiatry. After discussion with psychiatry. Patient is no longer suicidal. He admits he was suicidal when he was drinking. He has had this several times in the past he is adamant that he is not planning to harm himself at this time. Discussed with Dr. Phelps again who recommends that she can be discharged at this time. Lab Data 02/22/24 03:30 02/22/24 07:09 Radiology Impressions Chest X-Ray 02/22/24 03:05 IMPRESSION: No acute findings. Laboratory Results WBC 8.40 10^3/uL (3.29-11.43) 02/22/24 03:30 RBC 4.74 10^6/uL (3.85-5.65) 02/22/24 03:30 Hgb 14.90 g/dL (11.27-16.99) 02/22/24 03:30 Hct 42.6 % (37-53) 02/22/24 03:30 MCV 89.9 fl (82-101) 02/22/24 03:30 MCH 31.4 pg (27-33) 02/22/24 03:30 MCHC 35.0 g/dL (30-55) 02/22/24 03:30 RDW 12.3 % (12.1-15.1) 02/22/24 03:30 Plt Count 223 10^3/cmm (157-399) 02/22/24 03:30 MPV 9.6 fL (7.4-10.4) 02/22/24 03:30 Neut % (Auto) 63.2 % 02/22/24 03:30 Lymph % (Auto) 26.0 % 02/22/24 03:30 [place] % (Auto) 5.6 % 02/22/24 03:30 Eos % (Auto) 3.9 % 02/22/24 03:30 Baso % (Auto) 0.8 % 02/22/24 03:30 Neut # (Auto) 5.31 10^3/uL (1.8-7.7) 02/22/24 03:30 Lymph # (Auto) 2.2 10^3/uL (0.8-4.8) 02/22/24 03:30 [place] # (Auto) 0.5 10^3/uL (0.2-0.9) 02/22/24 03:30 Eos # (Auto) 0.3 10^3/uL (0.0-0.8) 02/22/24 03:30 Baso # (Auto) 0.1 10^3/uL (0.0-0.1) 02/22/24 03:30 Nucleated RBC % (auto) 0 % 02/22/24 03:30 Nucleated RBCs # 0.0 /100WBC 02/22/24 03:30 Sodium 139 mmol/L (136-145) 02/22/24 07:09 Potassium 4.1 mmol/L (3.5-5.1) 02/22/24 07:09 Chloride 103 mmol/L (98-107) 02/22/24 07:09 Carbon Dioxide 23 mmol/L (22-29) 02/22/24 07:09 Anion Gap 17.1 (5-19) 02/22/24 07:09 BUN 11 mg/dL (8-23) 02/22/24 07:09 Creatinine 0.8 mg/dL (0.7-1.2) 02/22/24 07:09 GFR Calculation 96.7 mL/min (90-130) 02/22/24 07:09 Glucose 157 mg/dL (65-115) H 02/22/24 07:09 Calculated Osmolality 291 mOsm/kg (285-295) 02/22/24 07:09 Calcium 8.7 mg/dL (8.5-10.5) 02/22/24 07:09 Total Bilirubin 0.2 mg/dL (0.15-1.2) 02/22/24 07:09 AST 27 U/L (0-40) 02/22/24 07:09 ALT 28 U/L (0-41) 02/22/24 07:09 Alkaline Phosphatase 97 U/L (40-130) 02/22/24 07:09 Troponin T Baseline 15 ng/L (0-15) 02/22/24 03:30 Troponin T 120 Minute 14.78 ng/L (0-15) 02/22/24 05:38 Delta Troponin T -0.22 ABS# (0-10) L 02/22/24 05:38 Troponin T Hi Sens 6Hr 17.91 ng/L (0-15) H 02/22/24 09:05 Troponin T Hi Sens 6Hr Delta 2.91 ng/L (0-12) 02/22/24 09:05 Total Protein 7.5 g/dL (6.6-8.7) 02/22/24 07:09 Albumin 4.5 g/dL (3.5-5.2) 02/22/24 07:09 Globulin 3.0 g/dL (1.3-4.6) 02/22/24 07:09 TSH 0.45 uIU/mL (0.27-4.20) 02/22/24 03:30 Urine Color Yellow (Yellow) 02/22/24 04:06 Urine Appearance Clear (CLEAR) 02/22/24 04:06 Urine pH 5.0 (5-7) 02/22/24 04:06 Ur Specific [place] 1.005 (1.005-1.030) 02/22/24 04:06 Urine Protein Negative (Negative) 02/22/24 04:06 Urine Glucose (UA) Negative (Normal) 02/22/24 04:06 Urine Ketones Negative (Negative) 02/22/24 04:06 Urine Blood Negative (Negative) 02/22/24 04:06 Urine Nitrate Negative (Negative) 02/22/24 04:06 Urine Bilirubin Negative (Negative) 02/22/24 04:06 Urine Urobilinogen 0.2 mg/dL (Negative) 02/22/24 04:06 Ur Leukocyte Esterase Negative (Negative) 02/22/24 04:06 Urine RBC 0-2 /hpf (0-2) 02/22/24 04:06 Urine WBC 0-5 /hpf (0-5) 02/22/24 04:06 Ur Squamous Epith Cells 0-5 /hpf (0-5) 02/22/24 04:06 Amorphous Sediment Not Reportable 02/22/24 04:06 Urine Bacteria None seen /hpf (NONE) 02/22/24 04:06 Hyaline Casts 0-4 /lpf H 02/22/24 04:06 Salicylates < 0.3 mg/dL (3-10) L 02/22/24 03:30 Urine Opiates Screen Negative ng/mL (Negative) 02/22/24 04:06 Acetaminophen < 5.0 ug/mL (10-30) L 02/22/24 03:30 Ur Barbiturates Screen Negative ng/mL (Negative) 02/22/24 04:06 Ur Phencyclidine Scrn Negative ng/mL (Negative) 02/22/24 04:06 Ur Amphetamines Screen Negative ng/mL (Negative) 02/22/24 04:06 U Benzodiazepines Scrn Negative ng/mL (Negative) 02/22/24 04:06 Urine Cocaine Screen Negative ng/mL (Negative) 02/22/24 04:06 U Marijuana (THC) Screen Positive ng/mL (Negative) H 02/22/24 04:06 Ethyl Alcohol 193 mg/dL (0-10) H 02/22/24 09:40 Influenza Type A Ag negative (Negative) 02/22/24 04:37 Influenza Type B Ag negative (Negative) 02/22/24 04:37 RSV Antigen Negative (Negative) 02/22/24 04:37 SARS-CoV-2 Ag (Rapid) negative (Negative) 02/22/24 04:37 Discharge Plan Discharge Patient Disposition: Home Clinical Impression: Acute alcohol intoxication, History of alcohol dependence, Adjustment disorder with depressed mood Condition: Stable Prescriptions: No Action desvenlafaxine succinate [Pristiq] 50 mg tablet extended release 24 hr 50 mg PO DAILY Qty: 30 3RF atorvastatin 40 mg tablet 40 mg PO BEDTIME Qty: 30 4RF famotidine [Pepcid] 20 mg tablet 20 mg PO DAILY Qty: 30 5RF Atrovent HFA 17 mcg/actuation HFA aerosol inhaler 2 puff inhalation Q8H Qty: 12.9 3RF lisinopril 20 mg tablet 20 mg PO DAILY Qty: 30 5RF multivitamin [Multiple Vitamins] Tablet 1 tab PO DAILY amlodipine 2.5 mg tablet 2.5 mg PO DAILY Qty: 30 0RF aspirin 81 mg Tablet,Delayed Release (Dr/Ec) 81 mg PO DAILY thiamine mononitrate (vit B1) [Vitamin B-1 (mononitrate)] 100 mg Tablet 100 mg PO DAILY 30 Days Qty: 30 1RF citalopram 40 mg tablet 40 mg PO DAILY Ventolin HFA 90 mcg/actuation HFA aerosol inhaler 2 puff INHALATION Q6H PRN (Reason: Shortness Of Breath) carvedilol 12.5 mg tablet 12.5 mg PO DAILY Restoril 30 mg capsule 30 mg PO BEDTIME Discharge Orders: Discharge ED (Routine); Ordered 02/22/24 Ordered By: Kirit Zee Referrals: Sydney Arias MD [Primary Care Provider] - Discharge Diet: Usual diet Discharge Activity: Increase activity as tolerated Patient Instructions: Abuse of Alcohol (ED), Opioid Safety, Pain Management Activity Restrictions/Additional Instructions: Thank you for choosing [facility] for your healthcare needs today. It is very important that you follow up as instructed or that you return to the Emergency Department should you have concerns or if your condition changes or worsens in any way. Abstain from alcohol recommend establishing with behavioral health for treatment of adjustment disorder anxiety depression as well as substance abuse. Sign Out Sign Out Data: Patient Sign Out occurred on 02/22/24 at 06:01. Patient's care was discussed, and care was transferred from Javier Sanders DO to Kirit Zee DO. Coding Level of Care Code ED Network Operations Manager for Fatoumata Cintron
--- NOTE | 2024-02-22 03:27 | ECG_ITS ---
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 Measurements Intervals [place] Rate: 76 P: 85 TX: 150 QRS: -45 QRSD: 87 T: 26 QT: 398 QTc: 448 Interpretive Statements SINUS RHYTHM LEFT ANTERIOR FASCICULAR BLOCK [QRS AXIS <= -45, QR IN I, RS IN II] Compared to ECG 07/20/2022 05:32:44 Left anterior fascicular block now present Sinus bradycardia no longer present Left-axis deviation no longer present Electronically Signed On 02-22-2024 9:57:09 CDT by Golden Gilbert M.D. [id number]
[2024-02-22 03:35] LABS: Basophils # 0.1 10^3/uL (0.0-0.1); Basophils % 0.8 %; Eosinophils # 0.3 10^3/uL (0.0-0.8); Eosinophils % 3.9 %; Hematocrit 42.6 % (37-53); Lymphocytes # 2.2 10^3/uL (0.8-4.8); Mean Corpuscular Hemoglobin 31.4 pg (27-33); Mean Corpuscular Volume 89.9 fl (82-101); Mean Platelet Volume 9.6 fL (7.4-10.4); Monocytes # 0.5 10^3/uL (0.2-0.9); Monocytes % 5.6 %; Neutrophils # 5.31 10^3/uL (1.8-7.7); Neutrophils % 63.2 %; Nucleated Red Blood Cells % 0 %; Platelet Count 223 10^3/cmm (157-399); Red Blood Count 4.74 10^6/uL (3.85-5.65); Red Cell Distribution Width 12.3 % (12.1-15.1)
[2024-02-22 03:56] LABS: Troponin(5th) Baseline 15 ng/L (0-15)
[2024-02-22 04:11] LABS: Charge for UA Resulting for Rev
[2024-02-22 04:14] LABS: Bilirubin Urine Negative (Negative); Blood Urine Negative (Negative); Glucose Urine UA Negative (Normal); Ketones Urine Negative (Negative); Leukocyte Esterase Urine Negative (Negative); Nitrate Urine Negative (Negative); Protein Urine Negative (Negative); Specific Gravity, Urine 1.005 (1.005-1.030); Urine Appearance Clear (CLEAR); Urine Color Yellow (Yellow); Urobilinogen Urine 0.2 mg/dL (Negative)
[2024-02-22 04:18] LABS: Bacteria Urine None Seen /hpf; Hyaline Casts Urine 0-4 /lpf; RBC Urine 0-2 /hpf (0-2); Squamous Epithelial Cell Urine 0-5 /hpf (0-5); WBC Urine 0-5 /hpf (0-5)
[2024-02-22 04:20] LABS: Amphetamines Screen Urine Negative (Negative); Barbiturates Screen Urine Negative (Negative); Benzodiazepines Screen Urine Negative (Negative); Cocaine Screen Urine Negative (Negative); Opiate Screen Urine Negative (Negative); PCP Screen Urine Negative (Negative); THC Screen Urine Positive (Negative)
[2024-02-22 04:22] LABS: Alanine Aminotransferase 31 U/L (0-41); Albumin Level 4.9 g/dL (3.5-5.2); Alcohol Level 176 mg/dL (0-10); Alkaline Phosphatase 108 U/L (40-130); Anion Gap 20.2 (5-19); Aspartate Amino Transferase 32 U/L (0-40); Blood Urea Nitrogen 11 mg/dL (8-23); Calcium 9.4 mg/dL (8.5-10.5); Carbon Dioxide 23 mmol/L (22-29); Chloride 115 mmol/L (98-107); Creatinine Clr Calc Pharmacy 84.7937; Globulin 3.2 g/dL (1.3-4.6); Glomerular Filtration Rate 96.7 mL/min (90-130); Glucose 131 mg/dL (65-115); Osmolality Calculated 319 mOsm/kg (285-295); Potassium 4.2 mmol/L (3.5-5.1); Sodium 154 mmol/L (136-145); Thyroid Stimulating Hormone 0.45 uIU/mL (0.27-4.20); Total Bilirubin 0.3 mg/dL (0.15-1.2); Total Protein 8.1 g/dL (6.6-8.7)
[2024-02-22 04:23] LABS: Acetaminophen < 5.0 ug/mL (10-30); Salicylate < 0.3 mg/dL (3-10)
[2024-02-22 05:00] LABS: Influenza A by IFA negative (Negative); Influenza B by IFA negative (Negative); SARS Covid-2 Antigen negative (Negative)
[2024-02-22 05:02] LABS: RSV Transfer Patient (ED) Negative (Negative)
--- NOTE | 2024-02-22 05:45 | ECG_ITS ---
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 Measurements Intervals [place] Rate: 62 P: 30 DC: 152 QRS: -38 QRSD: 94 T: 42 QT: 397 QTc: 406 Interpretive Statements SINUS RHYTHM LEFT AXIS DEVIATION [QRS AXIS < -30] POSSIBLE RIGHT VENTRICULAR CONDUCTION DELAY [RSR (QR) IN V1/V2] Compared to ECG 02/22/2024 03:32:12 Left-axis deviation now present Left anterior fascicular block no longer present Electronically Signed On 02-22-2024 9:59:30 CDT by Golden Gilbert M.D. [id number]
[2024-02-22 06:04] LABS: Troponin 5 2HR 14.78 ng/L (0-15)
[2024-02-22 06:11] LABS: Troponin 5 2HR Delta -0.22 ABS# (0-10)
[2024-02-22] MEDS: ibuprofen 200 mg Tablet 400 MG PO (06:28)
--- NOTE | 2024-02-22 07:36 | PC.PHAR ---
PT STATES IS ON A NEW ANTIDEPRESSANT MEDICATION. PRISTIQ HAS NOT BEEN FILLED SINCE OCTOBER 2023. NEW MED IS CITALOPRAM 40MG WRITTEN ON 01/25/24 30DS.
[2024-02-22 07:54] LABS: Alcohol Level 245 mg/dL (0-10)
[2024-02-22 08:03] LABS: Alanine Aminotransferase 28 U/L (0-41); Albumin Level 4.5 g/dL (3.5-5.2); Alkaline Phosphatase 97 U/L (40-130); Anion Gap 17.1 (5-19); Aspartate Amino Transferase 27 U/L (0-40); Blood Urea Nitrogen 11 mg/dL (8-23); Calcium 8.7 mg/dL (8.5-10.5); Carbon Dioxide 23 mmol/L (22-29); Chloride 103 mmol/L (98-107); Creatinine Clr Calc Pharmacy 84.7937; Glomerular Filtration Rate 96.7 mL/min (90-130); Glucose 157 mg/dL (65-115); Osmolality Calculated 291 mOsm/kg (285-295); Potassium 4.1 mmol/L (3.5-5.1); Sodium 139 mmol/L (136-145); Total Bilirubin 0.2 mg/dL (0.15-1.2); Total Protein 7.5 g/dL (6.6-8.7)
[2024-02-22 09:24] LABS: Troponin 5 6HR 17.91 ng/L (0-15); Troponin 5 6HR Delta 2.91 ng/L (0-12)
--- NOTE | 2024-02-22 09:27 | ECG_ITS ---
[facility] Test Date: 2024-02-22 Pat Name: Gavin French Jr Department: Room: Gender: Male Laboratory Miller: : 1955 Requested By: Javier Sanders Order Number: [id number] Camilla MD: Golden Gilbert M.D. Measurements Intervals [place] Rate: 64 P: 17 ID: 157 QRS: -38 QRSD: 86 T: 31 QT: 403 QTc: 416 Interpretive Statements SINUS RHYTHM LEFT AXIS DEVIATION [QRS AXIS < -30] Compared to ECG 02/22/2024 05:45:03 No significant changes Electronically Signed On 02-22-2024 9:57:29 CDT by Golden Gilbert M.D. [id number]
[2024-02-22 10:20] LABS: Alcohol Level 193 mg/dL (0-10)
== END 2024-02-22 11:22 | disposition home or self-care (01) ==
PROVIDERS: Emergency Medicine; Emergency Provider Family Medicine; PCP Family Medicine
DX: F10.129 Alcohol abuse with intoxication, unspecified (principal); Y90.6 Blood alcohol level of 120-199 mg/100 ml; F43.21 Adjustment disorder with depressed mood; Z79.82 Long term (current) use of aspirin; Z11.52 Encounter for screening for COVID-19; I10 Essential (primary) hypertension; Z86.73 Personal history of transient ischemic attack (TIA), and cerebral infarction without residual deficits; E78.5 Hyperlipidemia, unspecified; Z72.0 Tobacco use
CPT/HCPCS: 36415; 71045; 80053; 80306; 80307; 81003; 81015; 84443; 84484; 85025; 87426; 87804; 87899; 93005; 99285

== ENCOUNTER → 2024-03-21 10:57 | Outpatient (BNVA) | payer MEDICARE, SELFPAY | PROVIDERS: PCP Family Medicine; Visit Provider Family Medicine | DX: I10 Essential (primary) hypertension (principal); E78.5 Hyperlipidemia, unspecified | CPT/HCPCS: 80053; 80061; 84443; 85025 ==

== ENCOUNTER 2024-04-13 03:03 | Emergency (ER) | payer MEDICARE, MEDICAID, SELFPAY ==
[2024-04-13 03:04] VITALS: BP 143/91; PULSE 79; RESP 16; TEMP 36.6; O2SAT 91; BMI 28.5
--- NOTE | 2024-04-13 03:12 | XRR_ITS ---
PROCEDURE INFORMATION: Exam: XR Chest Exam date and time: 04/13/2024 4:14 AM Age: 68 years old Clinical indication: Shortness of breath; Additional info: Short of breath TECHNIQUE: Imaging protocol: Radiologic exam of the chest. Views: 1 view. COMPARISON: CR XR chest 1V portable [id number] 02/22/2024 3:34 AM FINDINGS: Lungs: Unremarkable. No consolidation. Pleural spaces: Unremarkable. No pleural effusion. No pneumothorax. Heart/Mediastinum: Unremarkable. No cardiomegaly. Bones/joints: Unremarkable. XR/XR chest 1V portable [id number] IMPRESSION: No acute findings.
--- NOTE | 2024-04-13 03:17 | ECG_ITS ---
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 Measurements Intervals [place] Rate: 54 P: -28 IN: 142 QRS: -46 QRSD: 94 T: 49 QT: 412 QTc: 394 Interpretive Statements SINUS BRADYCARDIA POSSIBLE RIGHT VENTRICULAR CONDUCTION DELAY [RSR (QR) IN V1/V2] LEFT ANTERIOR FASCICULAR BLOCK [QRS AXIS <= -45, QR IN I, RS IN II] Compared to ECG 02/22/2024 09:39:29 Left anterior fascicular block now present Sinus rhythm no longer present Left-axis deviation no longer present Electronically Signed On 04-15-2024 18:52:17 CDT by Golden Gilbert M.D. [id number]
--- NOTE | 2024-04-13 03:25 | W.ED.WEAKNES ---
HPI - Weakness General: Chief complaint: Weakness Stated complaint: Weakness x2wks Time Seen by Provider: 04/13/24 03:04 History of Present Illness: 68-year-old male who comes in complaining states he is feeling shaky all over. This has been going on for the past 3 days. He is concerned that maybe his blood sugar is elevated. He states he had nausea and had 1 episode of vomiting yesterday. He states he has had increased urinary frequency as well as increased thirst. Has a history of hypertension and anxiety. He smokes cigarettes. He denies alcohol or drug use. He states he was here recently with a alcohol intoxication related to the of a relative Associated symptoms: Reports nausea and vomiting; Denies chills, dysuria or fever(s) Review of Systems Const: Denies: fever(s) or chills ENMT: Denies: throat pain, ear or mastoid pain, nasal discharge or nasal congestion Resp: Denies: dyspnea, productive cough, wheezing or chest congestion GI: Reports: nausea and vomiting; Denies: abdominal pain, GI cramping, change in bowel habits or hematochezia : Denies: dysuria or urinary frequency Musc: Denies: extremity pain or extremity swelling Skin/Breast: Denies: rash, pruritus, erythema or sores Neuro: Denies: weakness in extremities or difficulty walking Endo: Reports: polyuria and polydipsia PFSH ED PFSH: Medical History Chronic shortness of breath Osteoarthritis of left shoulder region Acute urticaria Allergic dermatitis Insomnia Subdural hematoma Hypertension History of alcohol dependence reported sobriety date of 02/01 TIA (transient ischemic attack) Hyperthyroidism Depression history of previous SI episodes Hyperlipidemia Lacunar stroke Surgical History History of javi hole surgery 09/12/2019 Dr. Papito Ridley: Twist drill (SEPS) drainage of left convexity subdural hematoma 09/13/2019 Removed History of surgery on right wrist History of ankle surgery left, for fracture Family History Mother Cancer Hypertension Father Hypertension Social History Smoking and tobacco/nicotine status: current some day tobacco/nicotine user Alcohol intake: former Year of sobriety/quit date alcohol: 02/01 Former alcohol use details: 09/23/2019 presented to [facility] emergency services. Diagnosis intoxication Substance/Drug Use: current Household members: spouse and children Marital status: Current occupational status: retired Physical Exam Const: GENERAL APPEARANCE: cooperative and well developed; not in distress HENMT: COMMON NORMALS: normocephalic, atraumatic and TM's normal bilaterally HEAD & SCALP: normocephalic and atraumatic FACE & SINUS: sinuses nontender NOSE: Normal nares present and No nasal discharge present TYMPANIC MEMBRANE: TM's normal bilaterally MOUTH: Normal oral and palatal mucosa present THROAT: posterior oropharynx normal Resp: COMMON NORMALS: normal respiratory effort and clear to auscultation bilaterally AUSCULTATION: clear to auscultation bilaterally Cardio: COMMON NORMALS: regular rate and regular rhythm RATE: regular rate RHYTHM: regular rhythm HEART SOUNDS: no murmurs and normal S1 and S2 GI: COMMON NORMALS: Soft to palpation INSPECTION: Yes normal to inspection AUSCULTATION: Yes normoactive bowel sounds PALPATION: Yes Soft to palpation, No Tenderness to palpation present (GI) and No Palpable mass present Extremity: GENERAL: No edema Neuro: CRANIAL NERVES: Yes CN normal except as noted GAIT: Yes Normal gait present Course ED course: Labs reveal hyperglycemia but no other significant abnormality. Will discharge patient with instructions regarding a diabetic diet and place him on Glucophage 500 twice daily. Will have him follow-up this next week with his primary care provider for fasting blood sugar after further diabetic education and to obtain prescriptions for glucometer and referral for nutrition education. Vital Signs: Vital signs: Vital Signs Temperature 97.9 F 04/13/24 03:04 Pulse Rate 79 04/13/24 03:04 Respiratory Rate 16 04/13/24 03:04 Blood Pressure 143/91 04/13/24 03:04 Pulse Oximetry 91 04/13/24 03:04 Oxygen Delivery Me thod Room Air 04/13/24 03:04 MDM - Weakness Medical Decision Making 68-year-old male who presents feeling shaky tonight. He has a fever. He has no focal neurological deficits. He had an IV placed and labs obtained. Is been given 1 L normal saline bolus. differential includes hyperthyroidism, electrolyte abnormality, alcohol withdrawal, substance abuse, infection Lab Data 04/13/24 03:32 04/13/24 03:32 Laboratory Results WBC 6.46 10^3/uL (3.29-11.43) 04/13/24 03:32 RBC 4.32 10^6/uL (3.85-5.65) 04/13/24 03:32 Hgb 13.60 g/dL (11.27-16.99) 04/13/24 03:32 Hct 38.4 % (37-53) 04/13/24 03:32 MCV 88.9 fl (82-101) 04/13/24 03:32 MCH 31.5 pg (27-33) 04/13/24 03:32 MCHC 35.4 g/dL (30-55) 04/13/24 03:32 RDW 12.3 % (12.1-15.1) 04/13/24 03:32 Plt Count 202 10^3/cmm (157-399) 04/13/24 03:32 MPV 9.8 fL (7.4-10.4) 04/13/24 03:32 Neut % (Auto) 61.1 % 04/13/24 03:32 Lymph % (Auto) 25.9 % 04/13/24 03:32 [place] % (Auto) 7.0 % 04/13/24 03:32 Eos % (Auto) 4.8 % 04/13/24 03:32 Baso % (Auto) 0.9 % 04/13/24 03:32 Neut # (Auto) 3.95 10^3/uL (1.8-7.7) 04/13/24 03:32 Lymph # (Auto) 1.7 10^3/uL (0.8-4.8) 04/13/24 03:32 [place] # (Auto) 0.5 10^3/uL (0.2-0.9) 04/13/24 03:32 Eos # (Auto) 0.3 10^3/uL (0.0-0.8) 04/13/24 03:32 Baso # (Auto) 0.1 10^3/uL (0.0-0.1) 04/13/24 03:32 Nucleated RBC % (auto) 0 % 04/13/24 03:32 Nucleated RBCs # 0.0 /100WBC 04/13/24 03:32 D-Dimer 0.31 ug/mLFEU (0-0.59) 04/13/24 03:32 Sodium 137 mmol/L (136-145) 04/13/24 03:32 Potassium 3.9 mmol/L (3.5-5.1) 04/13/24 03:32 Chloride 104 mmol/L (98-107) 04/13/24 03:32 Carbon Dioxide 22 mmol/L (22-29) 04/13/24 03:32 Anion Gap 14.9 (5-19) 04/13/24 03:32 BUN 19 mg/dL (8-23) 04/13/24 03:32 Creatinine 0.7 mg/dL (0.7-1.2) 04/13/24 03:32 GFR Calculation 112.8 mL/min (90-130) 04/13/24 03:32 Glucose 246 mg/dL (65-115) H 04/13/24 03:32 POC Glucose 243 mg/dL (70-110) H 04/13/24 03:20 Calculated Osmolality 294 mOsm/kg (285-295) 04/13/24 03:32 Calcium 8.8 mg/dL (8.5-10.5) 04/13/24 03:32 Magnesium 1.7 mg/dL (1.7-2.3) 04/13/24 03:32 Total Bilirubin 0.7 mg/dL (0.15-1.2) 04/13/24 03:32 AST 18 U/L (0-40) 04/13/24 03:32 ALT 18 U/L (0-41) 04/13/24 03:32 Alkaline Phosphatase 79 U/L (40-130) 04/13/24 03:32 Creatine Kinase 100 U/L (39-308) 04/13/24 03:32 Troponin T Baseline 14 ng/L (0-15) 04/13/24 03:32 NT-Pro-B Natriuret Pep < 36 pg/mL (0-125) 04/13/24 03:32 Total Protein 6.6 g/dL (6.6-8.7) 04/13/24 03:32 Albumin 4.0 g/dL (3.5-5.2) 04/13/24 03:32 Globulin 2.6 g/dL (1.3-4.6) 04/13/24 03:32 TSH 0.67 uIU/mL (0.27-4.20) 04/13/24 03:32 Urine Color Yellow (Yellow) 04/13/24 03:32 Urine Appearance Clear (CLEAR) 04/13/24 03:32 Urine pH 5.0 (5-7) 04/13/24 03:32 Ur Specific [place] 1.022 (1.005-1.030) 04/13/24 03:32 Urine Protein Negative (Negative) 04/13/24 03:32 Urine Glucose (UA) 3+ (Normal) H 04/13/24 03:32 Urine Ketones Negative (Negative) 04/13/24 03:32 Urine Blood Negative (Negative) 04/13/24 03:32 Urine Nitrate Negative (Negative) 04/13/24 03:32 Urine Bilirubin Negative (Negative) 04/13/24 03:32 Urine Urobilinogen 1.0 mg/dL (Negative) 04/13/24 03:32 Ur Leukocyte Esterase Negative (Negative) 04/13/24 03:32 Urine RBC 0-2 /hpf (0-2) 04/13/24 03:32 Urine WBC 0-5 /hpf (0-5) 04/13/24 03:32 Ur Squamous Epith Cells 0-5 /hpf (0-5) 04/13/24 03:32 Urine Bacteria None seen /hpf (NONE) 04/13/24 03:32 Hyaline Casts 1.65 /lpf 04/13/24 03:32 Urine Opiates Screen Negative ng/mL (Negative) 04/13/24 03:32 Ur Barbiturates Screen Negative ng/mL (Negative) 04/13/24 03:32 Ur Phencyclidine Scrn Negative ng/mL (Negative) 04/13/24 03:32 Ur Amphetamines Screen Negative ng/mL (Negative) 04/13/24 03:32 U Benzodiazepines Scrn Positive ng/mL (Negative) H 04/13/24 03:32 Urine Cocaine Screen Negative ng/mL (Negative) 04/13/24 03:32 U Marijuana (THC) Screen Positive ng/mL (Negative) H 04/13/24 03:32 Ethyl Alcohol < 10 mg/dL (0-10) 04/13/24 03:32 XR interpretation done by ED provider, pending radiology final review ED provider radiology interpretation(s): Chest x-ray per my interpretation shows no infiltrate or effusion or other acute findings. EKG Data EKG 1: I personally reviewed and interpreted this EKG as follows: EKG interpretation date: 04/13/24 EKG interpretation time: 03:17 Computer generated interpretation: Sinus bradycardia, no ST segment elevation or depression, no acute ischemic changes per my interpretation Discharge Plan Discharge Patient Disposition: Home Clinical Impression: Acute hyperglycemia, Diabetes mellitus Condition: Stable Prescriptions: New metformin 500 mg tablet 500 mg PO BID Qty: 60 0RF No Action amlodipine 2.5 mg tablet 2.5 mg PO DAILY Qty: 30 3RF atorvastatin 40 mg tablet 40 mg PO BEDTIME Qty: 30 4RF carvedilol 12.5 mg tablet 12.5 mg PO DAILY Qty: 30 4RF desvenlafaxine succinate [Pristiq] 50 mg tablet extended release 24 hr 50 mg PO DAILY Qty: 30 3RF famotidine [Pepcid] 20 mg tablet 20 mg PO DAILY Qty: 30 5RF Atrovent HFA 17 mcg/actuation HFA aerosol inhaler 2 puff inhalation Q8H Qty: 12.9 3RF lisinopril 20 mg tablet 20 mg PO DAILY Qty: 30 5RF multivitamin [Multiple Vitamins] Tablet 1 tab PO DAILY Qty: 30 3RF Restoril 30 mg capsule 30 mg PO BEDTIME Qty: 30 3RF aspirin 81 mg Tablet,Delayed Release (Dr/Ec) 81 mg PO DAILY thiamine mononitrate (vit B1) [Vitamin B-1 (mononitrate)] 100 mg Tablet 100 mg PO DAILY 30 Days Qty: 30 1RF Ventolin HFA 90 mcg/actuation HFA aerosol inhaler 2 puff INHALATION Q6H PRN (Reason: Shortness Of Breath) Discharge Orders: Discharge ED (Routine); Ordered 04/13/24 Ordered By: Marisela Gilliam Referrals: Sydney Arias MD [Primary Care Provider] - Discharge Diet: Diabetic Discharge Activity: Increase activity as tolerated Patient Instructions: Opioid Safety, Pain Management, Meal Planning with Diabetes Exchanges (DC) Activity Restrictions/Additional Instructions: Follow a diabetic diet. Make sure you are drinking plenty of fluids. Avoid alcohol. Take the Glucophage twice daily. Follow-up first available with your primary care doctor. You need to follow-up in the morning for a fasting blood sugar Coding Level of Care Code ED Motorcycle Delivery Driver for Chg Fwd Related Data Home Medications Medication Instructions Recorded Confirmed aspirin 81 mg tablet,delayed 81 mg PO DAILY 03/10/22 03/21/24 release albuterol sulfate 90 mcg/actuation 2 puff inhalation Q6H PRN 02/22/24 03/21/24 aerosol inhaler (Ventolin HFA) Shortness Of Breath Previous Rx's Medication Instructions Recorded thiamine mononitrate (vit B1) 100 100 mg PO DAILY 30 days #30 tabs 03/13/22 mg tablet (Vitamin B-1 (mononitrate)) amlodipine 2.5 mg tablet 2.5 mg PO DAILY #30 tabs 03/21/24 atorvastatin 40 mg tablet 40 mg PO BEDTIME #30 tabs 03/21/24 carvedilol 12.5 mg tablet 12.5 mg PO DAILY #30 tabs 03/21/24 desvenlafaxine succinate 50 mg 50 mg PO DAILY #30 tabs 03/21/24 tablet,extended release 24 hr (Pristiq) famotidine 20 mg tablet (Pepcid) 20 mg PO DAILY #30 tabs 03/21/24 ipratropium bromide 17 2 puff inhalation Q8H #12.9 grams 03/21/24 mcg/actuation HFA aerosol inhaler (Atrovent HFA) lisinopril 20 mg tablet 20 mg PO DAILY #30 tabs 03/21/24 multivitamin (Multiple Vitamins 1 tab PO DAILY #30 tabs 03/21/24 tablet) temazepam 30 mg capsule (Restoril) 30 mg PO BEDTIME #30 caps 03/21/24 metformin 500 mg tablet 500 mg PO BID #60 tabs 04/13/24 Allergies Allergy/AdvReac Type Severity Reaction Status Date / Time trazodone Allergy Unknown Verified 03/21/24 08:33
[2024-04-13 03:28] LABS: Glucose Point of Care 243 mg/dL (70-110)
[2024-04-13 03:41] LABS: Basophils # 0.1 10^3/uL (0.0-0.1); Basophils % 0.9 %; Eosinophils # 0.3 10^3/uL (0.0-0.8); Eosinophils % 4.8 %; Hematocrit 38.4 % (37-53); Lymphocytes # 1.7 10^3/uL (0.8-4.8); Lymphocytes % 25.9 %; Mean Corpuscular HGB Conc 35.4 g/dL (30-55); Mean Corpuscular Hemoglobin 31.5 pg (27-33); Mean Corpuscular Volume 88.9 fl (82-101); Mean Platelet Volume 9.8 fL (7.4-10.4); Monocytes # 0.5 10^3/uL (0.2-0.9); Neutrophils # 3.95 10^3/uL (1.8-7.7); Neutrophils % 61.1 %; Nucleated Red Blood Cells % 0 %; Platelet Count 202 10^3/cmm (157-399); Red Blood Count 4.32 10^6/uL (3.85-5.65); Red Cell Distribution Width 12.3 % (12.1-15.1); White Blood Count 6.46 10^3/uL (3.29-11.43)
[2024-04-13 03:54] LABS: D Dimer 0.31 ug/mLFEU (0-0.59)
[2024-04-13 03:58] LABS: Troponin(5th) Baseline 14 ng/L (0-15)
[2024-04-13] MEDS: sodium chloride 0.9% 1,000 ML 999 ML IV (04:00)
[2024-04-13 04:05] LABS: Bilirubin Urine Negative (Negative); Blood Urine Negative (Negative); Glucose Urine UA 3+ (Normal); Ketones Urine Negative (Negative); Leukocyte Esterase Urine Negative (Negative); Nitrate Urine Negative (Negative); Protein Urine Negative (Negative); Specific Gravity, Urine 1.022 (1.005-1.030); Urine Appearance Clear (CLEAR); Urine Color Yellow (Yellow)
[2024-04-13 04:08] LABS: Alanine Aminotransferase 18 U/L (0-41); Alkaline Phosphatase 79 U/L (40-130); Anion Gap 14.9 (5-19); Aspartate Amino Transferase 18 U/L (0-40); Blood Urea Nitrogen 19 mg/dL (8-23); Calcium 8.8 mg/dL (8.5-10.5); Carbon Dioxide 22 mmol/L (22-29); Chloride 104 mmol/L (98-107); Creatine Phosphokinase 100 U/L (39-308); Creatinine Clr Calc Pharmacy 84.3271; Globulin 2.6 g/dL (1.3-4.6); Glomerular Filtration Rate 112.8 mL/min (90-130); Glucose 246 mg/dL (65-115); Magnesium 1.7 mg/dL (1.7-2.3); NT Pro B Type Natriuretic Pept < 36 pg/mL (0-125); Osmolality Calculated 294 mOsm/kg (285-295); Potassium 3.9 mmol/L (3.5-5.1); Sodium 137 mmol/L (136-145); Thyroid Stimulating Hormone 0.67 uIU/mL (0.27-4.20); Total Bilirubin 0.7 mg/dL (0.15-1.2); Total Protein 6.6 g/dL (6.6-8.7)
[2024-04-13 04:10] LABS: Add Urine Microscopic? YES; Bacteria Urine None Seen /hpf; Hyaline Casts Urine 1.65 /lpf; RBC Urine 0-2 /hpf (0-2); Squamous Epithelial Cell Urine 0-5 /hpf (0-5); WBC Urine 0-5 /hpf (0-5)
[2024-04-13 04:14] LABS: Amphetamines Screen Urine Negative (Negative); Barbiturates Screen Urine Negative (Negative); Benzodiazepines Screen Urine Positive (Negative); Cocaine Screen Urine Negative (Negative); Opiate Screen Urine Negative (Negative); PCP Screen Urine Negative (Negative); THC Screen Urine Positive (Negative)
[2024-04-13 04:16] LABS: Alcohol Level < 10 mg/dL (0-10)
[2024-04-13 04:51] VITALS: BP 108/62; PULSE 61; O2SAT 95
== END 2024-04-13 04:58 | disposition home or self-care (01) ==
PROVIDERS: Emergency Provider Emergency Medicine; PCP Family Medicine
DX: E11.65 Type 2 diabetes mellitus with hyperglycemia (principal); R00.1 Bradycardia, unspecified; Z79.82 Long term (current) use of aspirin; Z72.0 Tobacco use; I10 Essential (primary) hypertension; Z86.73 Personal history of transient ischemic attack (TIA), and cerebral infarction without residual deficits; E78.5 Hyperlipidemia, unspecified
CPT/HCPCS: 36416; 71045; 80053; 80306; 80307; 81001; 82550; 82962; 83735; 83880; 84443; 84484; 85025; 85378; 93005; 99285; J7030

== ENCOUNTER → 2024-04-19 10:42 | Outpatient (BNVA) | payer MEDICARE, MEDICAID, SELFPAY | PROVIDERS: PCP Family Medicine | DX: R73.9 Hyperglycemia, unspecified (principal) | CPT/HCPCS: 80053; 83036 ==

== ENCOUNTER 2024-07-12 00:02 | Emergency (ER) | payer MEDICARE, MEDICAID, SELFPAY ==
[2024-07-12] VITALS (8 sets, daily range): BP systolic 158–186; BP diastolic 78–85; PULSE 46–54; RESP 16–23; TEMP 36.6; O2SAT 97–99; BMI 25.7
--- NOTE | 2024-07-12 00:06 | XRR_ITS ---
PROCEDURE INFORMATION: Exam: XR Chest Exam date and time: 07/12/2024 12:22 AM Age: 68 years old Clinical indication: Pain; Chest pressure; Additional info: Chest pain HTN TECHNIQUE: Imaging protocol: Radiologic exam of the chest. Views: 1 view. COMPARISON: CR XR chest 1V portable [id number] 04/13/2024 4:14 AM FINDINGS: Lungs: Unremarkable. No consolidation. Pleural spaces: Unremarkable. No pleural effusion. No pneumothorax. Heart/Mediastinum: Unremarkable. No cardiomegaly. Bones/joints: Unremarkable. XR/XR chest 1V portable [id number] IMPRESSION: No acute findings.
--- NOTE | 2024-07-12 00:08 | ED_ITS ---
HPI - General Adult 2 General: Chief complaint: Recheck/Abnormal Lab/Rx Stated complaint: HTN Time Seen by Provider: 07/12/24 00:06 History of Present Illness: Patient presents to the ER with high blood pressure and chest pain throughout the day. Patient says his blood pressure got up to 190 he even took another dose of his lisinopril for a total of 40 mg lisinopril, patient is also on 12.5 mg of carvedilol and 2.5 mg of amlodipine. Patient is also diabetic is on 500 metformin daily Related Data Home Medications Medication Instructions Recorded Confirmed aspirin 81 mg tablet,delayed 81 mg PO DAILY 03/10/22 06/07/24 release albuterol sulfate 90 mcg/actuation 2 puff inhalation Q6H PRN 02/22/24 06/07/24 aerosol inhaler (Ventolin HFA) Shortness Of Breath Previous Rx's Medication Instructions Recorded amlodipine 2.5 mg tablet 2.5 mg PO DAILY #30 tabs 03/21/24 atorvastatin 40 mg tablet 40 mg PO BEDTIME #30 tabs 03/21/24 carvedilol 12.5 mg tablet 12.5 mg PO DAILY #30 tabs 03/21/24 desvenlafaxine succinate 50 mg 50 mg PO DAILY #30 tabs 03/21/24 tablet,extended release 24 hr (Pristiq) famotidine 20 mg tablet (Pepcid) 20 mg PO DAILY #30 tabs 03/21/24 ipratropium bromide 17 2 puff inhalation Q8H #12.9 grams 03/21/24 mcg/actuation HFA aerosol inhaler (Atrovent HFA) multivitamin (Multiple Vitamins 1 tab PO DAILY #30 tabs 03/21/24 tablet) temazepam 30 mg capsule (Restoril) 30 mg PO BEDTIME #30 caps 03/21/24 lancets (Accu-Chek Softclix #100 ea 04/19/24 Lancets) continue glucose monitor #1 ea 06/07/24 metformin 500 mg tablet 500 mg PO DAILY #30 tabs 06/07/24 lisinopril 20 mg tablet 20 mg PO DAILY #30 tabs 07/08/24 Allergies Allergy/AdvReac Type Severity Reaction Status Date / Time trazodone Allergy Unknown Verified 06/07/24 10:28 Review of Systems 2 General: Reports: 10 or more systems reviewed and unremarkable except in HPI and below PFSH ED 2 PFSH: Medical History Prediabetes Encounter to establish care Chronic shortness of breath Osteoarthritis of left shoulder region Acute urticaria Allergic dermatitis Insomnia Subdural hematoma Hypertension History of alcohol dependence reported sobriety date of 02/01 TIA (transient ischemic attack) Hyperthyroidism Depression history of previous SI episodes Hyperlipidemia Lacunar stroke Surgical History History of javi hole surgery 09/12/2019 Dr. Papito Ridley: Twist drill (SEPS) drainage of left convexity subdural hematoma 09/13/2019 Removed History of surgery on right wrist History of ankle surgery left, for fracture Family History Mother Cancer Hypertension Father Hypertension Social History Smoking and tobacco/nicotine status: unknown if used tobacco/nicotine Alcohol intake: former Year of sobriety/quit date alcohol: 02/01 Former alcohol use details: 09/23/2019 presented to [facility] emergency services. Diagnosis intoxication Substance/Drug Use: current Household members: spouse and children Marital status: Current occupational status: retired Physical Exam 2 Const: COMMON NORMALS: no acute distress, average body habitus, patient oriented x3, no limitations, healthy appearing, alert and well nourished HENMT: COMMON NORMALS: normocephalic, atraumatic, hearing grossly normal bilaterally, external ears normal, Normal external nose present and moist oral mucous membranes HEAD & SCALP: normocephalic and atraumatic NOSE: Normal external nose present EXTERNAL EAR: Yes external ears normal Eye: COMMON NORMALS: Equal, round and reactive pupils present, EOMs intact bilaterally, conjunctivae normal and no scleral icterus CONJUNCTIVA: Yes conjunctivae normal PUPIL: Yes Equal, round and reactive pupils present Neck/C-Spine: COMMON NORMALS: full ROM, no lymphadenopathy, supple, no meningeal signs, no JVD and Thyroid normal THYROID: Thyroid normal Chest: COMMONS NORMALS: normal inspection of the chest and normal palpation of entire chest wall Resp: COMMON NORMALS: normal respiratory effort, No retractions, No use of accessory muscles and clear to auscultation bilaterally AUSCULTATION: clear to auscultation bilaterally Cardio: COMMON NORMALS: no JVD, regular rate, regular rhythm, S1 normal heart sound present, S2 normal heart sound present, No gallops present (Cardio), No clicks present (Cardio), No murmurs present (Cardio) and No rub (Cardio) R ATE: regular rate RHYTHM: regular rhythm HEART SOUNDS: S1 normal heart sound present and S2 normal heart sound present GI: COMMON NORMALS: Normal to inspection, nondistended, normoactive bowel sounds present, Soft to palpation, non-tender, No hepatosplenomegaly present and no masses PALPATION: Yes Soft to palpation and Yes No hepatosplenomegaly present Neuro: COMMON NORMALS: patient oriented x3 SENSORIUM/ORIENTATION: Yes alert MENINGEAL SIGNS: Yes no meningeal signs Course 2 Vital Signs: Vital signs: Vital Signs Temperature 98 F 07/12/24 00:07 Pulse Rate 52 L 07/12/24 00:10 Respiratory Rate 23 H 07/12/24 00:07 Blood Pressure 186/85 07/12/24 00:10 Pulse Oximetry 97 07/12/24 00:10 [facility] - General Adult Medical Decision Making Patient came to the ER complaining of chest pain and hypertension, is worked up in a standard fashion. Patient blood pressure is improved on its own. Patient's heart rate decreased down into the 30s. We will hold the patient's carvedilol have him keep a blood pressure log and follow-up with his PCP within next 7 to 10 days. Lab Data 07/12/24 00:00 07/12/24 00:00 Laboratory Results WBC 7.56 10^3/uL (3.29-11.43) 07/12/24 00:00 RBC 4.07 10^6/uL (3.85-5.65) 07/12/24 00:00 Hgb 13.00 g/dL (11.27-16.99) 07/12/24 00:00 Hct 37.5 % (37-53) 07/12/24 00:00 MCV 92.1 fl (82-101) 07/12/24 00:00 MCH 31.9 pg (27-33) 07/12/24 00:00 MCHC 34.7 g/dL (30-55) 07/12/24 00:00 RDW 12.7 % (12.1-15.1) 07/12/24 00:00 Plt Count 197 10^3/cmm (157-399) 07/12/24 00:00 MPV 10.3 fL (7.4-10.4) 07/12/24 00:00 Neut % (Auto) 69.8 % 07/12/24 00:00 Lymph % (Auto) 18.5 % 07/12/24 00:00 [place] % (Auto) 7.0 % 07/12/24 00:00 Eos % (Auto) 3.8 % 07/12/24 00:00 Baso % (Auto) 0.5 % 07/12/24 00:00 Neut # (Auto) 5.27 10^3/uL (1.8-7.7) 07/12/24 00:00 Lymph # (Auto) 1.4 10^3/uL (0.8-4.8) 07/12/24 00:00 [place] # (Auto) 0.5 10^3/uL (0.2-0.9) 07/12/24 00:00 Eos # (Auto) 0.3 10^3/uL (0.0-0.8) 07/12/24 00:00 Baso # (Auto) 0.0 10^3/uL (0.0-0.1) 07/12/24 00:00 Nucleated RBC % (auto) 0 % 07/12/24 00:00 Nucleated RBCs # 0.0 /100WBC 07/12/24 00:00 Sodium 137 mmol/L (136-145) 07/12/24 00:00 Potassium 4.5 mmol/L (3.5-5.1) 07/12/24 00:00 Chloride 103 mmol/L (98-107) 07/12/24 00:00 Carbon Dioxide 23 mmol/L (22-29) 07/12/24 00:00 Anion Gap 15.5 (5-19) 07/12/24 00:00 BUN 14 mg/dL (8-23) 07/12/24 00:00 Creatinine 0.8 mg/dL (0.7-1.2) 07/12/24 00:00 GFR Calculation 96.7 mL/min (90-130) 07/12/24 00:00 Glucose 90 mg/dL (65-115) 07/12/24 00:00 Calculated Osmolality 284 mOsm/kg (285-295) L 07/12/24 00:00 Calcium 9.1 mg/dL (8.5-10.5) 07/12/24 00:00 Total Bilirubin 0.5 mg/dL (0.15-1.2) 07/12/24 00:00 AST 25 U/L (0-40) 07/12/24 00:00 ALT 17 U/L (0-41) 07/12/24 00:00 Alkaline Phosphatase 74 U/L (40-130) 07/12/24 00:00 Troponin T Baseline 15 ng/L (0-15) 07/12/24 00:00 Troponin T 120 Minute 15.21 ng/L (0-15) H 07/12/24 01:53 Delta Troponin T 0.21 ABS# (0-10) 07/12/24 01:53 Total Protein 6.7 g/dL (6.6-8.7) 07/12/24 00:00 Albumin 4.5 g/dL (3.5-5.2) 07/12/24 00:00 Globulin 2.2 g/dL (1.3-4.6) 07/12/24 00:00 Urine Color Yellow (Yellow) 07/12/24 01:30 Urine Appearance Clear (CLEAR) 07/12/24 01:30 Urine pH 5.5 (5-7) 07/12/24 01:30 Ur Specific [place] 1.013 (1.005-1.030) 07/12/24 01:30 Urine Protein Negative (Negative) 07/12/24 01:30 Urine Glucose (UA) Negative (Normal) 07/12/24 01:30 Urine Ketones Negative (Negative) 07/12/24 01:30 Urine Blood Negative (Negative) 07/12/24 01:30 Urine Nitrate Negative (Negative) 07/12/24 01:30 Urine Bilirubin Negative (Negative) 07/12/24 01:30 Urine Urobilinogen 1.0 mg/dL (Negative) 07/12/24 01:30 Ur Leukocyte Esterase Negative (Negative) 07/12/24 01:30 Urine RBC 0-2 /hpf (0-2) 07/12/24 01:30 Urine WBC 0-5 /hpf (0-5) 07/12/24 01:30 Ur Squamous Epith Cells 0-5 /hpf (0-5) 07/12/24 01:30 Amorphous Sediment Not Reportable 07/12/24 01:30 Urine Bacteria None seen /hpf (NONE) 07/12/24 01:30 Hyaline Casts 4.52 /lpf 07/12/24 01:30 All radiology interpretation(s) finalized by discharge Discharge Plan Discharge Patient Disposition: Home Clinical Impression: Bradycardia Hypertension Qualifiers: Hypertension type: unspecified Qualified Code(s): I10 - Essential (primary) hypertension Condition: Stable Prescriptions: No Action amlodipine 2.5 mg tablet 2.5 mg PO DAILY Qty: 30 3RF atorvastatin 40 mg tablet 40 mg PO BEDTIME Qty: 30 4RF carvedilol 12.5 mg tablet 12.5 mg PO DAILY Qty: 30 4RF desvenlafaxine succinate [Pristiq] 50 mg tablet extended release 24 hr 50 mg PO DAILY Qty: 30 3RF famotidine [Pepcid] 20 mg tablet 20 mg PO DAILY Qty: 30 5RF Atrovent HFA 17 mcg/actuation HFA aerosol inhaler 2 puff inhalation Q8H Qty: 12.9 3RF multivitamin [Multiple Vitamins] Tablet 1 tab PO DAILY Qty: 30 3RF Restoril 30 mg capsule 30 mg PO BEDTIME Qty: 30 3RF (DME) lancets [Accu-Chek Softclix Lancets] Misc See Rx Instructions .Route Qty: 100 2RF Rx Instructions: As directed metformin 500 mg tablet 500 mg PO DAILY Qty: 30 2RF (DME) continue glucose monitor See Rx Instructions .Route .MEDSUPPLY Qty: 1 0RF Rx Instructions: As directed lisinopril 20 mg tablet 20 mg PO DAILY Qty: 30 5RF aspirin 81 mg Tablet,Delayed Release (Dr/Ec) 81 mg PO DAILY Ventolin HFA 90 mcg/actuation HFA aerosol inhaler 2 puff INHALATION Q6H PRN (Reason: Shortness Of Breath) Discharge Orders: Discharge ED (Routine); Ordered 07/12/24 Ordered By: Javier Sanders Referrals: Pat Raza, CHARMAINE [Primary Care Provider] - 1 week Patient Instructions: Hypertension (ED), Bradycardia (ED) Activity Restrictions/Additional Instructions: Please keep a blood pressure log with you and take it to your next family practice visit. Please hold your carvedilol until then as this may be lowering your heart rate. However your this may raise your blood pressure by holding this so your family practice doctor may need to change her medicine to compensate for this. [facility] you [facility]. Please realize that you were seen in the emergency department and that we are providing you with an emergency medical screening exam and this may not be a complete and all exclusive of all testing and/or medical workup we may need to determine your element or severity of your illness. It is very important that you follow-up as instructed with your primary care provider or specialist for the additional evaluation and to discuss your medical treatment plan. You may return to the emergency department should you have concerns or if your condition changes or worsens in any way. Coding Level of Care Code ED Workers Compensation Examiner for Fatoumata Cintron
--- NOTE | 2024-07-12 00:08 | ECG_ITS ---
[employer] Test Date: 2024-07-12 Pat Name: Gavin French Jr Department: Room: Gender: Male Home Care Giver: : 1955 Requested By: Javier Sanders Order Number: [id number] Camilla MD: Golden Gilbert M.D. Measurements Intervals [place] Rate: 50 P: -18 WV: 151 QRS: -27 QRSD: 88 T: 53 QT: 425 QTc: 391 Interpretive Statements SINUS BRADYCARDIA BORDERLINE LEFT AXIS DEVIATION [QRS AXIS < -20] POSSIBLE RIGHT VENTRICULAR CONDUCTION DELAY [RSR (QR) IN V1/V2] Compared to ECG 04/13/2024 03:17:45 Left anterior fascicular block no longer present Electronically Signed On 07-12-2024 18:29:34 ORTHODONTIST VICE PRESIDENT by Golden Gilbert M.D. [email or web address]
[2024-07-12 00:31] LABS: Basophils % 0.5 %; Eosinophils # 0.3 10^3/uL (0.0-0.8); Eosinophils % 3.8 %; Hematocrit 37.5 % (37-53); Lymphocytes # 1.4 10^3/uL (0.8-4.8); Lymphocytes % 18.5 %; Mean Corpuscular HGB Conc 34.7 g/dL (30-55); Mean Corpuscular Hemoglobin 31.9 pg (27-33); Mean Corpuscular Volume 92.1 fl (82-101); Mean Platelet Volume 10.3 fL (7.4-10.4); Monocytes # 0.5 10^3/uL (0.2-0.9); Neutrophils # 5.27 10^3/uL (1.8-7.7); Neutrophils % 69.8 %; Nucleated Red Blood Cells % 0 %; Platelet Count 197 10^3/cmm (157-399); Red Blood Count 4.07 10^6/uL (3.85-5.65); Red Cell Distribution Width 12.7 % (12.1-15.1); White Blood Count 7.56 10^3/uL (3.29-11.43)
[2024-07-12 00:38] LABS: Alanine Aminotransferase 17 U/L (0-41); Albumin Level 4.5 g/dL (3.5-5.2); Alkaline Phosphatase 74 U/L (40-130); Blood Urea Nitrogen 14 mg/dL (8-23); Calcium 9.1 mg/dL (8.5-10.5); Carbon Dioxide 23 mmol/L (22-29); Chloride 103 mmol/L (98-107); Creatinine Clr Calc Pharmacy 80.5978; Globulin 2.2 g/dL (1.3-4.6); Glomerular Filtration Rate 96.7 mL/min (90-130); Glucose 90 mg/dL (65-115); Osmolality Calculated 284 mOsm/kg (285-295); Sodium 137 mmol/L (136-145); Total Bilirubin 0.5 mg/dL (0.15-1.2); Total Protein 6.7 g/dL (6.6-8.7); Troponin(5th) Baseline 15 ng/L (0-15)
[2024-07-12 00:53] LABS: Anion Gap 15.5 (5-19); Aspartate Amino Transferase 25 U/L (0-40); Potassium 4.5 mmol/L (3.5-5.1)
[2024-07-12 01:59] LABS: Bilirubin Urine Negative (Negative); Blood Urine Negative (Negative); Glucose Urine UA Negative (Normal); Ketones Urine Negative (Negative); Leukocyte Esterase Urine Negative (Negative); Nitrate Urine Negative (Negative); Protein Urine Negative (Negative); Specific Gravity, Urine 1.013 (1.005-1.030); Urine Appearance Clear (CLEAR); Urine Color Yellow (Yellow); pH Urine 5.5 (5-7)
[2024-07-12 02:04] LABS: Add Urine Microscopic? YES; Bacteria Urine None Seen /hpf; Hyaline Casts Urine 4.52 /lpf; RBC Urine 0-2 /hpf (0-2); Squamous Epithelial Cell Urine 0-5 /hpf (0-5); WBC Urine 0-5 /hpf (0-5)
[2024-07-12 02:22] LABS: Troponin 5 2HR 15.21 ng/L (0-15); Troponin 5 2HR Delta 0.21 ABS# (0-10)
== END 2024-07-12 03:00 | disposition home or self-care (01) ==
PROVIDERS: Emergency Provider Emergency Medicine
DX: R00.1 Bradycardia, unspecified (principal); I10 Essential (primary) hypertension; Z79.84 Long term (current) use of oral hypoglycemic drugs; Z79.82 Long term (current) use of aspirin; Z86.73 Personal history of transient ischemic attack (TIA), and cerebral infarction without residual deficits; E11.9 Type 2 diabetes mellitus without complications; E78.5 Hyperlipidemia, unspecified
CPT/HCPCS: 36415; 71045; 80053; 81001; 84484; 85025; 93005; 99285

== ENCOUNTER 2024-07-12 18:37 | Inpatient (IN) | payer MEDICARE, MEDICAID, SELFPAY ==
[2024-07-12] VITALS (15 sets, daily range): BP systolic 116–185; BP diastolic 61–97; PULSE 44–60; RESP 13–29; TEMP 36.9; O2SAT 95–99; BMI 27.4
--- NOTE | 2024-07-12 18:38 | XRR_ITS ---
PROCEDURE INFORMATION: Exam: XR Chest Exam date and time: 07/12/2024 6:45 PM Age: 68 years old Clinical indication: Pain; Chest pressure; Additional info: Chest pain TECHNIQUE: Imaging protocol: Radiologic exam of the chest. Views: 1 view. COMPARISON: CR (CHEST, ) 07/12/2024 12:22 AM FINDINGS: Lungs: Unremarkable. No consolidation. Pleural spaces: Unremarkable. No pleural effusion. No pneumothorax. Heart/Mediastinum: Small hiatal hernia. Bones/joints: Unremarkable. XR/XR chest 1V portable [id number] IMPRESSION: As above.
--- NOTE | 2024-07-12 18:38 | ECG_ITS ---
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 Measurements Intervals [place] Rate: 53 P: 32 ID: [id number] QRS: -33 QRSD: 85 T: 56 QT: 432 QTc: 407 Interpretive Statements SINUS BRADYCARDIA LEFT AXIS DEVIATION [QRS AXIS < -30] Compared to ECG 07/12/2024 00:08:47 No significant changes Electronically Signed On 07-14-2024 20:10:21 OFFICE SPEC by Golden Gilbert M.D. [id number]
[2024-07-12 18:52] LABS: Basophils # 0.1 10^3/uL (0.0-0.1); Basophils % 0.8 %; Eosinophils # 0.3 10^3/uL (0.0-0.8); Eosinophils % 3.9 %; Hematocrit 38.9 % (37-53); Lymphocytes # 1.1 10^3/uL (0.8-4.8); Lymphocytes % 17.1 %; Mean Corpuscular HGB Conc 35.7 g/dL (30-55); Mean Corpuscular Hemoglobin 32.5 pg (27-33); Mean Corpuscular Volume 90.9 fl (82-101); Mean Platelet Volume 10.2 fL (7.4-10.4); Monocytes # 0.6 10^3/uL (0.2-0.9); Monocytes % 8.8 %; Neutrophils # 4.37 10^3/uL (1.8-7.7); Neutrophils % 69.1 %; Nucleated Red Blood Cells % 0 %; Platelet Count 192 10^3/cmm (157-399); Red Blood Count 4.28 10^6/uL (3.85-5.65); Red Cell Distribution Width 12.7 % (12.1-15.1); White Blood Count 6.33 10^3/uL (3.29-11.43)
[2024-07-12 19:04] LABS: INR 0.99 (0.8-1.2)
[2024-07-12 19:08] LABS: Troponin(5th) Baseline 13 ng/L (0-15)
--- NOTE | 2024-07-12 19:18 | ED_ITS ---
HPI - Chest Pain 2 General: Chief Complaint: Chest Pain Stated Complaint: hypertension, chest pain Time Seen by Provider: 07/12/24 18:37 History of Present Illness: Patient presents to the ER with complaints of chest pain earlier today and hypertension. Patient was seen for both these episodes last night and worked up. Patient was told to stop his carvedilol because of the bradycardia. Patient also says he has had bradycardia today. Patient called his doctor and they told him to come in. Patient was given 1 nitro and 3 and 24 mg aspirin prior to arrival. Patient is chest pain-free and upon arrival his blood pressure is 148/75. Patient has no short-term quick-acting antihypertensives. He is on amlodipine 2.5, lisinopril 20, Related Data Home Medications Medication Instructions Recorded Confirmed aspirin 81 mg tablet,delayed 81 mg PO DAILY 03/10/22 06/07/24 release albuterol sulfate 90 mcg/actuation 2 puff inhalation Q6H PRN 02/22/24 06/07/24 aerosol inhaler (Ventolin HFA) Shortness Of Breath Previous Rx's Medication Instructions Recorded amlodipine 2.5 mg tablet 2.5 mg PO DAILY #30 tabs 03/21/24 atorvastatin 40 mg tablet 40 mg PO BEDTIME #30 tabs 03/21/24 carvedilol 12.5 mg tablet 12.5 mg PO DAILY #30 tabs 03/21/24 desvenlafaxine succinate 50 mg 50 mg PO DAILY #30 tabs 03/21/24 tablet,extended release 24 hr (Pristiq) famotidine 20 mg tablet (Pepcid) 20 mg PO DAILY #30 tabs 03/21/24 ipratropium bromide 17 2 puff inhalation Q8H #12.9 grams 03/21/24 mcg/actuation HFA aerosol inhaler (Atrovent HFA) multivitamin (Multiple Vitamins 1 tab PO DAILY #30 tabs 03/21/24 tablet) temazepam 30 mg capsule (Restoril) 30 mg PO BEDTIME #30 caps 03/21/24 lancets (Accu-Chek Softclix #100 ea 04/19/24 Lancets) continue glucose monitor #1 ea 06/07/24 metformin 500 mg tablet 500 mg PO DAILY #30 tabs 06/07/24 lisinopril 20 mg tablet 20 mg PO DAILY #30 tabs 07/08/24 Allergies Allergy/AdvReac Type Severity Reaction Status Date / Time trazodone Allergy Unknown Verified 06/07/24 10:28 Review of Systems 2 General: Reports: 10 or more systems reviewed and unremarkable except in HPI and below PFSH ED 2 PFSH: Medical History Prediabetes Encounter to establish care Chronic shortness of breath Osteoarthritis of left shoulder region Acute urticaria Allergic dermatitis Insomnia Subdural hematoma Hypertension History of alcohol dependence reported sobriety date of 02/01 TIA (transient ischemic attack) Hyperthyroidism Depression history of previous SI episodes Hyperlipidemia Lacunar stroke Surgical History History of javi hole surgery 09/12/2019 Dr. Papito Ridley: Twist drill (SEPS) drainage of left convexity subdural hematoma 09/13/2019 Removed History of surgery on right wrist History of ankle surgery left, for fracture Family History Mother Cancer Hypertension Father Hypertension Social History Smoking and tobacco/nicotine status: unknown if used tobacco/nicotine Alcohol intake: former Year of sobriety/quit date alcohol: 02/01 Former alcohol use details: [place]23/2019 [place] [facility] [place] Diagnosis intoxication Substance/Drug Use: current Household members: spouse and children Marital status: Current occupational status: retired Physical Exam 2 Const: COMMON NORMALS: no acute distress, average body habitus, patient oriented x3, no limitations, healthy appearing, alert and well nourished HENMT: COMMON NORMALS: normocephalic, atraumatic, hearing grossly normal bilaterally, external ears normal, Normal external nose present and moist oral mucous membranes HEAD & SCALP: normocephalic and atraumatic NOSE: Normal external nose present EXTERNAL EAR: Yes external ears normal Neck/C-Spine: COMMON NORMALS: full ROM, no lymphadenopathy, supple, no meningeal signs, no JVD and Thyroid normal THYROID: Thyroid normal Chest: COMMONS NORMALS: normal inspection of the chest and normal palpation of entire chest wall Resp: COMMON NORMALS: normal respiratory effort, No retractions, No use of accessory muscles and clear to auscultation bilaterally AUSCULTATION: clear to auscultation bilaterally Cardio: COMMON NORMALS: no JVD, regular rate, regular rhythm, S1 normal heart sound present, S2 normal heart sound present, No gallops present (Cardio), No clicks present (Cardio), No murmurs present (Cardio) and No rub (Cardio) R ATE: regular rate RHYTHM: regular rhythm HEART SOUNDS: S1 normal heart sound present and S2 normal heart sound present GI: COMMON NORMALS: Normal to inspection, nondistended, normoactive bowel sounds present, Soft to palpation, non-tender, No hepatosplenomegaly present and no masses PALPATION: Yes Soft to palpation and Yes No hepatosplenomegaly present Neuro: COMMON NORMALS: patient oriented x3 SENSORIUM/ORIENTATION: Yes alert MENINGEAL SIGNS: Yes no meningeal signs Course 2 Vital Signs: Vital signs: Vital Signs Temperature 98.5 F 07/12/24 18:38 Pulse Rate 49 L 07/12/24 21:59 Respiratory Rate 29 H 07/12/24 21:30 Blood Pressure 165/95 07/12/24 21:59 Pulse Oximetry 99 07/12/24 21:30 Oxygen Delivery Me thod Room Air 07/12/24 18:38 MDM - Chest Pain Medical Decision Making Patient presented chest pain and high blood pressure. Patient was worked up in normal chest pain fashion with serial EKGs lab work, patient was given 1 inch Nitropaste for chest pain. Is decrease his blood pressure from 199 168. Patient's chest pain went [facility] [place] consulted who agreed to place patient in observation for chest pain and hypertension. Medical Records I reviewed the patient's medical records. Lab Data I reviewed the patient's lab results. 07/12/24 18:45 07/12/24 18:45 Radiology Impressions Chest X-Ray 07/12/24 18:38 IMPRESSION: As above. Laboratory Results WBC 6.33 10^3/uL (3.29-11.43) 07/12/24 18:45 RBC 4.28 10^6/uL (3.85-5.65) 07/12/24 18:45 Hgb 13.90 g/dL (11.27-16.99) 07/12/24 18:45 Hct 38.9 % (37-53) 07/12/24 18:45 MCV 90.9 fl (82-101) 07/12/24 18:45 MCH 32.5 pg (27-33) 07/12/24 18:45 MCHC 35.7 g/dL (30-55) 07/12/24 18:45 RDW 12.7 % (12.1-15.1) 07/12/24 18:45 Plt Count 192 10^3/cmm (157-399) 07/12/24 18:45 MPV 10.2 fL (7.4-10.4) 07/12/24 18:45 Neut % (Auto) 69.1 % 07/12/24 18:45 Lymph % (Auto) 17.1 % 07/12/24 18:45 [place] % (Auto) 8.8 % 07/12/24 18:45 Eos % (Auto) 3.9 % 07/12/24 18:45 Baso % (Auto) 0.8 % 07/12/24 18:45 Neut # (Auto) 4.37 10^3/uL (1.8-7.7) 07/12/24 18:45 Lymph # (Auto) 1.1 10^3/uL (0.8-4.8) 07/12/24 18:45 [place] # (Auto) 0.6 10^3/uL (0.2-0.9) 07/12/24 18:45 Eos # (Auto) 0.3 10^3/uL (0.0-0.8) 07/12/24 18:45 Baso # (Auto) 0.1 10^3/uL (0.0-0.1) 07/12/24 18:45 Nucleated RBC % (auto) 0 % 07/12/24 18:45 Nucleated RBCs # 0.0 /100WBC 07/12/24 18:45 PT 13.40 SECONDS (12.1-14.9) 07/12/24 18:45 INR 0.99 (0.8-1.2) 07/12/24 18:45 Sodium 136 mmol/L (136-145) 07/12/24 18:45 Potassium 4.3 mmol/L (3.5-5.1) 07/12/24 18:45 Chloride 104 mmol/L (98-107) 07/12/24 18:45 Carbon Dioxide 20 mmol/L (22-29) L 07/12/24 18:45 Anion Gap 16.3 (5-19) 07/12/24 18:45 BUN 12 mg/dL (8-23) 07/12/24 18:45 Creatinine 0.5 mg/dL (0.7-1.2) L 07/12/24 18:45 GFR Calculation 166.4 mL/min (90-130) H 07/12/24 18:45 Glucose 93 mg/dL (65-115) 07/12/24 18:45 Calculated Osmolality 281 mOsm/kg (285-295) L 07/12/24 18:45 Calcium 9.3 mg/dL (8.5-10.5) 07/12/24 18:45 Total Bilirubin 1.1 mg/dL (0.15-1.2) 07/12/24 18:45 AST 22 U/L (0-40) 07/12/24 18:45 ALT 17 U/L (0-41) 07/12/24 18:45 Alkaline Phosphatase 80 U/L (40-130) 07/12/24 18:45 Troponin T Baseline 13 ng/L (0-15) 07/12/24 18:45 Troponin T 120 Minute 13.44 ng/L (0-15) 07/12/24 20:21 Delta Troponin T 0.44 ABS# (0-10) 07/12/24 20:21 Total Protein 7.3 g/dL (6.6-8.7) 07/12/24 18:45 Albumin 4.7 g/dL (3.5-5.2) 07/12/24 18:45 Globulin 2.6 g/dL (1.3-4.6) 07/12/24 18:45 All radiology interpretation(s) finalized by discharge Discharge Plan Discharge Patient Disposition: Placed in Observation Clinical Impression: Hypertension, Bradycardia Chest pain Qualifiers: Chest pain type: unspecified Qualified Code(s): R07.9 - Chest pain, unspecified Coding Level of Care Code ED Engineer Second Assistant for Fatoumata Cintron
[2024-07-12 19:19] LABS: Alanine Aminotransferase 17 U/L (0-41); Albumin Level 4.7 g/dL (3.5-5.2); Alkaline Phosphatase 80 U/L (40-130); Anion Gap 16.3 (5-19); Aspartate Amino Transferase 22 U/L (0-40); Blood Urea Nitrogen 12 mg/dL (8-23); Calcium 9.3 mg/dL (8.5-10.5); Carbon Dioxide 20 mmol/L (22-29); Chloride 104 mmol/L (98-107); Creatinine Clr Calc Pharmacy 82.9288; Globulin 2.6 g/dL (1.3-4.6); Glomerular Filtration Rate 166.4 mL/min (90-130); Glucose 93 mg/dL (65-115); Osmolality Calculated 281 mOsm/kg (285-295); Potassium 4.3 mmol/L (3.5-5.1); Sodium 136 mmol/L (136-145); Total Bilirubin 1.1 mg/dL (0.15-1.2); Total Protein 7.3 g/dL (6.6-8.7)
[2024-07-12] MEDS: ketorolac 30 mg/mL INJ IVP (20:11)
--- NOTE | 2024-07-12 20:38 | ECG_ITS ---
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 Measurements Intervals [place] Rate: 45 P: -22 WV: 144 QRS: -26 QRSD: 98 T: 25 QT: 450 QTc: 393 Interpretive Statements SINUS BRADYCARDIA BORDERLINE LEFT AXIS DEVIATION [QRS AXIS < -20] Compared to ECG 07/12/2024 18:40:53 No significant changes Electronically Signed On 07-14-2024 20:17:25 DIRECT[employer] by Golden Gilbert M.D. [id number]
[2024-07-12 20:49] LABS: Troponin 5 2HR 13.44 ng/L (0-15); Troponin 5 2HR Delta 0.44 ABS# (0-10)
[2024-07-12] MEDS: nitroglycerin 1 gm/inch oint Pkt 1 INCH TOPICAL (21:59)
--- NOTE | 2024-07-12 22:38 | P.HP_ITS ---
Providers/Chief Complaint 2 Primary Care Provider: Pat Raza NP Chief Complaint: hypertension, chest pain History of Present Illness Gavin French Jr is a 68 year old male w/ HTN, HLD, who presents to [facility]'s ED on 07/12/2024, via EMS, for an elevated BP of 198/95mmHg w/ a HR of 47. The patient tells me that he came to the ED on Monday tin dipper at ~1am, after he woke up with a non-radiating, non-pleuritic, non-positional L. sided chest pain. He checked his BP and it was 180/98mmHg w/ a HR of 41. His called EMS, brought him to the ED. His EKG showed sinus bradycardia w/ no ST changes and his Trop T were neg x 3 minimally elevated. He was discharged and asked to f/u w/ his PCP and to hold the Carvedilol given his bradycardia. He was also told that Carvedilol would take a few days to clear from his body. He states that he woke up around 11:30am this morning, and checked his BP and it was 160/72mmHg. He took Lisinopril 40mg instead of his usual 20mg in addition to his daily Aspirin 81mg. He started checking his BP [id number]. When his SBP became 198mmHg, his decided to have him return to the hospital. He states that throughout the day, he had intermittent non-radiating, non-pleuritic, non- positional L. sided chest pain that lasted 2-3 mins before subsiding. Associated w/ the CP were diaphoresis, light headedness, headaches, blurry vision that started right before coming to the ED this evening, palpitations . He denies fever, chills, dizziness, syncope, SOB. He endorses a cough, but he attributes it to his hx of smoking. He endorses 3 episodes of liquid stools today. He states that his chest pain that was occuring throughout the day was of the same nature as the chest pain that brought him to the ED, the first time, except that it was more frequent. In the ED, his vitals were significant for bradycardia to approximately 49. His EKG continued to show sinus bradycardia w/ no ST changes. His CXR continued to show no acute findings. He was given Toradol and SL NTG and admitted for chest pain r/o. Review of Systems 2 Const: Reports: diaphoresis; Denies: fever(s) or chills Eyes: Reports: blurry vision ENMT: Reports: dry mouth and nasal congestion (after he presented to the ED this evening. ); Denies: odynophagia, ear or mastoid pain, ear discharge or nasal discharge Card: Reports: chest pain, palpitations and lightheadedness Resp: Reports: other (he has a cough but he attributes it to smoker's cough. ); Denies: dyspnea GI: Reports: nausea; Denies: abdominal pain, vomiting, hematochezia or melena : Reports: urinary frequency (he attributes it to his metformin) and urinary urgency; Denies: hematuria Musc: Reports: other (no myalgias); Denies: joint pain Skin/Breast: Denies: rash or new lesions Neuro: Reports: headache(s) and other (no syncope) Psych: Reports: anxiety and depression; Denies: suicidal ideation or homicidal ideation Endo: Denies: cold intolerance or heat intolerance Casey/Lymph: Denies: easy bruising or easy bleeding All/Imm: Reports: other (trazodone makes him edgy) Medications/Allergies Home Medications Medication Instructions Recorded Confirmed Last Taken Type aspirin 81 mg tablet,delayed 81 mg PO DAILY 03/10/22 07/12/24 02/21/24 History release amlodipine 2.5 mg tablet 2.5 mg PO DAILY #30 tabs 03/21/24 07/12/24 Unknown Rx atorvastatin 40 mg tablet 40 mg PO BEDTIME #30 tabs 03/21/24 07/12/24 Unknown Rx desvenlafaxine succinate 50 mg 50 mg PO DAILY #30 tabs 03/21/24 07/12/24 Unknown Rx tablet,extended release 24 hr (Pristiq) famotidine 20 mg tablet (Pepcid) 20 mg PO DAILY #30 tabs 03/21/24 07/12/24 Unknown Rx ipratropium bromide 17 2 puff inhalation Q8H #12.9 grams 03/21/24 07/12/24 Unknown Rx mcg/actuation HFA aerosol inhaler (Atrovent HFA) multivitamin (Multiple Vitamins 1 tab PO DAILY #30 tabs 03/21/24 07/12/24 Unknown Rx tablet) lancets (Accu-Chek Softclix #100 ea 04/19/24 07/13/24 Unknown Rx Lancets) continue glucose monitor #1 ea 06/07/24 07/13/24 Unknown Rx metformin 500 mg tablet 500 mg PO DAILY #30 tabs 06/07/24 07/12/24 Unknown Rx lisinopril 20 mg tablet 20 mg PO DAILY #30 tabs 07/08/24 07/12/24 Unknown Rx albuterol sulfate 90 mcg/actuation 90 mcg inhalation Q6H PRN SOB 07/12/24 07/12/24 Unknown History aerosol inhaler (Ventolin HFA) Allergies Allergy/AdvReac Type Severity Reaction Status Date / Time trazodone Allergy Unknown Verified 06/07/24 10:28 PFSH Acute 2 PFSH: Medical History Prediabetes Encounter to establish care Chronic shortness of breath Osteoarthritis of left shoulder region Acute urticaria Allergic dermatitis Insomnia Subdural hematoma Hypertension History of alcohol dependence reported sobriety date of 02/01 TIA (transient ischemic attack) Hyperthyroidism Depression history of previous SI episodes Hyperlipidemia Lacunar stroke Surgical History History of javi hole surgery 09/12/2019 Dr. Papito Ridley: Twist drill (SEPS) drainage of left convexity subdural hematoma 09/13/2019 Removed History of surgery on right wrist History of ankle surgery left, for fracture Family History Mother Cancer Hypertension Father Hypertension Social History Smoking and tobacco/nicotine status: unknown if used tobacco/nicotine Alcohol intake: former Year of sobriety/quit date alcohol: 02/01 Former alcohol use details: 09/23/2019 presented to [facility] [place] emergency services. Diagnosis intoxication Substance/Drug Use: current Household members: spouse and children Marital status: Current occupational status: retired Vitals/I&O/Wt Last Vital Signs Temp 98.5 F 07/12/24 18:38 Pulse 49 L 07/12/24 21:59 Resp 29 H 07/12/24 21:30 BP 165/95 07/12/24 21:59 Pulse Ox 99 07/12/24 21:30 O2 Del Method Room Air 07/12/24 18:38 Weight last 48 hrs Weight 72.575 kg Physical Exam 2 Const: GENERAL APPEARANCE: cooperative and comfortable O RIENTATION/CONSCIOUSNESS: Yes awake, Yes oriented to person and Yes oriented to place HENMT: HEAD & SCALP: normocephalic and atraumatic NOSE: Normal external nose present EXTERNAL EAR: Yes external ears normal MOUTH: Normal oral and palatal mucosa present THROAT: posterior oropharynx normal Eye: PUPIL: Yes Equal, round and reactive pupils present EOM: No EOM abnormal Neck/C-Spine: GENERAL: Yes normal visual inspection and Yes trachea midline THYROID: Thyroid normal CAROTIDS: No bruit CERVICAL SPINE: Yes cervical ROM normal Lymph: OTHER: No cervical or supraclavicular LAD Resp: AUSCULTATION: clear to auscultation bilaterally, no crackles, no rales, no rhonchi and no wheezes Cardio: OTHER: RRR, no m/r/g or clicks, 2+ radial and DP pulses. GI: OTHER: BS+, NT, ND, no guarding, no rigidity, no rebound tenderness, no hepatosplenomegaly. Extremity: GENERAL: No clubbing, No cyanosis and No edema Neuro: CRANIAL NERVES: Yes CN normal except as noted SPEECH: speech normal SENSORY EXAM: No sensory level loss detected MOTOR EXAM: 5/5 motor strength present throughout and Normal motor muscle tone present throughout Psych: APPEARANCE: Yes grossly normal ATTITUDE: Yes calm and Yes engaged ACTIVITY/MOTOR BEHAVIOR: Yes appropriate eye contact SPEECH: Yes normal speech MOOD & AFFECT: Yes euthymic mood THOUGHT PROCESS: Normal thought process present THOUGHT CONTENT: Yes Normal thought content present A TTENTION/CONCENTRATION: Yes attention grossly intact Skin: GENERAL SKIN EXAM: no rashes or lesions noted Data 07/12/24 18:45 07/12/24 18:45 A&P Assessment and plan (1) Hypertension: Qualifiers: Hypertension type: unspecified Qualified Code(s): I10 - Essential (primary) hypertension (2) Depression: Qualifiers: Depression Type: major depressive disorder Major depression recurrence: single episode Active/Remission status: currently active Major depression episode severity: moderate Qualified Code(s): F32.1 - Major depressive disorder, single episode, moderate (3) Chest pain: Qualifiers: Chest pain type: unspecified Qualified Code(s): R07.9 - Chest pain, unspecified (4) Bradycardia: (5) Hyperlipidemia: Qualifiers: Hyperlipidemia type: unspecified Qualified Code(s): E78.5 - Hyperlipidemia, unspecified (6) Tobacco use disorder: Plan Gavin French Jr is a 68 year old male w/ HTN, HLD, who presents to [facility]'s ED on 07/12/2024, via EMS, for an elevated BP of 198/95mmHg w/ a HR of 47 and complaints of a non-radiating, non-pleuritic, non-positional L. sided chest pain. #Chest pain: - Concern for Unstable angina - F/u Trop T, EKG, ordered ECHO. Telemonitoring. - Consider Cards consult since he returned the second time w/in 18hr for chest pain #Bradycardia #HTN #HLD - Resumed home meds. I tried to order a Utox and b/c he has [facility] [employer] Medicare, it has rejected my ability to order a Utox. - Increased Lisinopril to 40mg from his home 20mg. Continued Aspirin, Atorvastatin. Held Amlodipine and b-lore. #Hyperthyroidism? - The patient states that he does not know about this diagnosis - F/u TSH/free T4 #Alcohol use d/o: No use of alcohol in about 6 months. #hx of cocaine & Marijuana use: Snorted cocaine - last use was 22yrs ago. Last used cannabis 3 weeks ago. #Insomnia #MDD #Hx of L. frontoparietal subdural hematoma in 2019 #Tobacco use d/o: Current 1/2 pk a week. Declined nicotine patch #GERD?: Resumed famotidine DVT ppx: Lovenox Attestations 2 Medical Necessity Statement*: Patient needs to remain hospitalized for greater than 2 midnights for further evaluation of his recurrent chest pain, hypertensive episodes and bradycardia. Time Spent in Patient Care: >70mins was spent on chart review, patient interview/exam, lab/imaging review, plan formulation and coordination of care. Coding Level of Care Code Acute Code for Chg Fwd Diagnoses Essential hypertension I10 Hypertension type: unspecified Current moderate episode of major depressive disorder without prior episode F32.1 Depression Type: major depressive disorder Major depression recurrence: single episode Active/Remission status: currently active Major depression episode severity: moderate Chest pain R07.9 Chest pain type: unspecified Bradycardia R00.1 Hyperlipidemia, unspecified hyperlipidemia type E78.5 Hyperlipidemia type: unspecified Tobacco use disorder F17.200
[2024-07-13] VITALS (9 sets, daily range): BP systolic 120–165; BP diastolic 64–87; PULSE 43–76; RESP 16–18; TEMP 36.4–36.8; O2SAT 93–98
--- NOTE | 2024-07-13 00:38 | USCV_ITS ---
Gavin French Age: 68 Gender: M : 1955 Exam Date: 07/13/2024 09:37 Ordering Phys: Danielle Guardado MD Technologist: COLE [place] [facility] [place]: chest pain BP: 165 / 76 HR: 44 Rhythm: Sinus Technical Quality: Adequate MEASUREMENTS (Male / Female) Normal Values 2D ECHO LV Diastolic Diameter PLAX 4.7 cm 4.2 - 5.9 / 3.9 - 5.3 cm IVS Diastolic Thickness 1.1 cm 0.6 - 1.0 / 0.6 - 0.9 cm IVS Systolic Thickness 1.3 cm LVPW Diastolic Thickness 1.6 cm 0.6 - 1.0 / 0.6 - 0.9 cm LVPW Systolic Thickness 2.1 cm LVOT Diameter 2.1 cm LV Ejection Fraction 2D Teich 66.1 % LV Ejection Fraction MOD 4C 71.5 % LV Ejection Fraction MOD 2C 69.0 % LV Ejection Fraction 2C AL 70.2 % LA Diameter 3.3 cm RA Systolic Volume 4C AL 28.6 ml RA Systolic Volume 4C MOD 29.8 ml LA Sys Volume AL 43.3 cm cubed LA Sys Volume Index AL 23.8 cm cubed/m squared IVC Diameter 1.4 cm M-MODE LA Ao Ratio MM 1.2 AV Cusp Separation MM 2.2 cm DOPPLER AV Peak Velocity 130.0 cm/s LVOT Peak Velocity 75.0 cm/s AV Area Cont Eq vti 2.2 cm squared AV Area Cont Eq pk 1.9 cm squared MV Peak Velocity 100.0 cm/s MV Area PHT 4.3 cm squared Mitral E to A Ratio 1.1 TR Peak Velocity 242.0 cm/s TR Peak Gradient 23.4 mmHg TR Mean Velocity 176.0 cm/s TR Mean Gradient 13.9 mmHg TR Velocity Time Integral 65.8 cm PV Peak Velocity 99.3 cm/s RV Ejection Time 0.3 s FINDINGS Left Ventricle Left ankle is normal size. LV systolic function is normal with EF of 60-65%. No regional wall motion abnormalities are seen. Right Ventricle Normal in size and function Right Atrium Normal in size Left Atrium Normal in size Mitral Valve Structurally normal mitral valve. Trace mitral regurgitation. Aortic Valve Structurally normal aortic valve. No significant stenosis. Mild aortic regurgitation. Tricuspid Valve Insufficient TR jet to evaluate RVSP. Pulmonic Valve Not well visualized Pericardium Normal Aorta Normal in size IVC Not well visualized CONCLUSIONS LV systolic function is normal with EF 60 to 65%. Trace mitral regurgitation Mild aortic regurgitation Golden Gilbert MD (Electronically Signed) Final Date: 13 July 2024 12:23 S
[2024-07-13 01:26] LABS: Troponin 5 6HR 12.01 ng/L (0-15)
[2024-07-13 01:27] LABS: Troponin 5 6HR Delta -0.99 ng/L (0-12)
[2024-07-13] MEDS: aspirin 325 mg Tablet PO (02:13)
[2024-07-13] MEDS: enoxaparin 40 mg/0.4 mL Syringe SUBCUT (02:13)
[2024-07-13 06:27] LABS: Glucose Point of Care 86 mg/dL (70-110)
[2024-07-13] MEDS: lisinopril 20 mg Tablet 40 MG PO (08:48)
[2024-07-13] MEDS: docusate sodium 100 mg Capsule 200 MG PO (08:49)
[2024-07-13] MEDS: desvenlafaxine 50 mg Tablet PO (08:49)
[2024-07-13 10:23] LABS: Amphetamines Screen Urine Negative (Negative); Barbiturates Screen Urine Negative (Negative); Benzodiazepines Screen Urine Negative (Negative); Cocaine Screen Urine Negative (Negative); Opiate Screen Urine Negative (Negative); PCP Screen Urine Negative (Negative); THC Screen Urine Positive (Negative)
--- NOTE | 2024-07-13 14:58 | P.PN_ITS ---
Subjective 2 Subjective: Overnight labs and H&P reviewed. Heart rate currently 48/min. Patient states at home it has dropped down to 30s. Patient reports being asymptomatic. States he has chest discomfort when his blood pressure goes above a certain number around 160 or so. States he has a past medical history of bradycardia as well. He had a loop recorder placed several years ago by Dr. Sage. He states that adjustments were made to his carvedilol and his antihypertensives at that time and then it was deemed he does not need a pacemaker. In reviewing his prior blood pressure trend it appears that his heart rate has been between 40 to 60 bpm in 2020 as well. He stopped taking his carvedilol after his ER visit on 07/12 Denies any known history of CAD however has had angiogram and stents in the past. Medications: Reviewed: Yes Vitals/I&O/Wt Last Vital Signs Temp 97.6 F 07/13/24 11:16 Pulse 48 L 07/13/24 11:16 Resp 18 07/13/24 11:16 BP 130/64 07/13/24 11:16 Pulse Ox 95 07/13/24 11:16 O2 Del Method Room Air 07/13/24 11:16 07/12/24 07/13/24 07/13/24 22:59 06:59 14:59 Output Total 200 / 200 Balance -200 / -200 Weight last 48 hrs Weight 71.753 kg Weight 72.575 kg Weight 72.575 kg Physical Exam 2 Narrative: General: No acute distress, AO x1 HEENT: PERRLA, pupils bilaterally equal and reactive, pallors not present Chest: Normal vesicular breath sounds, no added sounds, equal good air entry bilaterally CVS: S1-S2 regular, no murmurs, no tachycardia, no gallops, no rubs Abdomen: Soft, nontender, no organomegaly, bowel sounds present Neuro: No focal deficits, no facial deformity, AO x3, power 5/5 in all limbs Data 07/12/24 18:45 07/12/24 18:45 A&P Assessment and plan (1) Hypertension: Qualifiers: Hypertension type: unspecified Qualified Code(s): I10 - Essential (primary) hypertension (2) Depression: Qualifiers: Depression Type: major depressive disorder Major depression recurrence: single episode Active/Remission status: currently active Major depression episode severity: moderate Qualified Code(s): F32.1 - Major depressive disorder, single episode, moderate (3) Chest pain: Qualifiers: Chest pain type: unspecified Qualified Code(s): R07.9 - Chest pain, unspecified (4) Bradycardia: (5) Hyperlipidemia: Qualifiers: Hyperlipidemia type: unspecified Qualified Code(s): E78.5 - Hyperlipidemia, unspecified (6) Tobacco use disorder: Plan Gavin French Jr is a 68 year old male w/ HTN, HLD, who presents [facility] ED on 07/12/2024, via EMS, for an elevated BP of 198/95mmHg w/ a HR of 47 and complaints of a non-radiating, non-pleuritic, non-positional L. sided chest pain. #Chest pain: - Concern for Unstable angina - F/u Trop T, EKG, ordered ECHO. Telemonitoring. - Consider Cards consult since he returned the second time w/in 18hr for chest pain #Bradycardia #HTN #HLD - Resumed home meds. I tried to order a Utox and b/c he has [employer] Medicare, it has rejected my ability to order a Utox. - Increased Lisinopril to 40mg from his home 20mg. Continued Aspirin, Atorvastatin. Held Amlodipine and b-lore. #Hyperthyroidism? - The patient states that he does not know about this diagnosis - F/u TSH/free T4 #Alcohol use d/o: No use of alcohol in about 6 months. #hx of cocaine & Marijuana use: Snorted cocaine - last use was 22yrs ago. Last used cannabis 3 weeks ago. #Insomnia #MDD #Hx of L. frontoparietal subdural hematoma in 2019 #Tobacco use d/o: Current 1/2 pk a week. Declined nicotine patch #GERD?: Resumed famotidine DVT ppx: Lovenox 07/13/2024 Patient states he has chest pain if his blood pressure exceeds a certain systolic number, usually 160-170. At this present time he is chest pain-free. Currently systolic blood pressure elevated to 1. 30-1 70. It does not appear he got hydralazine as ordered as needed for systolic blood pressure of 180s overnight. Add amlodipine 5 mg p.o. daily. It appears patient takes 2.5 mg p.o. daily. Since amlodipine would not affect his heart rate plan to uptitrate to a max of 10 mg daily. If blood pressure remains uncontrolled in spite of uptitrating amlodipine, will plan to add Imdur next. For his chest pain, there is concern for unstable angina. EKG without acute ST- T wave changes. Troponin series without significant troponin elevation or delta's. Will obtain stress test, however this is not available until Monday (today is Monday). Continue to closely monitor his heart rate on telemetry. Lowest recorded overnight at 44. May need to be discharged with an event monitor. Will decide on that closer to discharge Attestations 2 Medical Necessity Statement*: Stress test on Monday, needs better control of blood pressure. Coding Level of Care Code Acute Code for Chg Fwd Moderate MDM includes number and complexity of problems actively addressed during encounter, amount and/or complexity of data reviewed/ordered and described risk of complication, morbidity or mortality of management as documented and High MDM includes number and complexity of problems actively addressed during encounter, amount and/or complexity of data reviewed/ordered and described risk of complication, morbidity or mortality of management as documented Diagnoses Essential hypertension I10 Hypertension type: unspecified Current moderate episode of major depressive disorder without prior episode F32.1 Depression Type: major depressive disorder Major depression recurrence: single episode Active/Remission status: currently active Major depression episode severity: moderate Chest pain R07.9 Chest pain type: unspecified Bradycardia R00.1 Hyperlipidemia, unspecified hyperlipidemia type E78.5 Hyperlipidemia type: unspecified Tobacco use disorder F17.200
--- NOTE | 2024-07-13 15:02 | ECG_ITS ---
[facility] Test Date: 2024-07-15 Pat Name: Gavin French Department: Room: 277 Gender: Male [employer] Du[employer]ic: : 1955 Requested By: Claudia Heredia Order Number: [id number] Sampson MD: Golden Gilbert M.D. Interpretive Statements Lung unchanged pre/post procedure; Intraprocedure shortess of breath [email or web address]
[2024-07-13] MEDS: amlodipine 5 mg Tablet PO (16:14)
[2024-07-13] MEDS: famotidine 20 mg Tablet PO (18:18)
[2024-07-13] MEDS: atorvastatin 40 mg Tablet PO (20:29)
[2024-07-14] VITALS (9 sets, daily range): BP systolic 128–149; BP diastolic 59–84; PULSE 43–69; RESP 16–18; TEMP 36.4–36.6; O2SAT 96–98
[2024-07-14] MEDS: enoxaparin 40 mg/0.4 mL Syringe SUBCUT (01:19)
[2024-07-14] MEDS: aspirin 81 mg Chew Tablet PO (09:02)
[2024-07-14] MEDS: desvenlafaxine 50 mg Tablet PO (09:02)
[2024-07-14] MEDS: docusate sodium 100 mg Capsule 200 MG PO (09:02)
[2024-07-14] MEDS: famotidine 20 mg Tablet PO ×2 (09:02→17:20)
[2024-07-14] MEDS: amlodipine 5 mg Tablet PO (10:03)
[2024-07-14] MEDS: lisinopril 20 mg Tablet 40 MG PO (10:03)
--- NOTE | 2024-07-14 15:52 | P.PN_ITS ---
Subjective 2 Subjective: overnight lowest recorded Hr @43 bpm, few VPCs and APCS encountered on tele. no chest pain or dizziness during the episode Medications: Reviewed: Yes Vitals/I&O/Wt Last Vital Signs Temp 97.5 F L 07/14/24 12:29 Pulse 45 L 07/14/24 12:29 Resp 18 07/14/24 12:29 BP 146/75 07/14/24 12:29 Pulse Ox 96 07/14/24 12:29 O2 Del Method Room Air 07/14/24 12:29 07/14/24 07/14/24 07/14/24 06:59 14:59 22:59 Intake Total 1400 / 1400 Balance 1400 / 1400 Weight last 48 hrs Weight 72.802 kg Weight 71.753 kg Weight 72.575 kg Weight 72.575 kg Physical Exam 2 Narrative: General: No acute distress, AO x3 HEENT: PERRLA, pupils bilaterally equal and reactive, pallors not present Chest: Normal vesicular breath sounds, no added sounds, equal good air entry bilaterally CVS: S1-S2 regular, no murmurs, no tachycardia, no gallops, no rubs Abdomen: Soft, nontender, no organomegaly, bowel sounds present Neuro: No focal deficits, no facial deformity, AO x3, power 5/5 in all limbs Data 07/12/24 18:45 07/12/24 18:45 A&P Assessment and plan (1) Hypertension: Qualifiers: Hypertension type: unspecified Qualified Code(s): I10 - Essential (primary) hypertension (2) Depression: Qualifiers: Depression Type: major depressive disorder Major depression recurrence: single episode Active/Remission status: currently active Major depression episode severity: moderate Qualified Code(s): F32.1 - Major depressive disorder, single episode, moderate (3) Chest pain: Qualifiers: Chest pain type: unspecified Qualified Code(s): R07.9 - Chest pain, unspecified (4) Bradycardia: (5) Hyperlipidemia: Qualifiers: Hyperlipidemia type: unspecified Qualified Code(s): E78.5 - Hyperlipidemia, unspecified (6) Tobacco use disorder: Plan Gavin French Jr is a 68 year old male w/ HTN, HLD, who presents to [facility]'s ED on 07/12/2024, via EMS, for an elevated BP of 198/95mmHg w/ a HR of 47 and complaints of a non-radiating, non-pleuritic, non-positional L. sided chest pain. #Chest pain: - Concern for Unstable angina - F/u Trop T, EKG, ordered ECHO. Telemonitoring. - Consider Cards consult since he returned the second time w/in 18hr for chest pain #Bradycardia #HTN #HLD - Resumed home meds. I tried to order a Utox and b/c he has [employer] Medicare, it has rejected my ability to order a Utox. - Increased Lisinopril to 40mg from his home 20mg. Continued Aspirin, Atorvastatin. Held Amlodipine and b-lore. #Hyperthyroidism? - The patient states that he does not know about this diagnosis - F/u TSH/free T4 #Alcohol use d/o: No use of alcohol in about 6 months. #hx of cocaine & Marijuana use: Snorted cocaine - last use was 22yrs ago. Last used cannabis 3 weeks ago. #Insomnia #MDD #Hx of L. frontoparietal subdural hematoma in 2019 #Tobacco use d/o: Current 1/2 pk a week. Declined nicotine patch #GERD?: Resumed famotidine DVT ppx: Lovenox 07/13/2024 Patient states he has chest pain if his blood pressure exceeds a certain systolic number, usually 160-170. At this present time he is chest pain-free. Currently systolic blood pressure elevated to 1. 30-1 70. It does not appear he got hydralazine as ordered as needed for systolic blood pressure of 180s overnight. Add amlodipine 5 mg p.o. daily. It appears patient takes 2.5 mg p.o. daily. Since amlodipine would not affect his heart rate plan to uptitrate to a max of 10 mg daily. If blood pressure remains uncontrolled in spite of uptitrating amlodipine, will plan to add Imdur next. For his chest pain, there is concern for unstable angina. EKG without acute ST- T wave changes. Troponin series without significant troponin elevation or delta's. Will obtain stress test, however this is not available until Monday (today is Monday). Continue to closely monitor his heart rate on telemetry. Lowest recorded overnight at 44. May need to be discharged with an event monitor. Will decide on that closer to discharge 07/14/24: lowest HR recorded at 43 bpm. BP systolic 150-160s, increase amlodipine to 10 mg po daily. Continue lisinorpil 40mg daily. Planned stress test tomorrow. Likely event monitor at discharge, Attestations 2 Medical Necessity Statement*: stress test in am Coding Level of Care Code Acute Code for [facility] Fwd Diagnoses Essential hypertension I10 Hypertension type: unspecified Current moderate episode of major depressive disorder without prior episode F32.1 Depression Type: major depressive disorder Major depression recurrence: single episode Active/Remission status: currently active Major depression episode severity: moderate Chest pain R07.9 Chest pain type: unspecified Bradycardia R00.1 Hyperlipidemia, unspecified hyperlipidemia type E78.5 Hyperlipidemia type: unspecified Tobacco use disorder F17.200
[2024-07-14] MEDS: sennosides 8.6 mg Tablet 17.2 MG PO (20:04)
[2024-07-14] MEDS: atorvastatin 40 mg Tablet PO (20:04)
[2024-07-14 21:32] LABS: Glucose Point of Care 113 mg/dL (70-110)
[2024-07-15] VITALS (8 sets, daily range): BP systolic 110–162; BP diastolic 69–83; PULSE 48–93; RESP 17–18; TEMP 36.4–36.6; O2SAT 94–98
[2024-07-15] MEDS: hyDRALAzine 20 mg/mL INJ 1 mL 10 MG IVP (00:31)
[2024-07-15] MEDS: enoxaparin 40 mg/0.4 mL Syringe SUBCUT (01:33)
[2024-07-15 05:52] LABS: Basophils # 0.1 10^3/uL (0.0-0.1); Basophils % 0.6 %; Eosinophils # 0.3 10^3/uL (0.0-0.8); Eosinophils % 3.4 %; Hematocrit 38.5 % (37-53); Lymphocytes # 1.8 10^3/uL (0.8-4.8); Lymphocytes % 23.1 %; Mean Corpuscular HGB Conc 35.6 g/dL (30-55); Mean Corpuscular Hemoglobin 32.5 pg (27-33); Mean Corpuscular Volume 91.2 fl (82-101); Mean Platelet Volume 10.1 fL (7.4-10.4); Monocytes # 0.8 10^3/uL (0.2-0.9); Monocytes % 9.5 %; Neutrophils # 4.96 10^3/uL (1.8-7.7); Neutrophils % 62.8 %; Nucleated Red Blood Cells % 0 %; Platelet Count 213 10^3/cmm (157-399); Red Blood Count 4.22 10^6/uL (3.85-5.65); Red Cell Distribution Width 12.8 % (12.1-15.1); White Blood Count 7.91 10^3/uL (3.29-11.43)
[2024-07-15 06:09] LABS: Alanine Aminotransferase 15 U/L (0-41); Albumin Level 4.3 g/dL (3.5-5.2); Alkaline Phosphatase 74 U/L (40-130); Anion Gap 15.9 (5-19); Aspartate Amino Transferase 23 U/L (0-40); Blood Urea Nitrogen 9 mg/dL (8-23); Calcium 9.3 mg/dL (8.5-10.5); Carbon Dioxide 22 mmol/L (22-29); Chloride 103 mmol/L (98-107); Creatinine Clr Calc Pharmacy 81.2505; Globulin 2.7 g/dL (1.3-4.6); Glomerular Filtration Rate 134.8 mL/min (90-130); Glucose 114 mg/dL (65-115); Osmolality Calculated 284 mOsm/kg (285-295); Potassium 3.9 mmol/L (3.5-5.1); Sodium 137 mmol/L (136-145); Total Bilirubin 0.6 mg/dL (0.15-1.2)
[2024-07-15] MEDS: regadenoson 0.4 Mg/5 ml Syringe IVP (06:50)
[2024-07-15] MEDS: metformin 500 mg Tablet PO (10:27)
[2024-07-15] MEDS: famotidine 20 mg Tablet PO (10:28)
[2024-07-15] MEDS: desvenlafaxine 50 mg Tablet PO (10:28)
[2024-07-15] MEDS: docusate sodium 100 mg Capsule 200 MG PO (10:28)
[2024-07-15] MEDS: aspirin 81 mg Chew Tablet PO (10:28)
[2024-07-15] MEDS: lisinopril 20 mg Tablet 40 MG PO (10:28)
[2024-07-15] MEDS: potassium chloride ER 20 mEq Tablet PO (13:16)
[2024-07-15] MEDS: chlorthalidone 25 mg Tablet PO (13:16)
--- NOTE | 2024-07-15 13:40 | P.CONIM_ITS ---
Documented by User: Gabby Valenzuela NP 07/15/24 14:05 Providers/Reason For Consult 2 Consulting Physician/Specialty*: Guanako Sage MD Reason for Consult*: Chest pain, bradycardia Requesting Physician: Dr. Arroyo Attending Physician: Nazanin Arroyo MD Primary Care Provider: Pat Raza NP History of Present Illness History of Present Illness Gavin French Jr is a 68 year old male with a hx of prediabetes, htn, hld, current smoker, presented to our ED 3 days ago for hypertension. He states that for the most part, he had been doing ok until Monday morning. He states he developed high blood pressure with a systolic in the 200s. At that time he developed left-sided chest pressure. He states that his heart rate was low at the time in the 40s. He called EMS who brought him to the ED. Initial EKG showed sinus bradycardia without ST changes. Troponins were fairly normal. The highest was 15. Delta was negative. He was discharged and told to hold his carvedilol given his bradycardia. That day, he came back to the ER with high blood pressure. He denies any nausea or vomiting. He denies any neurological symptoms at this time. He states that his chest pressure resolved after his blood pressure started to normalize. In the emergency room he had bradycardia in the 40s and most recent episode of bradycardia was last night at 11:00 with a heart rate of 36. An echo was performed that showed an EF of 60 to 65% without regional wall motion abnormalities. Stress test showed medium sized area of attenuation artifact versus prior infarct seen in the RCA territory without significant ischemia. Left ventricular systolic function normal at 72%. Less likely prior infarct no ischemia seen. Chest x-ray fairly unremarkable. Of note patient has a previous heart cath in 2012 that showed normal coronary arteries. He had a previous stress test as well in the past that showed the same attenuation artifact in the RCA territory. Medications/Allergies Home Medications Medication Instructions Recorded Confirmed Last Taken Type aspirin 81 mg tablet,delayed 81 mg PO DAILY 03/10/22 07/12/24 02/21/24 History release atorvastatin 40 mg tablet 40 mg PO BEDTIME #30 tabs 03/21/24 07/12/24 Unknown Rx desvenlafaxine succinate 50 mg 50 mg PO DAILY #30 tabs 03/21/24 07/12/24 Unknown Rx tablet,extended release 24 hr (Pristiq) famotidine 20 mg tablet (Pepcid) 20 mg PO DAILY #30 tabs 03/21/24 07/12/24 Unknown Rx ipratropium bromide 17 2 puff inhalation Q8H #12.9 grams 03/21/24 07/12/24 Unknown Rx mcg/actuation HFA aerosol inhaler (Atrovent HFA) multivitamin (Multiple Vitamins 1 tab PO DAILY #30 tabs 03/21/24 07/12/24 Unknown Rx tablet) lancets (Accu-Chek Softclix #100 ea 04/19/24 07/13/24 Unknown Rx Lancets) continue glucose monitor #1 ea 06/07/24 07/13/24 Unknown Rx metformin 500 mg tablet 500 mg PO DAILY #30 tabs 06/07/24 07/12/24 Unknown Rx albuterol sulfate 90 mcg/actuation 90 mcg inhalation Q6H PRN SOB 07/12/24 07/12/24 Unknown History aerosol inhaler (Ventolin HFA) amlodipine 10 mg tablet 10 mg PO BEDTIME #30 tabs 07/15/24 Unknown Rx chlorthalidone 25 mg tablet 25 mg PO DAILY #30 tabs 07/15/24 Unknown Rx lisinopril 20 mg tablet 40 mg (2 x 20 mg) PO DAILY #30 tabs 07/15/24 Unknown Rx Allergies Allergy/AdvReac Type Severity Reaction Status Date / Time trazodone Allergy Unknown Verified 06/07/24 10:28 Current Medications Generic Name Dose Route Start Last Admin Trade Name Freq PRN Reason Stop Dose Admin Aspirin 81 mg 07/14/24 09:00 07/15/24 10:28 Aspirin 81 Mg Chew Tablet PO 81 mg DAILY OBED Administration Atorvastatin Calcium 40 mg 07/13/24 21:00 07/14/24 20:04 Atorvastatin 40 Mg Tablet PO 40 mg BEDTIME OBED Administration Chlorthalidone 25 mg 07/15/24 12:00 07/15/24 13:16 Chlorthalidone 25 Mg Tablet PO 25 mg DAILY OBED Administration Desvenlafaxine 50 mg 07/13/24 09:00 07/15/24 10:28 Desvenlafaxine 50 Mg Tablet PO 50 mg DAILY OBED Administration Docusate Sodium 200 mg 07/13/24 09:00 07/15/24 10:28 Docusate Sodium 100 Mg Capsule PO 200 mg DAILY OBED Administration Enoxaparin Sodium 40 mg 07/13/24 01:40 07/15/24 01:33 Enoxaparin 40 Mg/0.4 Ml Syringe SUBCUT 40 mg Q24H OBED Administration Famotidine 20 mg 07/13/24 18:00 07/15/24 10:28 Famotidine 20 Mg Tablet PO 20 mg BID OBED Administration Hydralazine HCl 10 mg 07/13/24 02:11 07/15/24 00:31 Hydralazine 20 Mg/Ml Inj 1 Ml IVP 10 mg Q4H PRN Administration HYPERTENSION Lisinopril 40 mg 07/13/24 09:00 07/15/24 10:28 Lisinopril 20 Mg Tablet PO 40 mg DAILY OBED Administration Metformin HCl 500 mg 07/14/24 09:00 07/15/24 10:27 Metformin 500 Mg Tablet PO 500 mg DAILY OBED Administration Potassium Chloride 20 meq 07/15/24 12:00 07/15/24 13:16 Potassium Chloride Er 20 Meq Tablet PO 20 meq DAILY OBED Administration Senna 17.2 mg 07/13/24 21:00 07/14/24 20:04 Sennosides 8.6 Mg Tablet PO 17.2 mg BEDTIME OBED Administration PFSH Acute 2 PFSH: Medical History Prediabetes Encounter to establish care Chronic shortness of breath Osteoarthritis of left shoulder region Acute urticaria Allergic dermatitis Insomnia Subdural hematoma Hypertension History of alcohol dependence reported sobriety date of 02/01 TIA (transient ischemic attack) Hyperthyroidism Depression history of previous SI episodes Hyperlipidemia Lacunar stroke Surgical History History of javi hole surgery 09/12/2019 Dr. Papito Ridley: Twist drill (SEPS) drainage of left convexity subdural hematoma 09/13/2019 Removed History of surgery on right wrist History of ankle surgery left, for fracture Family History Mother Cancer Hypertension Father Hypertension Social History Smoking and tobacco/nicotine status: unknown if used tobacco/nicotine Alcohol intake: former Year of sobriety/quit date alcohol: 02/01 Former alcohol use details: 09/23/2019 presented to [facility] [place] [facility]. Diagnosis intoxication Substance/Drug Use: current Household members: spouse and children Marital status: Current occupational status: retired Vitals/I&O/Wt Last Vital Signs Temp 97.6 F 07/15/24 12:08 Pulse 57 L 07/15/24 12:08 Resp 18 07/15/24 12:08 BP 110/71 07/15/24 12:08 Pulse Ox 94 07/15/24 12:08 O2 Del Method Room Air 07/15/24 12:08 07/14/24 07/15/24 07/15/24 22:59 06:59 14:59 Intake Total 920 / 2320 0 / 2320 1200 / 1200 Balance 920 / 2320 0 / 2320 1200 / 1200 Weight last 48 hrs Weight 152 lb 12.8 oz Weight 160 lb 8 oz Physical Exam 2 Narrative: General: No apparent distress, healthy appearing, well nourished HENMT: normoceophalic Muskuloskeletal: Full ROM Lymphatic: no lymphedema noted Respiratory: Normal respiratory effort, clear to auscultation bilaterally throughout all lung benites, no use of accessory muscles Cardio: No JVD, regular rate, regular rhythm, S1 S2 normal, no murmurs, peripheral pulses 2+ throughout GI: Normal to inspection, nondistended Extremities: Full ROM, normal, normal capillary refill, no cyanosis or edema Neuro: Alert and oriented x4, no focal motor deficits Psych: Affect normal, denies suicidal ideation, mental status grossly normal Skin: No rashes or lesions noted, no wounds Data 07/15/24 05:24 07/15/24 05:24 Other data: Echo CONCLUSIONS LV systolic function is normal with EF 60 to 65%. Trace mitral regurgitation Mild aortic regurgitation Stress test IMPRESSIONS 1. Medium sized area of attenuation artifact vs prior infarct seen in the RCA territory. No significant ischemia. 2. LV systolic function is normal. A&P Assessment and plan (1) Chest pain: At this time patient's chest pain has resolved. He states that when his blood pressure started to normalize this resolved. Troponins negative EKG with no acute ST or T wave abnormalities. Patient has had a stress test that was negative with most likely artifact and less likely ischemia. Echo was fairly normal. Will continue to treat medically and control blood pressure. Since patient's chest pain has resolved with blood pressure control, may be followed up on an outpatient basis. Qualifiers: Chest pain type: unspecified Qualified Code(s): R07.9 - Chest pain, unspecified (2) Hypertension: BP was in the 140s on my assessment. Added chlorthalidone 25 mg with potassium. Continue amplodipine 10 mg, lisinopril 40. Qualifiers: Hypertension type: unspecified Qualified Code(s): I10 - Essential (primary) hypertension (3) Hyperlipidemia: Currently controlled. Continue statin therapy. Qualifiers: Hyperlipidemia type: unspecified Qualified Code(s): E78.5 - Hyperlipidemia, unspecified (4) Smoker: Continue smoking cessation education. (5) Bradycardia: Patient will need an event monitor on discharge. At this time, he is asymptomatic w/o bradycardia. We will avoid karl blocking agents at this time. (6) Prediabetes: Continue with lifestyle modification changes. Per primary. Plan The plan for this gentleman is to hold all AV karl blocking agents, add chlorthalidone for blood pressure control, continue current BP medications. Echo and stress test was ok. His chest pain has been resolved with strict blood pressure control. Most likely the pain was non ischemic given negative stress test. He will need a holtor monitor on discharge. He can follow up in our clinic in 1 week. Thank you, Dr. Arroyo, for allowing us to care for this very pleasant 68 year old gentleman. Consult Attestations 2 Medical Necessity Statement: Deferred to primary. Coding Level of Care Code Acute Code for g Fwd Diagnoses Chest pain R07.9 Chest pain type: unspecified Essential hypertension I10 Hypertension type: unspecified Hyperlipidemia, unspecified hyperlipidemia type E78.5 Hyperlipidemia type: unspecified Smoker F17.200 Bradycardia R00.1 Prediabetes R73.03 Documented by User: Guanako Sage MD 07/15/24 17:04 Review of Systems 2 Narrative: CONSTITUTIONAL: No fever or chills. EYES: No blurring of vision or other visual disturbances lately. ENT: No hoarseness of voice, auditory disturbances or sore throat. CARDIOVASCULAR: As mentioned above. RESPIRATORY: No significant cough. GASTROINTESTINAL: No hematemesis or melena. GENITOURINARY: No dysuria or hematuria. INTEGUMENTARY: No skin rashes or history of skin cancer. NEURO: Had some dizziness off and on PSYCHIATRIC: No history of psychosis or major depression. HEMATOLOGIC: No bleeding disorders or significant anemia. ENDOCRINE: No history of polyuria or polydipsia. MUSCULOSKELETAL: No recent joint pain or swelling. ALLERGY/IMMUNOLOGY: As mentioned above. Medications/Allergies Home Medications Medication Instructions Recorded Confirmed Last Taken Type aspirin 81 mg tablet,delayed 81 mg PO DAILY 03/10/22 07/12/24 02/21/24 History release atorvastatin 40 mg tablet 40 mg PO BEDTIME #30 tabs 03/21/24 07/12/24 Unknown Rx desvenlafaxine succinate 50 mg 50 mg PO DAILY #30 tabs 03/21/24 07/12/24 Unknown Rx tablet,extended release 24 hr (Pristiq) famotidine 20 mg tablet (Pepcid) 20 mg PO DAILY #30 tabs 03/21/24 07/12/24 Unknown Rx ipratropium bromide 17 2 puff inhalation Q8H #12.9 grams 03/21/24 07/12/24 Unknown Rx mcg/actuation HFA aerosol inhaler (Atrovent HFA) multivitamin (Multiple Vitamins 1 tab PO DAILY #30 tabs 03/21/24 07/12/24 Unknown Rx tablet) lancets (Accu-Chek Softclix #100 ea 04/19/24 07/13/24 Unknown Rx Lancets) continue glucose monitor #1 ea 06/07/24 07/13/24 Unknown Rx metformin 500 mg tablet 500 mg PO DAILY #30 tabs 06/07/24 07/12/24 Unknown Rx albuterol sulfate 90 mcg/actuation 90 mcg inhalation Q6H PRN SOB 07/12/24 07/12/24 Unknown History aerosol inhaler (Ventolin HFA) amlodipine 10 mg tablet 10 mg PO BEDTIME #30 tabs 07/15/24 Unknown Rx chlorthalidone 25 mg tablet 25 mg PO DAILY #30 tabs 07/15/24 Unknown Rx lisinopril 20 mg tablet 40 mg (2 x 20 mg) PO DAILY #30 tabs 07/15/24 Unknown Rx Allergies Allergy/AdvReac Type Severity Reaction Status Date / Time trazodone Allergy Unknown Verified 06/07/24 10:28 PFSH Acute 2 PFSH: Medical History Prediabetes Encounter to establish care Chronic shortness of breath Osteoarthritis of left shoulder region Acute urticaria Allergic dermatitis Insomnia Subdural hematoma Hypertension History of alcohol dependence reported sobriety date of 02/01 TIA (transient ischemic attack) Hyperthyroidism Depression history of previous SI episodes Hyperlipidemia Lacunar stroke Surgical History History of javi hole surgery 09/12/2019 Dr. Papito Ridley: Twist drill (SEPS) drainage of left convexity subdural hematoma 09/13/2019 Removed History of surgery on right wrist History of ankle surgery left, for fracture Family History Mother Cancer Hypertension Father Hypertension Social History Smoking and tobacco/nicotine status: unknown if used tobacco/nicotine Alcohol intake: former Year of sobriety/quit date alcohol: 02/01 Former alcohol use details: 09/23/2019 presented to [facility] [place]. Diagnosis intoxication Substance/Drug Use: current Household members: spouse and children Marital status: Current occupational status: retired Data 07/15/24 05:24 07/15/24 05:24 A&P Assessment and plan (1) Chest pain: Qualifiers: Chest pain type: unspecified Qualified Code(s): R07.9 - Chest pain, unspecified (2) Hypertension: Qualifiers: Hypertension type: unspecified Qualified Code(s): I10 - Essential (primary) hypertension (3) Hyperlipidemia: Qualifiers: Hyperlipidemia type: unspecified Qualified Code(s): E78.5 - Hyperlipidemia, unspecified (4) Smoker: (5) Bradycardia: This patient apparently has been taking the carvedilol for a long.. He may be developing some sinus node dysfunction which is accentuated by the beta-lore. For the time being, he seems to be doing okay, being off the beta-lore. Sometime down the line, he may require a permanent pacer implantation. May be appropriate to send him home with an event monitor to look for any spontaneous bradycardia arrhythmia. May continue to hold the carvedilol. (6) Prediabetes: Plan The plan for this gentleman is to hold all AV karl blocking agents, add chlorthalidone for blood pressure control, continue current BP medications. Echo and stress test was ok. His chest pain has been resolved with strict blood pressure control. Most likely the pain was non ischemic given negative stress test. He will need a holtor monitor on discharge. He can follow up in our clinic in 1 week. Thank you, Dr. Arroyo, for allowing us to care for this very pleasant 68 year old gentleman. I independently examined the patient. Discussed my assessment and the recommendations with the patient. Reviewed and discussed the the plan with Gabby Valenzuela, the nurse practitioner. Dr. RIGO Sage Coding Level of Care Code Acute Code for Chg Fwd Diagnoses Chest pain R07.9 Chest pain type: unspecified Essential hypertension I10 Hypertension type: unspecified Hyperlipidemia, unspecified hyperlipidemia type E78.5 Hyperlipidemia type: unspecified Smoker F17.200 Bradycardia R00.1 Prediabetes R73.03
--- NOTE | 2024-07-15 15:03 | NMCV_ITS ---
NM jessei perf SPECT r/s* [id number] Manolo Gavin Age: 68 Gender: M : 1955 Exam Date: 07/15/2024 06:27 Ordering Phys: Claudia Heredia MD Technologist: SARWAT Mayes Exam Location: [facility] Indications: cp STRESS TEST Please see separate stress test report in [facility] for full findings IMAGE PROTOCOL Rest/Stress 1 Lexiscan Day Radiopharmaceutical Dose (mCi) Administration Site Administered by Rest: Tc-99m 10.8 IV Abby David, CUSTOMER ENGAGEMENT REPRESENTATIVE Sestamibi Stress:Tc-99m 32.9 IV Abby Amarogle, CUSTOMER ENGAGEMENT REPRESENTATIVE Sestamibi Rest: 15-Jul-2024 60 Discovery 630 Stress: 15-Jul-2024 30 Discovery 630 0.4mg Lexiscan. Images obtained in supine and prone position. SPECT RESULTS Technical Quality: Good Raw Data Analysis: Normal Image Corrections: No attenuation or motion correction applied Summed Stress Score: 0 Summed Rest Score: 2 Summed Difference Score: 0 PERFUSION FINDINGS There is a medium sized area of reduced radiotracer uptake in the inferior wall. This improves on stress imaging. This likely represents attenuation artifact in the inferior wall. Less likely prior infarct. No significant ischemia seen. FUNCTIONAL RESULTS (calculated via Gated SPECT) Stress Image LV EF (%): 72 Stress EDV (mL):100 TID: 1.17 Stress ESV (mL):28 FUNCTIONAL FINDINGS: There is normal left ventricular systolic function. IMPRESSIONS 1. Medium sized area of attenuation artifact vs prior infarct seen in the RCA territory. No significant ischemia. 2. LV systolic function is normal. Golden Gilbert MD (Electronically Signed) Final Date: 15 July 2024 09:10 S
--- NOTE | 2024-07-15 15:29 | P.DS_ITS ---
Discharge Providers Date of Admission: 07/12/24 22:42 Date of Discharge: July 15, 2024 Attending Provider at Admission: Danielle Guardado MD Attending Provider at Discharge: Nazanin Arroyo MD Primary Care Provider: Pat Raza NP Diagnoses at Discharge Discharge Diagnosis (1) Chest pain: Status: Acute Qualifiers: Chest pain type: unspecified Qualified Code(s): R07.9 - Chest pain, unspecified (2) Hypertension: Status: Acute Qualifiers: Hypertension type: unspecified Qualified Code(s): I10 - Essential (primary) hypertension (3) Hyperlipidemia: Status: Chronic Qualifiers: Hyperlipidemia type: unspecified Qualified Code(s): E78.5 - Hyperlipidemia, unspecified (4) Smoker: Status: Acute (5) Bradycardia: Status: Acute (6) Prediabetes: Status: Acute Reason for Visit Reason for Visit: hypertension, chest pain Hospital Course Hospital Course Patient presented to the hospital with chest pain. He has been chest pain-free since admission except that he did have 1 episode where it resolved on its own. Patient underwent a cardiac stress test. Troponins were negative. There was attenuation artifact in inferior wall region which was persistent with his previous stress test results. I did discuss with cardiology regarding further management as patient is chest pain on admission was very typical sounding. Cardiology has recommended an event monitor at discharge and to follow-up with them in 1 week as an outpatient. Patient will be discharged at this time. Of n ote he did have hypertensive urgency upon admission and his chest pain may very well be secondary to that. Physical Exam Narrative: General: No acute distress, AO x3 HEENT: PERRLA, pupils bilaterally equal and reactive, pallors not present Chest: Normal vesicular breath sounds, no added sounds, equal good air entry bilaterally CVS: S1-S2 regular, no murmurs, no tachycardia, no gallops, no rubs Abdomen: Soft, nontender, no organomegaly, bowel sounds present Neuro: non focal Discharge Data Studies Completed and Pending Completed Studies During Hospitalization Category Date Time Status Cardiac Stress Test MIBI [Sestamibi Stress Test Request Exams 07/13/24 15:02 Draft ] Routine XR chest 1V portable [id number] Stat Exams 07/12/24 18:38 Completed NM jessie perf SPECT r/s* [id number] Routine Nuc Med 07/15/24 15:03 Completed CV. echo complete* [id number] Routine Ultrasound 07/13/24 00:38 Completed Radiology Impressions Chest X-Ray 07/12/24 18:38 IMPRESSION: As above. Laboratory Results WBC 7.91 10^3/uL (3.29-11.43) 07/15/24 05:24 RBC 4.22 10^6/uL (3.85-5.65) 07/15/24 05:24 Hgb 13.70 g/dL (11.27-16.99) 07/15/24 05:24 Hct 38.5 % (37-53) 07/15/24 05:24 MCV 91.2 fl (82-101) 07/15/24 05:24 MCH 32.5 pg (27-33) 07/15/24 05:24 MCHC 35.6 g/dL (30-55) 07/15/24 05:24 RDW 12.8 % (12.1-15.1) 07/15/24 05:24 Plt Count 213 10^3/cmm (157-399) 07/15/24 05:24 MPV 10.1 fL (7.4-10.4) 07/15/24 05:24 Neut % (Auto) 62.8 % 07/15/24 05:24 Lymph % (Auto) 23.1 % 07/15/24 05:24 [place] % (Auto) 9.5 % 07/15/24 05:24 Eos % (Auto) 3.4 % 07/15/24 05:24 Baso % (Auto) 0.6 % 07/15/24 05:24 Neut # (Auto) 4.96 10^3/uL (1.8-7.7) 07/15/24 05:24 Lymph # (Auto) 1.8 10^3/uL (0.8-4.8) 07/15/24 05:24 [place] # (Auto) 0.8 10^3/uL (0.2-0.9) 07/15/24 05:24 Eos # (Auto) 0.3 10^3/uL (0.0-0.8) 07/15/24 05:24 Baso # (Auto) 0.1 10^3/uL (0.0-0.1) 07/15/24 05:24 Nucleated RBC % (auto) 0 % 07/15/24 05:24 Nucleated RBCs # 0.0 /100WBC 07/15/24 05:24 PT 13.40 SECONDS (12.1-14.9) 07/12/24 18:45 INR 0.99 (0.8-1.2) 07/12/24 18:45 Sodium 137 mmol/L (136-145) 07/15/24 05:24 Potassium 3.9 mmol/L (3.5-5.1) 07/15/24 05:24 Chloride 103 mmol/L (98-107) 07/15/24 05:24 Carbon Dioxide 22 mmol/L (22-29) 07/15/24 05:24 Anion Gap 15.9 (5-19) 07/15/24 05:24 BUN 9 mg/dL (8-23) 07/15/24 05:24 Creatinine 0.6 mg/dL (0.7-1.2) L 07/15/24 05:24 GFR Calculation 134.8 mL/min (90-130) H 07/15/24 05:24 Glucose 114 mg/dL (65-115) 07/15/24 05:24 POC Glucose 113 mg/dL (70-110) H 07/14/24 21:28 Calculated Osmolality 284 mOsm/kg (285-295) L 07/15/24 05:24 Calcium 9.3 mg/dL (8.5-10.5) 07/15/24 05:24 Total Bilirubin 0.6 mg/dL (0.15-1.2) 07/15/24 05:24 AST 23 U/L (0-40) 07/15/24 05:24 ALT 15 U/L (0-41) 07/15/24 05:24 Alkaline Phosphatase 74 U/L (40-130) 07/15/24 05:24 Troponin T Baseline 13 ng/L (0-15) 07/12/24 18:45 Troponin T 120 Minute 13.44 ng/L (0-15) 07/12/24 20:21 Delta Troponin T 0.44 ABS# (0-10) 07/12/24 20:21 Troponin T Hi Sens 6Hr 12.01 ng/L (0-15) 07/13/24 01:00 Troponin T Hi Sens 6Hr Delta -0.99 ng/L (0-12) L 07/13/24 01:00 Total Protein 7.0 g/dL (6.6-8.7) 07/15/24 05:24 Albumin 4.3 g/dL (3.5-5.2) 07/15/24 05:24 Globulin 2.7 g/dL (1.3-4.6) 07/15/24 05:24 Urine Opiates Screen Negative ng/mL (Negative) 07/13/24 10:05 Ur Barbiturates Screen Negative ng/mL (Negative) 07/13/24 10:05 Ur Phencyclidine Scrn Negative ng/mL (Negative) 07/13/24 10:05 Ur Amphetamines Screen Negative ng/mL (Negative) 07/13/24 10:05 U Benzodiazepines Scrn Negative ng/mL (Negative) 07/13/24 10:05 Urine Cocaine Screen Negative ng/mL (Negative) 07/13/24 10:05 U Marijuana (THC) Screen Positive ng/mL (Negative) H 07/13/24 10:05 Vitals Last Vital Signs Temp 97.6 F 07/15/24 12:08 Pulse 57 L 07/15/24 12:08 Resp 18 07/15/24 12:08 BP 110/71 07/15/24 12:08 Pulse Ox 94 07/15/24 12:08 O2 Del Method Room Air 07/15/24 12:08 Discharge Plan Discharge Patient Disposition: Home Condition: Stable Prescriptions: New lisinopril 20 mg Tablet 40 mg PO DAILY Qty: 30 0RF chlorthalidone 25 mg Tablet 25 mg PO DAILY Qty: 30 0RF amlodipine 10 mg Tablet 10 mg PO BEDTIME Qty: 30 0RF Continued atorvastatin 40 mg tablet 40 mg PO BEDTIME Qty: 30 4RF desvenlafaxine succinate [Pristiq] 50 mg tablet extended release 24 hr 50 mg PO DAILY Qty: 30 3RF famotidine [Pepcid] 20 mg tablet 20 mg PO DAILY Qty: 30 5RF Atrovent HFA 17 mcg/actuation HFA aerosol inhaler 2 puff inhalation Q8H Qty: 12.9 3RF multivitamin [Multiple Vitamins] Tablet 1 tab PO DAILY Qty: 30 3RF (DME) lancets [Accu-Chek Softclix Lancets] Misc See Rx Instructions .Route Qty: 100 2RF Rx Instructions: As directed metformin 500 mg tablet 500 mg PO DAILY Qty: 30 2RF (DME) continue glucose monitor See Rx Instructions .Route .MEDSUPPLY Qty: 1 0RF Rx Instructions: As directed albuterol sulfate [Ventolin HFA] 90 mcg/actuation HFA aerosol inhaler 90 mcg INHALATION Q6H PRN (Reason: SOB) aspirin 81 mg Tablet,Delayed Release (Dr/Ec) 81 mg PO DAILY Discontinued amlodipine 2.5 mg tablet 2.5 mg PO DAILY Qty: 30 3RF lisinopril 20 mg tablet 20 mg PO DAILY Qty: 30 5RF Discharge Orders: Discharge Order (Routine); Ordered 07/15/24 Ordered By: Nazanin Arroyo Other Ambulatory Orders: MCT/Event Monitor 21 Days (Routine) Timeframe: 1 Day Facility: [facility] - Location: Radiology Ordered By: Nazanin Arroyo Referrals: Pat Raza NP [Primary Care Provider] - 4-7 days (We have notified your physician's clinic of the need for a follow-up appointment to be scheduled. If you have not heard from them within the next 2 business days, please call them directly. ) Guanako Sage MD [Physician] - 1 week (We have notified your physician's clinic of the need for a follow-up appointment to be scheduled. If you have not heard from them within the next 2 business days, please call them directly. ) Discharge Diet: Cardiac Discharge Activity: Resume usual activity Patient Instructions: Lisinopril (By mouth), Chlorthalidone (By mouth), Amlodipine (By mouth), Hypertension, Opioid Safety Discharge Attestations Time Spent in Discharge Care*: greater than 30 min Status at Discharge: Cognitive status at discharge: cognitively intact , Behavioral status at discharge: cooperative , Quality Metrics Clinical Quality Measures [ No reported AMI, CVA or VTE this stay] Coding Level of Care Code Acute Code for Chg Fwd Diagnoses Chest pain R07.9 Chest pain type: unspecified Essential hypertension I10 Hypertension type: unspecified Hyperlipidemia, unspecified hyperlipidemia type E78.5 Hyperlipidemia type: unspecified Smoker F17.200 Bradycardia R00.1 Prediabetes R73.03
== END 2024-07-15 17:18 | disposition home or self-care (01) | DRG 313 ==
LOC: ER 22:45 → MEDSURG 23:25
PROVIDERS: Student in an Organized Health Care Education/Training Program; Admitting Provider Internal Medicine; Emergency Provider Emergency Medicine; Visit Provider Internal Medicine
DX: R07.9 Chest pain, unspecified (principal); I10 Essential (primary) hypertension; E78.5 Hyperlipidemia, unspecified; F17.200 Nicotine dependence, unspecified, uncomplicated; R00.1 Bradycardia, unspecified; R73.03 Prediabetes; M19.012 Primary osteoarthritis, left shoulder; G47.00 Insomnia, unspecified; F32.A Depression, unspecified; F10.91 Alcohol use, unspecified, in remission; F14.91 Cocaine use, unspecified, in remission; F12.91 Cannabis use, unspecified, in remission; Z79.84 Long term (current) use of oral hypoglycemic drugs; Z79.82 Long term (current) use of aspirin; Z86.73 Personal history of transient ischemic attack (TIA), and cerebral infarction without residual deficits
CPT/HCPCS: 36415; 36416; 71045; 78452; 80053; 80306; 82962; 84484; 85025; 85610; 93005; 93017; 93306; 96372; 96374; 96375; 97161; 99285; A9500; J0360; J1650; J1885; J2785

== ENCOUNTER 2024-07-15 17:41 | Emergency (ER) | payer MEDICARE, MEDICAID, SELFPAY ==
[2024-07-15 17:47] VITALS: BP 158/82; PULSE 60; RESP 18; TEMP 36.4; O2SAT 98; BMI 27.4
--- NOTE | 2024-07-15 17:55 | ECG_ITS ---
[facility] Date: 2024-07-15 Pat Name: Gavin French Department: Room: Gender: Male Paralegal Secretary: : 1955 Requested By: Kirit Villanueva Order Number: [id number] Camilla MD: Guanako Sage M.D. Measurements Intervals [place] Rate: 54 P: -9 DE: 137 QRS: -38 QRSD: 86 T: 27 QT: 427 QTc: 406 Interpretive Statements SINUS BRADYCARDIA LEFT AXIS DEVIATION [QRS AXIS < -30] Compared to ECG 12/14/2018 08:08:25 Sinus rhythm no longer present Electronically Signed On 07-16-2024 17:47:29 WRAPPING MACHINE HELPER by Guanako Sage M.D. [id number]
== END 2024-07-15 18:37 | disposition left against medical advice (07) ==
LOC: ER 17:43
PROVIDERS: Emergency Provider Family Medicine
DX: Z53.21 Procedure and treatment not carried out due to patient leaving prior to being seen by health care provider (principal)
CPT/HCPCS: 93005

== ENCOUNTER → 2024-07-23 11:02 | Outpatient (BNVA) | payer MEDICARE, MEDICAID, SELFPAY | DX: R73.03 Prediabetes (principal); I10 Essential (primary) hypertension | CPT/HCPCS: 80053; 83036 ==

== ENCOUNTER 2024-08-01 14:18 | Emergency (ER) | payer MEDICARE, MEDICAID, SELFPAY ==
[2024-08-01 14:25] VITALS: BP 121/71; PULSE 58; RESP 18; TEMP 36.4; O2SAT 99; BMI 28.3
--- NOTE | 2024-08-01 14:43 | ECG_ITS ---
[facility] Test Date: 2024-08-01 Pat Name: Gavin French Department: Room: Gender: Male Manager Editorial: : 1955 Requested By: Gabby Bell Order Number: [id number] Camilla MD: NURIA MAC Measurements Intervals [place] Rate: 57 P: -18 [place]: 136 QRS: -34 QRSD: 93 T: 34 QT: 402 QTc: 394 Interpretive Statements SINUS BRADYCARDIA LEFT AXIS DEVIATION [QRS AXIS < -30] POSSIBLE RIGHT VENTRICULAR CONDUCTION DELAY [RSR (QR) IN V1/V2] Compared to ECG 07/15/2024 17:55:09 No significant changes Electronically Signed On 08-02-2024 23:23:31 CHIP WASHER by NURIA MAC [id number]
--- NOTE | 2024-08-01 14:43 | XRR_ITS ---
PROCEDURE INFORMATION: Exam: XR Chest Exam date and time: 08/01/2024 2:56 PM Age: 68 years old Clinical indication: Pain; Angina pectoris; Additional info: Chest pain TECHNIQUE: Imaging protocol: Radiologic exam of the chest. Views: 1 view. COMPARISON: CR (CHEST, ) 07/12/2024 6:45 PM FINDINGS: Lungs: Unremarkable. No consolidation. Pleural spaces: Unremarkable. No pleural effusion. No pneumothorax. Heart/Mediastinum: Small hiatal hernia. Bones/joints: Unremarkable. XR/XR chest 1V portable [id number] IMPRESSION: No acute cardiopulmonary disease.
[2024-08-01 15:05] LABS: Basophils # 0.1 10^3/uL (0.0-0.1); Basophils % 0.6 %; Eosinophils # 0.3 10^3/uL (0.0-0.8); Eosinophils % 3.9 %; Hematocrit 34.2 % (37-53); Lymphocytes # 1.5 10^3/uL (0.8-4.8); Lymphocytes % 17.2 %; Mean Corpuscular HGB Conc 36.3 g/dL (30-55); Mean Corpuscular Hemoglobin 32.7 pg (27-33); Mean Corpuscular Volume 90.2 fl (82-101); Mean Platelet Volume 9.5 fL (7.4-10.4); Monocytes # 0.7 10^3/uL (0.2-0.9); Neutrophils # 6.03 10^3/uL (1.8-7.7); Nucleated Red Blood Cells % 0 %; Platelet Count 227 10^3/cmm (157-399); Red Blood Count 3.79 10^6/uL (3.85-5.65); Red Cell Distribution Width 11.9 % (12.1-15.1); White Blood Count 8.62 10^3/uL (3.29-11.43)
[2024-08-01 15:24] LABS: Alanine Aminotransferase 23 U/L (0-41); Albumin Level 4.3 g/dL (3.5-5.2); Alkaline Phosphatase 73 U/L (40-130); Anion Gap 15.4 (5-19); Aspartate Amino Transferase 24 U/L (0-40); Blood Urea Nitrogen 31 mg/dL (8-23); Calcium 8.6 mg/dL (8.5-10.5); Carbon Dioxide 26 mmol/L (22-29); Chloride 94 mmol/L (98-107); Creatinine Clr Calc Pharmacy 74.7505; Globulin 2.1 g/dL (1.3-4.6); Glomerular Filtration Rate 84.4 mL/min (90-130); Glucose 114 mg/dL (65-115); Osmolality Calculated 279 mOsm/kg (285-295); Potassium 4.4 mmol/L (3.5-5.1); Sodium 131 mmol/L (136-145); Total Bilirubin 0.3 mg/dL (0.15-1.2); Total Protein 6.4 g/dL (6.6-8.7); Troponin(5th) Baseline 17 ng/L (0-15)
--- NOTE | 2024-08-01 16:43 | ECG_ITS ---
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
--- NOTE | 2024-08-01 17:31 | ED_ITS ---
HPI - Chest Pain 2 General: Chief Complaint: Chest Pain Stated Complaint: Chest pain Time Seen by Provider: 08/01/24 16:55 History of Present Illness: 68-year-old man with a history of hypert ension and depression who presents emergency room with chest pain that started yesterday. Apparently had a syncopal episode yesterday as well. He had gone to cardiology clinic and was sent to the emergency room to rule out acute coronary syndrome. He has a history of hypertension but no coronary artery disease. No cough. He does feel anxious. He has tingling in his arms. Related Data Home Medications Medication Instructions Recorded Confirmed aspirin 81 mg tablet,delayed 81 mg PO DAILY 03/10/22 08/01/24 release albuterol sulfate 90 mcg/actuation 90 mcg inhalation Q6H PRN SOB 07/12/24 08/01/24 aerosol inhaler (Ventolin HFA) Previous Rx's Medication Instructions Recorded atorvastatin 40 mg tablet 40 mg PO BEDTIME #30 tabs 03/21/24 desvenlafaxine succinate 50 mg 50 mg PO DAILY #30 tabs 03/21/24 tablet,extended release 24 hr (Pristiq) famotidine 20 mg tablet (Pepcid) 20 mg PO DAILY #30 tabs 03/21/24 ipratropium bromide 17 2 puff inhalation Q8H #12.9 grams 03/21/24 mcg/actuation HFA aerosol inhaler (Atrovent HFA) multivitamin (Multiple Vitamins 1 tab PO DAILY #30 tabs 03/21/24 tablet) lancets (Accu-Chek Softclix #100 ea 04/19/24 Lancets) continue glucose monitor #1 ea 06/07/24 metformin 500 mg tablet 500 mg PO DAILY #30 tabs 06/07/24 amlodipine 10 mg tablet 10 mg PO BEDTIME #30 tabs 07/23/24 chlorthalidone 25 mg tablet 25 mg PO DAILY #30 tabs 07/23/24 lisinopril 40 mg tablet 40 mg PO DAILY #30 tabs 07/23/24 nitroglycerin 0.3 mg sublingual 0.3 mg sublingual Q5M PRN chest 07/23/24 tablet pain #30 tabs Allergies Allergy/AdvReac Type Severity Reaction Status Date / Time trazodone Allergy Unknown Verified 08/01/24 14:28 Review of Systems 2 General: Reports: 10 or more systems reviewed and unremarkable except in HPI and below PFSH ED 2 PFSH: Medical History Prediabetes Encounter to establish care Chronic shortness of breath Osteoarthritis of left shoulder region Acute urticaria Allergic dermatitis Insomnia Subdural hematoma Hypertension History of alcohol dependence reported sobriety date of 02/01 TIA (transient ischemic attack) Hyperthyroidism Depression history of previous SI episodes Hyperlipidemia Lacunar stroke Surgical History History of javi hole surgery 09/12/2019 Dr. Papito Ridley: Twist drill (SEPS) drainage of left convexity subdural hematoma 09/13/2019 Removed History of surgery on right wrist History of ankle surgery left, for fracture Family History Mother Cancer Hypertension Father Hypertension Social History Smoking and tobacco/nicotine status: current some day tobacco/nicotine user Alcohol intake: former Year of sobriety/quit date alcohol: 02/01 Former alcohol use details: 09/23/2019 presented to [facility] emergency services. Diagnosis intoxication Substance/Drug Use: current Household members: spouse and children Marital status: Current occupational status: retired Physical Exam 2 Narrative: EXAM NARRATIVE: General: Alert, no acute distress. Skin: Warm, dry. Head: Normocephalic, atraumatic. Neck: Supple, trachea midline. Eye: Extraocular movements are intact. Ears, nose, mouth and throat: mucosa moist. Cardiovascular: Regular, Normal peripheral perfusion. Respiratory: Lungs are clear to auscultation, respirations are non-labored, breath sounds are equal, Symmetrical chest wall expansion. Gastrointestinal: Soft, Nontender, Non distended Musculoskeletal: Normal ROM, no deformity. Neurological: Alert and oriented, No focal neurological deficit observed. Psychiatric: Cooperative, patient does appear somewhat anxious Course 2 Vital Signs: Vital signs: Vital Signs Temperature 97.6 F 08/01/24 14:25 Pulse Rate 58 L 08/01/24 14:25 Respiratory Rate 18 08/01/24 14:25 Blood Pressure 121/71 08/01/24 14:25 Pulse Oximetry 99 08/01/24 14:25 Oxygen Delivery Me thod Room Air 08/01/24 14:25 MDM - Chest Pain Medical Decision Making Differential diagnosis for patient with chest pain includes but is not limited to and based on the above HPI, review of systems and physical exam: Pneumonia. unstable angina. angina. Acute coronary syndrome / DC. Pulmonary embolism. Costochondritis / musculoskeletal. Pleurisy. Pericarditis. Esophageal spasm. Pancreatis. Cholecystitis. Orders placed to evaluate differential diagnosis based on the above differential, HPI and physical exam EKG: Time 1422. Rate 57. Sinus bradycardia, No ST-T changes, no ectopy, normal DC & QRS intervals, This was reviewed and interpreted by myself the ER physician at 1425. Repeat EKG: Time 1718. Rate 61. Normal sinus rhythm, No ST-T changes, no ectopy, normal DC & QRS intervals, This was reviewed and interpreted by myself the ER physician at 1720. No significant changes from EKG done previously today in the emergency room. Chest x-ray: No acute process. No infiltrate. No pneumothorax. This was reviewed and interpreted by myself the emergency room physician. I also reviewed the radiology report. Lab Review: Laboratory results were reviewed and interpreted by myself the emergency room physician. No leukocytosis. No anemia. No acute renal failure. I reviewed the patient's medical record. Reexamination: Patient remained stable. No increased work of breathing. No altered mental status. No focal motor deficits. Still appears somewhat anxious Assessment and plan: Noncardiac chest pain - Discharged home - Discussed plan with patient. Answered any questions. - Evaluation and treatment of this problem were appropriate in the emergency setting. Lab Data 08/01/24 14:54 08/01/24 14:54 Radiology Impressions Chest X-Ray 08/01/24 14:43 IMPRESSION: No acute cardiopulmonary disease. Laboratory Results WBC 8.62 10^3/uL (3.29-11.43) 08/01/24 14:54 RBC 3.79 10^6/uL (3.85-5.65) L 08/01/24 14:54 Hgb 12.40 g/dL (11.27-16.99) 08/01/24 14:54 Hct 34.2 % (37-53) L 08/01/24 14:54 MCV 90.2 fl (82-101) 08/01/24 14:54 MCH 32.7 pg (27-33) 08/01/24 14:54 MCHC 36.3 g/dL (30-55) 08/01/24 14:54 RDW 11.9 % (12.1-15.1) L 08/01/24 14:54 Plt Count 227 10^3/cmm (157-399) 08/01/24 14:54 MPV 9.5 fL (7.4-10.4) 08/01/24 14:54 Neut % (Auto) 70.0 % 08/01/24 14:54 Lymph % (Auto) 17.2 % 08/01/24 14:54 [place] % (Auto) 8.0 % 08/01/24 14:54 Eos % (Auto) 3.9 % 08/01/24 14:54 Baso % (Auto) 0.6 % 08/01/24 14:54 Neut # (Auto) 6.03 10^3/uL (1.8-7.7) 08/01/24 14:54 Lymph # (Auto) 1.5 10^3/uL (0.8-4.8) 08/01/24 14:54 [place] # (Auto) 0.7 10^3/uL (0.2-0.9) 08/01/24 14:54 Eos # (Auto) 0.3 10^3/uL (0.0-0.8) 08/01/24 14:54 Baso # (Auto) 0.1 10^3/uL (0.0-0.1) 08/01/24 14:54 Nucleated RBC % (auto) 0 % 08/01/24 14:54 Nucleated RBCs # 0.0 /100WBC 08/01/24 14:54 Sodium 131 mmol/L (136-145) L 08/01/24 14:54 Potassium 4.4 mmol/L (3.5-5.1) 08/01/24 14:54 Chloride 94 mmol/L (98-107) L 08/01/24 14:54 Carbon Dioxide 26 mmol/L (22-29) 08/01/24 14:54 Anion Gap 15.4 (5-19) 08/01/24 14:54 BUN 31 mg/dL (8-23) H 08/01/24 14:54 Creatinine 0.9 mg/dL (0.7-1.2) 08/01/24 14:54 GFR Calculation 84.4 mL/min (90-130) L 08/01/24 14:54 Glucose 114 mg/dL (65-115) 08/01/24 14:54 Calculated Osmolality 279 mOsm/kg (285-295) L 08/01/24 14:54 Calcium 8.6 mg/dL (8.5-10.5) 08/01/24 14:54 Total Bilirubin 0.3 mg/dL (0.15-1.2) 08/01/24 14:54 AST 24 U/L (0-40) 08/01/24 14:54 ALT 23 U/L (0-41) 08/01/24 14:54 Alkaline Phosphatase 73 U/L (40-130) 08/01/24 14:54 Troponin T Baseline 17 ng/L (0-15) H 08/01/24 14:54 Troponin T 120 Minute 13.76 ng/L (0-15) 08/01/24 17:16 Delta Troponin T -3.24 ABS# (0-10) L 08/01/24 17:16 Total Protein 6.4 g/dL (6.6-8.7) L 08/01/24 14:54 Albumin 4.3 g/dL (3.5-5.2) 08/01/24 14:54 Globulin 2.1 g/dL (1.3-4.6) 08/01/24 14:54 All radiology interpretation(s) finalized by discharge Discharge Plan Discharge Patient Disposition: Home Clinical Impression: Non-cardiac chest pain, Anxiety Condition: Stable Prescriptions: No Action atorvastatin 40 mg tablet 40 mg PO BEDTIME Qty: 30 4RF desvenlafaxine succinate [Pristiq] 50 mg tablet extended release 24 hr 50 mg PO DAILY Qty: 30 3RF famotidine [Pepcid] 20 mg tablet 20 mg PO DAILY Qty: 30 5RF Atrovent HFA 17 mcg/actuation HFA aerosol inhaler 2 puff inhalation Q8H Qty: 12.9 3RF multivitamin [Multiple Vitamins] Tablet 1 tab PO DAILY Qty: 30 3RF (DME) lancets [Accu-Chek Softclix Lancets] Misc See Rx Instructions .Route Qty: 100 2RF Rx Instructions: As directed metformin 500 mg tablet 500 mg PO DAILY Qty: 30 2RF (DME) continue glucose monitor See Rx Instructions .Route .MEDSUPPLY Qty: 1 0RF Rx Instructions: As directed lisinopril 40 mg tablet 40 mg PO DAILY Qty: 30 1RF chlorthalidone 25 mg tablet 25 mg PO DAILY Qty: 30 2RF amlodipine 10 mg tablet 10 mg PO BEDTIME Qty: 30 2RF nitroglycerin 0.3 mg tablet, sublingual 0.3 mg sublingual Q5M PRN (Reason: chest pain) Qty: 30 1RF Rx Instructions: do not exceed 3 doses per episode albuterol sulfate [Ventolin HFA] 90 mcg/actuation HFA aerosol inhaler 90 mcg INHALATION Q6H PRN (Reason: SOB) aspirin 81 mg Tablet,Delayed Release (Dr/Ec) 81 mg PO DAILY Discharge Orders: Discharge ED (Routine); Ordered 08/01/24 Ordered By: Deidre Dickens Referrals: Pat Raza, CHARMAINE [Primary Care Provider] - Discharge Diet: Usual diet Discharge Activity: Increase activity as tolerated Patient Instructions: Noncardiac Chest Pain (ED), Opioid Safety, Pain Management Activity Restrictions/Additional Instructions: Thank you for choosing [facility] for your healthcare needs today. Please realize this is an emergency room and that we are providing you with a medical screening exam and this may not be complete and all inclusive of all the testing and or work up that you may need to determine your ailment or severity of your illness. You have been screened and evaluated and felt safe for discharge. Health conditions do change or evolve sometimes and as such it is important that you follow up with your Primary Doctor to be re checked, 3-5 days is a general good time frame for follow up. You are always welcome to return to the ED for re assessment if your symptoms are worsening or you have new concerns Coding Level of Care Code ED Route Salesperson for Fatoumata Cintron
[2024-08-01 18:11] LABS: Troponin 5 2HR 13.76 ng/L (0-15)
[2024-08-01 18:12] LABS: Troponin 5 2HR Delta -3.24 ABS# (0-10)
[2024-08-01 18:30] VITALS: BP 127/71; PULSE 78; O2SAT 96
[2024-08-01 18:31] VITALS: BP 127/71; PULSE 78; O2SAT 96
== END 2024-08-01 18:33 | disposition home or self-care (01) ==
PROVIDERS: Physician Assistant; Emergency Provider Emergency Medicine
DX: R07.89 Other chest pain (principal); F41.9 Anxiety disorder, unspecified; Z79.84 Long term (current) use of oral hypoglycemic drugs; Z79.82 Long term (current) use of aspirin; Z72.0 Tobacco use; Z86.73 Personal history of transient ischemic attack (TIA), and cerebral infarction without residual deficits; I10 Essential (primary) hypertension; E78.5 Hyperlipidemia, unspecified
CPT/HCPCS: 36415; 71045; 80053; 84484; 85025; 93005; 99285

== ENCOUNTER 2024-08-02 02:07 | Emergency (ER) | payer MEDICARE, MEDICAID, SELFPAY ==
[2024-08-02 02:08] VITALS: BP 147/73; PULSE 67; RESP 16; TEMP 36.4; O2SAT 96; BMI 28.3
--- NOTE | 2024-08-02 02:09 | ECG_ITS ---
[facility] Test Date: 2024-08-02 Pat Name: Gavin French Department: Room: Gender: Male Telesales Advisor: : 1955 Requested By: Javier Sanders Order Number: [id number] Reading MD: NURIA MAC Measurements Intervals [place] Rate: 64 P: 69 [place]: 150 QRS: -27 QRSD: 87 T: 44 QT: 392 QTc: 404 Interpretive Statements SINUS RHYTHM BORDERLINE LEFT AXIS DEVIATION [QRS AXIS < -20] POSSIBLE RIGHT VENTRICULAR CONDUCTION DELAY [RSR (QR) IN V1/V2] INTERPRETATION BASED ON A DEFAULT AGE OF 40 YEARS Compared to ECG 08/01/2024 17:18:28 No significant changes Electronically Signed On 08-02-2024 23:22:52 HINGING MACHINE OPERATOR by NURIA MAC [id number]
--- NOTE | 2024-08-02 02:14 | W.ED.CHESTPA ---
HPI - Chest Pain General: Chief Complaint: Chest Pain Stated Complaint: CHEST PAIN Time Seen by Provider: 08/02/24 02:09 History of Present Illness: Presents to the ER by EMS for chest pain. Patient said they lost her phone today so his walked to the EMS station while he was having chest pain and he got worried so he started walking and walk to the EMS station by time he got there chest pain had resolved. He did take 1 nitro and 3 and 24 mg aspirin. He was seen earlier this morning for similar chest pain. Upon arrival to the ER patient is chest pain-free. Patient does see Dr. Sage. Related Data Home Medications Medication Instructions Recorded Confirmed aspirin 81 mg tablet,delayed 81 mg PO DAILY 03/10/22 08/01/24 release albuterol sulfate 90 mcg/actuation 90 mcg inhalation Q6H PRN SOB 07/12/24 08/01/24 aerosol inhaler (Ventolin HFA) Previous Rx's Medication Instructions Recorded atorvastatin 40 mg tablet 40 mg PO BEDTIME #30 tabs 03/21/24 desvenlafaxine succinate 50 mg 50 mg PO DAILY #30 tabs 03/21/24 tablet,extended release 24 hr (Pristiq) famotidine 20 mg tablet (Pepcid) 20 mg PO DAILY #30 tabs 03/21/24 ipratropium bromide 17 2 puff inhalation Q8H #12.9 grams 03/21/24 mcg/actuation HFA aerosol inhaler (Atrovent HFA) multivitamin (Multiple Vitamins 1 tab PO DAILY #30 tabs 03/21/24 tablet) lancets (Accu-Chek Softclix #100 ea 04/19/24 Lancets) continue glucose monitor #1 ea 06/07/24 metformin 500 mg tablet 500 mg PO DAILY #30 tabs 06/07/24 amlodipine 10 mg tablet 10 mg PO BEDTIME #30 tabs 07/23/24 chlorthalidone 25 mg tablet 25 mg PO DAILY #30 tabs 07/23/24 lisinopril 40 mg tablet 40 mg PO DAILY #30 tabs 07/23/24 nitroglycerin 0.3 mg sublingual 0.3 mg sublingual Q5M PRN chest 07/23/24 tablet pain #30 tabs Allergies Allergy/AdvReac Type Severity Reaction Status Date / Time trazodone Allergy Unknown Verified 08/02/24 02:10 Review of Systems General: Reports: 10 or more systems reviewed and unremarkable except in HPI and below PFSH ED PFSH: Medical History Prediabetes Encounter to establish care Chronic shortness of breath Osteoarthritis of left shoulder region Acute urticaria Allergic dermatitis Insomnia Subdural hematoma Hypertension History of alcohol dependence reported sobriety date of 02/01 TIA (transient ischemic attack) Hyperthyroidism Depression history of previous SI episodes Hyperlipidemia Lacunar stroke Surgical History History of javi hole surgery 09/12/2019 Dr. Papito Ridley: Twist drill (SEPS) drainage of left convexity subdural hematoma 09/13/2019 Removed History of surgery on right wrist History of ankle surgery left, for fracture Family History Mother Cancer Hypertension Father Hypertension Social History Smoking and tobacco/nicotine status: current some day tobacco/nicotine user Alcohol intake: former Year of sobriety/quit date alcohol: 02/01 Former alcohol use details: 09/23/2019 presented to [facility] emergency services. Diagnosis intoxication Substance/Drug Use: current Household members: spouse and children Marital status: Current occupational status: retired Physical Exam Const: COMMON NORMALS: no acute distress, average body habitus, patient oriented x3, no limitations, healthy appearing, alert and well nourished HENMT: COMMON NORMALS: normocephalic, atraumatic, hearing grossly normal bilaterally, external ears normal, Normal external nose present and moist oral mucous membranes HEAD & SCALP: normocephalic and atraumatic NOSE: Normal external nose present EXTERNAL EAR: Yes external ears normal Neck/C-Spine: COMMON NORMALS: no JVD Chest: COMMONS NORMALS: normal inspection of the chest and normal palpation of entire chest wall Resp: COMMON NORMALS: normal respiratory effort, No retractions, No use of accessory muscles and clear to auscultation bilaterally AUSCULTATION: clear to auscultation bilaterally Cardio: COMMON NORMALS: no JVD, regular rate, regular rhythm, S1 normal heart sound present, S2 normal heart sound present, No gallops present (Cardio), No clicks present (Cardio), No murmurs present (Cardio) and No rub (Cardio) RATE: regular rate RHYTHM: regular rhythm HEART SOUNDS: S1 normal heart sound present and S2 normal heart sound present GI: COMMON NORMALS: Normal to inspection, nondistended, normoactive bowel sounds present, Soft to palpation, non-tender, No hepatosplenomegaly present and no masses PALPATION: Yes Soft to palpation and Yes No hepatosplenomegaly present Neuro: COMMON NORMALS: patient oriented x3 SENSORIUM/ORIENTATION: Yes alert Course Vital Signs: Vital signs: Vital Signs Temperature 97.6 F 08/02/24 02:08 Pulse Rate 67 08/02/24 02:18 Respiratory Rate 15 08/02/24 02:18 Blood Pressure 131/69 08/02/24 02:18 Pulse Oximetry 96 08/02/24 02:18 Oxygen Delivery Me thod Room Air 08/02/24 02:18 MDM - Chest Pain Medical Decision Making Lab from earlier today and note from earlier today reviewed. Labs from today reviewed. EKG. Troponin stable no changes patient is chest pain-free. Patient be discharged home. Medical Records I reviewed the patient's medical records. Lab Data I reviewed the patient's lab results. 08/02/24 02:10 08/02/24 02:10 Laboratory Results WBC 10.30 10^3/uL (3.29-11.43) 08/02/24 02:10 RBC 4.02 10^6/uL (3.85-5.65) 08/02/24 02:10 Hgb 13.00 g/dL (11.27-16.99) 08/02/24 02:10 Hct 35.3 % (37-53) L 08/02/24 02:10 MCV 87.8 fl (82-101) 08/02/24 02:10 MCH 32.3 pg (27-33) 08/02/24 02:10 MCHC 36.8 g/dL (30-55) 08/02/24 02:10 RDW 11.8 % (12.1-15.1) L 08/02/24 02:10 Plt Count 234 10^3/cmm (157-399) 08/02/24 02:10 MPV 9.5 fL (7.4-10.4) 08/02/24 02:10 Neut % (Auto) 73.5 % 08/02/24 02:10 Lymph % (Auto) 15.8 % 08/02/24 02:10 Wheeler % (Auto) 6.2 % 08/02/24 02:10 Eos % (Auto) 3.6 % 08/02/24 02:10 Baso % (Auto) 0.5 % 08/02/24 02:10 Neut # (Auto) 7.57 10^3/uL (1.8-7.7) 08/02/24 02:10 Lymph # (Auto) 1.6 10^3/uL (0.8-4.8) 08/02/24 02:10 Wheeler # (Auto) 0.6 10^3/uL (0.2-0.9) 08/02/24 02:10 Eos # (Auto) 0.4 10^3/uL (0.0-0.8) 08/02/24 02:10 Baso # (Auto) 0.1 10^3/uL (0.0-0.1) 08/02/24 02:10 Nucleated RBC % (auto) 0 % 08/02/24 02:10 Nucleated RBCs # 0.0 /100WBC 08/02/24 02:10 Troponin T Baseline 14 ng/L (0-15) 08/02/24 02:10 All radiology interpretation(s) finalized by discharge Discharge Plan Discharge Patient Disposition: Home Clinical Impression: Chest pain Qualifiers: Chest pain type: unspecified Qualified Code(s): R07.9 - Chest pain, unspecified Condition: Stable Prescriptions: No Action atorvastatin 40 mg tablet 40 mg PO BEDTIME Qty: 30 4RF desvenlafaxine succinate [Pristiq] 50 mg tablet extended release 24 hr 50 mg PO DAILY Qty: 30 3RF famotidine [Pepcid] 20 mg tablet 20 mg PO DAILY Qty: 30 5RF Atrovent HFA 17 mcg/actuation HFA aerosol inhaler 2 puff inhalation Q8H Qty: 12.9 3RF multivitamin [Multiple Vitamins] Tablet 1 tab PO DAILY Qty: 30 3RF (DME) lancets [Accu-Chek Softclix Lancets] Misc See Rx Instructions .Route Qty: 100 2RF Rx Instructions: As directed metformin 500 mg tablet 500 mg PO DAILY Qty: 30 2RF (DME) continue glucose monitor See Rx Instructions .Route .MEDSUPPLY Qty: 1 0RF Rx Instructions: As directed lisinopril 40 mg tablet 40 mg PO DAILY Qty: 30 1RF chlorthalidone 25 mg tablet 25 mg PO DAILY Qty: 30 2RF amlodipine 10 mg tablet 10 mg PO BEDTIME Qty: 30 2RF nitroglycerin 0.3 mg tablet, sublingual 0.3 mg sublingual Q5M PRN (Reason: chest pain) Qty: 30 1RF Rx Instructions: do not exceed 3 doses per episode albuterol sulfate [Ventolin HFA] 90 mcg/actuation HFA aerosol inhaler 90 mcg INHALATION Q6H PRN (Reason: SOB) aspirin 81 mg Tablet,Delayed Release (Dr/Ec) 81 mg PO DAILY Discharge Orders: Discharge ED (Routine); Ordered 08/02/24 Ordered By: Javier Sanders Referrals: Pat Raza, LOT ASSOCIATE [Primary Care Provider] - 1 week Patient Instructions: Chest Pain (DC) Activity Restrictions/Additional Instructions: Thank you for choosing [facility] for your healthcare needs today. Please realize that you were seen in the emergency department and that we are providing you with an emergency medical screening exam and this may not be a complete and all exclusive of all testing and/or medical workup we may need to determine your element or severity of your illness. It is very important that you follow-up as instructed with your primary care provider or specialist for the additional evaluation and to discuss your medical treatment plan. You may return to the emergency department should you have concerns or if your condition changes or worsens in any way. Coding Level of Care Code ED Asset Availability Leader for Fatoumata Cintron
[2024-08-02 02:18] VITALS: BP 131/69; PULSE 67; RESP 15; O2SAT 96
[2024-08-02 02:19] LABS: Basophils # 0.1 10^3/uL (0.0-0.1); Basophils % 0.5 %; Eosinophils # 0.4 10^3/uL (0.0-0.8); Eosinophils % 3.6 %; Hematocrit 35.3 % (37-53); Lymphocytes # 1.6 10^3/uL (0.8-4.8); Lymphocytes % 15.8 %; Mean Corpuscular HGB Conc 36.8 g/dL (30-55); Mean Corpuscular Hemoglobin 32.3 pg (27-33); Mean Corpuscular Volume 87.8 fl (82-101); Mean Platelet Volume 9.5 fL (7.4-10.4); Monocytes # 0.6 10^3/uL (0.2-0.9); Monocytes % 6.2 %; Neutrophils # 7.57 10^3/uL (1.8-7.7); Neutrophils % 73.5 %; Nucleated Red Blood Cells % 0 %; Platelet Count 234 10^3/cmm (157-399); Red Blood Count 4.02 10^6/uL (3.85-5.65); Red Cell Distribution Width 11.8 % (12.1-15.1)
[2024-08-02 02:36] LABS: Troponin(5th) Baseline 14 ng/L (0-15)
[2024-08-02 02:39] LABS: Alanine Aminotransferase 25 U/L (0-41); Albumin Level 4.5 g/dL (3.5-5.2); Alkaline Phosphatase 81 U/L (40-130); Aspartate Amino Transferase 27 U/L (0-40); Blood Urea Nitrogen 34 mg/dL (8-23); Calcium 8.9 mg/dL (8.5-10.5); Carbon Dioxide 22 mmol/L (22-29); Chloride 96 mmol/L (98-107); Creatinine Clr Calc Pharmacy 84.0943; Globulin 2.8 g/dL (1.3-4.6); Glomerular Filtration Rate 96.7 mL/min (90-130); Glucose 120 mg/dL (65-115); Osmolality Calculated 285 mOsm/kg (285-295); Sodium 133 mmol/L (136-145); Total Bilirubin 0.6 mg/dL (0.15-1.2); Total Protein 7.3 g/dL (6.6-8.7)
[2024-08-02 03:05] VITALS: BP 127/57; PULSE 68; RESP 20; O2SAT 95
== END 2024-08-02 03:05 | disposition home or self-care (01) ==
PROVIDERS: Emergency Provider Emergency Medicine
DX: R07.9 Chest pain, unspecified (principal); Z79.84 Long term (current) use of oral hypoglycemic drugs; Z79.82 Long term (current) use of aspirin; Z72.0 Tobacco use; Z86.73 Personal history of transient ischemic attack (TIA), and cerebral infarction without residual deficits; E78.5 Hyperlipidemia, unspecified; I10 Essential (primary) hypertension
CPT/HCPCS: 80053; 84484; 85025; 93005; 99284

== ENCOUNTER → 2024-12-11 13:52 | Outpatient (BNVA) | payer MEDICARE, SELFPAY | DX: R73.03 Prediabetes (principal); E78.5 Hyperlipidemia, unspecified | CPT/HCPCS: 80053; 80061; 83036 ==

== ENCOUNTER 2025-01-13 08:59 | Emergency (ER) | payer MEDICARE, MEDICAID, SELFPAY ==
--- OUTSIDE RECORDS SUMMARY | 2025-01-13 09:05 | XMS_ITS | Clinical Summary ---
Author Organization [facility] Address [address] Vasquesn: Epic [place] [address] Care Team Providers Care Political Advisor Name Role Phone Unavailable Primary Care Provider Unavailabl e Encounters Date Type Department Care Team Description 12/25/2024 Telephone [facility] Care [facility] [address] [place] [address] Provider, Abstract Medical Records (Requested A1C lab results from external provider for continuity of care/insurance quality measures- need results uploaded and resulted in chart.) 10/30/2024 Telephone [facility] [address] [place] [address] Wesly Akbar MD Medical Records (Requested A1C lab results from external provider for continuity of care/insurance quality measures- need results uploaded and resulted in chart.) from Last 3 Months Social History Tobacco Use Types Packs/Day Years Used Date Smoking Tobacco: Never Assessed Sex and Gender Information Value Date Recorded Sex Assigned at Not on file Legal Sex Male 11:25 AM CDT Gender Identity Not on file Sexual Orientation Not on file Plan of Treatment Health Maintenance Due Date Last Done Comments DTAP/TDAP/TD VACCINES (1 - Tdap) 1976 COLORECTAL SCREENING 2002 Colorectal Cancer Screening 2002 FIT-DNA Q 3 years 2002 FIT/FOBT Q 1 year 2002 Flex Sig/CT Colonography Q 5 years 2002 PNEUMOCOCCAL VACCINE 50+ YEARS (1 of 1 - PCV) 11/09/19 08 ZOSTER VACCINE (1 of 2) 11/09/2007 INFLUENZA VACCINE (#1) 2024 RSV VACCINE (60+ or ) (1 - 1-dose 75+ series) 2032
[2025-01-13 09:08] VITALS: BP 112/68; PULSE 51; TEMP 36.6; O2SAT 97; BMI 28.3
--- NOTE | 2025-01-13 09:15 | W.ED.HA ---
HPI - Headache General: Chief Complaint: Headache Stated Complaint: Fell Fishing, Hit head, headache Time Seen by Provider: 01/13/25 09:01 Source: patient Mode of arrival: ambulatory Limitations: no limitations History of Present Illness: Patient is a 69-year-old male who presents to the ED with a worsening headache that started a week or so ago. He reports falling about a month and a half ago and hitting his head while fishing. No LOC. He has not had symptoms until a week ago when he developed a headache, blurry vision, and states he feels wobbly . He is still able to walk normally. Apparently told his PCP about it this morning stating this is how he felt last time he had a brain bleed and was told to get my butt to the ED . He reports no new falls, denies nausea vomiting, chest pain, shortness of breath, syncope, weakness in extremities, loss of consciousness, sensitivity to sound, slurred speech, altered mental status. Reports a small aneurysm that he has not gotten checked out in a couple of years. He took some Advil for the pain, which he states helped slightly. MD elicited complaint: headache Pertinent past history: recent trauma (1-1.5 mo ago) Onset (ago): week(s) Onset description: gradually Location: diffuse Severity: mild Quality & Timing: squeezing and pressure Exacerbating factors: light Relieving factors: NSAIDs and dark room Associated symptoms: Reports nausea and other (Unsteady gait); Deny chest pain, confusion, fever(s), lightheadedness, malaise, pre-syncope, rash, syncope or vomiting Treatments prior to arrival: other (Advil) Related Data Home Medications ?Medication ?Instructions ?Recorded ?Confirmed aspirin 81 mg tablet,delayed 81 mg PO DAILY 03/10/22 01/13/25 release albuterol sulfate 90 mcg/actuation 90 mcg inhalation Q6H PRN SOB 07/12/24 01/13/25 aerosol inhaler (Ventolin HFA) carvedilol 12.5 mg tablet 12.5 mg PO DAILY 01/13/25 01/13/25 Previous Rx's ?Medication ?Instructions ?Recorded desvenlafaxine succinate 50 mg 50 mg PO DAILY #30 tabs 03/21/24 tablet,extended release 24 hr (Pristiq) famotidine 20 mg tablet (Pepcid) 20 mg PO DAILY #30 tabs 03/21/24 multivitamin (Multiple Vitamins 1 tab PO DAILY #30 tabs 03/21/24 tablet) lancets (Accu-Chek Softclix #100 ea 04/19/24 Lancets) continue glucose monitor #1 ea 06/07/24 nitroglycerin 0.3 mg sublingual 0.3 mg sublingual Q5M PRN chest 07/23/24 tablet pain #30 tabs atorvastatin 40 mg tablet 40 mg PO BEDTIME #30 tabs 10/13/24 amlodipine 10 mg tablet 10 mg PO BEDTIME #30 tabs 12/11/24 chlorthalidone 25 mg tablet 25 mg PO DAILY #30 tabs 12/11/24 metformin 500 mg tablet 500 mg PO DAILY #30 tabs 12/11/24 temazepam 30 mg capsule (Restoril) 30 mg PO BEDTIME #30 caps 12/16/24 lisinopril 40 mg tablet 40 mg PO DAILY #90 tabs 12/27/24 Allergies Allergy/AdvReac Type Severity Reaction Status Date / Time trazodone Allergy Unknown Verified 01/13/25 09:45 Review of Systems Const: Denies: fever(s), chills, body aches, fatigue or malaise Eyes: Denies: change in vision, blurry vision, photophobia, floaters or seeing flashes Card: Denies: chest pain, palpitations, lightheadedness, syncope or pre-syncope Resp: Denies: dyspnea GI: Reports: nausea; Denies: abdominal pain, vomiting or diarrhea : Denies: flank pain or dysuria Musc: Denies: neck pain, back pain, extremity pain, extremity swelling, joint pain, joint swelling or joint redness Skin/Breast: Denies: rash Neuro: Reports: headache(s); Denies: numbness in extremities, weakness in extremities, sensory changes, lack of coordination, difficulty walking, frequent falls, dizziness, vertigo, confusion, behavioral changes, Slurred speech present, difficulty communicating thoughts or seizure-like activity PFS ED PFSH: Medical History Prediabetes Encounter to establish care Chronic shortness of breath Osteoarthritis of left shoulder region Acute urticaria Allergic dermatitis Insomnia Subdural hematoma Hypertension History of alcohol dependence reported sobriety date of 02/01 TIA (transient ischemic attack) Hyperthyroidism Depression history of previous SI episodes Hyperlipidemia Lacunar stroke Surgical History History of javi hole surgery 09/12/2019 Dr. Papito Ridley: Twist drill (SEPS) drainage of left convexity subdural hematoma 09/13/2019 Removed History of surgery on right wrist History of ankle surgery left, for fracture Family History Mother Cancer Hypertension Father Hypertension Social History Smoking and tobacco/nicotine status: former use of tobacco/nicotine Alcohol intake: former Year of sobriety/quit date alcohol: 02/01 Former alcohol use details: 09/23/2019 presented to [facility] emergency services. Diagnosis intoxication Substance/Drug Use: current Household members: spouse and children Marital status: Current occupational status: retired Physical Exam Const: COMMON NORMALS: no acute distress, patient oriented x3, no limitations, healthy appearing, alert and well nourished GENERAL APPEARANCE: cooperative ORIENTATION/CONSCIOUSNESS: Yes awake, Yes oriented to person, Yes oriented to place and Yes oriented to time HENMT: COMMON NORMALS: normocephalic and atraumatic HEAD & SCALP: normal to inspection, normocephalic and atraumatic FACE & SINUS: normal facial exam Eye: GENERAL EYE: appearance normal, both eyes and all related structures and normal light reflex DIRECT OPHTHALMOSCOPY: Yes normal light reflex Neck/C-Spine: COMMON NORMALS: full ROM, no lymphadenopathy, supple and no meningeal signs Chest: COMMONS NORMALS: normal inspection of the chest Resp: COMMON NORMALS: normal respiratory effort and clear to auscultation bilaterally AUSCULTATION: clear to auscultation bilaterally Cardio: COMMON NORMALS: regular rate and regular rhythm RATE: regular rate RHYTHM: regular rhythm GI: COMMON NORMALS: Normal to inspection, nondistended, normoactive bowel sounds present, Soft to palpation, non-tender, No hepatosplenomegaly present and no masses PALPATION: Yes Soft to palpation and Yes No hepatosplenomegaly present : COMMON NORMALS: Yes no CVA tenderness BLADDER/KIDNEY EXAM: Yes no CVA tenderness Back/Pelvis: COMMON NORMALS: no CVA tenderness and thoracic and lumbar spine normal to inspection Extremity: COMMON NORMALS: normal to inspection GENERAL: Yes normal exam except as noted Neuro: CHIQUI COMA SCALE: document GCS findings Chiqui coma scale eye opening: Spontaneous Olney coma scale verbal response: Orientated Chiqui coma scale motor response: Obey commands Olney coma scale total score: 15 COMMON NORMALS: patient oriented x3, CN's II-XII intact bilaterally, moves all extremities, no focal motor deficits, no sensory deficits noted and gait normal SENSORIUM/ORIENTATION: Yes alert, Yes oriented to person, Yes oriented to place and Yes oriented to time MENINGEAL SIGNS: Yes no meningeal signs Skin: COMMON NORMALS: no rashes or lesions noted GENERAL SKIN EXAM: no rashes or lesions noted Course Vital Signs: Vital signs: Vital Signs Temperature 97.9 F 01/13/25 09:08 Pulse Rate 57 L 01/13/25 11:02 Blood Pressure 109/57 01/13/25 11:02 Pulse Oximetry 95 01/13/25 11:02 Oxygen Delivery Me thod Room Air 01/13/25 09:08 MDM - Headache Medical Decision Making Patient was here for head CT to rule out intracranial hemorrhage. He has a normal neurologic exam. CT head is unremarkable. Will have him follow-up with primary care for further evaluation. Medical Records I reviewed the patient's medical records. Lab Data Radiology Impressions Head CT 01/13/25 09:28 IMPRESSION: No acute intracranial abnormality. All radiology interpretation(s) finalized by discharge Discharge Plan Discharge Patient Disposition: Home Clinical Impression: Headache Qualifiers: Headache type: unspecified Headache chronicity pattern: acute headache Intractability: not intractable Qualified Code(s): R51.9 - Headache, unspecified Condition: Stable Prescriptions: No Action desvenlafaxine succinate [Pristiq] 50 mg tablet extended release 24 hr 50 mg PO DAILY Qty: 30 3RF famotidine [Pepcid] 20 mg tablet 20 mg PO DAILY Qty: 30 5RF multivitamin [Multiple Vitamins] Tablet 1 tab PO DAILY Qty: 30 3RF (DME) lancets [Accu-Chek Softclix Lancets] Misc See Rx Instructions .Route Qty: 100 2RF Rx Instructions: As directed metformin 500 mg tablet 500 mg PO DAILY Qty: 30 2RF chlorthalidone 25 mg tablet 25 mg PO DAILY Qty: 30 2RF amlodipine 10 mg tablet 10 mg PO BEDTIME Qty: 30 2RF (DME) continue glucose monitor See Rx Instructions .Route .MEDSUPPLY Qty: 1 0RF Rx Instructions: As directed nitroglycerin 0.3 mg tablet, sublingual 0.3 mg sublingual Q5M PRN (Reason: chest pain) Qty: 30 1RF Rx Instructions: do not exceed 3 doses per episode atorvastatin 40 mg tablet 40 mg PO BEDTIME Qty: 30 4RF Restoril 30 mg capsule 30 mg PO BEDTIME Qty: 30 1RF lisinopril 40 mg tablet 40 mg PO DAILY Qty: 90 1RF albuterol sulfate [Ventolin HFA] 90 mcg/actuation HFA aerosol inhaler 90 mcg INHALATION Q6H PRN (Reason: SOB) aspirin 81 mg Tablet,Delayed Release (Dr/Ec) 81 mg PO DAILY carvedilol 12.5 mg tablet 12.5 mg PO DAILY Discharge Orders: Discharge ED (Routine); Ordered 01/13/25 Ordered By: Gabby Bell Referrals: Pat Raza, BUSINESS STRATEGY MANAGER [Primary Care Provider, Family Practice] Patient Instructions: Patient Portal & Junie Instructions Print Language: Romanian Coding Level of Care Code ED Stationary Equipment Mechanic for Fatoumata Cintron
--- NOTE | 2025-01-13 09:28 | CTR_ITS ---
PROCEDURE INFORMATION: Exam: CT Head Without Contrast Exam date and time: 01/13/2025 10:21 AM Age: 69 years old Clinical indication: Pain; Headache; Prior surgery; Surgery date: 6+ months; Surgery type: [place] hole due to brain bleed 4-5 years ago; Additional info: REYNOLDS; Injury 1 month ago TECHNIQUE: Imaging protocol: Computed tomography of the head without contrast. Radiation optimization: All CT scans at this facility use at least one of these dose optimization techniques: automated exposure control; mA and/or kV adjustment per patient size (includes targeted exams where dose is matched to clinical indication); or iterative reconstruction. COMPARISON: CT angio headneck* [id number] 01/14/2022 11:08 PM RADIATION DOSE METRICS: Total DLP (mGy-cm): 994.48 FINDINGS: Brain: No acute intracranial hemorrhage. No edema. No mass effect. There are small ill-defined hypodense areas in the bilateral frontal periventricular white matter suggestive of chronic small vessel ischemic changes. The sulci are dilated in keeping with mild predominantly peripheral brain atrophy. Cerebral ventricles: No ventriculomegaly. Paranasal sinuses: Visualized sinuses are unremarkable. No fluid levels. Mastoid air cells: No mastoid effusion. Bones: Unremarkable. No acute fracture. Soft tissues: Unremarkable. CT/CT head wo con* [id number] IMPRESSION: No acute intracranial abnormality.
[2025-01-13 11:02] VITALS: BP 109/57; PULSE 57; O2SAT 95
== END 2025-01-13 11:03 | disposition home or self-care (01) ==
PROVIDERS: Emergency Provider Physician Assistant
DX: R51.9 Headache, unspecified (principal); Z79.84 Long term (current) use of oral hypoglycemic drugs; Z79.82 Long term (current) use of aspirin; Z87.891 Personal history of nicotine dependence; E78.5 Hyperlipidemia, unspecified; I10 Essential (primary) hypertension; Z86.73 Personal history of transient ischemic attack (TIA), and cerebral infarction without residual deficits
CPT/HCPCS: 70450; 99284

== ENCOUNTER → 2025-02-06 08:43 | Outpatient (BNVA) | payer MEDICARE, MEDICAID, SELFPAY | DX: Z12.5 Encounter for screening for malignant neoplasm of prostate (principal); R73.03 Prediabetes | CPT/HCPCS: G0103 ==

== ENCOUNTER 2025-02-13 13:33 | Outpatient (CLI) | payer MEDICARE, MEDICAID, SELFPAY ==
--- NOTE | 2025-02-13 13:30 | CT_ITS ---
WS: [id number] LDCT LUNG CANCER SCREENING TECHNIQUE: Noncontrast CT of the chest with coronal and sagittal reformatted images. CLINICAL INFORMATION: Screening COMPARISON: None. DLP: 78.20 mGy.cm DIvol: Mean CTDIvol: 1.60 (mGy) All CT scans at [facility] use at least one of these dose optimization techniques: automated exposure control; mA and/or kV adjustment per patient size (includes targeted exams where dose is matched to clinical indication); or iterative reconstruction. FINDINGS: No suspicious pulmonary parenchymal normalities. Aortic calcification. Coronary calcification. No mediastinal or hilar lymphadenopathy. No axillary lymphadenopathy. Adrenal glands are normal. Small exophytic LEFT renal cyst. Moderate to large esophageal hiatal hernia. No noncontrast spleen and pancreas. Vascular calcification in the upper abdominal a aisha. Mild thoracic curve. CT/CT lung screening [id number] IMPRESSION: Moderate to large esophageal hiatal hernia similar to the prior CT abdomen pelvis 01/2023. LUNG-RADS: 1-Negative FOLLOW UP: 12 Month: Continue annual screening with LDCT
== END 2025-02-13 13:34 | disposition home or self-care (01) ==
LOC: RAD 13:35
DX: Z12.2 Encounter for screening for malignant neoplasm of respiratory organs (principal); F17.210 Nicotine dependence, cigarettes, uncomplicated; I70.0 Atherosclerosis of aorta; I25.10 Atherosclerotic heart disease of native coronary artery without angina pectoris; N28.1 Cyst of kidney, acquired; K44.9 Diaphragmatic hernia without obstruction or gangrene
CPT/HCPCS: 71271

== ENCOUNTER → 2025-02-18 09:35 | Outpatient (BNVA) | payer MEDICARE, MEDICAID, SELFPAY | PROVIDERS: Visit Provider Surgery | DX: Z12.11 Encounter for screening for malignant neoplasm of colon (principal) | CPT/HCPCS: 99024; 99204 ==

== ENCOUNTER 2025-04-14 11:36 | Day surgery (SDC) | payer MEDICARE, MEDICAID, SELFPAY | END 2025-04-14 12:00 | disposition home or self-care (01) | LOC: GILAB 04-21 06:54 | PROVIDERS: Visit Provider Surgery | DX: Z53.9 Procedure and treatment not carried out, unspecified reason (principal) ==

== ENCOUNTER → 2025-04-16 11:31 | Outpatient (BNVA) | payer MEDICARE, MEDICAID, SELFPAY | DX: I10 Essential (primary) hypertension (principal) | CPT/HCPCS: 80053; 84443; 85025 ==

== ENCOUNTER 2025-04-28 11:22 | Outpatient (CLI) | payer MEDICARE, MEDICAID, SELFPAY ==
--- NOTE | 2025-04-28 | ECG_ITS ---
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 Interpretive Statements EXERCISE stress test EXERCISE DATA: The patient was exercised by Raffy protocol. Baseline heart rate was 57 beats per minute. Baseline blood pressure was 106/55 millimeters of mercury. Maximal predicted heart rate was 153 beats per minute. Maximum heart rate achieved was 135, which was 88% of the maximum predicted heart rate. Maximum blood pressure now616/74 millimeters of mercury. Total exercise time was 3 minutes 27 seconds. Maximum METs achieved was 7.0. The reason for ending the test was completion of protocol. The patient complained of shortness of breath during the stress test, which then resolved at the end of the test. ELECTROCARDIOGRAM: BASELINE: Showed sinus bradycardia, no significant ST-T changes at the baseline noted. [] EXERCISE: Significant baseline artifact on EKG at exercise. Grossly no significant ST T changes however accurate assessment for ruling ischemia not possible because of exercise associated EKG artifact. RECOVERY: During the recovery period, heart rate dropped appropriately. No significant ST-T changes in the recovery suggestive of ischemia noted. [] CONCLUSION: 1. Exercise capacity is fair 2. Heart rate response was appropriate 3. Blood pressure response was appropriate 4. Symptoms not suggestive of ischemia. 5. No gross ST T wave changes on exercise but because of significant exercise related EKG artifact, can not rule out ischemia completely. Recommend alternate imaging based stress test if high probability of CAD. Electronically Signed On 05-03-2025 20:10:45 CDT by Golden Gilbert M.D. [email or web address]
[2025-04-28 11:27] VITALS: BMI 27.9
[2025-04-28 12:21] VITALS: BP 145/68; PULSE 86
== END 2025-04-28 11:23 | disposition home or self-care (01) ==
LOC: CDL 11:25
DX: R07.9 Chest pain, unspecified (principal); R93.1 Abnormal findings on diagnostic imaging of heart and coronary circulation
CPT/HCPCS: 93017